=== PATIENT | female | born 1935 | race Caucasian/White ===

== ENCOUNTER → 2016-08-23 | Outpatient (CLI) | payer MEDICARE, OTHER ==
--- NOTE | 2016-08-23 16:02 | RADIOLOGY REPORT (SQ) ---
EXAM DESCRIPTION: CT LUMBAR SPINE WITHOUT COMPLETED DATE/TIME: 08/23/2016 9:44 am REASON FOR STUDY: BACK PAIN M54.5 LOW BACK PAIN COMPARISON: None. TECHNIQUE: Axial images acquired through the lumbar spine without intravenous contrast. Images revi ewed with lung, soft tissue and bone windows. Reconstructed coronal and sagittal MPR images reviewed . All images stored on PACS. All CT scanners at this facility use dose modulation, iterative reconstruction, and/or weight based d osing when appropriate to reduce radiation dose to as low as reasonably achievable (ALARA). [facility]: Dose Right [facility]: CareDose [facility]: Dose Right [facility]: Teradose 4D [facility]: [employer] RADIATION DOSE: Up-to-date CT equipment and radiation dose reduction techniques were employed. CTDIv ol: 4.7 mGy. DLP: 134 mGy-cm. mGy. LIMITATIONS: None. FINDINGS: SEGMENTATION: Normal. No transitional anatomy. ALIGNMENT: Normal. VERTEBRAL BODIES: No fractures. No dislocation. Prominent Schmorl's nodes involving the superior en dplate of the L3 vertebral body. No acute findings. DISCS: Disc space narrowing with osteophytes throughout. Marked disc space narrowing with vacuum rai nge and endplate sclerosis at L4-L5. Diffuse posterior disc bulge and facet arthropathy resulting in spinal stenosis at L2-L3, L3-L4, and L4-L5. PEDICLES, TRANSVERSE PROCESSES: No fractures. No dislocation. No acute findings. FACETS, POSTERIOR ELEMENTS: No fractures. No dislocation. Multilevel facet arthropathy. HARDWARE: None in the spine. VISUALIZED RIBS: No fractures. SOFT TISSUES: No significant or acute finding in adjacent soft tissues. OTHER: No other significant finding. IMPRESSION: MULTILEVEL CHRONIC DEGENERATIVE CHANGES WITH STENOSIS DESCRIBED. DEGENERATIVE DISC D ISEASE MOST PRONOUNCED AT L4-L5. TECHNICAL DOCUMENTATION: JOB ID: [id number] Quality ID # [id number]: Final reports with documentation of one or more dose reduction techniques (e.g., Au tomated exposure control, adjustment of the mA and/or kV according to patient size, use of iterative reconstruction technique) 2010 [employer]- All Rights Reserved
== END ==
LOC: RAD 09:19
PROVIDERS: ATTEND Family Medicine
DX: M54.5 Low back pain (principal)
CPT/HCPCS: 72131

== ENCOUNTER 2017-01-26 09:26 | Inpatient (IN) | payer MEDICARE, OTHER ==
[2017-01-26] MEDS ORDERED: IPRATROPIUM/ALBUTEROL 0.5-2.5 MG/3 ML AMPUL NEB ONE (09:42)
--- NOTE | 2017-01-26 09:44 | ER Document Report ---
ED Medical Screen (RME) - General Chief Complaint: Shortness Of Breath Stated Complaint: BACK PAIN Time Seen by Provider: 01/26/17 09:41 Notes: The patient is a 81-year-old female, past medical history chronic bronchitis, prior pneumonias that required ICU stays, chronic back pain (followed by [facility]), A fib (on Eliquiis), presents with 1 week of increasing shortness of breath and dry cough. PE: Mildly labored breathing. End-expiratory wheezing. Bradycardia. I have greeted and performed a rapid initial assessment of this patient. A comprehensive ED assessment and evaluation of the patient, analysis of test results and completion of the medical decision making process will be conducted by additional ED providers. TRAVEL OUTSIDE OF THE [place] IN LAST 30 DAYS: No - Related Data Allergies/Adverse Reactions: Penicillins Allergy (Severe, Verified 01/26/17 09:31) Respiratory arrest doxycycline [Doxycycline] Allergy (Intermediate, Verified 01/26/17 09:31) Jona-Tristin's Syndrome valsartan [From Diovan] Allergy (Intermediate, Verified 01/26/17 09:31) Rash levofloxacin [From Levaquin] Allergy (Verified 01/26/17 09:31) METAL Allergy (Severe, Uncoded 07/23/15 11:42) RASH Past Medical History - Past Medical History Cardiac Medical History: Reports: Hx Congestive Heart Failure, Hx Hypercholesterolemia, Hx Hypertension Pulmonary Medical History: Reports: Hx Bronchitis, Hx COPD, Hx Pneumonia Endocrine Medical History: Reports: Hx Hypothyroidism GI Medical History: Reports: Hx Gastroesophageal Reflux Disease, Hx Hiatal Hernia. Denies: Hx Hepatitis Musculoskeltal Medical History: Reports Hx Arthritis Infectious Medical History: Denies: Hx Hepatitis Past Surgical History: Reports: Hx Appendectomy, Hx Cholecystectomy, Hx Hysterectomy, Hx Oral Surgery. Denies: Hx Mastectomy, Hx Open Heart Surgery, Hx Pacemaker - Immunizations Hx Diphtheria, Pertussis, Tetanus Vaccination: No Physical Exam - Vital signs Vitals: Temp Pulse Resp BP Pulse Ox 97.5 F 42 L 20 119/48 L 94 01/26/17 09:28 01/26/17 09:28 01/26/17 09:28 01/26/17 09:28 01/26/17 09:28 Course - Vital Signs Vital signs: Temp Pulse Resp BP Pulse Ox 97.5 F 42 L 20 119/48 L 94 01/26/17 09:28 01/26/17 09:28 01/26/17 09:28 01/26/17 09:28 01/26/17 09:28
[2017-01-26] MEDS ORDERED: GLUCAGON,HUMAN RECOMB 1 MG INJ SUBCUT ONE (10:30)
[2017-01-26 10:35] LABS: HEMATOCRIT 46.5 % (36.0-47.0); HGB HCT DIFFERENCE 1.5; MEAN CORPUSCULAR HEMOGLOBIN 34.4 pg (27.0-33.4); MEAN CORPUSCULAR HGB CONC 34.4 g/dL (32.0-36.0); MEAN CORPUSCULAR VOLUME 100 fl (80-97); RED BLOOD COUNT 4.65 10^6/uL (3.72-5.28); RED CELL DISTRIBUTION WIDTH 14.2 % (11.5-14.0); VENOUS BLOOD BASE EXCESS -0.3 mmol/L; VENOUS BLOOD HCO3 24.6 mmol/L (20-32); VENOUS BLOOD PCO2 41.1 mmHg (35-63); VENOUS BLOOD PH 7.4 (7.30-7.42); WHITE BLOOD COUNT 5.5 10^3/uL (4.0-10.5)
[2017-01-26 10:52] LABS: BAND NEUTROPHILS % (MANUAL) 2 % (3-5); BASOPHILS % (MANUAL) 0 % (0-2); EOSINOPHILS % (MANUAL) 1 % (0-6); LYMPHOCYTES % (MANUAL) 28 % (13-45); TOTAL CELLS COUNTED 100
[2017-01-26 10:53] LABS: ANISOCYTOSIS SLIGHT; OVALOCYTES 1+; POIKILOCYTOSIS 1+
[2017-01-26 10:55] LABS: ALANINE AMINOTRANSFERASE 29 U/L (9-52); ALBUMIN 4.3 g/dL (3.5-5.0); ALKALINE PHOSPHATASE 46 U/L (38-126); ANION GAP 13 (5-19); ASPARTATE AMINO TRANSFERASE 27 U/L (14-36); BILIRUBIN,DIRECT 0.3 mg/dL (0.0-0.4); BILIRUBIN,TOTAL 0.6 mg/dL (0.2-1.3); BLOOD UREA NITROGEN 21 mg/dL (7-20); CALCIUM 10.2 mg/dL (8.4-10.2); CARBON DIOXIDE 23 mmol/L (22-30); CHLORIDE 98 mmol/L (98-107); CREATININE RESULT 0.82 mg/dL (0.52-1.25); GLUCOSE 80 mg/dL (75-110); POTASSIUM 4.6 mmol/L (3.6-5.0); SODIUM 134.2 mmol/L (137-145); TOTAL PROTEIN 7.1 g/dL (6.3-8.2)
[2017-01-26 10:58] LABS: CREATINE KINASE < 20 U/L (30-135)
--- NOTE | 2017-01-26 11:06 | RADIOLOGY REPORT (SQ) ---
EXAM DESCRIPTION: CHEST SINGLE VIEW COMPLETED DATE/TIME: 01/26/2017 10:48 am REASON FOR STUDY: SOB COMPARISON: 10/08/2015 EXAM PARAMETERS: NUMBER OF VIEWS: One view. TECHNIQUE: Single frontal radiographic view of the chest acquired. RADIATION DOSE: NA LIMITATIONS: None. FINDINGS: LUNGS AND PLEURA: The lungs are hyperexpanded. There is no infiltrate or effusion. There is no mass. MEDIASTINUM AND HILAR STRUCTURES: No masses. Contour normal. HEART AND VASCULAR STRUCTURES: Heart normal in size. Normal vasculature. BONES: No acute findings. HARDWARE: None in the chest. OTHER: No other significant finding. IMPRESSION: CHRONIC LUNG CHANGES WITH NO ACUTE CARDIOPULMONARY DISEASE. TECHNICAL DOCUMENTATION: JOB ID: [id number] [employer]- All Rights Reserved
[2017-01-26 11:07] LABS: TROPONIN I 0.021 ng/mL
[2017-01-26] MEDS ORDERED: METHYLPREDNISOLONE INJ 125 MG/2 ML SDV IV ONE (12:14)
[2017-01-26 13:14] LABS: APPEARANCE,URINE CLOUDY; BILIRUBIN,URINE NEGATIVE (NEGATIVE); GLUCOSE, URINE NEGATIVE (NEGATIVE); KETONES,URINE NEGATIVE (NEGATIVE); LEUKOCYTE ESTERASE,URINE SMALL (NEGATIVE); NITRITE,URINE POSITIVE (NEGATIVE); PROTEIN,URINE NEGATIVE (NEGATIVE); URINE SPECIFIC GRAVITY 1.008; UROBILINOGEN,URINE NEGATIVE mg/dL (<2.0)
[2017-01-26] MEDS ORDERED: CEFTRIAXONE 1 GM/D5W RTU 1 GM/50 ML RTUPB IV ONE (13:30)
--- NOTE | 2017-01-26 15:26 | ER Document Report ---
ED Respiratory Problem - General Chief Complaint: Shortness Of Breath Stated Complaint: BACK PAIN Time Seen by Provider: 01/26/17 09:41 Mode of Arrival: Wheelchair Information source: Patient, Relative Notes: Patient is a 81-year-old female brought into emergency room by her daughter with complaint of increasing shortness of breath with productive cough for the past week. Patient states that she believes she has pneumonia. 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 She states that her productive cough is mostly clear and thick at this time with occasional yellowish-green. Patient continues to smoke a pack per day of cigarettes states that she is decreased her note from her norm. She has a history of COPD she has a history of chronic back pain she has a history of atrial fibrillation. Patient goes to [facility] where she is receiving epidurals for her back pain she received one approximately last week and had a bad reaction to it were her blood pressure went low and they have trouble controlling it. Patient is currently on Eliquis for her atrial fibrillation patient denies having any fever but the daughter states that patient is not eating real well or she is not drinking fluids real well either. TRAVEL OUTSIDE OF THE [place] IN LAST 30 DAYS: No - HPI Patient complains to provider of: COPD, Cough, Short of breath Onset: Last week Initiating Event: Exertion Quality of pain: Sharp, Throbbing Severity: Moderate Pain Level: 3 Context: Hx CHF, Hx COPD Chest pain/discomfort: Constant Cough: Productive Sputum amount: Moderate Sputum color: Clear, Creamy Sputum consistency: Thick At home treatment: Bronchodilators, Inhaled steroids, Singulair Associated symptoms: None, Congestion, Cough, Extertional dyspnea, PND, Short of breath, Wheezing. denies: Ankle/leg swelling, Allergy/hay fever, Anxiety, Bloody cough, Chest pain/discomfort, Chills, Dental decay, Difficulty breathing , Earache, Facial pain, Fever, Headache, Heart racing, Hoarseness, Hurts to breathe, Hyperventilation, Jaw pain, Leg/calf/joint pain, Muscle spasms, Orthopnea, Runny nose, Sinus pain/pressure, Sore Throat, Sweaty, Tingling face, Tingling hands, Unable to swallow, Toothache, Other Worsened by: Any exertion Similar symptoms previously: Yes Recently seen / treated by doctor: Yes - Related Data Allergies/Adverse Reactions: Penicillins Allergy (Severe, Verified 01/26/17 09:31) Respiratory arrest doxycycline [Doxycycline] Allergy (Intermediate, Verified 01/26/17 09:31) Jona-Tristin's Syndrome valsartan [From Diovan] Allergy (Intermediate, Verified 01/26/17 09:31) Rash levofloxacin [From Levaquin] Allergy (Verified 01/26/17 09:31) METAL Allergy (Severe, Uncoded 07/23/15 11:42) RASH Home Medications: Current Home Medications Apixaban [Eliquis 5 mg Tablet] 1 tab PO DAILY 01/26/17 [History] Cholecalciferol (Vitamin D3) [Vitamin D3 1000 Unit Tablet] 1 tab PO DAILY [History] Diltiazem HCl [Diltiazem ER] 1 cap PO DAILY 01/26/17 [History] Esomeprazole Magnesium [Nexium] 1 cap PO DAILY 01/26/17 [History] Fenofibrate Nanocrystallized [Tricor 145 mg Tablet] 1 tab PO DAILY 01/26/17 [ History] Gabapentin 1 tab PO TID 01/26/17 [History] Hydralazine HCl 1 tab PO TID 01/26/17 [History] Levothyroxine Sodium 1 tab PO DAILY 01/26/17 [History] Metoprolol Tartrate 1 tab PO DAILY 01/26/17 [History] Past Medical History - Social History Smoking Status: Current Every Day Smoker Cigarette use (# per day): Yes - 1 pack per day Chew tobacco use (# tins/day): Yes - 30 Smoking Education Provided: Yes Frequency of alcohol use: None Drug Abuse: None 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 Denies: Hx Hepatitis Musculoskeltal Medical History: Reports Hx Arthritis Infectious Medical History: Denies: Hx Hepatitis Past Surgical History: Reports: Hx Appendectomy, Hx Cholecystectomy, Hx Hysterectomy, Hx Oral Surgery. Denies: Hx Mastectomy, Hx Open Heart Surgery, Hx Pacemaker - Immunizations Hx Diphtheria, Pertussis, Tetanus Vaccination: No Review of Systems - Review of Systems Constitutional: Malaise, Weakness EENT: Nose congestion, Sinus discharge Cardiovascular: No symptoms reported Respiratory: See HPI, Cough, Short of breath, Sputum, Wheezing Gastrointestinal: No symptoms reported Genitourinary: No symptoms reported Female Genitourinary: No symptoms reported Musculoskeletal: Back pain Skin: No symptoms reported Hematologic/Lymphatic: No symptoms reported Neurological/Psychological: No symptoms reported -: Yes All other systems reviewed and negative Physical Exam - Vital signs Vitals: Temp Pulse Resp BP Pulse Ox 97.5 F 42 L 20 119/48 L 94 01/26/17 09:28 01/26/17 09:28 01/26/17 09:28 01/26/17 09:28 01/26/17 09:28 Interpretation: Hypotensive, Bradycardic - Notes Notes: Patient appears short of breath on physical examination. While talking patient looking at the monitor patient's heart rate was down to 35, 34, 35 she was expressing more shortness of breath at this time. She denied any chest pain whatsoever states she has not had any chest pain all week and has an unusual event for her if she does. - General General appearance: Anxious In distress: Moderate - HEENT Head: Normocephalic, Atraumatic Sinus: Frontal, Tenderness Nasal: Clear rhinorrhea Mucous membranes: Dry Pharynx: Post nasal drainage. No: Normal, Blood in hypopharynx, Erythema, Exudate, Peritonsillar abscess, Retropharyngeal abscess, Tonsillar hypertrophy, Uvular edema, Potential airway comprom., Other Neck: Normal - Respiratory Respiratory status: No respiratory distress Chest status: Nontender Breath sounds: Decreased air movement, Productive cough, Rhonchi, Wheezing Chest palpation: Normal - Cardiovascular Rhythm: Bradycardia - Neurological Neuro grossly intact: Yes Cognition: Normal Orientation: AAOx4 [place] Coma Scale Eye Opening: Spontaneous [place] Coma Scale Verbal: Oriented [place] Coma Scale Motor: Obeys Commands [place] Coma Scale Total: 15 Speech: Normal Course - Vital Signs Vital signs: Temp Pulse Resp BP Pulse Ox 98.3 F 38 L 19 147/62 H 94 01/26/17 12:01 01/26/17 10:05 01/26/17 15:01 01/26/17 15:01 01/26/17 15:01 - Laboratory Result Diagrams: 01/26/17 10:10 01/26/17 10:10 Laboratory results interpreted by me: 01/26/17 01/26/17 01/26/17 10:10 10:10 10:10 Hgb 16.0 H MCV 100 H MCH 34.4 H RDW 14.2 H Band Neutrophils % 2 L Sodium 134.2 L BUN 21 H Creatine Kinase < 20 L NT-Pro-B Natriuret Pep 2290 H Urine Nitrite Ur Leukocyte Esterase 01/26/17 12:45 Hgb MCV MCH RDW Band Neutrophils % Sodium BUN Creatine Kinase NT-Pro-B Natriuret Pep Urine Nitrite POSITIVE H Ur Leukocyte Esterase SMALL H - Transfer of Care Notes: 01/26/17 15:33 I discussed case with Dr. Orta and she felt we should give contact to patient 's primary provider Dr. Reyes. This is around [address] Reyes gave him the story with the bradycardia running at 35 gave glucagon up in the mid to high 40s currently running in the low 50s and he had looked at the EKG that we had done earlier and patient he felt was in a heart block. He requested that I repeat the EKG and the troponin and contact the saw filer dimension mill worker which is Dr. Sellers. I did do this and discussed the case with Dr. Sellers he is on his way into the ER we will see her in approximately 15 minutes from the time of contact. Patient has been informed and is aware of what is going on she is resting comfortably. 01/26/17 16:11 Dr. Sellers cardiology came down to emergency room and reviewed patient's 3 EKGs and old 1 1 done on arrival at 35 bpm and one done approximately an hour ago that was up to 57/min and normal sinus rhythm. He feels that this was probably a beta blockade and please patient is safe to stay here in the hospital and he is already talked to Dr. Reyes. He will follow patient on an inpatient basis with Dr. Reyes. I have contacted Dr. Reyes again he has confirmed that we are admitting patient here to the hospital in the ICU he will be placing orders relatively soon. Patient is currently stable she is happy with the outcome of Dr. Sellers being here to make a decision. Discharge - Discharge Clinical Impression: COPD with acute exacerbation, Symptomatic bradycardia, Dehydration, Weakness, Tobacco abuse, Urinary tract infection Condition: Fair Disposition: ADMITTED INPATIENT Admitting Provider: Matt Unit Admitted: IMCU Referrals: JAYNE REYES MD [Primary Care Provider] - Follow up as needed
[2017-01-26] MEDS ORDERED: ACETAMINOPHEN 325 MG TABLET PO PRN (16:03)
[2017-01-26] MEDS ORDERED: ONDANSETRON HCL INJ/PF 4 MG/2 ML SDV IV PRN (16:03)
[2017-01-26 17:17] LABS: CREATINE KINASE MB 0.96 ng/mL (<4.55); TROPONIN I 0.017 ng/mL
[2017-01-26] MEDS ORDERED: HYDRALAZINE HCL 10 MG TABLET PO SCH (18:00)
[2017-01-26] MEDS ORDERED: GABAPENTIN 100 MG CAPSULE PO SCH (18:00)
--- NOTE | 2017-01-26 18:19 | RADIOLOGY REPORT (SQ) ---
EXAM DESCRIPTION: CT CHEST WITHOUT COMPLETED DATE/TIME: 01/26/2017 5:48 pm REASON FOR STUDY: sob COMPARISON: Chest x-ray dated 01/26/2017. Chest CT dated 09/15/2015. TECHNIQUE: CT scan performed of the chest without intravenous contrast. Images reviewed with lung, soft tissue and bone windows. Reconstructed coronal and sagittal MPR images reviewed. All images st ored on PACS. All CT scanners at this facility use dose modulation, iterative reconstruction, and/or weight based d osing when appropriate to reduce radiation dose to as low as reasonably achievable (ALARA). [facility]: Dose Right [facility]: CareDose [facility]: Dose Right [facility]: Teradose 4D [facility]: [employer] RADIATION DOSE: Up-to-date CT equipment and radiation dose reduction techniques were employed. CTDIv ol: 6.8 mGy. DLP: 276 mGy-cm. mGy. LIMITATIONS: No technical limitations. FINDINGS: LUNGS AND PLEURA: Emphysematous changes. Mild interstitial scarring. Indistinct nodule i n the right lower lobe, measuring 1.2 x 1.7 cm, with probable mixed solid and ground-glass components . Series 4, image 35. This has increased in size since the prior CT. Lungs otherwise clear. No pl eural effusion. HILAR AND MEDIASTINAL STRUCTURES: No identified masses or abnormal nodes. No obvious aneurysm. HEART AND VASCULAR STRUCTURES: No aneurysm. No pericardial effusion. UPPER ABDOMEN: Stable fatty lesions in the adrenal glands. No other significant findings. Limited e xam. THYROID AND OTHER SOFT TISSUES: No masses. No adenopathy. BONES: No significant finding. HARDWARE: None in the chest. OTHER: No other significant findings. IMPRESSION: 1. COPD. INDISTINCT NODULE IN THE RIGHT LOWER LOBE DESCRIBED. THIS IS SOMEWHAT CONCERNING FOR MA LIGNANT PROCESS ALTHOUGH INFECTION NOT ENTIRELY EXCLUDED. IF THERE IS SUSPICION OF INFECTION, RECOMM END REPEAT CT SCAN FOLLOWING TREATMENT TO DETERMINE IF THERE IS IMPROVEMENT. OTHERWISE WOULD CONSIDE R PET SCAN. NO OTHER ACUTE FINDINGS. 2. STABLE FATTY LESIONS IN THE ADRENAL GLANDS, WITH LITTLE CHANGE SINCE PRIOR STUDY IN AUGUST 2007. [place] [facility] ADENOMAS. TECHNICAL DOCUMENTATION: JOB ID: [id number] Quality ID # [id number]: Final reports with documentation of one or more dose reduction techniques (e.g., Au tomated exposure control, adjustment of the mA and/or kV according to patient size, use of iterative reconstruction technique) 2010 [employer]- All Rights Reserved
[2017-01-26] MEDS: LANSOPRAZOLE 15 MG TAB.RAP.DR PO SCH (19:03)
[2017-01-26] MEDS: DOCUSATE SODIUM 100 MG CAPSULE PO SCH (19:15)
[2017-01-26] MEDS ORDERED: LORAZEPAM INJ 2 MG/1 ML VIAL IV ONE (19:17)
--- NOTE | 2017-01-26 20:26 | PDOC CONSULTATION ---
Consultation Consult Date: 01/26/17 Attending physician:: JAYNE REYES Consult reason:: Shortness of breath and severe bradycardia History of Present Illness Admission Date/PCP: 01/26/17 16:15 JAYNE REYES MD Patient complains of: Shortness of breath and marked weakness History of Present Illness: FREDI WHALEN is a 81 year old female This is a 81-year-old female with a significant history of the COPD and a history of the congestive heart failure and chronic A. fib and hypertension's and a chronic smokerCame to the emergency department with a complaint of shortness of the breath and increasing more cough and congestion'sSince last several days Patients in the emergency departments with a heart rate was 35 and patient was asymptomatic except the shortness of the breathAnd patient was given 1 g of glucagon and patient's heart rates go up to 55-60And patient seen by the cardiology in the ER and look at the EKG and the patient and suggest to keep the patient here in the hospital and no need for any further pacemaker evaluations Patient's significant positive for UTI and COPD and patient was given IV Rocephin in the ER Patient's denied any chest pain denied any nausea no vomiting Patient's still continues to smoke Patient also see a vascular surgeon in [place] for the abdominal aortic aneurysm Patient also significant peripheral vascular disease Patient at this point also given IV Solu-Medrol in the ER and admitting in the IMCU for further evaluations for the COPD and bradycardia Patient recently have a blood pressure issue and increase the metoprolol and patient also on a Cardizem which may contribute patient's bradycardia currently hold the metoprolol. Patient was seen and examined in the emergency room. When patient was seen in the emergency room, she was sitting with legs dangling from the exam bed. She looked comfortable. Her heart rate was noted to be in the low 50s range. Patient was comfortable without any shortness of breath or dizziness. I did notice briefly patient go into atrial flutter fibrillation with heart rate jumping to in the 90s. But patient was also asymptomatic. I was asked to evaluate patient because of bradycardia on presentation. Patient claims that more recently because of high blood pressure, multiple medications were added including beta-blockers. Patient does have history of severe COPD. Past Medical History Cardiac Medical History: Reports: Atrial Fibrillation, Congestive Heart Failure , Hyperlipidema, Hypertension Pulmonary Medical History: Reports: Bronchitis, Chronic Obstructive Pulmonary Disease (COPD), Pneumonia Endocrine Medical History: Reports: Hypothyroidism GI Medical History: Reports: Gastroesophageal Reflux Disease, Hiatal Hernia Denies: Hepatitis Musculoskeltal Medical History: Reports: Arthritis Hematology: Denies: Anemia, Sickle Cell Disease Past Surgical History Past Surgical History: Reports: Appendectomy, Cholecystectomy, Hysterectomy Denies: Amputation, Mastectomy, Pacemaker Social History Information Source: Patient Lives with: Family Smoking Status: Current Every Day Smoker Frequency of Alcohol Use: Occasional Hx Recreational Drug Use: No Drugs: None Hx Prescription Drug Abuse: No - Advance Directive Resuscitation Status: Full Code Surrogate healthcare decision maker:: Patient's daughter Family History Family History: Arthritis, CAD, CVA, Hypertension, Malignancy Parental Family History Reviewed: Yes Children Family History Reviewed: Yes Sibling(s) Family History Reviewed.: Yes Medication/Allergy Home Medications: Apixaban [Eliquis 5 mg Tablet] 5 mg PO DAILY 01/26/17 Diltiazem HCl [Diltiazem ER] 120 mg PO DAILY 01/26/17 Ergocalciferol (Vitamin D2) [Vitamin D2] 50,000 unit PO MEADOWS@1000 01/26/17 Fenofibrate Nanocrystallized [Tricor 145 mg Tablet] 1 tab PO QHS 01/26/17 Fluticasone/Salmeterol [Advair 250-50 Diskus 14 Dose/Diskus] 1 puff IH Q12 01/26 Gabapentin 100 mg PO Q8 01/26/17 Hydralazine HCl 10 mg PO Q8 01/26/17 Levothyroxine Sodium 88 mcg PO Q6AM 01/26/17 Metoprolol Tartrate 1 tab PO DAILY 01/26/17 Montelukast Sodium [Singulair 10 mg Tablet] 10 mg PO DAILY 01/26/17 Omeprazole 40 mg PO DAILY 01/26/17 Tiotropium [place] [Spiriva Handihaler 5 Cap/Kit (18 Mcg/Cap)] 1 puff IH DAILY 01/26/17 Allergies/Adverse Reactions: Penicillins Allergy (Severe, Verified 01/26/17 09:31) Respiratory arrest doxycycline [Doxycycline] Allergy (Intermediate, Verified 01/26/17 09:31) Jona-Tristin's Syndrome valsartan [From Diovan] Allergy (Intermediate, Verified 01/26/17 09:31) Rash levofloxacin [From Levaquin] Allergy (Verified 01/26/17 09:31) METAL Allergy (Severe, Uncoded 07/23/15 11:42) RASH Review of Systems Review of Systems: Please see history of present illness and past medical history as wall. Constitutional: No fever or chills reported. Patient claims marked generalized weakness this morning. Head : No recent chronic headaches, recent head injury. Eyes: No recent eye pain, diplopia, redness, discharge, acute visual changes. Ears: No recent chronic ear pain, acute hearing loss, ear discharge. Oral cavity: No recent ulcerations, bleeding, oral cavity discomfort. Neck: No recent acute neck pain reported. Hematologic: No recent easy bruising or bleeding or hematologic malignancy reported. Lymphatic: No recent lymphatic malignancy, chronic lymphadenopathy reported yet Cardiovascular system review: See history of present illness. Respiratory system review: Describes cough and congestion but no history of hemoptysis, blood clots in the lungs reported. Mild Shortness of breath on exertion Gastrointestinal system review: Negative for any recent acute or chronic abdominal pain, hematemesis, melena, recent change in bowel habits. Genitourinary system review: No recent acute or chronic hematuria, flank pain, UTI etc. reported. Skin system review: Negative for any recent abnormal bruising, no rash, no pruritus reported. Neurologic: No prior history of strokes, mini strokes, seizure disorder. Psychologic: No history of major psychosis or major depression reported. Musculoskeletal: Minor aches and pains reported. No acute joint swelling reported. Endocrine: No recent polyuria, polydipsia, recent heat or cold intolerance. Physical Exam Vital Signs: Temp Pulse Resp BP Pulse Ox 97.5 F 38 L 16 135/75 H 94 01/26/17 16:01 01/26/17 10:05 01/26/17 19:01 01/26/17 19:01 01/26/17 19:01 Intake & Output 01/25/17 01/26/17 01/27/17 06:59 06:59 06:59 Intake Total 100 Balance 100 Exam: GENERAL: well-nourished and in no acute distress. Alert and oriented x3 HEAD: Atraumatic, normocephalic. EYES: Pupils equal round and reactive to light, extraocular movements intact, sclera anicteric, conjunctiva are normal. ENT: TMs normal, nares patent, oropharynx clear without exudates. Moist mucous membranes. No oral ulcerations or bleeding gums noted NECK: supple without lymphadenopathy. Trachea is central. No cervical or axillary lymphadenopathy noted. Carotids are 2+, JVD WNL LUNGS: Respiration seems nonlabored, no significant accessory muscle action noted. Breath sounds bilateral wheezes rales or rhonchi noted. No significant dullness noted on percussion. CHEST: Palpation of the chest wall shows no significant chest wall tenderness. No other significant abnormalities noted. HEART: [place] [employer], No PSH, 1/6 CRISTO aortic area, 1/6 schaeffer systolic murmur mitral area, no rubs, no gallops. ABDOMEN: Soft, no significant tenderness appreciated, normoactive bowel sounds. No guarding, no rebound. No rigidity noted . No masses appreciated. EXTREMITIES: Pedal pulses are 1-2+, no calf tenderness noted. No clubbing or cyanosis.trace pedal edema noted NEUROLOGICAL: Focused neurological exam showed no significant neurologic deficit. Normal speech, no focal weakness appreciated. PSYCH: Normal mood, normal affect. Judgment and insight within normal limits. SKIN: No significant ecchymosis, rash, ulcerations or signs of pruritus noted. MUSCULOSKELETAL EXAM: No significant joint swelling noted. Results Laboratory Results: 01/26/17 16:34 TSH 1.60 01/26/17 01/26/17 16:34 16:34 Creatine Kinase < 20 L CK-MB (CK-2) 0.96 Troponin I 0.017 NT-Pro-B Natriuret Pep 2090 H EKG Comments: Twelve-lead EKG is reviewed. It showed sinus bradycardia but no acute ST-T wave changes noted. Impressions: Chest CT 01/26/17 00:00 IMPRESSION: 1. COPD. INDISTINCT NODULE IN THE RIGHT LOWER LOBE DESCRIBED. THIS IS SOMEWHAT CONCERNING FOR MALIGNANT PROCESS ALTHOUGH INFECTION NOT ENTIRELY EXCLUDED. IF THERE IS SUSPICION OF INFECTION, RECOMMEND REPEAT CT SCAN FOLLOWING TREATMENT TO DETERMINE IF THERE IS IMPROVEMENT. OTHERWISE WOULD CONSIDER PET SCAN. NO OTHER ACUTE FINDINGS. 2. STABLE FATTY LESIONS IN THE ADRENAL GLANDS, WITH LITTLE CHANGE SINCE PRIOR STUDY IN AUGUST 2007. MOST LIKELY ADENOMAS. Chest X-Ray 01/26/17 09:41 IMPRESSION: CHRONIC LUNG CHANGES WITH NO ACUTE CARDIOPULMONARY DISEASE. Assessment & Plan - Diagnosis (1) COPD with acute exacerbation Is this a current diagnosis for this admission?: Yes (2) Congestive heart failure Qualifiers: Congestive heart failure type: diastolic Is this a current diagnosis for this admission?: Yes (3) Symptomatic bradycardia Is this a current diagnosis for this admission?: Yes (6) Atrial fibrillation Qualifiers: Atrial fibrillation type: paroxysmal Qualified Code(s): I48.0 - Paroxysmal atrial fibrillation Is this a current diagnosis for this admission?: Yes (8) Coronary artery disease Qualifiers: Coronary Disease-Associated Artery/Lesion type: [place] artery Associated angina: angina presence unspecified Is this a current diagnosis for this admission?: Yes (9) Abdominal aortic aneurysm Qualifiers: Presence of rupture: without rupture Qualified Code(s): I71.4 - Abdominal aortic aneurysm, without rupture Is this a current diagnosis for this admission?: Yes (10) PVD (peripheral vascular disease) Is this a current diagnosis for this admission?: Yes - Notes Notes: Severe bradycardia: Most likely due to combination of calcium channel mary and beta-mary use. Patient did response to glucagon confirms excess beta- mary use. At this point will recommend to hold Toprol-XL but beta-mary but reinstitute Cardizem therapy. Will obtain a 2D echo. If LV and RV functions are fine then Rythmol can be used. Severe COPD with exacerbation: CT scan review shows significance emphysematous changes. Patient has been advised to quit smoking. Tobacco abuse: Patient has been stopped advised to quit smoking. Generalized weakness: Most likely related to bradycardia and possible some ongoing infection. History of atrial tachyarrhythmia: Patient has history of atrial fibrillation and also multifocal atrial tachycardia. Multifocal atrial tachycardia will be pretty common in patients with severe COPD. Coronary artery disease: Patient noted to have significant coronary calcification. Cardiac enzymes so far negative. Abdominal aortic aneurysm: Recommend good control of blood pressure. May consider JOHN inhibitor and statin therapy. Peripheral vascular disease: Patient will benefit from stopping smoking. Currently no signs of active tissue ischemia. - Time Time Spent: 30 to 50 Minutes - CODE STATUS was discussed, patient remains full code. Surrogate decision-maker patient's daughter. Multiple medical problems were addressed. More than 50% of the time spent coordinating care, discussing management plans with involved caregivers. Management plans discussed with involved personnels. Medical decision making was of moderate to high complexity , patient's has multiple comorbidities. Medications reviewed and adjusted accordingly: Yes
[2017-01-26] MEDS: IPRATROPIUM/ALBUTEROL 0.5-2.5 MG/3 ML AMPUL NEB SCH (20:40)
[2017-01-26] MEDS: HYDRALAZINE HCL 10 MG TABLET PO SCH (21:54)
[2017-01-26] MEDS: ATORVASTATIN CALCIUM 10 MG TABLET PO SCH (21:54)
[2017-01-26] MEDS: GABAPENTIN 100 MG CAPSULE PO SCH (21:55)
[2017-01-26] MEDS: METHYLPREDNISOLONE INJ 40 MG/1 ML SDV IV SCH (21:55)
[2017-01-26] MEDS: CEFEPIME 1 GM/D5W RTU 1 GM/50 ML RTUPB IV SCH (22:28)
[2017-01-26] MEDS: APIXABAN 5 MG TABLET PO SCH (22:34)
[2017-01-26 23:05] LABS: CREATINE KINASE MB 1.02 ng/mL (<4.55); TROPONIN I 0.016 ng/mL
[2017-01-26] MEDS ORDERED: NICOTINE 14 MG/24 HR PATCH.TD24 TD ONE (23:15)
[2017-01-27 05:15] LABS: ABSOLUTE LYMPHOCYTES (AUTO) 0.7 10^3/uL (0.5-4.7); ABSOLUTE MONOCYTES (AUTO) 0.1 10^3/uL (0.1-1.4); BASOPHILS % (AUTO) 0.3 % (0-2); HEMATOCRIT 44.3 % (36.0-47.0); HEMOGLOBIN 15.3 g/dL (12.0-15.5); HGB HCT DIFFERENCE 1.6; LYMPHOCYTES % (AUTO) 18.9 % (13-45); MEAN CORPUSCULAR HEMOGLOBIN 34.8 pg (27.0-33.4); MEAN CORPUSCULAR HGB CONC 34.6 g/dL (32.0-36.0); MEAN CORPUSCULAR VOLUME 101 fl (80-97); MONOCYTES % (AUTO) 1.3 % (3-13); RED CELL DISTRIBUTION WIDTH 14.2 % (11.5-14.0); SEGMENTED NEUTROPHILS % (AUTO) 79.5 % (42-78); WHITE BLOOD COUNT 3.7 10^3/uL (4.0-10.5)
[2017-01-27] MEDS: GABAPENTIN 100 MG CAPSULE PO SCH ×3 (05:15→21:36)
[2017-01-27] MEDS: LANSOPRAZOLE 15 MG TAB.RAP.DR PO SCH ×2 (05:15→17:53)
[2017-01-27] MEDS: HYDRALAZINE HCL 10 MG TABLET PO SCH ×3 (05:15→21:36)
[2017-01-27] MEDS: METHYLPREDNISOLONE INJ 40 MG/1 ML SDV IV SCH (05:16)
[2017-01-27 05:42] LABS: ANION GAP 11 (5-19); BLOOD UREA NITROGEN 27 mg/dL (7-20); CALCIUM 9.3 mg/dL (8.4-10.2); CARBON DIOXIDE 21 mmol/L (22-30); CHLORIDE 100 mmol/L (98-107); CREATININE RESULT 0.69 mg/dL (0.52-1.25); GLUCOSE 121 mg/dL (75-110); MAGNESIUM 1.9 mg/dL (1.6-2.3); POTASSIUM 4.6 mmol/L (3.6-5.0); SODIUM 131.6 mmol/L (137-145)
[2017-01-27 05:47] LABS: CREATINE KINASE < 20 U/L (30-135); CREATINE KINASE MB 0.78 ng/mL (<4.55); TROPONIN I 0.017 ng/mL
[2017-01-27] MEDS: IPRATROPIUM/ALBUTEROL 0.5-2.5 MG/3 ML AMPUL NEB SCH ×3 (07:55→20:32)
--- NOTE | 2017-01-27 09:24 | EKG REPORT ---
SEVERITY:- ABNORMAL ECG - SINUS RHYTHM NONSPECIFIC T ABNORMALITIES, ANT-LAT LEADS : Confirmed by: Fei Sellers 27-Jan-2017 09:22:51
--- NOTE | 2017-01-27 09:24 | EKG REPORT ---
SEVERITY:- ABNORMAL ECG - SINUS RHYTHM NONSPECIFIC T ABNORMALITIES, ANT-LAT LEADS : Confirmed by: Fei Sellers 27-Jan-2017 09:22:56
--- NOTE | 2017-01-27 09:24 | EKG REPORT ---
SEVERITY:- ABNORMAL ECG - SINUS BRADYCARDIA NONSPECIFIC INTRAVENTRICULAR CONDUCTION DELAY MINIMAL ST DEPRESSION, ANTEROLATERAL LEADS : Confirmed by: Fei Sellers 27-Jan-2017 09:23:35
--- NOTE | 2017-01-27 09:53 | XCELERA REPORT ---
[address] [address] Transthoracic Echocardiogram Report Name: FREDI WHALEN Age: 81 yrs Gender: Female : 1935 Patient Status: Inpatient Patient Location: [address] [place] [address] Study Date: 01/27/2017 08:53 AM Height: 69 in Weight: 110 lb BSA: 1.6 m2 Procedure: A complete two-dimensional transthoracic echocardiogram was performed (2D, M-mode, spectral and color flow Doppler). The study was technically difficult with many images being suboptimal in quality. Reason For Study: CHF, MR Ordering Physician: FEI GALEANA Performed By: Katia Gallardo Interpretation Summary The study was technically difficult with many images being suboptimal in quality. The left ventricular ejection fraction is normal. There is borderline concentric left ventricular hypertrophy. The left ventricle is grossly normal size. Doppler measurements suggest pseudonormalized left ventricular relaxation, which is associated with grade II/IV or mild to moderate diastolic dysfunction Wall motion cannot be accurately commented on, but no definite regional wall motion abnormalities noted. The right ventricle is mildly dilated. The right ventricular systolic function is normal. The right atrium is mildly dilated. The left atrial size is normal. There is a trace to mild amount of mitral regurgitation There is no mitral valve stenosis. There is a trace to mild amount of aortic regurgitation There is no aortic valve stenosis There is a trace to mild amount of tricuspid regurgitation There is mild pulmonary hypertension by echo Right ventricular systolic pressure is estimated to be elevated at 30- 40mmHg. The aortic root is not well visualized. The inferior vena cava appeared normal and decreased > 50% with respiration (RAP 5-10 mmHg) There is no pericardial effusion. MMode/2D Measurements & Calculations RVDd: 2.4 cm LVIDd: 4.5 cm FS: 24.0 % Ao root diam: 3.5 cm IVSd: 1.1 cm LVIDs: 3.4 cm EDV(Teich): 93.9 ml LVPWd: 1.1 cm ESV(Teich): 48.9 ml Ao root area: 9.4 cm2 EF(Teich): 47.9 % LA dimension: 3.0 cm LVOT diam: 2.1 cm LVOT area: 3.4 cm2 Doppler Measurements & Calculations MV E max lidia: MV P1/2t max lidia: Ao V2 max: LV V1 max P.3 cm/sec 92.8 cm/sec 147.4 cm/sec 5.6 mmHg MV A max lidia: MV P1/2t: 56.8 msec Ao max PG: LV V1 max: 91.3 cm/sec MVA(P1/2t): 3.9 cm2 8.7 mmHg 118.5 cm/sec MV E/A: 1.0 MV dec slope: JYOTHI(V,D): 2.7 cm2 478.1 cm/sec2 PA V2 max: TR max lidia: 64.2 cm/sec 272.6 cm/sec PA max PG: TR max P.7 mmHg 1.6 mmHg Left Ventricle The left ventricle is grossly normal size. There is borderline concentric left ventricular hypertrophy. The left ventricular ejection fraction is normal. Doppler measurements suggest pseudonormalized left ventricular relaxation, which is associated with grade II/IV or mild to moderate diastolic dysfunction. Wall motion cannot be accurately commented on, but no definite regional wall motion abnormalities noted. Right Ventricle The right ventricle is mildly dilated. There is normal right ventricular wall thickness. The right ventricular systolic function is normal. Atria The right atrium is mildly dilated. The left atrial size is normal. Interarterial septum not well visualized and not well dopplered. Cannot comment on ASD/PFO presence. Mitral Valve The mitral valve is grossly normal. There is no mitral valve stenosis. There is a trace to mild amount of mitral regurgitation. Aortic Valve The aortic valve is grossly normal. There is no aortic valve stenosis. There is a trace to mild amount of aortic regurgitation. Tricuspid Valve The tricuspid valve is not well visualized secondary to technical limitations. There is no tricuspid stenosis. There is a trace to mild amount of tricuspid regurgitation. There is mild pulmonary hypertension by echo. Right ventricular systolic pressure is estimated to be elevated at 30-40mmHg. Pulmonic Valve The pulmonic valve is not well visualized. Great Vessels The aortic root is not well visualized. The inferior vena cava appeared normal and decreased > 50% with respiration (RAP 5-10 mmHg). Effusions There is no pericardial effusion. : FEI GALEANA > Fei Galeana
--- NOTE | 2017-01-27 09:59 | PDOC PROGRESS REPORT ---
Subjective Progress Note for:: 01/27/17 Subjective:: Patient is currently doing well An echocardiogram was done yesterday with some mild diastolic dysfunctions but otherwise all stable Heart rate is pretty much all currently stable Patient's denied any chest pain denied any shortness of the breath patient's desires to want to go homes CT scan of the chest was done with so some pulmonary nodules Physical Exam Vital Signs: Temp Pulse Resp BP Pulse Ox 98.0 F 59 L 18 160/79 H 96 01/27/17 07:49 01/27/17 07:56 01/27/17 07:56 01/27/17 07:49 01/27/17 07:56 Intake & Output 01/26/17 01/27/17 01/28/17 06:59 06:59 06:59 Intake Total 150 Balance 150 Weight 50.5 kg General appearance: PRESENT: no acute distress, well-developed, well-nourished Head exam: PRESENT: atraumatic, normocephalic Eye exam: PRESENT: conjunctiva pink, EOMI, PERRLA. ABSENT: scleral icterus Ear exam: PRESENT: normal external ear exam Mouth exam: PRESENT: moist, tongue midline Neck exam: PRESENT: full ROM. ABSENT: carotid bruit, JVD, lymphadenopathy, thyromegaly Respiratory exam: PRESENT: clear to auscultation eliel Cardiovascular exam: PRESENT: RRR. ABSENT: diastolic murmur, rubs, systolic murmur Pulses: PRESENT: normal dorsalis pedis pul, +2 pedal pulses bilateral Vascular exam: PRESENT: normal capillary refill GI/Abdominal exam: PRESENT: normal bowel sounds, soft. ABSENT: distended, guarding, mass, organolmegaly, rebound, tenderness Rectal exam: PRESENT: deferred Extremities exam: ABSENT: full ROM, left AKA, right AKA, left BKA, right BKA, calf tenderness, joint swelling, pedal edema, tenderness, other Musculoskeletal exam: PRESENT: ambulatory Neurological exam: PRESENT: alert, awake, oriented to person, oriented to place , oriented to time, oriented to situation, CN II-XII grossly intact. ABSENT: motor sensory deficit Psychiatric exam: PRESENT: appropriate affect, normal mood. ABSENT: homicidal ideation, suicidal ideation Skin exam: PRESENT: dry, intact, warm. ABSENT: cyanosis, rash Results Laboratory Results: 01/27/17 04:12 01/27/17 04:12 01/26/17 01/26/17 01/27/17 16:34 22:15 04:12 WBC RBC Hgb Hct MCV MCH MCHC RDW Plt Count Seg Neutrophils % Lymphocytes % Monocytes % Eosinophils % Basophils % Absolute Neutrophils Absolute Lymphocytes Absolute Monocytes Absolute Eosinophils Absolute Basophils Sodium 131.6 L Potassium 4.6 Chloride 100 Carbon Dioxide 21 L Anion Gap 11 BUN 27 H Creatinine 0.69 Est GFR ( Amer) > 60 Est GFR (Non-Af Amer) > 60 Glucose 121 H Calcium 9.3 Magnesium 1.9 1.9 TSH 1.60 01/27/17 04:12 WBC 3.7 L RBC 4.40 Hgb 15.3 Hct 44.3 MCV 101 H MCH 34.8 H MCHC 34.6 RDW 14.2 H Plt Count 222 Seg Neutrophils % 79.5 H Lymphocytes % 18.9 Monocytes % 1.3 L Eosinophils % 0.0 Basophils % 0.3 Absolute Neutrophils 3.0 Absolute Lymphocytes 0.7 Absolute Monocytes 0.1 Absolute Eosinophils 0.0 Absolute Basophils 0.0 Sodium Potassium Chloride Carbon Dioxide Anion Gap BUN Creatinine Est GFR ( Amer) Est GFR (Non-Af Amer) Glucose Calcium Magnesium TSH 01/26/17 01/26/17 01/26/17 16:34 16:34 22:15 Creatine Kinase < 20 L < 20 L CK-MB (CK-2) 0.96 Troponin I 0.017 NT-Pro-B Natriuret Pep 2090 H 01/26/17 01/27/17 01/27/17 22:15 04:12 04:12 Creatine Kinase < 20 L CK-MB (CK-2) 1.02 0.78 Troponin I 0.016 0.017 NT-Pro-B Natriuret Pep Impressions: Chest CT 01/26/17 00:00 IMPRESSION: 1. COPD. INDISTINCT NODULE IN THE RIGHT LOWER LOBE DESCRIBED. THIS IS SOMEWHAT CONCERNING FOR MALIGNANT PROCESS ALTHOUGH INFECTION NOT ENTIRELY EXCLUDED. IF THERE IS SUSPICION OF INFECTION, RECOMMEND REPEAT CT SCAN FOLLOWING TREATMENT TO DETERMINE IF THERE IS IMPROVEMENT. OTHERWISE WOULD CONSIDER PET SCAN. NO OTHER ACUTE FINDINGS. 2. STABLE FATTY LESIONS IN THE ADRENAL GLANDS, WITH LITTLE CHANGE SINCE PRIOR STUDY IN AUGUST 2007. MOST LIKELY ADENOMAS. Chest X-Ray 01/26/17 09:41 IMPRESSION: CHRONIC LUNG CHANGES WITH NO ACUTE CARDIOPULMONARY DISEASE. Assessment & Plan - Diagnosis (1) COPD with acute exacerbation Is this a current diagnosis for this admission?: Yes Plan: Currently all improving will cut down the IV to the p.o. steroid (2) Symptomatic bradycardia Is this a current diagnosis for this admission?: Yes Plan: Most likely due to the beta-mary currently DC the metoprolol and patients currently all stable (3) Urinary tract infection Qualifiers: Urinary tract infection type: site unspecified Is this a current diagnosis for this admission?: Yes Plan: [place] IV antibiotic and wait for culture and sensitivity (4) Atrial fibrillation Qualifiers: Atrial fibrillation type: paroxysmal Is this a current diagnosis for this admission?: Yes Plan: Is currently on Eliquis and Dr. Sellers will probably start the Cardizem's on dischargeAnd discontinues the metoprolol (5) PVD (peripheral vascular disease) Is this a current diagnosis for this admission?: Yes Plan: Currently all stable patient's follow with the vascular surgeon (6) Congestive heart failure Qualifiers: Congestive heart failure type: diastolic Is this a current diagnosis for this admission?: Yes Plan: Mild diastolic dysfunctions on the echocardiogram currently doing well (7) Abdominal aortic aneurysm Qualifiers: Presence of rupture: without rupture Qualified Code(s): I71.4 - Abdominal aortic aneurysm, without rupture Is this a current diagnosis for this admission?: Yes Plan: Patient usually follows with the vascular surgeon And currently stable (8) Pulmonary nodule Is this a current diagnosis for this admission?: Yes Plan: Follow with Dr. OlguinOutpatient path scans require - Time Time Spent with patient: 15-24 minutes Medications reviewed and adjusted accordingly: Yes Anticipated discharge: Home Within: within 24 hours - Inpatient Certification Medical Necessity: Need Close Monitoring Due to Risk of Patient Decompensation, Need for IV Antibiotics Post Hospital Care: D/C Extension Course Counselor Documentation - Plan Summary Plan Summary: Plan to DC Jeanette when the all the culture and sensitivity back from urinary tract infections and I think patients currently stable will wait for next 24 hours and the heart rate remained stable's and a urine cultures back with sensitivity patients can be discharged with the p.o. antibiotic and DC the beta- mary and a follow Monday with the Dr. Sellers in my office
[2017-01-27] MEDS: LEVOTHYROXINE SODIUM 0.088 MG TABLET PO SCH (10:00)
[2017-01-27] MEDS: DOCUSATE SODIUM 100 MG CAPSULE PO SCH ×2 (10:01→17:54)
[2017-01-27] MEDS: CHOLECALCIFEROL (D3) 1,000 UNIT TABLET PO SCH (10:01)
[2017-01-27] MEDS: CEFEPIME 1 GM/D5W RTU 1 GM/50 ML RTUPB IV SCH ×2 (10:01→21:37)
[2017-01-27] MEDS: APIXABAN 5 MG TABLET PO SCH ×2 (10:02→17:53)
[2017-01-27] MEDS: NICOTINE 14 MG/24 HR PATCH.TD24 TD SCH (11:48)
[2017-01-27] MEDS: DILTIAZEM HCL 120 MG CAP.SR.24H PO SCH (11:49)
--- NOTE | 2017-01-27 12:50 | PDOC H&P ---
History of Present Illness Admission Date/PCP: JAYNE REYES MD Patient complains of: Shortness of the breath History of Present Illness: FREDI WHALEN is a 81 year old female This is a 81-year-old female with a significant history of the COPD and a history of the congestive heart failure and chronic A. fib and hypertension's and a chronic smokerCame to the emergency department with a complaint of shortness of the breath and increasing more cough and congestion'sSince last several days Patients in the emergency departments with a heart rate was 35 and patient was asymptomatic except the shortness of the breathAnd patient was given 1 g of glucagon and patient's heart rates go up to 55-60And patient seen by the cardiology in the ER and look at the EKG and the patient and suggest to keep the patient here in the hospital and no need for any further pacemaker evaluations Patient's significant positive for UTI and COPD and patient was given IV Rocephin in the ER Patient's denied any chest pain denied any nausea no vomiting Patient's still continues to smoke Patient also see a vascular surgeon in [place] for the abdominal aortic aneurysm Patient also significant peripheral vascular disease Patient at this point also given IV Solu-Medrol in the ER and admitting in the IMCU for further evaluations for the COPD and bradycardia Patient recently have a blood pressure issue and increase the metoprolol and patient also on a Cardizem which may contribute patient's bradycardia currently hold the metoprolol Past Medical History Cardiac Medical History: Reports: Atrial Fibrillation, Congestive Heart Failure , Hyperlipidema, Hypertension Pulmonary Medical History: Reports: Bronchitis, Chronic Obstructive Pulmonary Disease (COPD), Pneumonia Endocrine Medical History: Reports: Hypothyroidism GI Medical History: Reports: Gastroesophageal Reflux Disease, Hiatal Hernia Denies: Hepatitis Musculoskeltal Medical History: Reports: Arthritis Hematology: Denies: Anemia, Sickle Cell Disease Past Surgical History Past Surgical History: Reports: Appendectomy, Cholecystectomy, Hysterectomy Denies: Amputation, Mastectomy, Pacemaker Social History Lives with: Family Smoking Status: Current Every Day Smoker Frequency of Alcohol Use: Occasional Hx Recreational Drug Use: No Drugs: None Hx Prescription Drug Abuse: No Family History Family History: Arthritis, CAD, CVA, Hypertension, Malignancy Parental Family History Reviewed: Yes Children Family History Reviewed: Yes Sibling(s) Family History Reviewed.: Yes Medication/Allergy Home Medications: Apixaban [Eliquis 5 mg Tablet] 1 tab PO DAILY 01/26/17 Cholecalciferol (Vitamin D3) [Vitamin D3 1000 Unit Tablet] 1 tab PO DAILY Diltiazem HCl [Diltiazem ER] 1 cap PO DAILY 01/26/17 Esomeprazole Magnesium [Nexium] 1 cap PO DAILY 01/26/17 Fenofibrate Nanocrystallized [Tricor 145 mg Tablet] 1 tab PO DAILY 01/26/17 Gabapentin 1 tab PO TID 01/26/17 Hydralazine HCl 1 tab PO TID 01/26/17 Levothyroxine Sodium 1 tab PO DAILY 01/26/17 Metoprolol Tartrate 1 tab PO DAILY 01/26/17 Allergies/Adverse Reactions: Penicillins Allergy (Severe, Verified 01/26/17 09:31) Respiratory arrest doxycycline [Doxycycline] Allergy (Intermediate, Verified 01/26/17 09:31) Jona-Tristin's Syndrome valsartan [From Diovan] Allergy (Intermediate, Verified 01/26/17 09:31) Rash levofloxacin [From Levaquin] Allergy (Verified 01/26/17 09:31) METAL Allergy (Severe, Uncoded 07/23/15 11:42) RASH Review of Systems Constitutional: PRESENT: fatigue. ABSENT: chills, fever(s), headache(s), weight gain, weight loss Eyes: ABSENT: visual disturbances Ears: ABSENT: hearing changes Cardiovascular: PRESENT: dyspnea on exertion. ABSENT: chest pain, edema, orthropnea, palpitations Respiratory: PRESENT: cough, dyspnea. ABSENT: hemoptysis Gastrointestinal: ABSENT: abdominal pain, constipation, diarrhea, hematemesis, hematochezia, nausea, vomiting Genitourinary: ABSENT: dysuria, hematuria Musculoskeletal: ABSENT: joint swelling Integumentary: ABSENT: rash, wounds Neurological: ABSENT: abnormal gait, abnormal speech, confusion, dizziness, focal weakness, syncope Psychiatric: ABSENT: anxiety, depression, homidical ideation, suicidal ideation Endocrine: ABSENT: cold intolerance, heat intolerance, menstrual abnormalities, polydipsia, polyuria Hematologic/Lymphatic: ABSENT: easy bleeding, easy bruising, lymphadenopathy Physical Exam Vital Signs: Temp Pulse Resp BP Pulse Ox 98.3 F 38 L 19 147/62 H 94 01/26/17 12:01 01/26/17 10:05 01/26/17 15:01 01/26/17 15:01 01/26/17 15:01 Intake & Output 01/25/17 01/26/17 01/27/17 06:59 06:59 06:59 Weight 49.9 kg General appearance: PRESENT: no acute distress, well-developed, well-nourished Head exam: PRESENT: atraumatic, normocephalic Eye exam: PRESENT: conjunctiva pink, EOMI, PERRLA. ABSENT: scleral icterus Ear exam: PRESENT: normal external ear exam Mouth exam: PRESENT: moist, tongue midline Neck exam: PRESENT: full ROM. ABSENT: carotid bruit, JVD, lymphadenopathy, thyromegaly Respiratory exam: PRESENT: decreased breath sounds, wheezes Cardiovascular exam: PRESENT: RRR. ABSENT: diastolic murmur, rubs, systolic murmur Pulses: PRESENT: normal dorsalis pedis pul, +2 pedal pulses bilateral Vascular exam: PRESENT: normal capillary refill GI/Abdominal exam: PRESENT: normal bowel sounds, soft. ABSENT: distended, guarding, mass, organolmegaly, rebound, tenderness Rectal exam: PRESENT: deferred Extremities exam: ABSENT: full ROM, left AKA, right AKA, left BKA, right BKA, calf tenderness, joint swelling, pedal edema, tenderness, other Musculoskeletal exam: PRESENT: ambulatory Neurological exam: PRESENT: alert, awake, oriented to person, oriented to place , oriented to time, oriented to situation, CN II-XII grossly intact. ABSENT: motor sensory deficit Psychiatric exam: PRESENT: appropriate affect, normal mood. ABSENT: homicidal ideation, suicidal ideation Skin exam: PRESENT: dry, intact, warm. ABSENT: cyanosis, rash Results Laboratory Results: 01/26/17 10:10 01/26/17 10:10 01/26/17 01/26/17 01/26/17 10:10 10:10 10:10 WBC 5.5 RBC 4.65 Hgb 16.0 H Hct 46.5 MCV 100 H MCH 34.4 H MCHC 34.4 RDW 14.2 H Plt Count 257 Seg Neutrophils % Not Reportable Lymphocytes % Not Reportable Monocytes % Not Reportable Eosinophils % Not Reportable Basophils % Not Reportable Absolute Neutrophils Not Reportable Absolute Lymphocytes Not Reportable Absolute Monocytes Not Reportable Absolute Eosinophils Not Reportable Absolute Basophils Not Reportable VBG pH 7.40 VBG pCO2 41.1 VBG HCO3 24.6 VBG Base Excess -0.3 Sodium 134.2 L Potassium 4.6 Chloride 98 Carbon Dioxide 23 Anion Gap 13 BUN 21 H Creatinine 0.82 Est GFR ( Amer) > 60 Est GFR (Non-Af Amer) > 60 Glucose 80 Calcium 10.2 Total Bilirubin 0.6 AST 27 ALT 29 Alkaline Phosphatase 46 Total Protein 7.1 Albumin 4.3 Urine Color Urine Appearance Urine pH Ur Specific [place] Urine Protein Urine Glucose (UA) Urine Ketones Urine Blood Urine Nitrite Ur Leukocyte Esterase Urine WBC (Auto) Urine RBC (Auto) 01/26/17 12:45 WBC RBC Hgb Hct MCV MCH MCHC RDW Plt Count Seg Neutrophils % Lymphocytes % Monocytes % Eosinophils % Basophils % Absolute Neutrophils Absolute Lymphocytes Absolute Monocytes Absolute Eosinophils Absolute Basophils VBG pH VBG pCO2 VBG HCO3 VBG Base Excess Sodium Potassium Chloride Carbon Dioxide Anion Gap BUN Creatinine Est GFR ( Amer) Est GFR (Non-Af Amer) Glucose Calcium Total Bilirubin AST ALT Alkaline Phosphatase Total Protein Albumin Urine Color YELLOW Urine Appearance CLOUDY Urine pH 7.0 Ur Specific [place] 1.008 Urine Protein NEGATIVE Urine Glucose (UA) NEGATIVE Urine Ketones NEGATIVE Urine Blood NEGATIVE Urine Nitrite POSITIVE H Ur Leukocyte Esterase SMALL H Urine WBC (Auto) 16 Urine RBC (Auto) 6 01/26/17 01/26/17 01/26/17 10:10 10:10 14:23 Creatine Kinase < 20 L Troponin I 0.021 0.021 NT-Pro-B Natriuret Pep 2290 H Impressions: Chest X-Ray 01/26/17 09:41 IMPRESSION: CHRONIC LUNG CHANGES WITH NO ACUTE CARDIOPULMONARY DISEASE. Assessment & Plan - Diagnosis (1) COPD with acute exacerbation Is this a current diagnosis for this admission?: Yes Plan: Will start the patient on IV Solu-Medrol and nebulizer treatments and IV antibiotics for possible underlying pneumonia and order the CT of the chest (2) Symptomatic bradycardia Is this a current diagnosis for this admission?: Yes Plan: Currently patient heart rate in the running 60 and denied any symptoms most likely a from beta-mary currently hold the beta-mary and hold the Cardizem and discussed with the personnel consultant and follow with him we will check the TSH and free T4 (3) Urinary tract infection Qualifiers: Urinary tract infection type: site unspecified Is this a current diagnosis for this admission?: Yes Plan: Start the patient on IV cefepime and send the urine for the culture (4) Atrial fibrillation Qualifiers: Atrial fibrillation type: paroxysmal Is this a current diagnosis for this admission?: Yes Plan: Currently in a sinus rhythms patient's currently on Eliquis (5) PVD (peripheral vascular disease) Is this a current diagnosis for this admission?: Yes Plan: Currently all stable patient's follow with the vascular surgeon (6) Congestive heart failure Qualifiers: Congestive heart failure type: diastolic Is this a current diagnosis for this admission?: Yes Plan: Currently stable according to the personnel consultant no sign of any acute heart failure scheduled echocardiogram (7) Abdominal aortic aneurysm Qualifiers: Presence of rupture: without rupture Qualified Code(s): I71.4 - Abdominal aortic aneurysm, without rupture Is this a current diagnosis for this admission?: Yes Plan: Patient usually follows with the vascular surgeon And currently stable - Time Time Spent: 30 to 50 Minutes Medications reviewed and adjusted accordingly: Yes Anticipated discharge: Home Within: Other - Inpatient Certification Medical Necessity: Significant Comorbidiites Make Outpatient Treatment Too Risky , Need for IV Antibiotics Post Hospital Care: D/C Coordinator Cardiopulmonary Services Documentation - Plan Summary Plan Summary: Admit the patient in IMCU consulted cardiology and discussed with the patient and the family about the patient's current conditions see other MD orders
--- NOTE | 2017-01-27 12:51 | PDOC PROGRESS REPORT ---
Subjective Progress Note for:: 01/27/17 Subjective:: Patient seems to be doing better with gradual improvement. Pt is denying any chest arm or neck discomfort. Patient denying any PND, orthopnea. Patient denied any sustained palpitations, dizziness, syncope, near syncope. Patient denying any fever chills. Patient denying any other significant discomfort. Patient is maintaining sinus rhythm. Yesterday in the ER, patient had transient atrial fibrillation. Review of systems: Rest review of systems negative. Medications: Medications have been reviewed. Physical Exam Vital Signs: Temp Pulse Resp BP Pulse Ox 98.0 F 59 L 18 160/79 H 96 01/27/17 07:49 01/27/17 07:56 01/27/17 07:56 01/27/17 07:49 01/27/17 07:56 Intake & Output 01/26/17 01/27/17 01/28/17 06:59 06:59 06:59 Intake Total 150 Balance 150 Weight 50.5 kg Exam: GENERAL: well-nourished and in no acute distress. Alert and oriented x3 HEAD: Atraumatic, normocephalic. EYES: Pupils equal round and reactive to light, extraocular movements intact, sclera anicteric, conjunctiva are normal. ENT: TMs normal, nares patent, oropharynx clear without exudates. Moist mucous membranes. No oral ulcerations or bleeding gums noted NECK: supple without lymphadenopathy. Trachea is central. No cervical or axillary lymphadenopathy noted. Carotids are 2+, JVD WNL LUNGS: Respiration seems nonlabored, no significant accessory muscle action noted. Bilateral mild wheezes rales or rhonchi noted. No significant dullness noted on percussion. CHEST: Palpation of the chest wall shows no significant chest wall tenderness. No other significant abnormalities noted. HEART: [place] [employer] LAUNDRY, No PSH, 1/6 CRISTO aortic area, 1/6 schaeffer systolic murmur mitral area, no rubs, no gallops. ABDOMEN: Soft, no significant tenderness appreciated, normoactive bowel sounds. No guarding, no rebound. No rigidity noted . No masses appreciated. EXTREMITIES: Pedal pulses are 1-2+, no calf tenderness noted. No clubbing or cyanosis.trace to 1+ pedal edema noted NEUROLOGICAL: Focused neurological exam showed no significant neurologic deficit. Normal speech, no focal weakness appreciated. PSYCH: Normal mood, normal affect. Judgment and insight within normal limits. SKIN: No significant ecchymosis, rash, ulcerations or signs of pruritus noted. MUSCULOSKELETAL EXAM: No significant joint swelling noted. Results Laboratory Results: 01/27/17 04:12 01/27/17 04:12 01/26/17 01/26/17 01/27/17 16:34 22:15 04:12 WBC RBC Hgb Hct MCV MCH MCHC RDW Plt Count Seg Neutrophils % Lymphocytes % Monocytes % Eosinophils % Basophils % Absolute Neutrophils Absolute Lymphocytes Absolute Monocytes Absolute Eosinophils Absolute Basophils Sodium 131.6 L Potassium 4.6 Chloride 100 Carbon Dioxide 21 L Anion Gap 11 BUN 27 H Creatinine 0.69 Est GFR ( Amer) > 60 Est GFR (Non-Af Amer) > 60 Glucose 121 H Calcium 9.3 Magnesium 1.9 1.9 TSH 1.60 01/27/17 04:12 WBC 3.7 L RBC 4.40 Hgb 15.3 Hct 44.3 MCV 101 H MCH 34.8 H MCHC 34.6 RDW 14.2 H Plt Count 222 Seg Neutrophils % 79.5 H Lymphocytes % 18.9 Monocytes % 1.3 L Eosinophils % 0.0 Basophils % 0.3 Absolute Neutrophils 3.0 Absolute Lymphocytes 0.7 Absolute Monocytes 0.1 Absolute Eosinophils 0.0 Absolute Basophils 0.0 Sodium Potassium Chloride Carbon Dioxide Anion Gap BUN Creatinine Est GFR ( Amer) Est GFR (Non-Af Amer) Glucose Calcium Magnesium TSH 01/26/17 01/26/17 01/26/17 16:34 16:34 22:15 Creatine Kinase < 20 L < 20 L CK-MB (CK-2) 0.96 Troponin I 0.017 NT-Pro-B Natriuret Pep 2090 H 01/26/17 01/27/17 01/27/17 22:15 04:12 04:12 Creatine Kinase < 20 L CK-MB (CK-2) 1.02 0.78 Troponin I 0.016 0.017 NT-Pro-B Natriuret Pep EKG Comments: Telemetry strips reviewed. It showed patient maintaining sinus rhythm. Impressions: Chest CT 01/26/17 00:00 IMPRESSION: 1. COPD. INDISTINCT NODULE IN THE RIGHT LOWER LOBE DESCRIBED. THIS IS SOMEWHAT CONCERNING FOR MALIGNANT PROCESS ALTHOUGH INFECTION NOT ENTIRELY EXCLUDED. IF THERE IS SUSPICION OF INFECTION, RECOMMEND REPEAT CT SCAN FOLLOWING TREATMENT TO DETERMINE IF THERE IS IMPROVEMENT. OTHERWISE WOULD CONSIDER PET SCAN. NO OTHER ACUTE FINDINGS. 2. STABLE FATTY LESIONS IN THE ADRENAL GLANDS, WITH LITTLE CHANGE SINCE PRIOR STUDY IN AUGUST 2007. MOST LIKELY ADENOMAS. Chest X-Ray 01/26/17 09:41 IMPRESSION: CHRONIC LUNG CHANGES WITH NO ACUTE CARDIOPULMONARY DISEASE. Assessment & Plan - Diagnosis (1) COPD with acute exacerbation Is this a current diagnosis for this admission?: Yes (2) Congestive heart failure Qualifiers: Congestive heart failure type: diastolic Is this a current diagnosis for this admission?: Yes (3) Symptomatic bradycardia Is this a current diagnosis for this admission?: Yes (6) Atrial fibrillation Qualifiers: Atrial fibrillation type: paroxysmal Is this a current diagnosis for this admission?: Yes (8) Coronary artery disease Qualifiers: Coronary Disease-Associated Artery/Lesion type: [place] artery Associated angina: angina presence unspecified Is this a current diagnosis for this admission?: Yes (9) Abdominal aortic aneurysm Qualifiers: Presence of rupture: without rupture Qualified Code(s): I71.4 - Abdominal aortic aneurysm, without rupture Is this a current diagnosis for this admission?: Yes (10) PVD (peripheral vascular disease) Is this a current diagnosis for this admission?: Yes - Notes Notes: Patient noted to be significantly improved as regards COPD exacerbation. As regards CHF it seems compensated. As regards bradycardia, this has improved. It was seen due to combination of metoprolol and Cardizem, aggravated by possible hypoxemia. Today I have restarted patient on Cardizem CD at home dose. Patient to be observed overnight for any bradycardia. Patient has been advised to quit smoking. Coronary artery disease: Patient has been started on statin therapy. Patient again has been advised to quit smoking. Patient generally stable and has improved significantly. - Time Time with patient: 15-25 minutes - More than 50% of the time spent coordinating care, discussing management plans with involved caregivers. Management plans discussed with involved personnels. Medical decision making was of moderate to high complexity, patient's has multiple comorbidities. Discussed with Dr. Gutierrez Medications reviewed and adjusted accordingly: Yes
[2017-01-27] MEDS: PREDNISONE 20 MG TABLET PO SCH (17:54)
[2017-01-27] MEDS: ATORVASTATIN CALCIUM 10 MG TABLET PO SCH (21:36)
[2017-01-27] MEDS: ZOLPIDEM TARTRATE 5 MG TABLET PO PRN (22:15)
[2017-01-28] MEDS: HYDRALAZINE HCL 10 MG TABLET PO SCH ×3 (05:06→22:06)
[2017-01-28] MEDS: LANSOPRAZOLE 15 MG TAB.RAP.DR PO SCH ×2 (05:06→17:28)
[2017-01-28] MEDS: GABAPENTIN 100 MG CAPSULE PO SCH ×3 (05:07→22:06)
[2017-01-28 05:18] LABS: ABSOLUTE LYMPHOCYTES (AUTO) 0.8 10^3/uL (0.5-4.7); ABSOLUTE MONOCYTES (AUTO) 0.4 10^3/uL (0.1-1.4); ABSOLUTE NEUT (AUTO) 9.6 10^3/uL (1.7-8.2); BASOPHILS % (AUTO) 0.1 % (0-2); HEMOGLOBIN 14.5 g/dL (12.0-15.5); HGB HCT DIFFERENCE 1.5; LYMPHOCYTES % (AUTO) 7.4 % (13-45); MEAN CORPUSCULAR HEMOGLOBIN 34.7 pg (27.0-33.4); MEAN CORPUSCULAR HGB CONC 34.5 g/dL (32.0-36.0); MEAN CORPUSCULAR VOLUME 101 fl (80-97); MONOCYTES % (AUTO) 3.8 % (3-13); RED BLOOD COUNT 4.18 10^6/uL (3.72-5.28); RED CELL DISTRIBUTION WIDTH 14.2 % (11.5-14.0); SEGMENTED NEUTROPHILS % (AUTO) 88.7 % (42-78)
[2017-01-28 05:20] LABS: WHITE BLOOD COUNT 10.8 10^3/uL (4.0-10.5)
[2017-01-28 05:52] LABS: ANION GAP 9 (5-19); BLOOD UREA NITROGEN 27 mg/dL (7-20); CALCIUM 9.9 mg/dL (8.4-10.2); CARBON DIOXIDE 25 mmol/L (22-30); CHLORIDE 100 mmol/L (98-107); CREATININE RESULT 0.74 mg/dL (0.52-1.25); GLUCOSE 123 mg/dL (75-110); POTASSIUM 4.5 mmol/L (3.6-5.0); SODIUM 133.5 mmol/L (137-145)
[2017-01-28] MEDS: IPRATROPIUM/ALBUTEROL 0.5-2.5 MG/3 ML AMPUL NEB SCH ×3 (08:27→19:54)
[2017-01-28] MEDS: APIXABAN 5 MG TABLET PO SCH ×2 (09:27→17:29)
[2017-01-28] MEDS: DOCUSATE SODIUM 100 MG CAPSULE PO SCH ×2 (09:28→17:28)
[2017-01-28] MEDS: PREDNISONE 20 MG TABLET PO SCH ×2 (09:28→17:28)
[2017-01-28] MEDS: DILTIAZEM HCL 120 MG CAP.SR.24H PO SCH (09:28)
[2017-01-28] MEDS: CHOLECALCIFEROL (D3) 1,000 UNIT TABLET PO SCH (09:29)
[2017-01-28] MEDS: LEVOTHYROXINE SODIUM 0.088 MG TABLET PO SCH (09:29)
[2017-01-28] MEDS: CEFEPIME 1 GM/D5W RTU 1 GM/50 ML RTUPB IV SCH ×2 (09:29→22:06)
[2017-01-28] MEDS: NICOTINE 14 MG/24 HR PATCH.TD24 TD SCH (10:25)
[2017-01-28] MEDS ORDERED: DILTIAZEM HCL INJ 25 MG/5 ML VIAL ONE (15:05)
[2017-01-28] MEDS ORDERED: DILTIAZEM HCL/D5W 125 MG/125 ML RTUINJ IV ONE (15:11)
[2017-01-28] MEDS ORDERED: DILTIAZEM HCL INJ 25 MG/5 ML VIAL IV ONE ×2 (15:31→15:32)
--- NOTE | 2017-01-28 15:31 | PDOC PROGRESS REPORT ---
Subjective Progress Note for:: 01/28/17 Subjective:: Patient was interested in discharge home today but went into sustained SVT with heart above 180 and occasionally 200/min. She had a dose of her Cardizem 120 mg po this morning. She denied any chest pain. Remain on supplemental oxygen via nasal cannula. No fever. No nausea, vomiting or abdominal pain. Physical Exam Vital Signs: Temp Pulse Resp BP Pulse Ox 97.8 F 97 20 149/66 H 99 01/28/17 11:40 01/28/17 11:40 01/28/17 11:40 01/28/17 11:40 01/28/17 11:40 Intake & Output 01/27/17 01/28/17 01/29/17 06:59 06:59 06:59 Intake Total 150 1080 474 Balance 150 1080 474 Weight 50.5 kg 49.6 kg General appearance: PRESENT: no acute distress, cooperative Head exam: PRESENT: atraumatic, normocephalic Eye exam: PRESENT: conjunctiva pink, EOMI, PERRLA. ABSENT: scleral icterus Mouth exam: PRESENT: moist Respiratory exam: PRESENT: clear to auscultation eliel, decreased breath sounds Cardiovascular exam: PRESENT: irregular rhythm. ABSENT: diastolic murmur, rubs , systolic murmur Vascular exam: PRESENT: normal capillary refill. ABSENT: pallor GI/Abdominal exam: PRESENT: normal bowel sounds, soft. ABSENT: distended, guarding, mass, organolmegaly, rebound, tenderness Extremities exam: PRESENT: pedal edema Musculoskeletal exam: PRESENT: normal inspection Neurological exam: PRESENT: alert, awake Psychiatric exam: PRESENT: appropriate affect, normal mood. ABSENT: homicidal ideation, suicidal ideation Skin exam: PRESENT: dry, intact, warm. ABSENT: cyanosis, rash Results Laboratory Results: 01/28/17 04:10 01/28/17 04:10 01/28/17 01/28/17 04:10 04:10 WBC 10.8 H D RBC 4.18 Hgb 14.5 Hct 42.0 MCV 101 H MCH 34.7 H MCHC 34.5 RDW 14.2 H Plt Count 222 Seg Neutrophils % 88.7 H Lymphocytes % 7.4 L Monocytes % 3.8 Eosinophils % 0.0 Basophils % 0.1 Absolute Neutrophils 9.6 H Absolute Lymphocytes 0.8 Absolute Monocytes 0.4 Absolute Eosinophils 0.0 Absolute Basophils 0.0 Sodium 133.5 L Potassium 4.5 Chloride 100 Carbon Dioxide 25 Anion Gap 9 BUN 27 H Creatinine 0.74 Est GFR ( Amer) > 60 Est GFR (Non-Af Amer) > 60 Glucose 123 H Calcium 9.9 Magnesium 2.0 01/26/17 01/26/17 01/26/17 16:34 16:34 22:15 Creatine Kinase < 20 L < 20 L CK-MB (CK-2) 0.96 Troponin I 0.017 NT-Pro-B Natriuret Pep 2090 H 01/26/17 01/27/17 01/27/17 22:15 04:12 04:12 Creatine Kinase < 20 L CK-MB (CK-2) 1.02 0.78 Troponin I 0.016 0.017 NT-Pro-B Natriuret Pep Impressions: Chest CT 01/26/17 00:00 IMPRESSION: 1. COPD. INDISTINCT NODULE IN THE RIGHT LOWER LOBE DESCRIBED. THIS IS SOMEWHAT CONCERNING FOR MALIGNANT PROCESS ALTHOUGH INFECTION NOT ENTIRELY EXCLUDED. IF THERE IS SUSPICION OF INFECTION, RECOMMEND REPEAT CT SCAN FOLLOWING TREATMENT TO DETERMINE IF THERE IS IMPROVEMENT. OTHERWISE WOULD CONSIDER PET SCAN. NO OTHER ACUTE FINDINGS. 2. STABLE FATTY LESIONS IN THE ADRENAL GLANDS, WITH LITTLE CHANGE SINCE PRIOR STUDY IN AUGUST 2007. MOST LIKELY ADENOMAS. Chest X-Ray 01/26/17 09:41 IMPRESSION: CHRONIC LUNG CHANGES WITH NO ACUTE CARDIOPULMONARY DISEASE. Assessment & Plan - Diagnosis (1) Paroxysmal atrial fibrillation with RVR Is this a current diagnosis for this admission?: Yes Plan: Patient had runs of atrial flutter and Atrial fibrillation with sustained rate > 150/minute for several minutes today. She is currently on IV Cardizem drip with preceding bolus total dose of 20 mg. She will remain on IV Cardizem drip therapy. Start on anticoagulation therapy. Obtain 12 leads EKg and cardiac enzymes. Consult with Dr. Sellers, freelance interpreter/translator on the case. (2) COPD (chronic obstructive pulmonary disease) Qualifiers: COPD type: unspecified COPD Qualified Code(s): J44.9 - Chronic obstructive pulmonary disease, unspecified Is this a current diagnosis for this admission?: Yes Plan: See covering attending physician orders. (3) E. coli UTI (urinary tract infection) Is this a current diagnosis for this admission?: Yes Plan: See covering attending physician orders. Continue IV Cefepime coverage. - Time Time Spent with patient: 35 or more minutes Medications reviewed and adjusted accordingly: Yes Within: Other - Inpatient Certification Based on my medical assessment, after consideration of the patient's comorbidities, presenting symptoms, or acuity I expect that the services needed warrant INPATIENT care.: Yes I certify that my determination is in accordance with my understanding of Medicare's requirements for reasonable and necessary INPATIENT services [42 CFR 412.3e].: Yes Medical Necessity: Need Close Monitoring Due to Risk of Patient Decompensation, Need For IV Fluids, Need For Continuous Telemetry Monitoring, Risk of Complication if Not Cared For in Hospital Post Hospital Care: D/C Radiologic Technologist Chief Documentation - Plan Summary Plan Summary: See covering attending physician orders.
--- NOTE | 2017-01-28 15:43 | EKG REPORT ---
SEVERITY:- ABNORMAL ECG - SINUS RHYTHM ABNORMAL T, CONSIDER ISCHEMIA, LATERAL LEADS : Confirmed by: Fei Sellers 28-Jan-2017 15:42:38
--- NOTE | 2017-01-28 15:43 | EKG REPORT ---
SEVERITY:- ABNORMAL ECG - SINUS RHYTHM NONSPECIFIC T ABNORMALITIES, LATERAL LEADS : Confirmed by: Fei Sellers 28-Jan-2017 15:42:52
--- NOTE | 2017-01-28 15:43 | EKG REPORT ---
SEVERITY:- ABNORMAL ECG - ATRIAL FIBRILLATION WITH RAPID V-RATE REPOLARIZATION ABNORMALITY, PROB RATE RELATED : Confirmed by: Fei Sellesr 28-Jan-2017 15:42:30
[2017-01-28] MEDS ORDERED: METOPROLOL TARTRATE PF/INJ 5 MG/5 ML SDV IV PRN (17:04)
[2017-01-28] MEDS ORDERED: DRONEDARONE HYDROCHLORIDE 400 MG TABLET PO ONE (17:15)
[2017-01-28] MEDS: ALPRAZOLAM 0.25 MG TABLET PO PRN (17:29)
--- NOTE | 2017-01-28 19:26 | PDOC PROGRESS REPORT ---
Subjective Progress Note for:: 01/28/17 Subjective:: Patient noted to be in A. fib with RVR.. Pt is denying any chest arm or neck discomfort. Patient denying any PND, orthopnea. Patient denied any sustained palpitations, dizziness, syncope, near syncope. Patient denying any fever chills. Patient denying any other significant discomfort. Patient has been in sinus rhythm earlier. However patient noted to be in atrial fibrillation with rapid ventricular response intermittently. The heart rate response goes very high especially with mild exertion. Patient however claims that she is asymptomatic during these spells. Review of systems: Rest review of systems negative. Medications: Medications have been reviewed. Physical Exam Vital Signs: Temp Pulse Resp BP Pulse Ox 97.4 F 110 H 22 H 145/79 H 97 01/28/17 16:27 01/28/17 18:45 01/28/17 16:27 01/28/17 18:45 01/28/17 16:27 Intake & Output 01/27/17 01/28/17 01/29/17 06:59 06:59 06:59 Intake Total 150 1080 1231 Balance 150 1080 1231 Weight 50.5 kg 49.6 kg Exam: GENERAL: well-nourished and in no acute distress. Alert and oriented x3 HEAD: Atraumatic, normocephalic. EYES: Pupils equal round and reactive to light, extraocular movements intact, sclera anicteric, conjunctiva are normal. ENT: TMs normal, nares patent, oropharynx clear without exudates. Moist mucous membranes. No oral ulcerations or bleeding gums noted NECK: supple without lymphadenopathy. Trachea is central. No cervical or axillary lymphadenopathy noted. Carotids are 2+, JVD WNL LUNGS: Respiration seems nonlabored, no significant accessory muscle action noted. Breath bilateral mild wheezes rales or rhonchi noted. No significant dullness noted on percussion. CHEST: Palpation of the chest wall shows no significant chest wall tenderness. No other significant abnormalities noted. 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 ABDOMEN: Soft, no significant tenderness appreciated, normoactive bowel sounds. No guarding, no rebound. No rigidity noted . No masses appreciated. EXTREMITIES: Pedal pulses are 1-2+, no calf tenderness noted. No clubbing or cyanosis.trace pedal edema noted NEUROLOGICAL: Focused neurological exam showed no significant neurologic deficit. Normal speech, no focal weakness appreciated. PSYCH: Normal mood, normal affect. Judgment and insight within normal limits. SKIN: No rash, ulcerations or signs of pruritus noted. Ecchymosis noted MUSCULOSKELETAL EXAM: No significant joint swelling noted. Results Laboratory Results: 01/28/17 04:10 01/28/17 04:10 01/28/17 01/28/17 04:10 04:10 WBC 10.8 H D RBC 4.18 Hgb 14.5 Hct 42.0 MCV 101 H MCH 34.7 H MCHC 34.5 RDW 14.2 H Plt Count 222 Seg Neutrophils % 88.7 H Lymphocytes % 7.4 L Monocytes % 3.8 Eosinophils % 0.0 Basophils % 0.1 Absolute Neutrophils 9.6 H Absolute Lymphocytes 0.8 Absolute Monocytes 0.4 Absolute Eosinophils 0.0 Absolute Basophils 0.0 Sodium 133.5 L Potassium 4.5 Chloride 100 Carbon Dioxide 25 Anion Gap 9 BUN 27 H Creatinine 0.74 Est GFR ( Amer) > 60 Est GFR (Non-Af Amer) > 60 Glucose 123 H Calcium 9.9 Magnesium 2.0 01/26/17 01/26/17 01/26/17 16:34 16:34 22:15 Creatine Kinase < 20 L < 20 L CK-MB (CK-2) 0.96 Troponin I 0.017 NT-Pro-B Natriuret Pep 2090 H 01/26/17 01/27/17 01/27/17 22:15 04:12 04:12 Creatine Kinase < 20 L CK-MB (CK-2) 1.02 0.78 Troponin I 0.016 0.017 NT-Pro-B Natriuret Pep Impressions: Chest CT 01/26/17 00:00 IMPRESSION: 1. COPD. INDISTINCT NODULE IN THE RIGHT LOWER LOBE DESCRIBED. THIS IS SOMEWHAT CONCERNING FOR MALIGNANT PROCESS ALTHOUGH INFECTION NOT ENTIRELY EXCLUDED. IF THERE IS SUSPICION OF INFECTION, RECOMMEND REPEAT CT SCAN FOLLOWING TREATMENT TO DETERMINE IF THERE IS IMPROVEMENT. OTHERWISE WOULD CONSIDER PET SCAN. NO OTHER ACUTE FINDINGS. 2. STABLE FATTY LESIONS IN THE ADRENAL GLANDS, WITH LITTLE CHANGE SINCE PRIOR STUDY IN AUGUST 2007. MOST LIKELY ADENOMAS. Chest X-Ray 01/26/17 09:41 IMPRESSION: CHRONIC LUNG CHANGES WITH NO ACUTE CARDIOPULMONARY DISEASE. Assessment & Plan - Diagnosis (1) COPD with acute exacerbation Is this a current diagnosis for this admission?: Yes (2) Congestive heart failure Qualifiers: Congestive heart failure type: diastolic Is this a current diagnosis for this admission?: Yes (3) Symptomatic bradycardia Is this a current diagnosis for this admission?: Yes (6) Atrial fibrillation Qualifiers: Atrial fibrillation type: paroxysmal Qualified Code(s): I48.0 - Paroxysmal atrial fibrillation Is this a current diagnosis for this admission?: Yes (8) Coronary artery disease Qualifiers: Coronary Disease-Associated Artery/Lesion type: [place] artery Associated angina: angina presence unspecified Is this a current diagnosis for this admission?: Yes (9) Abdominal aortic aneurysm Qualifiers: Presence of rupture: without rupture Qualified Code(s): I71.4 - Abdominal aortic aneurysm, without rupture Is this a current diagnosis for this admission?: Yes (10) PVD (peripheral vascular disease) Is this a current diagnosis for this admission?: Yes - Notes Notes: Patient noted to have intermittent paroxysmal atrial fibrillation. Heart rate becomes very high. Have placed patient on IV metoprolol 2.5 mg every hour as needed, start patient on Multaq 400 mg p.o. twice daily, also start metoprolol succinate 12.5 mg p.o. daily from tomorrow morning. Repeat EKG in the morning. Patient to report any dizziness, syncope, near syncope. Discussed with nurses taking care of the patient. Patient has multiple other ongoing diagnosis but seems reasonably stable from that standpoint. - Time Time with patient: Greater than 35 minutes - Multiple medication changes performed. Patient was seen twice today. Discussed with patient's daughter. CODE STATUS was discussed, patient remains full code. Surrogate decision-maker patient's daughter. Multiple medical problems were addressed. More than 50% of the time spent coordinating care, discussing management plans with involved caregivers. Management plans discussed with involved personnels. Medical decision making was of moderate to high complexity, patient's has multiple comorbidities. Medications reviewed and adjusted accordingly: Yes
[2017-01-28] MEDS: ATORVASTATIN CALCIUM 10 MG TABLET PO SCH (22:06)
[2017-01-28] MEDS: TRAZODONE HCL 50 MG TABLET PO SCH (22:06)
[2017-01-28] MEDS: DILTIAZEM HCL/D5W 125 MG/125 ML RTUINJ IV PRN (22:13)
[2017-01-29] MEDS: ZOLPIDEM TARTRATE 5 MG TABLET PO PRN ×2 (00:09→21:30)
[2017-01-29 05:04] LABS: HEMATOCRIT 46.3 % (36.0-47.0); HEMOGLOBIN 15.8 g/dL (12.0-15.5); HGB HCT DIFFERENCE 1.1; MEAN CORPUSCULAR HEMOGLOBIN 34.2 pg (27.0-33.4); MEAN CORPUSCULAR HGB CONC 34.1 g/dL (32.0-36.0); MEAN CORPUSCULAR VOLUME 100 fl (80-97); RED BLOOD COUNT 4.62 10^6/uL (3.72-5.28); RED CELL DISTRIBUTION WIDTH 14.3 % (11.5-14.0)
[2017-01-29 05:21] LABS: BASOPHILS % (MANUAL) 0 % (0-2); EOSINOPHILS % (MANUAL) 0 % (0-6); LYMPHOCYTES % (MANUAL) 9 % (13-45); TOTAL CELLS COUNTED 100
[2017-01-29 05:22] LABS: ANISOCYTOSIS SLIGHT; SCHISTOCYTES SLIGHT; TOXIC GRANULATION SLIGHT
[2017-01-29 05:23] LABS: ANION GAP 11 (5-19); BLOOD UREA NITROGEN 37 mg/dL (7-20); CALCIUM 10.9 mg/dL (8.4-10.2); CARBON DIOXIDE 24 mmol/L (22-30); CHLORIDE 98 mmol/L (98-107); CREATININE RESULT 0.73 mg/dL (0.52-1.25); GLUCOSE 122 mg/dL (75-110); MAGNESIUM 2.1 mg/dL (1.6-2.3); POTASSIUM 5.4 mmol/L (3.6-5.0); SODIUM 133.4 mmol/L (137-145)
[2017-01-29] MEDS: LANSOPRAZOLE 15 MG TAB.RAP.DR PO SCH ×2 (05:29→17:42)
[2017-01-29] MEDS: HYDRALAZINE HCL 10 MG TABLET PO SCH ×3 (05:29→21:30)
[2017-01-29] MEDS: GABAPENTIN 100 MG CAPSULE PO SCH ×3 (05:29→21:30)
[2017-01-29] MEDS: IPRATROPIUM/ALBUTEROL 0.5-2.5 MG/3 ML AMPUL NEB SCH ×3 (08:32→20:03)
--- NOTE | 2017-01-29 09:14 | EKG REPORT ---
SEVERITY:- ABNORMAL ECG - ATRIAL FIBRILLATION : Confirmed by: Fei Sellers 29-Jan-2017 09:13:08
[2017-01-29] MEDS ORDERED: METOPROLOL SUCCINATE 25 MG TAB.SR.24H PO SCH (10:00)
[2017-01-29] MEDS: APIXABAN 5 MG TABLET PO SCH ×2 (10:47→17:42)
[2017-01-29] MEDS: CEFEPIME 1 GM/D5W RTU 1 GM/50 ML RTUPB IV SCH ×2 (10:48→21:30)
[2017-01-29] MEDS: DILTIAZEM HCL 120 MG CAP.SR.24H PO SCH (10:49)
[2017-01-29] MEDS: CHOLECALCIFEROL (D3) 1,000 UNIT TABLET PO SCH (10:49)
[2017-01-29] MEDS: DOCUSATE SODIUM 100 MG CAPSULE PO SCH ×2 (10:50→17:43)
[2017-01-29] MEDS: LEVOTHYROXINE SODIUM 0.088 MG TABLET PO SCH (10:50)
[2017-01-29] MEDS: PREDNISONE 20 MG TABLET PO SCH ×2 (10:50→17:42)
[2017-01-29] MEDS: DRONEDARONE HYDROCHLORIDE 400 MG TABLET PO SCH ×2 (10:54→21:30)
[2017-01-29] MEDS: NICOTINE 14 MG/24 HR PATCH.TD24 TD SCH (10:59)
--- NOTE | 2017-01-29 12:57 | PDOC PROGRESS REPORT ---
Subjective Progress Note for:: 01/29/17 Subjective:: Patient denied any chest pain. Breathing remain stable. Remain on supplemental oxygen via nasal cannula. No fever. No nausea, vomiting or abdominal pain. Patient remain on IV Cardizem infusion along with Multaq and Lopressor orally for paroxysmal A.Fib with RVR management. Physical Exam Vital Signs: Temp Pulse Resp BP Pulse Ox 97.5 F 95 18 134/58 H 98 01/29/17 08:07 01/29/17 11:00 01/29/17 08:32 01/29/17 11:00 01/29/17 11:00 Intake & Output 01/28/17 01/29/17 01/30/17 06:59 06:59 06:59 Intake Total 1080 2096 Balance 1080 2096 Weight 49.6 kg 49.5 kg Physical Exam: General appearance: PRESENT: no acute distress, cooperative Head exam: PRESENT: atraumatic, normocephalic Eye exam: PRESENT: conjunctiva pink, EOMI, PERRLA. ABSENT: scleral icterus Mouth exam: PRESENT: moist Respiratory exam: PRESENT: clear to auscultation eliel, decreased breath sounds Cardiovascular exam: PRESENT: irregular rhythm. ABSENT: diastolic murmur, rubs , systolic murmur Vascular exam: PRESENT: normal capillary refill. ABSENT: pallor GI/Abdominal exam: PRESENT: normal bowel sounds, soft. ABSENT: distended, guarding, mass, organomegaly, rebound, tenderness Extremities exam: PRESENT: pedal edema Musculoskeletal exam: PRESENT: normal inspection Neurological exam: PRESENT: alert, awake Psychiatric exam: PRESENT: appropriate affect, normal mood. ABSENT: homicidal ideation, suicidal ideation Skin exam: PRESENT: dry, intact, warm. ABSENT: cyanosis, rash Results Laboratory Results: 01/29/17 04:18 01/29/17 04:18 01/29/17 01/29/17 04:18 04:18 WBC 11.0 H RBC 4.62 Hgb 15.8 H Hct 46.3 MCV 100 H MCH 34.2 H MCHC 34.1 RDW 14.3 H Plt Count 231 Seg Neutrophils % Not Reportable Lymphocytes % Not Reportable Monocytes % Not Reportable Eosinophils % Not Reportable Basophils % Not Reportable Absolute Neutrophils Not Reportable Absolute Lymphocytes Not Reportable Absolute Monocytes Not Reportable Absolute Eosinophils Not Reportable Absolute Basophils Not Reportable Sodium 133.4 L Potassium 5.4 H Chloride 98 Carbon Dioxide 24 Anion Gap 11 BUN 37 H Creatinine 0.73 Est GFR ( Amer) > 60 Est GFR (Non-Af Amer) > 60 Glucose 122 H Calcium 10.9 H Magnesium 2.1 01/26/17 01/26/17 01/26/17 16:34 16:34 22:15 Creatine Kinase < 20 L < 20 L CK-MB (CK-2) 0.96 Troponin I 0.017 NT-Pro-B Natriuret Pep 2090 H 01/26/17 01/27/17 01/27/17 22:15 04:12 04:12 Creatine Kinase < 20 L CK-MB (CK-2) 1.02 0.78 Troponin I 0.016 0.017 NT-Pro-B Natriuret Pep Impressions: Chest CT 01/26/17 00:00 IMPRESSION: 1. COPD. INDISTINCT NODULE IN THE RIGHT LOWER LOBE DESCRIBED. THIS IS SOMEWHAT CONCERNING FOR MALIGNANT PROCESS ALTHOUGH INFECTION NOT ENTIRELY EXCLUDED. IF THERE IS SUSPICION OF INFECTION, RECOMMEND REPEAT CT SCAN FOLLOWING TREATMENT TO DETERMINE IF THERE IS IMPROVEMENT. OTHERWISE WOULD CONSIDER PET SCAN. NO OTHER ACUTE FINDINGS. 2. STABLE FATTY LESIONS IN THE ADRENAL GLANDS, WITH LITTLE CHANGE SINCE PRIOR STUDY IN AUGUST 2007. MOST LIKELY ADENOMAS. Chest X-Ray 01/26/17 09:41 IMPRESSION: CHRONIC LUNG CHANGES WITH NO ACUTE CARDIOPULMONARY DISEASE. Assessment & Plan - Diagnosis (1) Paroxysmal atrial fibrillation with RVR Is this a current diagnosis for this admission?: Yes Plan: Gradually improving on current medication management. Patient remain asymptomatic despite episodes of exertional tachycardia. (2) COPD (chronic obstructive pulmonary disease) Qualifiers: COPD type: unspecified COPD Qualified Code(s): J44.9 - Chronic obstructive pulmonary disease, unspecified Is this a current diagnosis for this admission?: Yes (3) E. coli UTI (urinary tract infection) Is this a current diagnosis for this admission?: Yes - Time Time Spent with patient: 25-34 minutes Medications reviewed and adjusted accordingly: Yes Anticipated discharge: Home with Homehealth Within: Other - Inpatient Certification Based on my medical assessment, after consideration of the patient's comorbidities, presenting symptoms, or acuity I expect that the services needed warrant INPATIENT care.: Yes I certify that my determination is in accordance with my understanding of Medicare's requirements for reasonable and necessary INPATIENT services [42 CFR 412.3e].: Yes Medical Necessity: Need Close Monitoring Due to Risk of Patient Decompensation, Need For IV Fluids, Need For Continuous Telemetry Monitoring, Risk of Complication if Not Cared For in Hospital 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 Current Cardizem rate at 5mg / hour.
--- NOTE | 2017-01-29 15:40 | PDOC PROGRESS REPORT ---
Subjective Progress Note for:: 01/29/17 Subjective:: Patient remains in atrial fibrillation with intermittent rapid ventricular response. Pt is denying any chest arm or neck discomfort. Patient denying any PND, orthopnea. Patient denied any sustained palpitations, dizziness, syncope, near syncope. Patient denying any fever chills. Patient denying any other significant discomfort. Patient however claims that she is asymptomatic during these spells of atrial fibrillation. Review of systems: Rest review of systems negative. Medications: Medications have been reviewed. Physical Exam Vital Signs: Temp Pulse Resp BP Pulse Ox 97.2 F 98 22 H 123/72 96 01/29/17 13:12 01/29/17 14:00 01/29/17 13:12 01/29/17 14:00 01/29/17 14:00 Intake & Output 01/28/17 01/29/17 01/30/17 06:59 06:59 06:59 Intake Total 1080 2096 473 Balance 1080 2096 473 Weight 49.6 kg 49.5 kg Exam: GENERAL: well-nourished and in no acute distress. Alert and oriented x3 HEAD: Atraumatic, normocephalic. EYES: Pupils equal round and reactive to light, extraocular movements intact, sclera anicteric, conjunctiva are normal. ENT: TMs normal, nares patent, oropharynx clear without exudates. Moist mucous membranes. No oral ulcerations or bleeding gums noted NECK: supple without lymphadenopathy. Trachea is central. No cervical or axillary lymphadenopathy noted. Carotids are 2+, JVD WNL LUNGS: Respiration seems nonlabored, no significant accessory muscle action noted. Mild bilateral wheezes rales or rhonchi noted. No significant dullness noted on percussion. CHEST: Palpation of the chest wall shows no significant chest wall tenderness. No other significant abnormalities noted. 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 ABDOMEN: Soft, no significant tenderness appreciated, normoactive bowel sounds. No guarding, no rebound. No rigidity noted . No masses appreciated. EXTREMITIES: Pedal pulses are 1-2+, no calf tenderness noted. No clubbing or cyanosis.trace pedal edema noted NEUROLOGICAL: Focused neurological exam showed no significant neurologic deficit. Normal speech, no focal weakness appreciated. PSYCH: Normal mood, normal affect. Judgment and insight within normal limits. SKIN: No significant ecchymosis, rash, ulcerations or signs of pruritus noted. MUSCULOSKELETAL EXAM: No significant joint swelling noted. Results Laboratory Results: 01/29/17 04:18 01/29/17 01/29/17 04:18 04:18 WBC 11.0 H RBC 4.62 Hgb 15.8 H Hct 46.3 MCV 100 H MCH 34.2 H MCHC 34.1 RDW 14.3 H Plt Count 231 Seg Neutrophils % Not Reportable Lymphocytes % Not Reportable Monocytes % Not Reportable Eosinophils % Not Reportable Basophils % Not Reportable Absolute Neutrophils Not Reportable Absolute Lymphocytes Not Reportable Absolute Monocytes Not Reportable Absolute Eosinophils Not Reportable Absolute Basophils Not Reportable Sodium 133.4 L Potassium 5.4 H Chloride 98 Carbon Dioxide 24 Anion Gap 11 BUN 37 H Creatinine 0.73 Est GFR ( Amer) > 60 Est GFR (Non-Af Amer) > 60 Glucose 122 H Calcium 10.9 H Magnesium 2.1 01/26/17 01/26/17 01/26/17 16:34 16:34 22:15 Creatine Kinase < 20 L < 20 L CK-MB (CK-2) 0.96 Troponin I 0.017 NT-Pro-B Natriuret Pep 2090 H 01/26/17 01/27/17 01/27/17 22:15 04:12 04:12 Creatine Kinase < 20 L CK-MB (CK-2) 1.02 0.78 Troponin I 0.016 0.017 NT-Pro-B Natriuret Pep EKG Comments: Telemetry strips shows atrial fibrillation with predominantly controlled ventricular response. Impressions: Chest CT 01/26/17 00:00 IMPRESSION: 1. COPD. INDISTINCT NODULE IN THE RIGHT LOWER LOBE DESCRIBED. THIS IS SOMEWHAT CONCERNING FOR MALIGNANT PROCESS ALTHOUGH INFECTION NOT ENTIRELY EXCLUDED. IF THERE IS SUSPICION OF INFECTION, RECOMMEND REPEAT CT SCAN FOLLOWING TREATMENT TO DETERMINE IF THERE IS IMPROVEMENT. OTHERWISE WOULD CONSIDER PET SCAN. NO OTHER ACUTE FINDINGS. 2. STABLE FATTY LESIONS IN THE ADRENAL GLANDS, WITH LITTLE CHANGE SINCE PRIOR STUDY IN AUGUST 2007. MOST LIKELY ADENOMAS. Chest X-Ray 01/26/17 09:41 IMPRESSION: CHRONIC LUNG CHANGES WITH NO ACUTE CARDIOPULMONARY DISEASE. Assessment & Plan - Diagnosis (1) COPD with acute exacerbation Is this a current diagnosis for this admission?: Yes (2) Congestive heart failure Qualifiers: Congestive heart failure type: diastolic Is this a current diagnosis for this admission?: Yes (3) Symptomatic bradycardia Is this a current diagnosis for this admission?: Yes (6) Atrial fibrillation Qualifiers: Atrial fibrillation type: paroxysmal Qualified Code(s): I48.0 - Paroxysmal atrial fibrillation Is this a current diagnosis for this admission?: Yes (8) Coronary artery disease Qualifiers: Coronary Disease-Associated Artery/Lesion type: [place] artery Associated angina: angina presence unspecified Is this a current diagnosis for this admission?: Yes (9) Abdominal aortic aneurysm Qualifiers: Presence of rupture: without rupture Qualified Code(s): I71.4 - Abdominal aortic aneurysm, without rupture Is this a current diagnosis for this admission?: Yes (10) PVD (peripheral vascular disease) Is this a current diagnosis for this admission?: Yes - Notes Notes: Severe bradycardia: This has resolved. However patient currently in atrial fibrillation with rapid ventricular response. Medications are being adjusted. Have we have started patient on metoprolol succinate as it seems to work better. Have placed patient on metoprolol succinate 12.5 mg p.o. twice daily. Patient also on Multaq therapy to see if patient will convert to sinus rhythm but may need to be discontinued on discharge. Severe COPD with exacerbation: CT scan review shows significance emphysematous changes. Patient has been advised to quit smoking. Patient may need to be evaluated for oxygen supplementation. Tobacco abuse: Patient has been stopped advised to quit smoking. Generalized weakness: This has improved per patient. Atrial fibrillation with RVR: Heart rate today reasonably well controlled. Medication changes performed. Coronary artery disease: Patient noted to have significant coronary calcification. Cardiac enzymes so far negative. Abdominal aortic aneurysm: Recommend good control of blood pressure. May consider JOHN inhibitor and statin therapy. Peripheral vascular disease: Patient will benefit from stopping smoking. Currently no signs of active tissue ischemia. - Time Time with patient: Greater than 35 minutes - CODE STATUS was discussed, patient remains full code. Surrogate decision-maker patient's daughter. Multiple medical problems were addressed. More than 50% of the time spent coordinating care, discussing management plans with involved caregivers. Management plans discussed with involved personnels. Medical decision making was of moderate to high complexity, patient's has multiple comorbidities. Medications reviewed and adjusted accordingly: Yes
[2017-01-29] MEDS: DILTIAZEM HCL/D5W 125 MG/125 ML RTUINJ IV PRN (15:56)
[2017-01-29 16:05] LABS: ANION GAP 10 (5-19); BLOOD UREA NITROGEN 41 mg/dL (7-20); CALCIUM 11.3 mg/dL (8.4-10.2); CARBON DIOXIDE 27 mmol/L (22-30); CHLORIDE 95 mmol/L (98-107); GLUCOSE 93 mg/dL (75-110); MAGNESIUM 2.1 mg/dL (1.6-2.3); POTASSIUM 5.6 mmol/L (3.6-5.0); SODIUM 131.5 mmol/L (137-145)
[2017-01-29] MEDS: METOPROLOL SUCCINATE 25 MG TAB.SR.24H PO SCH (21:30)
[2017-01-29] MEDS: TRAZODONE HCL 50 MG TABLET PO SCH (21:30)
[2017-01-29] MEDS: ATORVASTATIN CALCIUM 10 MG TABLET PO SCH (21:30)
[2017-01-30] MEDS: GABAPENTIN 100 MG CAPSULE PO SCH ×3 (05:17→21:29)
[2017-01-30] MEDS: LANSOPRAZOLE 15 MG TAB.RAP.DR PO SCH ×2 (05:17→16:16)
[2017-01-30] MEDS: HYDRALAZINE HCL 10 MG TABLET PO SCH ×3 (05:17→21:30)
[2017-01-30 05:50] LABS: ABSOLUTE LYMPHOCYTES (AUTO) 0.8 10^3/uL (0.5-4.7); ABSOLUTE MONOCYTES (AUTO) 0.4 10^3/uL (0.1-1.4); ABSOLUTE NEUT (AUTO) 6.7 10^3/uL (1.7-8.2); BASOPHILS % (AUTO) 0.3 % (0-2); HEMATOCRIT 42.1 % (36.0-47.0); HEMOGLOBIN 14.4 g/dL (12.0-15.5); HGB HCT DIFFERENCE 1.1; LYMPHOCYTES % (AUTO) 10.5 % (13-45); MEAN CORPUSCULAR HEMOGLOBIN 34.6 pg (27.0-33.4); MEAN CORPUSCULAR HGB CONC 34.4 g/dL (32.0-36.0); MEAN CORPUSCULAR VOLUME 101 fl (80-97); MONOCYTES % (AUTO) 4.7 % (3-13); RED BLOOD COUNT 4.17 10^6/uL (3.72-5.28); SEGMENTED NEUTROPHILS % (AUTO) 84.5 % (42-78); WHITE BLOOD COUNT 7.9 10^3/uL (4.0-10.5)
[2017-01-30 05:51] LABS: ANION GAP 8 (5-19); BLOOD UREA NITROGEN 48 mg/dL (7-20); CALCIUM 11.2 mg/dL (8.4-10.2); CARBON DIOXIDE 29 mmol/L (22-30); CHLORIDE 94 mmol/L (98-107); GLUCOSE 129 mg/dL (75-110); POTASSIUM 5.1 mmol/L (3.6-5.0); SODIUM 130.5 mmol/L (137-145)
[2017-01-30] MEDS: IPRATROPIUM/ALBUTEROL 0.5-2.5 MG/3 ML AMPUL NEB SCH (08:16)
[2017-01-30] MEDS ORDERED: LEVALBUTEROL HCL NEB 0.63 MG/3 ML AMPUL NEB PRN (08:22)
--- NOTE | 2017-01-30 08:47 | PDOC PROGRESS REPORT ---
Subjective Progress Note for:: 01/30/17 Subjective:: Patient is currently doing fair Patient underwent for the atrial fibrillations with rapid ventricular response Patient's medications were adjusted in the weekends currently back to the normal rate Patient's potassium was 5.6 yesterday today is 5.1 Patient have a some mild renal insufficiency Patient's denied any chest pain denied any shortness of the breath Physical Exam Vital Signs: Temp Pulse Resp BP Pulse Ox 97.8 F 83 22 H 119/68 97 01/30/17 07:20 01/30/17 07:41 01/30/17 07:20 01/30/17 07:40 01/30/17 07:20 Intake & Output 01/29/17 01/30/17 01/31/17 06:59 06:59 06:59 Intake Total 2095 1709 Balance 2095 1709 Weight 49.5 kg 49.3 kg General appearance: PRESENT: no acute distress, well-developed, well-nourished Head exam: PRESENT: atraumatic, normocephalic Eye exam: PRESENT: conjunctiva pink, EOMI, PERRLA. ABSENT: scleral icterus Ear exam: PRESENT: normal external ear exam Mouth exam: PRESENT: moist, tongue midline Neck exam: PRESENT: full ROM. ABSENT: carotid bruit, JVD, lymphadenopathy, thyromegaly Respiratory exam: PRESENT: clear to auscultation eliel Cardiovascular exam: PRESENT: RRR. ABSENT: diastolic murmur, rubs, systolic murmur Pulses: PRESENT: normal [place] pedis pul, +2 pedal pulses bilateral Vascular exam: PRESENT: normal capillary refill GI/Abdominal exam: PRESENT: normal bowel sounds, soft. ABSENT: distended, guarding, mass, organolmegaly, rebound, tenderness Rectal exam: PRESENT: deferred Extremities exam: ABSENT: pedal edema Musculoskeletal exam: PRESENT: ambulatory Neurological exam: PRESENT: alert, awake, oriented to person, oriented to place , oriented to time, oriented to situation, CN II-XII grossly intact. ABSENT: motor sensory deficit Psychiatric exam: PRESENT: appropriate affect, normal mood. ABSENT: homicidal ideation, suicidal ideation Skin exam: PRESENT: dry, intact, warm. ABSENT: cyanosis, rash Results Laboratory Results: 01/30/17 05:18 01/30/17 05:18 01/29/17 01/30/17 01/30/17 15:26 05:18 05:18 WBC 7.9 RBC 4.17 Hgb 14.4 Hct 42.1 MCV 101 H MCH 34.6 H MCHC 34.4 RDW 14.0 Plt Count 203 Seg Neutrophils % 84.5 H Lymphocytes % 10.5 L Monocytes % 4.7 Eosinophils % 0.0 Basophils % 0.3 Absolute Neutrophils 6.7 Absolute Lymphocytes 0.8 Absolute Monocytes 0.4 Absolute Eosinophils 0.0 Absolute Basophils 0.0 Sodium 131.5 L 130.5 L Potassium 5.6 H 5.1 H Chloride 95 L 94 L Carbon Dioxide 27 29 Anion Gap 10 8 BUN 41 H 48 H Creatinine 0.90 0.80 Est GFR ( Amer) > 60 > 60 Est GFR (Non-Af Amer) > 60 > 60 Glucose 93 129 H Calcium 11.3 H 11.2 H Magnesium 2.1 01/26/17 01/26/17 01/26/17 16:34 16:34 22:15 Creatine Kinase < 20 L < 20 L CK-MB (CK-2) 0.96 Troponin I 0.017 NT-Pro-B Natriuret Pep 2090 H 01/26/17 01/27/17 01/27/17 22:15 04:12 04:12 Creatine Kinase < 20 L CK-MB (CK-2) 1.02 0.78 Troponin I 0.016 0.017 NT-Pro-B Natriuret Pep Impressions: Chest CT 01/26/17 00:00 IMPRESSION: 1. COPD. INDISTINCT NODULE IN THE RIGHT LOWER LOBE DESCRIBED. THIS IS SOMEWHAT CONCERNING FOR MALIGNANT PROCESS ALTHOUGH INFECTION NOT ENTIRELY EXCLUDED. IF THERE IS SUSPICION OF INFECTION, RECOMMEND REPEAT CT SCAN FOLLOWING TREATMENT TO DETERMINE IF THERE IS IMPROVEMENT. OTHERWISE WOULD CONSIDER PET SCAN. NO OTHER ACUTE FINDINGS. 2. STABLE FATTY LESIONS IN THE ADRENAL GLANDS, WITH LITTLE CHANGE SINCE PRIOR STUDY IN AUGUST 2007. MOST LIKELY ADENOMAS. Chest X-Ray 01/26/17 09:41 IMPRESSION: CHRONIC LUNG CHANGES WITH NO ACUTE CARDIOPULMONARY DISEASE. Assessment & Plan - Diagnosis (1) COPD with acute exacerbation Is this a current diagnosis for this admission?: Yes Plan: We will change the DuoNeb to Xopenex nebulizerStart the patient on the Flovent and the Spiriva (2) Symptomatic bradycardia Is this a current diagnosis for this admission?: Yes Plan: Currently all resolved most likely beta-mary side effect (3) Urinary tract infection Qualifiers: Urinary tract infection type: site unspecified Is this a current diagnosis for this admission?: Yes Plan: DC the IV antibiotic and start the patient on the Ceftin (4) Atrial fibrillation Qualifiers: Atrial fibrillation type: paroxysmal Qualified Code(s): I48.0 - Paroxysmal atrial fibrillation Is this a current diagnosis for this admission?: Yes Plan: Continues to p.o. Cardizem and a mitral propranolol (5) PVD (peripheral vascular disease) Is this a current diagnosis for this admission?: Yes Plan: Currently all stable patient's follow with the vascular surgeon (6) Congestive heart failure Qualifiers: Congestive heart failure type: diastolic Is this a current diagnosis for this admission?: Yes Plan: Currently all stable (7) Abdominal aortic aneurysm Qualifiers: Presence of rupture: without rupture Qualified Code(s): I71.4 - Abdominal aortic aneurysm, without rupture Is this a current diagnosis for this admission?: Yes Plan: Patient usually follows with the vascular surgeon And currently stable (8) Dehydration Is this a current diagnosis for this admission?: Yes Plan: Encourage the more p.o. 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
[2017-01-30] MEDS: PREDNISONE 20 MG TABLET PO SCH (09:40)
[2017-01-30] MEDS: APIXABAN 5 MG TABLET PO SCH ×2 (09:40→17:14)
[2017-01-30] MEDS: METOPROLOL SUCCINATE 25 MG TAB.SR.24H PO SCH (09:40)
[2017-01-30] MEDS: LEVOTHYROXINE SODIUM 0.088 MG TABLET PO SCH (09:42)
[2017-01-30] MEDS: CHOLECALCIFEROL (D3) 1,000 UNIT TABLET PO SCH (09:42)
[2017-01-30] MEDS: CEFUROXIME 500 MG TABLET PO SCH ×2 (09:42→21:30)
[2017-01-30] MEDS: DILTIAZEM HCL 120 MG CAP.SR.24H PO SCH (09:42)
[2017-01-30] MEDS: DOCUSATE SODIUM 100 MG CAPSULE PO SCH ×2 (09:43→17:14)
[2017-01-30] MEDS: DRONEDARONE HYDROCHLORIDE 400 MG TABLET PO SCH ×2 (09:44→21:31)
[2017-01-30] MEDS: FLUTICASONE PROPIONATE HFA 110 MCG/PUFF 12 GM MDI IH SCH ×2 (09:45→21:33)
[2017-01-30] MEDS: TIOTROPIUM BROMIDE DPI 5 CAP/KIT (18 MCG/CAP) IH SCH (09:45)
[2017-01-30] MEDS: NICOTINE 14 MG/24 HR PATCH.TD24 TD SCH (09:50)
[2017-01-30] MEDS ORDERED: NORMAL SALINE 1000 ML 1,000 ML IV PRN (10:27)
--- NOTE | 2017-01-30 11:55 | RADIOLOGY REPORT (SQ) ---
EXAM DESCRIPTION: CHEST SINGLE VIEW COMPLETED DATE/TIME: 01/30/2017 11:45 am REASON FOR STUDY: shortness of breath COMPARISON: CT chest 09/15/2015, 01/26/2017 Chest films 09/21/2015, 10/08/2015, 01/25/2017 EXAM PARAMETERS: NUMBER OF VIEWS: One view. TECHNIQUE: Single frontal radiographic view of the chest acquired. RADIATION DOSE: NA LIMITATIONS: None. FINDINGS: LUNGS AND PLEURA: Faintly radiopaque nodule over the right minor fissure region, similar c ompared to CT exam 01/26/2017. Lungs are otherwise hyperinflated and hyperlucent from obstructive disease. Bandlike right upper lob e scarring. No acute infiltrates. No pleural effusion. No pneumothorax. MEDIASTINUM AND HILAR STRUCTURES: No masses. Contour normal. HEART AND VASCULAR STRUCTURES: Heart normal in size. Normal vasculature. BONES: Osteoporotic. No acute changes HARDWARE: None in the chest. OTHER: No other significant finding. IMPRESSION: Persistent faintly radiopaque nodule over the right minor fissure region/right lower lob e similar compared to CT exam 01/26/2017. Obstructive lung disease. No acute infiltrates or pleural effusion TECHNICAL DOCUMENTATION: JOB ID: [id number] [employer]- All Rights Reserved
[2017-01-30] MEDS: ATORVASTATIN CALCIUM 10 MG TABLET PO SCH (21:29)
[2017-01-30] MEDS: ZOLPIDEM TARTRATE 5 MG TABLET PO PRN (21:30)
[2017-01-30] MEDS: TRAZODONE HCL 50 MG TABLET PO SCH (21:30)
--- NOTE | 2017-01-31 00:38 | PROGRESS NOTE E ---
Progress Note NAME: FREDI WHALEN : 1935 AGE: 81Y DATE: 01/30/2017 ROOM: 307 SUBJECTIVE: The patient continues to be in atrial fibrillation but with a much controlled response. She has some mild shortness of breath but denies any PND, orthopnea, or wheezing. There is no leg edema. The patient has extensive bruising of the skin in both upper extremities and lower extremities. There is no TIA, CVA symptoms. There is no major bleeding on Eliquis. OBJECTIVE: VITAL SIGNS: The patient is afebrile with a temperature of 97.6, pulse rate of 81 beats per minute, blood pressure 131/69, respirations are 22 per minute, O2 saturations are 100% on nasal cannula 2 L. GENERAL: The patient appears to be frail and older than her stated age. HEAD: Atraumatic, normocephalic. EYES: Pupils are equal, round, regular, and reactive to light and accommodation. Extraocular movements are normal. There is no conjunctival pallor. There is no scleral icterus. EARS: Tympanic membrane are intact. There are no lesions on the pinnae. NOSE: There is no deviation of the nasal septum. There is no inflammation of the mucous membranes. MOUTH: Mucous membranes of the mouth are moist. Tongue is moist. There is no ulcer. There is no bleeding from the gums. THROAT: There is no redness of the oropharynx. There is no exudate. SKIN: As mentioned earlier, there is extensive bruising of the skin in both her upper extremities and lower extremities but no major bleeding. NECK: Supple. There is no JVD. Carotids are equal. There is no bruit. Trachea central. There is no goiter. LUNGS: Show diminished air entry and prolonged expiration on auscultation and with hyperresonance on percussion. There are no rhonchi, rales, or wheezing. HEART: S1 and S2 are heard. S1 has a variable intensity. There is no S3 gallop. There is no S4 gallop. There is a systolic murmur in the left sternal border at the apex. There is no rub. ABDOMEN: Soft, nontender. There is no hepatosplenomegaly. Bowel sounds are well heard. EXTREMITIES: Peripheral pulses are diminished. There is no femoral bruit. Leg pulses are diminished. There is clubbing. There is no cyanosis. There is no calf tenderness. CENTRAL NERVOUS SYSTEM: The patient is conscious, awake, alert, oriented x3 with no focal deficit. PSYCHIATRIC: The patient's judgment and insight are intact. Her affect is normal. DIAGNOSTIC STUDIES: Chest x-ray shows persistent *------* radio-opaque nodule over the right minor fissure region/right lower lobe similar to comparative CT of 01/26/2017. There is COPD. No acute infiltrate or pleural effusion. There is no heart failure. LABORATORY DATA: The patient's sodium is 130.5, potassium if 5.1, chloride is 94, CO2 is 29. The patient's BUN is 48, creatinine 0.80. In spite of the BUN being high, the GFR is greater than 60. The patient's glucose is 129. Her calcium is 11.2. The patient's white count is 7900; hemoglobin is 14.4; hematocrit is 42.1; and the platelet count is 203,000. IMPRESSION: 1. Acute exacerbation of COPD, getting better. Continue antibiotics. Continue anti-COPD treatment. The COPD is improving. 2. Atrial fibrillation with controlled ventricular response. Continue Eliquis. Continue the Cardizem CD 120 mg per day and stop the patient's Cardizem drip. As per the daughter, she states that when her Toprol was increased, her heart rate went down to 36 and it was stopped. 3. Congestive heart failure, most likely diastolic heart failure. At present, stable. 4. Symptomatic bradycardia secondary to medication. Medications have been adjusted. 5. Coronary artery disease. Patient without any anginal symptoms and no evidence of non-ST elevation [place] in the patient. 6. Abdominal aortic aneurysm without rupture. The patient is asymptomatic. 7. Peripheral vascular disease. We recommend watching the patient carefully on Eliquis. 8. Hypothyroidism. Continue thyroid replacement. RECOMMENDATION: If the patient's heart rate should go up then we will increase the patient's Cardizem to 120 mg p.o. b.i.d. Note that the patient's potassium is slightly elevated. Although her BUN was 48, her GFR was greater than 60. Discussed this with the patient's daughter. Patient's previous reports and records reviewed. TIME SPENT: Thirty minutes spent on this patient with more than 50% of the time spent on direct patient care. Medications have been reviewed and adjusted. Note, medical decision making was of high complexity in view of the multiple risk factors. DICTATING PHYSICIAN: CHUY MADERA M.D. [id number] PHY#: [id number] ID: [id number] JOB#: [id number] ACCT: [id number] cc: >
[2017-01-31 05:59] LABS: ANION GAP 6 (5-19); BLOOD UREA NITROGEN 51 mg/dL (7-20); CALCIUM 10.9 mg/dL (8.4-10.2); CARBON DIOXIDE 29 mmol/L (22-30); CHLORIDE 97 mmol/L (98-107); CREATININE RESULT 0.77 mg/dL (0.52-1.25); GLUCOSE 95 mg/dL (75-110); POTASSIUM 4.7 mmol/L (3.6-5.0); SODIUM 132.3 mmol/L (137-145)
[2017-01-31] MEDS: LANSOPRAZOLE 15 MG TAB.RAP.DR PO SCH ×2 (06:00→16:04)
[2017-01-31] MEDS: HYDRALAZINE HCL 10 MG TABLET PO SCH (06:00)
[2017-01-31] MEDS: GABAPENTIN 100 MG CAPSULE PO SCH ×2 (06:00→14:15)
[2017-01-31] MEDS ORDERED: LEVOTHYROXINE SODIUM 0.088 MG TABLET PO SCH (06:00)
[2017-01-31] MEDS: DILTIAZEM HCL 120 MG CAP.SR.24H PO SCH (08:15)
--- NOTE | 2017-01-31 08:57 | PDOC PROGRESS REPORT ---
Subjective Progress Note for:: 01/31/17 Subjective:: Patient is currently doing fairPatient's potassium is back to normal and kidney function is also improving Patient's seen by Dr. Devlin yesterday and some discussed with the patient' s and some other family friends and Dr. Devlin stop the beta-mary Patient's heart rate is still running high 140 range Patient's denied any chest pain denied any shortness of the breath Physical Exam Vital Signs: Temp Pulse Resp BP Pulse Ox 97.9 F 69 16 113/69 92 01/31/17 04:20 01/31/17 04:20 01/31/17 04:20 01/31/17 04:20 01/31/17 04:20 Intake & Output 01/30/17 01/31/17 02/01/17 06:59 06:59 06:59 Intake Total 1710 911 Balance 1710 911 Weight 49.3 kg 49.3 kg General appearance: PRESENT: no acute distress, well-developed, well-nourished Head exam: PRESENT: atraumatic, normocephalic Eye exam: PRESENT: conjunctiva pink, EOMI, PERRLA. ABSENT: scleral icterus Ear exam: PRESENT: normal external ear exam Mouth exam: PRESENT: moist, tongue midline Neck exam: PRESENT: full ROM. ABSENT: carotid bruit, JVD, lymphadenopathy, thyromegaly Respiratory exam: PRESENT: clear to auscultation eliel Cardiovascular exam: PRESENT: RRR. ABSENT: diastolic murmur, rubs, systolic murmur Pulses: PRESENT: normal dorsalis pedis pul, +2 pedal pulses bilateral Vascular exam: PRESENT: normal capillary refill GI/Abdominal exam: PRESENT: normal bowel sounds, soft. ABSENT: distended, guarding, mass, organolmegaly, rebound, tenderness Rectal exam: PRESENT: deferred Extremities exam: ABSENT: pedal edema Musculoskeletal exam: PRESENT: ambulatory Neurological exam: PRESENT: alert, awake, oriented to person, oriented to place , oriented to time, oriented to situation, CN II-XII grossly intact. ABSENT: motor sensory deficit Psychiatric exam: PRESENT: appropriate affect, normal mood. ABSENT: homicidal ideation, suicidal ideation Skin exam: PRESENT: dry, intact, warm. ABSENT: cyanosis, rash Results Laboratory Results: 01/30/17 05:18 01/31/17 04:47 01/31/17 04:47 Sodium 132.3 L Potassium 4.7 Chloride 97 L Carbon Dioxide 29 Anion Gap 6 BUN 51 H Creatinine 0.77 Est GFR ( Amer) > 60 Est GFR (Non-Af Amer) > 60 Glucose 95 Calcium 10.9 H 01/26/17 01/26/17 01/26/17 16:34 16:34 22:15 Creatine Kinase < 20 L < 20 L CK-MB (CK-2) 0.96 Troponin I 0.017 NT-Pro-B Natriuret Pep 2090 H 01/26/17 01/27/17 01/27/17 22:15 04:12 04:12 Creatine Kinase < 20 L CK-MB (CK-2) 1.02 0.78 Troponin I 0.016 0.017 NT-Pro-B Natriuret Pep Impressions: Chest CT 01/26/17 00:00 IMPRESSION: 1. COPD. INDISTINCT NODULE IN THE RIGHT LOWER LOBE DESCRIBED. THIS IS SOMEWHAT CONCERNING FOR MALIGNANT PROCESS ALTHOUGH INFECTION NOT ENTIRELY EXCLUDED. IF THERE IS SUSPICION OF INFECTION, RECOMMEND REPEAT CT SCAN FOLLOWING TREATMENT TO DETERMINE IF THERE IS IMPROVEMENT. OTHERWISE WOULD CONSIDER PET SCAN. NO OTHER ACUTE FINDINGS. 2. STABLE FATTY LESIONS IN THE ADRENAL GLANDS, WITH LITTLE CHANGE SINCE PRIOR STUDY IN AUGUST 2007. MOST LIKELY ADENOMAS. Chest X-Ray 01/30/17 00:00 IMPRESSION: Persistent faintly radiopaque nodule over the right minor fissure region/right lower lobe similar compared to CT exam 01/26/2017. Obstructive lung disease. No acute infiltrates or pleural effusion Assessment & Plan - Diagnosis (1) COPD with acute exacerbation Is this a current diagnosis for this admission?: Yes Plan: We will change the DuoNeb to Xopenex nebulizerStart the patient on the Flovent and the Spiriva (2) Symptomatic bradycardia Is this a current diagnosis for this admission?: Yes Plan: Currently all resolved most likely beta-mary side effect (3) Urinary tract infection Qualifiers: Urinary tract infection type: site unspecified Is this a current diagnosis for this admission?: Yes Plan: DC the IV antibiotic and start the patient on the Ceftin (4) Atrial fibrillation Qualifiers: Atrial fibrillation type: paroxysmal Qualified Code(s): I48.0 - Paroxysmal atrial fibrillation Is this a current diagnosis for this admission?: Yes Plan: As per discussed with the cardiology Dr. Sellers will increase the Cardizem 120 twice a dayPatient seems to be response to the metoprolol with some lesion patients and family friend do not want to take it (5) PVD (peripheral vascular disease) Is this a current diagnosis for this admission?: Yes Plan: Currently all stable patient's follow with the vascular surgeon (6) Congestive heart failure Qualifiers: Congestive heart failure type: diastolic Is this a current diagnosis for this admission?: Yes Plan: Currently all stable (7) Abdominal aortic aneurysm Qualifiers: Presence of rupture: without rupture Qualified Code(s): I71.4 - Abdominal aortic aneurysm, without rupture Is this a current diagnosis for this admission?: Yes Plan: Patient usually follows with the vascular surgeon And currently stable (8) Dehydration Is this a current diagnosis for this admission?: Yes Plan: Currently all resolved (9) Hyperkalemia Is this a current diagnosis for this admission?: Yes - Time Time Spent with patient: 15-24 minutes Medications reviewed and adjusted accordingly: Yes Anticipated discharge: Other Within: Other - Inpatient Certification Medical Necessity: Need Close Monitoring Due to Risk of Patient Decompensation Post Hospital Care: D/C [employer] Documentation - Plan Summary Plan Summary: Will increase the Cardizem 120 twice a day continues on the current medications follow with cardiology
[2017-01-31] MEDS ORDERED: GUAIFENESIN SYRP 200 MG/10 ML UDC PO PRN (10:10)
[2017-01-31] MEDS: CEFUROXIME 500 MG TABLET PO SCH (10:38)
[2017-01-31] MEDS: PREDNISONE 20 MG TABLET PO SCH (10:38)
[2017-01-31] MEDS: DRONEDARONE HYDROCHLORIDE 400 MG TABLET PO SCH (10:39)
[2017-01-31] MEDS: DOCUSATE SODIUM 100 MG CAPSULE PO SCH ×2 (10:39→17:14)
[2017-01-31] MEDS: CHOLECALCIFEROL (D3) 1,000 UNIT TABLET PO SCH (10:39)
[2017-01-31] MEDS: APIXABAN 5 MG TABLET PO SCH ×2 (10:40→17:13)
[2017-01-31] MEDS: TIOTROPIUM BROMIDE DPI 5 CAP/KIT (18 MCG/CAP) IH SCH (10:41)
[2017-01-31] MEDS: FLUTICASONE PROPIONATE HFA 110 MCG/PUFF 12 GM MDI IH SCH (10:42)
[2017-01-31] MEDS: NICOTINE 14 MG/24 HR PATCH.TD24 TD SCH (10:44)
[2017-01-31] MEDS ORDERED: ATENOLOL 50 MG TABLET PO ONE (11:00)
[2017-01-31] MEDS ORDERED: ONDANSETRON HCL INJ/PF 4 MG/2 ML SDV IV PRN (13:00)
--- NOTE | 2017-01-31 13:15 | PDOC TRANSFER SUMMARY ---
General Admission Date/PCP: 01/26/17 16:15 JAYNE REYES MD Transfer Date: 01/31/17 Accepting Facility: [facility] Resuscitation Status: Full Code - Transfer Diagnosis (1) COPD with acute exacerbation Is this a current diagnosis for this admission?: Yes Diagnosis Summary: Continues to Xopenex (2) Symptomatic bradycardia Is this a current diagnosis for this admission?: Yes Diagnosis Summary: Currently all resolved most likely due to the beta-mary possible underlying bradycardia trachycardia syndromes (3) Urinary tract infection Is this a current diagnosis for this admission?: Yes Diagnosis Summary: Continue Ceftin (4) Atrial fibrillation Is this a current diagnosis for this admission?: Yes Diagnosis Summary: Is currently on a Cardizem CD 120 twice daily and just recently started the atenolol by Dr. Sellers but patient still have on and off symptoms needs to further evaluate the test recent test for any pacemaker (5) PVD (peripheral vascular disease) Is this a current diagnosis for this admission?: Yes Diagnosis Summary: Currently all stable (6) Congestive heart failure Is this a current diagnosis for this admission?: Yes Diagnosis Summary: Currently all stable (7) Abdominal aortic aneurysm Is this a current diagnosis for this admission?: Yes Diagnosis Summary: Is currently follow with the [place] vascular surgeon (8) Dehydration Is this a current diagnosis for this admission?: Yes Diagnosis Summary: resolved (9) Hyperkalemia Is this a current diagnosis for this admission?: Yes Diagnosis Summary: resolved - Transfer Medications Home Medications: Apixaban [Eliquis 5 mg Tablet] 5 mg PO DAILY 01/26/17 Diltiazem HCl [Diltiazem ER] 120 mg PO DAILY 01/26/17 Ergocalciferol (Vitamin D2) [Vitamin D2] 50,000 unit PO MEADOWS@1000 01/26/17 Fenofibrate Nanocrystallized [Tricor 145 mg Tablet] 1 tab PO QHS 01/26/17 Fluticasone/Salmeterol [Advair 250-50 Diskus 14 Dose/Diskus] 1 puff IH Q12 01/26 Gabapentin 100 mg PO Q8 01/26/17 Hydralazine HCl 10 mg PO Q8 01/26/17 Levothyroxine Sodium 88 mcg PO Q6AM 01/26/17 Metoprolol Tartrate 1 tab PO DAILY 01/26/17 Montelukast Sodium [Singulair 10 mg Tablet] 10 mg PO DAILY 01/26/17 Omeprazole 40 mg PO DAILY 01/26/17 Tiotropium [place] [Spiriva Handihaler 5 Cap/Kit (18 Mcg/Cap)] 1 puff IH DAILY 01/26/17 Transfer Medications: Current Medications Acetaminophen (Tylenol 325 Mg Tablet) 650 mg PO Q4HP PRN PRN Reason: FOR PAIN OR TEMP Stop: 02/25/17 16:02 Alprazolam (Xanax 0.25 Mg Tablet) 0.25 mg PO BIDP PRN PRN Reason: ANXIETY Stop: 02/04/17 15:44 Last Admin: 01/28/17 17:29 Dose: 0.25 mg Apixaban (Eliquis 5 Mg Tablet) 5 mg PO BID MYRANDA Stop: 02/25/17 17:59 Last Admin: 01/31/17 10:40 Dose: 5 mg Atenolol (Tenormin 50 Mg Tablet) 25 mg PO DAILY MYRANDA Stop: 03/03/17 09:59 Last Admin: 01/31/17 11:06 Dose: 25 mg Atorvastatin Calcium (Lipitor 10 Mg Tablet) 10 mg PO QHS MYRANDA Stop: 02/25/17 21:59 Last Admin: 01/30/17 21:29 Dose: 10 mg Buspirone HCl (Buspar 10 Mg Tablet) 10 mg PO Q12 MYRANDA Stop: 03/02/17 21:59 Cefuroxime Axetil (Ceftin 500 Mg Tablet) 500 mg PO Q12 MYRANDA Stop: 02/06/17 09:59 Last Admin: 01/31/17 10:38 Dose: 500 mg Cholecalciferol (Vitamin D3 1000 Unit Tablet) 1,000 unit PO DAILY MYRANDA Stop: 02/26/17 09:59 Last Admin: 01/31/17 10:39 Dose: 1,000 unit Diltiazem HCl (Cardizem Cd 120 Mg Capsule) 120 mg PO Q12 MYRANDA Stop: 02/26/17 09:59 Docusate Sodium (Colace 100 Mg Capsule) 100 mg PO BID MYRANDA Stop: 02/25/17 17:59 Last Admin: 01/31/17 10:39 Dose: 100 mg Dronedarone (Multaq 400 Mg Tablet) 400 mg PO Q12 MYRANDA Stop: 02/28/17 09:59 Last Admin: 01/31/17 10:39 Dose: 400 mg Fluticasone Propionate (Flovent Hfa 110 Mcg Inhalation Aerosol 12 Gm) 1 puff IH Q12 MYRANDA Stop: 03/01/17 09:59 Last Admin: 01/31/17 10:42 Dose: 1 puff Gabapentin (Neurontin 100 Mg Capsule) 100 mg PO Q8 MYRANDA Stop: 02/25/17 21:59 Last Admin: 01/31/17 06:00 Dose: 100 mg Guaifenesin (Robitussin Syrup 200 Mg/10 Ml Ud Cup) 200 mg PO Q6HP PRN PRN Reason: COUGH Stop: 03/02/17 10:09 Last Admin: 01/31/17 10:38 Dose: 200 mg Lansoprazole (Prevacid 15 Mg Odt Tablet) 15 mg PO BID@0600,1700 [facility] Stop: 02/25/17 16:59 Last Admin: 01/31/17 06:00 Dose: 15 mg Levalbuterol HCl (Xopenex Neb 0.63 Mg/3 Ml Ampul) 0.63 mg NEB RTQ6HP PRN PRN Reason: WHEEZING/DYSPNEA Stop: 03/01/17 08:21 Last Admin: 01/30/17 16:29 Dose: 0.63 mg Levothyroxine Sodium (Synthroid 0.088 Mg Tablet) 0.088 mg PO Q6AM MYRANDA Stop: 03/02/17 05:59 Last Admin: 01/31/17 06:00 Dose: 0.088 mg Metoprolol Tartrate (Lopressor Inj/Pf 5 Mg/5 Ml Sdv) 2.5 mg IV Q1HP PRN PRN Reason: HR ABOVE 125 AND NO WHEEZING Stop: 02/27/17 17:03 Last Admin: 01/28/17 17:27 Dose: 2.5 mg Nicotine (Nicoderm 14 Mg/24 Hr Transdermal Patch) 1 each TD DAILY MYRANDA Stop: 02/26/17 09:59 Last Admin: 01/31/17 10:44 Dose: 1 each Ondansetron HCl (Zofran Inj/Pf 4 Mg/2 Ml Sdv) 4 mg IV Q4HP PRN PRN Reason: FOR NAUSEA/VOMITING Stop: 02/25/17 16:02 Prednisone (Deltasone 20 Mg Tablet) 20 mg PO DAILY [facility] Stop: 03/01/17 09:59 Last Admin: 01/31/17 10:38 Dose: 20 mg Tiotropium [place] (Spiriva Handihaler 5 Cap/Kit (18 Mcg/Cap)) 1 cap IH DAILY MYRANDA Stop: 03/01/17 09:59 Last Admin: 01/31/17 10:41 Dose: 1 cap Trazodone HCl (Desyrel 50 Mg Tablet) 25 mg PO QHS MYRANDA Stop: 02/27/17 21:59 Last Admin: 01/30/17 21:30 Dose: 25 mg Zolpidem Tartrate (Ambien 5 Mg Tablet) 5 mg PO HSP PRN PRN Reason: SLEEP OR INSOMNIA Stop: 02/26/17 21:45 Last Admin: 01/30/17 21:30 Dose: 5 mg - Allergies Allergies/Adverse Reactions: Penicillins Allergy (Severe, Verified 01/26/17 09:31) Respiratory arrest doxycycline [Doxycycline] Allergy (Intermediate, Verified 01/26/17 09:31) Jona-Tristin's Syndrome valsartan [From Diovan] Allergy (Intermediate, Verified 01/26/17 09:31) Rash levofloxacin [From Levaquin] Allergy (Verified 01/26/17 09:31) METAL Allergy (Severe, Uncoded 07/23/15 11:42) RASH - Diet/Activity Discharge Diet: Cardiac Hospital Course Hospital Course: This is a 81-year-old female came to the emergency department with complaints of shortness of the breath with diagnosed with a COPD acute exacerbations with the very bradycardic with a heart rate was 36 And was admitting in the hospitals and stop the beta-mary and patient was given the respiratory treatments and IV antibiotic also found a urinary tract infections Patient's also seen by the cardiology Dr. Sellers and Dr. Devlin and patients underwent for the A. fib with rapid ventricular response and patient restart the Cardizem CD 120 and patients also started on atenolol 25 mg p.o. daily Patients still have a CT of the chest was done with the persistence nodules in the lungs and patient see outpatients pulmonary for that Patients is still have up-and-down the heart rate rhythms and at this point so family not happy and at this point patient still not getting improvement discussed with the tertiary centers for the delivery professional for further evaluations and further opinion Discussed with the patient's and the family and agree to transport to the [facility] for further evaluations for this cardiac arrhythmia Patient still have a multiple medical comorbidity with extensive discussed with the patient and the daughter understand very well that patients have a continues to smoke and continues to all the other conditions which are related to the end-stage COPD and chronic smoking and pulmonary nodules and also aneurysms Physical Exam Vital Signs: Temp Pulse Resp BP Pulse Ox 98.1 F 136 H 22 H 141/77 H 96 01/31/17 08:11 01/31/17 08:11 01/31/17 08:11 01/31/17 08:11 01/31/17 08:11 Intake & Output 01/30/17 01/31/17 02/01/17 06:59 06:59 06:59 Intake Total 1710 911 Balance 1710 911 Weight 49.3 kg 49.3 kg General appearance: PRESENT: no acute distress, well-developed, well-nourished Head exam: PRESENT: atraumatic, normocephalic Eye exam: PRESENT: conjunctiva pink, EOMI, PERRLA. ABSENT: scleral icterus Ear exam: PRESENT: normal external ear exam Mouth exam: PRESENT: moist, tongue midline Neck exam: ABSENT: carotid bruit, JVD, lymphadenopathy, thyromegaly Respiratory exam: PRESENT: clear to auscultation eliel. ABSENT: rales, rhonchi, wheezes Cardiovascular exam: PRESENT: RRR. ABSENT: diastolic murmur, rubs, systolic murmur Pulses: PRESENT: normal dorsalis pedis pul Vascular exam: PRESENT: normal capillary refill GI/Abdominal exam: PRESENT: normal bowel sounds, soft. ABSENT: distended, guarding, mass, organolmegaly, rebound, tenderness Rectal exam: PRESENT: deferred Extremities exam: PRESENT: full ROM. ABSENT: calf tenderness, clubbing, pedal edema Neurological exam: PRESENT: alert, awake, oriented to person, oriented to place , oriented to time, oriented to situation, CN II-XII grossly intact. ABSENT: motor sensory deficit Psychiatric exam: PRESENT: appropriate affect, normal mood. ABSENT: homicidal ideation, suicidal ideation Skin exam: PRESENT: dry, intact, warm. ABSENT: cyanosis, rash Results Laboratory Results: 01/30/17 05:18 01/31/17 04:47 01/31/17 04:47 Sodium 132.3 L Potassium 4.7 Chloride 97 L Carbon Dioxide 29 Anion Gap 6 BUN 51 H Creatinine 0.77 Est GFR ( Amer) > 60 Est GFR (Non-Af Amer) > 60 Glucose 95 Calcium 10.9 H 01/26/17 01/26/17 01/26/17 16:34 16:34 22:15 Creatine Kinase < 20 L < 20 L CK-MB (CK-2) 0.96 Troponin I 0.017 NT-Pro-B Natriuret Pep 2090 H 01/26/17 01/27/17 01/27/17 22:15 04:12 04:12 Creatine Kinase < 20 L CK-MB (CK-2) 1.02 0.78 Troponin I 0.016 0.017 NT-Pro-B Natriuret Pep Impressions: Chest CT 01/26/17 00:00 IMPRESSION: 1. COPD. INDISTINCT NODULE IN THE RIGHT LOWER LOBE DESCRIBED. THIS IS SOMEWHAT CONCERNING FOR MALIGNANT PROCESS ALTHOUGH INFECTION NOT ENTIRELY EXCLUDED. IF THERE IS SUSPICION OF INFECTION, RECOMMEND REPEAT CT SCAN FOLLOWING TREATMENT TO DETERMINE IF THERE IS IMPROVEMENT. OTHERWISE WOULD CONSIDER PET SCAN. NO OTHER ACUTE FINDINGS. 2. STABLE FATTY LESIONS IN THE ADRENAL GLANDS, WITH LITTLE CHANGE SINCE PRIOR STUDY IN AUGUST 2007. MOST LIKELY ADENOMAS. Chest X-Ray 01/30/17 00:00 IMPRESSION: Persistent faintly radiopaque nodule over the right minor fissure region/right lower lobe similar compared to CT exam 01/26/2017. Obstructive lung disease. No acute infiltrates or pleural effusion Plan Time Spent: Greater than 30 Minutes - Patient at this point transfer to tertiary centers when the bed is available
--- NOTE | 2017-01-31 13:23 | PDOC PROGRESS REPORT ---
Subjective Progress Note for:: 01/31/17 Subjective:: Patient remains in atrial fibrillation with intermittent rapid ventricular response. Pt is denying any chest arm or neck discomfort. Patient denying any PND, orthopnea. Patient denied any sustained palpitations, dizziness, syncope, near syncope. Patient denying any fever chills. Patient denying any other significant discomfort. Yesterday, patient's metoprolol succinate got stopped. Patient continues to have cough with some sputum production. She is continuing to have some wheezing. Cardizem CD dose was increased to 120 p[address] twice daily by Dr. Devlin and metoprolol succinate got stopped. Patient's daughter currently quite unhappy because she was told in the ER that patient should never be on metoprolol, however she was getting metoprolol tartrate at 50 mg p.o. daily and we had started patient on metoprolol succinate at a much lower dose of 12.5 mg p.o. daily. Patient however claims that she is asymptomatic during these spells of atrial fibrillation. Review of systems: Rest review of systems negative. Medications: Medications have been reviewed. Physical Exam Vital Signs: Temp Pulse Resp BP Pulse Ox 98.1 F 136 H 22 H 141/77 H 96 01/31/17 08:11 01/31/17 08:11 01/31/17 08:11 01/31/17 08:11 01/31/17 08:11 Intake & Output 01/30/17 01/31/17 02/01/17 06:59 06:59 06:59 Intake Total 1710 911 Balance 1710 911 Weight 49.3 kg 49.3 kg Exam: GENERAL: well-nourished and in no acute distress. Alert and oriented x3 HEAD: Atraumatic, normocephalic. EYES: Pupils equal round and reactive to light, extraocular movements intact, sclera anicteric, conjunctiva are normal. ENT: TMs normal, nares patent, oropharynx clear without exudates. Moist mucous membranes. No oral ulcerations or bleeding gums noted NECK: supple without lymphadenopathy. Trachea is central. No cervical or axillary lymphadenopathy noted. Carotids are 2+, JVD WNL LUNGS: Respiration seems nonlabored, no significant accessory muscle action noted. Bilateral wheezing noted. CHEST: Palpation of the chest wall shows no significant chest wall tenderness. No other significant abnormalities noted. HEART: [place], No PSH, 1/6 CRISTO aortic area, 1/6 schaeffer systolic murmur mitral area, no rubs, no gallops. ABDOMEN: Soft, no significant tenderness appreciated, normoactive bowel sounds. No guarding, no rebound. No rigidity noted . No masses appreciated. EXTREMITIES: Pedal pulses are 1-2+, no calf tenderness noted. No clubbing or cyanosis.trace to 1+ pedal edema noted NEUROLOGICAL: Focused neurological exam showed no significant neurologic deficit. Normal speech, no focal weakness appreciated. PSYCH: Normal mood, normal affect. Judgment and insight within normal limits. SKIN: No significant ecchymosis, rash, ulcerations or signs of pruritus noted. MUSCULOSKELETAL EXAM: No significant joint swelling noted. Results Laboratory Results: 01/30/17 05:18 01/31/17 04:47 01/31/17 04:47 Sodium 132.3 L Potassium 4.7 Chloride 97 L Carbon Dioxide 29 Anion Gap 6 BUN 51 H Creatinine 0.77 Est GFR ( Amer) > 60 Est GFR (Non-Af Amer) > 60 Glucose 95 Calcium 10.9 H 01/26/17 01/26/17 01/26/17 16:34 16:34 22:15 Creatine Kinase < 20 L < 20 L CK-MB (CK-2) 0.96 Troponin I 0.017 NT-Pro-B Natriuret Pep 2090 H 01/26/17 01/27/17 01/27/17 22:15 04:12 04:12 Creatine Kinase < 20 L CK-MB (CK-2) 1.02 0.78 Troponin I 0.016 0.017 NT-Pro-B Natriuret Pep EKG Comments: Telemetry strips shows atrial fibrillation with rapid ventricular response Impressions: Chest CT 01/26/17 00:00 IMPRESSION: 1. COPD. INDISTINCT NODULE IN THE RIGHT LOWER LOBE DESCRIBED. THIS IS SOMEWHAT CONCERNING FOR MALIGNANT PROCESS ALTHOUGH INFECTION NOT ENTIRELY EXCLUDED. IF THERE IS SUSPICION OF INFECTION, RECOMMEND REPEAT CT SCAN FOLLOWING TREATMENT TO DETERMINE IF THERE IS IMPROVEMENT. OTHERWISE WOULD CONSIDER PET SCAN. NO OTHER ACUTE FINDINGS. 2. STABLE FATTY LESIONS IN THE ADRENAL GLANDS, WITH LITTLE CHANGE SINCE PRIOR STUDY IN AUGUST 2007. MOST LIKELY ADENOMAS. Chest X-Ray 01/30/17 00:00 IMPRESSION: Persistent faintly radiopaque nodule over the right minor fissure region/right lower lobe similar compared to CT exam 01/26/2017. Obstructive lung disease. No acute infiltrates or pleural effusion Assessment & Plan - Diagnosis (1) COPD with acute exacerbation Is this a current diagnosis for this admission?: Yes (2) Congestive heart failure Qualifiers: Congestive heart failure type: diastolic Is this a current diagnosis for this admission?: Yes (3) Symptomatic bradycardia Is this a current diagnosis for this admission?: Yes (6) Atrial fibrillation Qualifiers: Atrial fibrillation type: paroxysmal Qualified Code(s): I48.0 - Paroxysmal atrial fibrillation Is this a current diagnosis for this admission?: Yes (8) Coronary artery disease Qualifiers: Coronary Disease-Associated Artery/Lesion type: [place] artery Associated angina: angina presence unspecified Is this a current diagnosis for this admission?: Yes (9) Abdominal aortic aneurysm Qualifiers: Presence of rupture: without rupture Qualified Code(s): I71.4 - Abdominal aortic aneurysm, without rupture Is this a current diagnosis for this admission?: Yes (10) PVD (peripheral vascular disease) Is this a current diagnosis for this admission?: Yes - Notes Notes: The main problem right now is atrial fibrillation with rapid ventricular response. Patient did respond very nicely to metoprolol succinate but patient now declining to take it. Feel that patient may do better with a slightly more beta 1 selective beta-mary such as bisoprolol. Would start patient on low dose. If we just cannot control her atrial fibrillation, then patient may benefit from ablation of her AV node and placement of the pacemaker. Patient in the ER was noted to have sinus bradycardia therefore would benefit from evaluation for permanent pacemaker. This was discussed in the very beginning of her admission with the patient. COPD with exacerbation: This is still a significant problems Congestive heart failure secondary to diastolic dysfunction and right heart failure: Currently seems compensated. Discussed with Dr. Gutierrez. He will be talking to the family members. - Time Time with patient: Greater than 35 minutes - More than 50% of the time spent coordinating care, discussing management plans with involved caregivers. Management plans discussed with involved personnels. Medical decision making was of moderate to high complexity, patient's has multiple comorbidities. Multiple medication changes were performed. Medications reviewed. Discussed with nurses. Discussed with hospitalist. Patient's daughter once patient's transfer to tertiary care. Agree that it is worthwhile to have another opinion. Especially as patient may end up needing intervention such as ablation with pacemaker placement especially if he cannot control her heart rate. Of note, patient heart rate was reasonably controlled on metoprolol XL but patient's family did not want patient to get this medication. Medications reviewed and adjusted accordingly: Yes
[2017-01-31] MEDS: ALPRAZOLAM 0.25 MG TABLET PO PRN (14:15)
[2017-01-31 15:47] VITALS: BP 113/76
[2017-01-31] MEDS ORDERED: DILTIAZEM HCL 120 MG CAP.SR.24H PO SCH (22:00)
[2017-01-31] MEDS ORDERED: BUSPIRONE HCL 10 MG TABLET PO SCH ×2 (22:00)
[2017-02-01] MEDS ORDERED: ATENOLOL 50 MG TABLET PO SCH (10:00)
--- NOTE | 2017-02-03 13:24 | PDOC CONSULTATION ---
Consultation Consult Date: 01/27/17 Attending physician:: JAYNE REYES Consult reason:: Acute on chronic respiratory failure History of Present Illness Admission Date/PCP: 01/26/17 16:15 JAYNE REYES MD History of Present Illness: FREDI WHALEN is a 81 year old female This is a 81-year-old female with a significant history of the COPD and a history of the congestive heart failure, A. fib chronic smoker came to the emergency department with a complaint of shortness of the breath and increasing more cough and congestion'sSince last several days.Patient's denied any chest pain denied any nausea no vomiting.Patient's still continues to smoke.Patient at this point also given IV Solu-Medrol in the ER Patient recently have a blood pressure issue and increase the metoprolol and patient also on a Cardizem which may contribute patient's bradycardia currently hold the metoprolol. Her heart rate was noted to be in the low 50s range. Patient was comfortable without any shortness of breath or dizziness. briefly patient go into atrial flutter fibrillation with heart rate jumping to in the 90s.I was asked to evaluate patient because of wheezing and dyspnea. Patient claims that more recently because of high blood pressure, multiple medications were added including beta-blockers. Patient does have history of severe COPD.She has greater than [id number] history continues to smoke at this time up until the time of admission he denies hemoptysis her PPD status is unknown she denies history of chronic lung disease as a child or adolescent she admits to exposure to large amounts of passive smoke as a child as well as an adult. She has no pets denies any recent travel she denies angina-like chest pain sleeps on 2 pillows occasional PND occasional nocturnal cough and some edema. She admits to snoring and restless sleep nocturia 3 unrestful sleep and excessive daytime somnolence. Past Medical History Cardiac Medical History: Reports: Atrial Fibrillation, Congestive Heart Failure , Hyperlipidema, Hypertension Pulmonary Medical History: Reports: Bronchitis, Chronic Obstructive Pulmonary Disease (COPD), Pneumonia Endocrine Medical History: Reports: Hypothyroidism Denies: Obesity Renal/ Medical History: Denies: Nephrolithiasis Malignancy Medical History: Reports: None GI Medical History: Reports: Gastroesophageal Reflux Disease, Hiatal Hernia Denies: Hepatitis Musculoskeltal Medical History: Reports: Arthritis Skin Medical History: Denies: Eczema, Psoriasis Psychiatric Medical History: Denies: Tobacco Dependency Traumatic Medical History: Denies: Gunshot Wound, Pneumothorax, Traumatic Brain Injury Hematology: Denies: Anemia, Sickle Cell Disease Infectious Medical History: Denies: Hepatitis B, HIV Past Surgical History Past Surgical History: Reports: Appendectomy, Cholecystectomy, Hysterectomy Denies: Amputation, Mastectomy, Pacemaker Social History Information Source: Patient, [facility] Records Lives with: Family Smoking Status: Current Every Day Smoker Cigarettes Packs Per Day: 0.5 Number of Years Smokin Last Time Smoked: This morning Passive smoke exposure as: Both Frequency of Alcohol Use: Occasional Hx Recreational Drug Use: No Drugs: None Hx Prescription Drug Abuse: No Do you have pets?: No Have you had any respiratory illnesses as a child?: No Have you been exposed to any sick contacts recently?: No Have you had any recent respiratory illnesses?: No Have you travelled outside of [place] in the past 12 months?: No - Advance Directive Resuscitation Status: Full Code Family History Family History: Arthritis, CAD, CVA, Hypertension, Malignancy Parental Family History Reviewed: Yes Children Family History Reviewed: Yes Sibling(s) Family History Reviewed.: Yes Medication/Allergy Home Medications: Apixaban [Eliquis 5 mg Tablet] 5 mg PO DAILY 01/26/17 Diltiazem HCl [Diltiazem ER] 120 mg PO DAILY 01/26/17 Ergocalciferol (Vitamin D2) [Vitamin D2] 50,000 unit PO MEADOWS@1000 01/26/17 Fenofibrate Nanocrystallized [Tricor 145 mg Tablet] 1 tab PO QHS 01/26/17 Fluticasone/Salmeterol [Advair 250-50 Diskus 14 Dose/Diskus] 1 puff IH Q12 01/26 Gabapentin 100 mg PO Q8 01/26/17 Hydralazine HCl 10 mg PO Q8 01/26/17 Levothyroxine Sodium 88 mcg PO Q6AM 01/26/17 Metoprolol Tartrate 1 tab PO DAILY 01/26/17 Montelukast Sodium [Singulair 10 mg Tablet] 10 mg PO DAILY 01/26/17 Omeprazole 40 mg PO DAILY 01/26/17 Tiotropium [place] [Spiriva Handihaler 5 Cap/Kit (18 Mcg/Cap)] 1 puff IH DAILY 01/26/17 Allergies/Adverse Reactions: Penicillins Allergy (Severe, Verified 01/26/17 09:31) Respiratory arrest doxycycline [Doxycycline] Allergy (Intermediate, Verified 01/26/17 09:31) Jona-Tristin's Syndrome valsartan [From Diovan] Allergy (Intermediate, Verified 01/26/17 09:31) Rash levofloxacin [From Levaquin] Allergy (Verified 01/26/17 09:31) METAL Allergy (Severe, Uncoded 07/23/15 11:42) RASH Review of Systems Constitutional: ABSENT: chills, fever(s) Eyes: ABSENT: visual disturbances Ears: ABSENT: hearing changes Nose, Mouth, and Throat: ABSENT: mouth pain Cardiovascular: PRESENT: dyspnea on exertion, edema, orthropnea. ABSENT: palpitations Respiratory: PRESENT: cough, dyspnea. ABSENT: hemoptysis Gastrointestinal: ABSENT: abdominal pain, bloating, coffee ground emesis, hematemesis, hematochezia, melena, vomiting Genitourinary: ABSENT: difficulty urinating, dysuria, hematuria Musculoskeletal: ABSENT: joint swelling Integumentary: ABSENT: pruritus, rash Neurological: ABSENT: abnormal gait, abnormal movements, abnormal speech, convulsions, focal weakness, frequent falls, lack of coordination, memory loss Psychiatric: PRESENT: anxiety, depression. ABSENT: hallucinations, homidical ideation, suicidal ideation Endocrine: ABSENT: cold intolerance, heat intolerance, polydipsia, polyuria Hematologic/Lymphatic: ABSENT: easy bruising Physical Exam Vital Signs: Temp Pulse Resp BP Pulse Ox 98.0 F 59 L 18 160/79 H 96 01/27/17 07:49 01/27/17 07:56 01/27/17 07:56 01/27/17 07:49 01/27/17 07:56 Intake & Output 01/26/17 01/27/17 01/28/17 06:59 06:59 06:59 Intake Total 150 Balance 150 Weight 50.5 kg General appearance: PRESENT: no acute distress, cooperative, disheveled, hard of hearing, thin, well-developed Head exam: PRESENT: atraumatic, normocephalic Eye exam: PRESENT: conjunctiva pale, EOMI Mouth exam: PRESENT: dry mucosa, neck supple, tongue midline Neck exam: ABSENT: carotid bruit, JVD, lymphadenopathy, thyromegaly Respiratory exam: PRESENT: decreased breath sounds, prolonged expiratory phas, rhonchi, symmetrical, unlabored, wheezes. ABSENT: accessory muscle use, chest wall tenderness, clear to auscultation eliel, crackles, rales, retraction, stridor , tachypnea Cardiovascular exam: PRESENT: RRR, +S1, +S2. ABSENT: clicks, gallop, irregular rhythm, rubs Pulses: PRESENT: normal radial pulses GI/Abdominal exam: PRESENT: normal bowel sounds, soft. ABSENT: distended, guarding, mass, organolmegaly, rebound, tenderness Extremities exam: ABSENT: calf tenderness, clubbing, joint swelling Musculoskeletal exam: ABSENT: deformity, dislocation, tenderness Neurological exam: PRESENT: alert, awake Psychiatric exam: PRESENT: anxious Skin exam: PRESENT: dry, pallor, warm Results Laboratory Results: 01/27/17 04:12 01/27/17 04:12 01/26/17 01/26/17 01/27/17 16:34 22:15 04:12 WBC RBC Hgb Hct MCV MCH MCHC RDW Plt Count Seg Neutrophils % Lymphocytes % Monocytes % Eosinophils % Basophils % Absolute Neutrophils Absolute Lymphocytes Absolute Monocytes Absolute Eosinophils Absolute Basophils Sodium 131.6 L Potassium 4.6 Chloride 100 Carbon Dioxide 21 L Anion Gap 11 BUN 27 H Creatinine 0.69 Est GFR ( Amer) > 60 Est GFR (Non-Af Amer) > 60 Glucose 121 H Calcium 9.3 Magnesium 1.9 1.9 TSH 1.60 01/27/17 04:12 WBC 3.7 L RBC 4.40 Hgb 15.3 Hct 44.3 MCV 101 H MCH 34.8 H MCHC 34.6 RDW 14.2 H Plt Count 222 Seg Neutrophils % 79.5 H Lymphocytes % 18.9 Monocytes % 1.3 L Eosinophils % 0.0 Basophils % 0.3 Absolute Neutrophils 3.0 Absolute Lymphocytes 0.7 Absolute Monocytes 0.1 Absolute Eosinophils 0.0 Absolute Basophils 0.0 Sodium Potassium Chloride Carbon Dioxide Anion Gap BUN Creatinine Est GFR ( Amer) Est GFR (Non-Af Amer) Glucose Calcium Magnesium TSH 01/26/17 01/26/17 01/26/17 16:34 16:34 22:15 Creatine Kinase < 20 L < 20 L CK-MB (CK-2) 0.96 Troponin I 0.017 NT-Pro-B Natriuret Pep 2090 H 01/26/17 01/27/17 01/27/17 22:15 04:12 04:12 Creatine Kinase < 20 L CK-MB (CK-2) 1.02 0.78 Troponin I 0.016 0.017 NT-Pro-B Natriuret Pep Impressions: Chest CT 01/26/17 00:00 IMPRESSION: 1. COPD. INDISTINCT NODULE IN THE RIGHT LOWER LOBE DESCRIBED. THIS IS SOMEWHAT CONCERNING FOR MALIGNANT PROCESS ALTHOUGH INFECTION NOT ENTIRELY EXCLUDED. IF THERE IS SUSPICION OF INFECTION, RECOMMEND REPEAT CT SCAN FOLLOWING TREATMENT TO DETERMINE IF THERE IS IMPROVEMENT. OTHERWISE WOULD CONSIDER PET SCAN. NO OTHER ACUTE FINDINGS. 2. STABLE FATTY LESIONS IN THE ADRENAL GLANDS, WITH LITTLE CHANGE SINCE PRIOR STUDY IN AUGUST 2007. MOST LIKELY ADENOMAS. Chest X-Ray 01/26/17 09:41 IMPRESSION: CHRONIC LUNG CHANGES WITH NO ACUTE CARDIOPULMONARY DISEASE. Assessment & Plan - Diagnosis (1) Atrial fibrillation Qualifiers: Atrial fibrillation type: paroxysmal Qualified Code(s): I48.0 - Paroxysmal atrial fibrillation Is this a current diagnosis for this admission?: Yes Plan: Stable at this time (2) COPD with acute exacerbation Is this a current diagnosis for this admission?: Yes Plan: Continue current bronchodilator therapy (3) Congestive heart failure Qualifiers: Congestive heart failure type: diastolic Is this a current diagnosis for this admission?: Yes (4) Dehydration Is this a current diagnosis for this admission?: Yes Plan: Judicious fluid replacement (5) Pulmonary nodule Is this a current diagnosis for this admission?: Yes Plan: Follow per Fleischner criteria (6) Tobacco abuse Is this a current diagnosis for this admission?: Yes Plan: Stop smoking consider transdermal nicotine
--- NOTE | 2017-02-03 13:28 | PDOC PROGRESS REPORT ---
Subjective Progress Note for:: 01/28/17 - Acute on chronic respiratory failure Subjective:: I want to go home Physical Exam Vital Signs: Temp Pulse Resp BP Pulse Ox 97.4 F 93 22 H 109/60 97 01/28/17 16:27 01/28/17 20:00 01/28/17 16:27 01/28/17 20:00 01/28/17 16:27 Intake & Output 01/27/17 01/28/17 01/29/17 06:59 06:59 06:59 Intake Total 150 1080 1231 Balance 150 1080 1231 Weight 50.5 kg 49.6 kg General appearance: PRESENT: no acute distress, cooperative, disheveled, thin, well-developed Head exam: PRESENT: atraumatic, normocephalic Eye exam: PRESENT: conjunctiva pale Mouth exam: PRESENT: dry mucosa, neck supple, tongue midline Neck exam: ABSENT: carotid bruit, JVD, lymphadenopathy, thyromegaly Respiratory exam: PRESENT: decreased breath sounds, prolonged expiratory phas, rhonchi, symmetrical, unlabored, wheezes. ABSENT: accessory muscle use, chest wall tenderness, clear to auscultation eliel, crackles, rales, retraction, stridor , tachypnea Cardiovascular exam: PRESENT: +S1, +S2. ABSENT: clicks, gallop, irregular rhythm, rubs Pulses: PRESENT: normal radial pulses GI/Abdominal exam: PRESENT: ascites Extremities exam: ABSENT: calf tenderness, clubbing, joint swelling, pedal edema Musculoskeletal exam: PRESENT: ambulatory. ABSENT: deformity, dislocation, tenderness Neurological exam: PRESENT: alert, awake Psychiatric exam: PRESENT: anxious Skin exam: PRESENT: dry, pallor, warm Results Laboratory Results: 01/28/17 04:10 01/28/17 04:10 01/28/17 01/28/17 04:10 04:10 WBC 10.8 H D RBC 4.18 Hgb 14.5 Hct 42.0 MCV 101 H MCH 34.7 H MCHC 34.5 RDW 14.2 H Plt Count 222 Seg Neutrophils % 88.7 H Lymphocytes % 7.4 L Monocytes % 3.8 Eosinophils % 0.0 Basophils % 0.1 Absolute Neutrophils 9.6 H Absolute Lymphocytes 0.8 Absolute Monocytes 0.4 Absolute Eosinophils 0.0 Absolute Basophils 0.0 Sodium 133.5 L Potassium 4.5 Chloride 100 Carbon Dioxide 25 Anion Gap 9 BUN 27 H Creatinine 0.74 Est GFR ( Amer) > 60 Est GFR (Non-Af Amer) > 60 Glucose 123 H Calcium 9.9 Magnesium 2.0 01/26/17 01/26/17 01/26/17 16:34 16:34 22:15 Creatine Kinase < 20 L < 20 L CK-MB (CK-2) 0.96 Troponin I 0.017 NT-Pro-B Natriuret Pep 2090 H 01/26/17 01/27/17 01/27/17 22:15 04:12 04:12 Creatine Kinase < 20 L CK-MB (CK-2) 1.02 0.78 Troponin I 0.016 0.017 NT-Pro-B Natriuret Pep Impressions: Chest CT 01/26/17 00:00 IMPRESSION: 1. COPD. INDISTINCT NODULE IN THE RIGHT LOWER LOBE DESCRIBED. THIS IS SOMEWHAT CONCERNING FOR MALIGNANT PROCESS ALTHOUGH INFECTION NOT ENTIRELY EXCLUDED. IF THERE IS SUSPICION OF INFECTION, RECOMMEND REPEAT CT SCAN FOLLOWING TREATMENT TO DETERMINE IF THERE IS IMPROVEMENT. OTHERWISE WOULD CONSIDER PET SCAN. NO OTHER ACUTE FINDINGS. 2. STABLE FATTY LESIONS IN THE ADRENAL GLANDS, WITH LITTLE CHANGE SINCE PRIOR STUDY IN AUGUST 2007. MOST LIKELY ADENOMAS. Chest X-Ray 01/26/17 09:41 IMPRESSION: CHRONIC LUNG CHANGES WITH NO ACUTE CARDIOPULMONARY DISEASE. Assessment & Plan - Diagnosis (1) COPD with acute exacerbation Is this a current diagnosis for this admission?: Yes Plan: Stable slowly improving (2) Dehydration Is this a current diagnosis for this admission?: Yes Plan: Judicious fluid replacement
--- NOTE | 2017-02-03 13:31 | PDOC PROGRESS REPORT ---
Subjective Progress Note for:: 01/30/17 - Acute/chronic respiratory failure Subjective:: I want to go home Physical Exam Vital Signs: Temp Pulse Resp BP Pulse Ox 97.9 F 69 16 113/69 92 01/31/17 04:20 01/31/17 04:20 01/31/17 04:20 01/31/17 04:20 01/31/17 04:20 Intake & Output 01/30/17 01/31/17 02/01/17 06:59 06:59 06:59 Intake Total 1710 911 Balance 1710 911 Weight 49.3 kg 49.3 kg General appearance: PRESENT: no acute distress, cooperative, disheveled, hard of hearing, thin, well-developed Head exam: PRESENT: atraumatic, normocephalic Eye exam: PRESENT: conjunctiva pale, EOMI Mouth exam: PRESENT: dry mucosa, neck supple, tongue midline Neck exam: ABSENT: carotid bruit, JVD, lymphadenopathy, thyromegaly Respiratory exam: PRESENT: decreased breath sounds, prolonged expiratory phas, rhonchi, symmetrical, unlabored, wheezes. ABSENT: accessory muscle use, chest wall tenderness, clear to auscultation eliel, crackles, rales, retraction, stridor , tachypnea Cardiovascular exam: PRESENT: RRR, +S1, +S2. ABSENT: clicks, gallop, rubs Pulses: PRESENT: normal radial pulses GI/Abdominal exam: PRESENT: normal bowel sounds, soft. ABSENT: distended, guarding, mass, organolmegaly, rebound, tenderness Extremities exam: ABSENT: calf tenderness, clubbing, joint swelling, pedal edema Musculoskeletal exam: PRESENT: ambulatory. ABSENT: deformity, dislocation, tenderness Neurological exam: PRESENT: alert, awake Psychiatric exam: PRESENT: anxious Skin exam: PRESENT: dry, pallor, warm Results Laboratory Results: 01/30/17 05:18 01/31/17 04:47 01/31/17 04:47 Sodium 132.3 L Potassium 4.7 Chloride 97 L Carbon Dioxide 29 Anion Gap 6 BUN 51 H Creatinine 0.77 Est GFR ( Amer) > 60 Est GFR (Non-Af Amer) > 60 Glucose 95 Calcium 10.9 H 01/26/17 01/26/17 01/26/17 16:34 16:34 22:15 Creatine Kinase < 20 L < 20 L CK-MB (CK-2) 0.96 Troponin I 0.017 NT-Pro-B Natriuret Pep 2090 H 01/26/17 01/27/17 01/27/17 22:15 04:12 04:12 Creatine Kinase < 20 L CK-MB (CK-2) 1.02 0.78 Troponin I 0.016 0.017 NT-Pro-B Natriuret Pep Impressions: Chest CT 01/26/17 00:00 IMPRESSION: 1. COPD. INDISTINCT NODULE IN THE RIGHT LOWER LOBE DESCRIBED. THIS IS SOMEWHAT CONCERNING FOR MALIGNANT PROCESS ALTHOUGH INFECTION NOT ENTIRELY EXCLUDED. IF THERE IS SUSPICION OF INFECTION, RECOMMEND REPEAT CT SCAN FOLLOWING TREATMENT TO DETERMINE IF THERE IS IMPROVEMENT. OTHERWISE WOULD CONSIDER PET SCAN. NO OTHER ACUTE FINDINGS. 2. STABLE FATTY LESIONS IN THE ADRENAL GLANDS, WITH LITTLE CHANGE SINCE PRIOR STUDY IN AUGUST 2007. MOST LIKELY ADENOMAS. Chest X-Ray 01/30/17 00:00 IMPRESSION: Persistent faintly radiopaque nodule over the right minor fissure region/right lower lobe similar compared to CT exam 01/26/2017. Obstructive lung disease. No acute infiltrates or pleural effusion Assessment & Plan - Diagnosis (1) COPD (chronic obstructive pulmonary disease) Qualifiers: COPD type: unspecified COPD Qualified Code(s): J44.9 - Chronic obstructive pulmonary disease, unspecified Is this a current diagnosis for this admission?: Yes Plan: Continue current bronchodilator therapy (2) Congestive heart failure Qualifiers: Congestive heart failure type: diastolic Is this a current diagnosis for this admission?: Yes Plan: Stable at this time (3) Dehydration Is this a current diagnosis for this admission?: Yes Plan: Gentle rehydration
--- NOTE | 2017-02-03 13:34 | PDOC PROGRESS REPORT ---
Subjective Progress Note for:: 01/31/17 - Acute on chronic respiratory failure Subjective:: going home one way or the other Physical Exam Vital Signs: Temp Pulse Resp BP Pulse Ox 97.9 F 69 16 113/69 92 01/31/17 04:20 01/31/17 04:20 01/31/17 04:20 01/31/17 04:20 01/31/17 04:20 Intake & Output 01/30/17 01/31/17 02/01/17 06:59 06:59 06:59 Intake Total 1710 911 Balance 1710 911 Weight 49.3 kg 49.3 kg General appearance: PRESENT: no acute distress, cooperative, disheveled, hard of hearing, thin, well-developed Head exam: PRESENT: atraumatic, normocephalic Eye exam: PRESENT: conjunctiva pale, EOMI Mouth exam: PRESENT: dry mucosa, neck supple, tongue midline Neck exam: ABSENT: carotid bruit, JVD, lymphadenopathy, thyromegaly Respiratory exam: PRESENT: decreased breath sounds, prolonged expiratory phas, rhonchi, symmetrical, unlabored, wheezes. ABSENT: accessory muscle use, chest wall tenderness, clear to auscultation eliel, crackles, rales, retraction, stridor , tachypnea Cardiovascular exam: PRESENT: RRR, +S1, +S2. ABSENT: clicks, gallop, rubs Pulses: PRESENT: normal radial pulses GI/Abdominal exam: PRESENT: normal bowel sounds, soft. ABSENT: distended, guarding, mass, organolmegaly, rebound, tenderness Extremities exam: ABSENT: clubbing, joint swelling, pedal edema Musculoskeletal exam: PRESENT: ambulatory. ABSENT: deformity, dislocation, tenderness Neurological exam: PRESENT: alert, awake Psychiatric exam: PRESENT: anxious Skin exam: PRESENT: dry, pallor, warm Results Laboratory Results: 01/30/17 05:18 01/31/17 04:47 01/31/17 04:47 Sodium 132.3 L Potassium 4.7 Chloride 97 L Carbon Dioxide 29 Anion Gap 6 BUN 51 H Creatinine 0.77 Est GFR ( Amer) > 60 Est GFR (Non-Af Amer) > 60 Glucose 95 Calcium 10.9 H 01/26/17 01/26/17 01/26/17 16:34 16:34 22:15 Creatine Kinase < 20 L < 20 L CK-MB (CK-2) 0.96 Troponin I 0.017 NT-Pro-B Natriuret Pep 2090 H 01/26/17 01/27/17 01/27/17 22:15 04:12 04:12 Creatine Kinase < 20 L CK-MB (CK-2) 1.02 0.78 Troponin I 0.016 0.017 NT-Pro-B Natriuret Pep Impressions: Chest CT 01/26/17 00:00 IMPRESSION: 1. COPD. INDISTINCT NODULE IN THE RIGHT LOWER LOBE DESCRIBED. THIS IS SOMEWHAT CONCERNING FOR MALIGNANT PROCESS ALTHOUGH INFECTION NOT ENTIRELY EXCLUDED. IF THERE IS SUSPICION OF INFECTION, RECOMMEND REPEAT CT SCAN FOLLOWING TREATMENT TO DETERMINE IF THERE IS IMPROVEMENT. OTHERWISE WOULD CONSIDER PET SCAN. NO OTHER ACUTE FINDINGS. 2. STABLE FATTY LESIONS IN THE ADRENAL GLANDS, WITH LITTLE CHANGE SINCE PRIOR STUDY IN AUGUST 2007. MOST LIKELY ADENOMAS. Chest X-Ray 01/30/17 00:00 IMPRESSION: Persistent faintly radiopaque nodule over the right minor fissure region/right lower lobe similar compared to CT exam 01/26/2017. Obstructive lung disease. No acute infiltrates or pleural effusion Assessment & Plan - Diagnosis (1) Atrial fibrillation Qualifiers: Atrial fibrillation type: paroxysmal Qualified Code(s): I48.0 - Paroxysmal atrial fibrillation Is this a current diagnosis for this admission?: Yes Plan: Regular rhythm at this time (2) COPD (chronic obstructive pulmonary disease) Qualifiers: COPD type: unspecified COPD Qualified Code(s): J44.9 - Chronic obstructive pulmonary disease, unspecified Is this a current diagnosis for this admission?: Yes Plan: Continue current bronchodilator therapy;Some concern exists regarding the use of cardiac medicines versus their effect on respiratory situation (3) Congestive heart failure Qualifiers: Congestive heart failure type: diastolic Is this a current diagnosis for this admission?: Yes Plan: Stable at this time (4) Dehydration Is this a current diagnosis for this admission?: Yes Plan: Gentle rehydration
== END 2017-01-31 18:10 | disposition short-term general hospital (02) | DRG 191 ==
LOC: ER 09:26 → EH 16:15 → 3N 20:08
PROVIDERS: ADMIT Family Medicine; ATTEND Family Medicine
PROC: 3E0F73Z Introduction of Anti-inflammatory into Respiratory Tract, Via Natural or Artificial Opening (ICD-10-PCS; principal; 2017-01-26)
DX: J44.1 Chronic obstructive pulmonary disease with (acute) exacerbation (principal); N39.0 Urinary tract infection, site not specified; I50.32 Chronic diastolic (congestive) heart failure; E78.5 Hyperlipidemia, unspecified; E03.9 Hypothyroidism, unspecified; I11.0 Hypertensive heart disease with heart failure; I48.0 Paroxysmal atrial fibrillation; K21.9 Gastro-esophageal reflux disease without esophagitis; M19.90 Unspecified osteoarthritis, unspecified site; R91.1 Solitary pulmonary nodule; I71.4 Abdominal aortic aneurysm, without rupture; I25.10 Atherosclerotic heart disease of native coronary artery without angina pectoris; T46.1X5A Adverse effect of calcium-channel blockers, initial encounter; B96.20 Unspecified Escherichia coli [E. coli] as the cause of diseases classified elsewhere; E86.0 Dehydration; E87.5 Hyperkalemia; E83.52 Hypercalcemia; R00.1 Bradycardia, unspecified; F17.210 Nicotine dependence, cigarettes, uncomplicated; I73.9 Peripheral vascular disease, unspecified; Z90.49 Acquired absence of other specified parts of digestive tract; Z90.710 Acquired absence of both cervix and uterus; Z82.49 Family history of ischemic heart disease and other diseases of the circulatory system; Z82.61 Family history of arthritis; Z88.0 Allergy status to penicillin; Z88.3 Allergy status to other anti-infective agents; Z88.8 Allergy status to other drugs, medicaments and biological substances; Z82.3 Family history of stroke; Z79.899 Other long term (current) drug therapy; Z79.02 Long term (current) use of antithrombotics/antiplatelets
CPT/HCPCS: 36415; 71010; 71250; 80048; 80053; 81001; 82550; 82553; 82803; 83735; 83880; 84443; 84484; 85025; 87040; 87086; 87088; 87186; 93005; 93010; 93306; 94640; 96365; 96375; 99285; J0692; J0696; J1610; J2060; J2920; J2930; J3490; J7512; J7614; J7620

== ENCOUNTER 2017-02-10 09:59 | Emergency (ER) | payer MEDICARE, OTHER ==
--- NOTE | 2017-02-10 10:45 | ER Document Report ---
ED Medical Screen (RME) - General Mode of Arrival: Wheelchair Information source: Patient TRAVEL OUTSIDE OF THE [place] IN LAST 30 DAYS: No - HPI Patient complains to provider of: Productive cough Onset: Other - 4 days ago Associated Symptoms: Other - see notes above - Related Data Smoking: Less than 1 pack/day <DELGADO REYES - Last Filed: 02/10/17 11:16> <JERMAINEGEORGIA - Last Filed: 02/10/17 21:04> - General Chief Complaint: Shortness Of Breath Stated Complaint: SHORTNESS OF BREATH Time Seen by Provider: 02/10/17 10:28 Notes: 81 year old female with history of atrial fibrillation treated with Eliquis presents to the ED complaining of sinus drainage and a productive cough with clear sputum for the past 4 days. Patient explains that her chest feels tight when she coughs and that her cough is non-productive now. Patient was recently hospitalized for 1 week approximately 2 weeks ago. Patient was transferred and had a pacemaker implanted 9 days ago. Patient denies vomiting, fever, or chest discomfort. PCP: Dr. Reyes (DELGADO REYES) - Related Data Allergies/Adverse Reactions: Penicillins Allergy (Severe, Verified 02/10/17 10:01) Respiratory arrest doxycycline [Doxycycline] Allergy (Intermediate, Verified 02/10/17 10:01) Jona-Tristin's Syndrome valsartan [From Diovan] Allergy (Intermediate, Verified 02/10/17 10:01) Rash levofloxacin [From Levaquin] Allergy (Verified 02/10/17 10:01) METAL Allergy (Severe, Uncoded 02/10/17 10:01) RASH Home Medications: Current Home Medications Atorvastatin Calcium [Lipitor 10 mg Tablet] 1 tab PO DAILY 02/10/17 [History] Cefuroxime Axetil [Ceftin 250 mg Tablet] 2 tab PO Q12 02/10/17 [History] Ergocalciferol (Vitamin D2) [Vitamin D2] 1 tab PO ASDIR PRN 02/10/17 [History] Prednisone 20 mg PO DAILY 02/10/17 [History] Sotalol HCl [Sotalol] 0.5 tab PO Q12 02/10/17 [History] Past Medical History - General Information source: Patient - Social History Frequency of alcohol use: Social Drug Abuse: None - Past Medical History Cardiac Medical History: Reports: Hx Atrial Fibrillation, Hx Congestive Heart Failure, Hx Hypercholesterolemia, Hx Hypertension Pulmonary Medical History: Reports: Hx Bronchitis, Hx COPD, Hx Pneumonia Endocrine Medical History: Reports: Hx Hypothyroidism Renal/ Medical History: Denies: Hx Peritoneal Dialysis GI Medical History: Reports: Hx Gastroesophageal Reflux Disease, Hx Hiatal Hernia. Denies: Hx Hepatitis Musculoskeltal Medical History: Reports Hx Arthritis Skin Medical History: Denies Hx Eczema, Denies Hx Psoriasis Traumatic Medical History: Denies: Hx Gunshot Wound, Hx Pneumothorax, Hx Traumatic Brain Injury Infectious Medical History: Denies: Hx Hepatitis, Hx HIV Past Surgical History: Reports: Hx Appendectomy, Hx Cholecystectomy, Hx Hysterectomy, Hx Oral Surgery. Denies: Hx Mastectomy, Hx Open Heart Surgery, Hx Pacemaker - Immunizations Hx Diphtheria, Pertussis, Tetanus Vaccination: No History of Influenza Vaccine for 12/2016 - 05/2017 Season: No <DELGADO REYES - Last Filed: 02/10/17 11:16> Review of Systems - Review of Systems Constitutional: No symptoms reported. denies: Fever EENT: See HPI, Nose discharge Cardiovascular: No symptoms reported Respiratory: See HPI, Cough, Sputum - white Gastrointestinal: No symptoms reported. denies: Vomiting Genitourinary: No symptoms reported Female Genitourinary: No symptoms reported Musculoskeletal: No symptoms reported Skin: No symptoms reported Hematologic/Lymphatic: No symptoms reported Neurological/Psychological: No symptoms reported <DELGADO REYES - Last Filed: 02/10/17 11:16> Physical Exam - General General appearance: Alert In distress: None - Respiratory Respiratory status: No respiratory distress Breath sounds: Wheezing - diffuse mild wheezing bilaterally - Cardiovascular Rhythm: Regular Heart sounds: Normal auscultation Pulses: Normal: Radial - Psychological Associated symptoms: Normal affect, Normal mood <DELGADO REYES - Last Filed: 02/10/17 11:16> - Vital signs Vitals: Temp Pulse Resp BP Pulse Ox 98.2 F 66 20 146/90 H 94 02/10/17 10:05 02/10/17 10:05 02/10/17 10:05 02/10/17 10:05 02/10/17 10:05 Course <DELGADO REYES - Last Filed: 02/10/17 11:16> - Laboratory Result Diagrams: 02/10/17 11:15 02/10/17 12:10 <GEORGIA DEAN - Last Filed: 02/10/17 21:04> - Re-evaluation Re-evalutation: 02/10/17 21:03 I personally performed the services described in the documentation, reviewed and edited the documentation which was dictated to the scribe in my presence, and it accurately records my words and actions. (GEORGIA DEAN) - Vital Signs Vital signs: Temp Pulse Resp BP Pulse Ox 97.8 F 65 18 160/74 H 96 02/10/17 14:15 02/10/17 14:15 02/10/17 14:15 02/10/17 14:15 02/10/17 14:15 - Laboratory Laboratory results interpreted by me: 02/10/17 02/10/17 11:15 12:10 WBC 11.2 H Hgb 15.6 H MCV 99 H MCH 34.5 H RDW 14.2 H Seg Neuts % (Manual) 84 H Band Neutrophils % 2 L Lymphocytes % (Manual) 9 L Abs Neuts (Manual) 9.6 H Sodium 135.5 L Potassium 5.3 H BUN 26 H Doctor's Discharge <DELGADO REYES - Last Filed: 02/10/17 11:16> <GEORGIA DEAN - Last Filed: 02/10/17 21:04> - Discharge Clinical Impression: Sinusitis Qualifiers: Sinusitis location: unspecified location Chronicity: acute Recurrence: non- recurrent Qualified Code(s): J01.90 - Acute sinusitis, unspecified COPD (chronic obstructive pulmonary disease) Qualifiers: COPD type: unspecified COPD Qualified Code(s): J44.9 - Chronic obstructive pulmonary disease, unspecified Condition: Stable Disposition: HOME, SELF-CARE Additional Instructions: Sinusitis: You have sinusitis, an infection of the sinus cavities of the face. The sinuses are air-filled chambers which open into the inside of the nose. Bacteria and pus fill a sinus, causing pain, drainage, and fever. Sinusitis is treated with antibiotics. Often, expectorants (to thin the sinus mucous) or decongestants (to reduce swelling) are prescribed as well. Healing requires seven to 10 days. Avoid chemical fumes, pollens, dusts, and smoke (especially cigarette smoke ). Keep the air humidified in your bedroom and work area and take plenty of liquids by mouth. This condition can be serious if the infection spreads. If your symptoms worsen, or if you develop severe headache, high fever, stiff neck, or a rash, you must call the doctor or return for re-evaluation. //////////////////////////////////////////////////////////////////////////////// //////////////////////////////////////////////////////////////////////////////// ///////////////// Add the Zithromax as prescribed. Continue taking the prednisone 20 mg daily. Use your nebulizer machine for wheezing and shortness of breath as needed. Follow-up with a local primary care provider if not improving. RETURN TO THE EMERGENCY ROOM IF ANY NEW OR WORSENING SYMPTOMS. Prescriptions: Azithromycin [Zithromax 250 mg Tablet] 250 mg PO DAILY #4 tablet Scribe Documentation - Scribe Written by Laxmi:: Laxmi Molina, 02/10/2017 1124 acting as scribe for :: Long <DELGADO REYES - Last Filed: 02/10/17 11:16>
[2017-02-10 11:30] LABS: HEMATOCRIT 44.8 % (36.0-47.0); HEMOGLOBIN 15.6 g/dL (12.0-15.5); MEAN CORPUSCULAR HEMOGLOBIN 34.5 pg (27.0-33.4); MEAN CORPUSCULAR HGB CONC 34.8 g/dL (32.0-36.0); MEAN CORPUSCULAR VOLUME 99 fl (80-97); RED BLOOD COUNT 4.51 10^6/uL (3.72-5.28); RED CELL DISTRIBUTION WIDTH 14.2 % (11.5-14.0); WHITE BLOOD COUNT 11.2 10^3/uL (4.0-10.5)
--- NOTE | 2017-02-10 11:35 | RADIOLOGY REPORT (SQ) ---
EXAM DESCRIPTION: CHEST PA/LAT COMPLETED DATE/TIME: 02/10/2017 11:22 am REASON FOR STUDY: cough, congestion, sob COMPARISON: 10/08/2015. NUMBER OF VIEWS: Two view. TECHNIQUE: Frontal and lateral radiographic views of the chest acquired. LIMITATIONS: None. FINDINGS: LUNGS AND PLEURA: Linear scarring in the right lung. No focal infiltrates, masses or pneu mothorax. No pleural effusion. Attenuated blood vessels and flattened sheila-diaphragms. MEDIASTINUM AND HILAR STRUCTURES: No masses. No contour abnormalities. HEART AND VASCULAR STRUCTURES: Heart normal in size and contour. No evidence for failure. BONES: No acute findings. HARDWARE: Pacemaker. OTHER: No other significant finding. IMPRESSION: COPD. SCARRING, PARTICULARLY IN THE RIGHT LUNG. NO ACUTE RADIOGRAPHIC FINDING IN THE C HEST. TECHNICAL DOCUMENTATION: JOB ID: [id number] [employer]- All Rights Reserved
[2017-02-10 11:55] LABS: BAND NEUTROPHILS % (MANUAL) 2 % (3-5); BASOPHILS % (MANUAL) 0 % (0-2); EOSINOPHILS % (MANUAL) 0 % (0-6); LYMPHOCYTES % (MANUAL) 9 % (13-45); PROTHROMBIN TIME 14.4 SEC (11.4-15.4); TOTAL CELLS COUNTED 100
[2017-02-10 11:56] LABS: ANISOCYTOSIS SLIGHT; OVALOCYTES SLIGHT; POIKILOCYTOSIS SLIGHT
[2017-02-10 12:43] LABS: ALANINE AMINOTRANSFERASE 42 U/L (9-52); ALKALINE PHOSPHATASE 39 U/L (38-126); ANION GAP 11 (5-19); ASPARTATE AMINO TRANSFERASE 35 U/L (14-36); BILIRUBIN,DIRECT 0.4 mg/dL (0.0-0.4); BILIRUBIN,TOTAL 0.7 mg/dL (0.2-1.3); BLOOD UREA NITROGEN 26 mg/dL (7-20); CARBON DIOXIDE 24 mmol/L (22-30); CHLORIDE 101 mmol/L (98-107); CREATININE RESULT 0.53 mg/dL (0.52-1.25); GLUCOSE 100 mg/dL (75-110); MAGNESIUM 1.9 mg/dL (1.6-2.3); POTASSIUM 5.3 mmol/L (3.6-5.0); SODIUM 135.5 mmol/L (137-145); TOTAL PROTEIN 6.6 g/dL (6.3-8.2)
--- NOTE | 2017-02-10 12:57 | EKG REPORT ---
SEVERITY:- ABNORMAL ECG - ATRIAL-PACED RHYTHM NONSPECIFIC ST-T CHANGES- INFERIOR LEADS : Confirmed by: Saul Reeder MD 10-Feb-2017 12:56:36
--- NOTE | 2017-02-10 13:45 | ER Document Report ---
ED Respiratory Problem <KENNAGRANT LealCHEIKH - Last Filed: 02/10/17 13:45> - General Mode of Arrival: Wheelchair Information source: Patient TRAVEL OUTSIDE OF THE [place] IN LAST 30 DAYS: No <JAMIA SEVILLA - Last Filed: 02/10/17 14:17> - General Chief Complaint: Shortness Of Breath Stated Complaint: SHORTNESS OF BREATH Time Seen by Provider: 02/10/17 10:28 Notes: Patient is a 81-year-old female who presents to the emergency department today with complaints of sinus congestion with a cough. Patient states that she has been coughing up a clear sputum but getting a greenish colored mucus out of her nose. Patient complains of sinus pressure. Patient states early in the morning she is very short of breath and she has been unable to sleep at night secondary to the shortness of breath. (JAMIA SEVILLA) - Related Data Allergies/Adverse Reactions: Penicillins Allergy (Severe, Verified 02/10/17 10:01) Respiratory arrest doxycycline [Doxycycline] Allergy (Intermediate, Verified 02/10/17 10:01) Jona-Tristin's Syndrome valsartan [From Diovan] Allergy (Intermediate, Verified 02/10/17 10:01) Rash levofloxacin [From Levaquin] Allergy (Verified 02/10/17 10:01) METAL Allergy (Severe, Uncoded 02/10/17 10:01) RASH Home Medications: Current Home Medications Atorvastatin Calcium [Lipitor 10 mg Tablet] 1 tab PO DAILY 02/10/17 [History] Cefuroxime Axetil [Ceftin 250 mg Tablet] 2 tab PO Q12 02/10/17 [History] Ergocalciferol (Vitamin D2) [Vitamin D2] 1 tab PO ASDIR PRN 02/10/17 [History] Prednisone 20 mg PO DAILY 02/10/17 [History] Sotalol HCl [Sotalol] 0.5 tab PO Q12 02/10/17 [History] Past Medical History - General Information source: Patient - Social History Smoking Status: Current Every Day Smoker Cigarette use (# per day): Yes Frequency of alcohol use: Social Drug Abuse: None Lives with: Family Family History: Arthritis, CAD, CVA, Hypertension, Malignancy Patient has suicidal ideation: No Patient has homicidal ideation: No - Past Medical History Cardiac Medical History: Reports: Hx Atrial Fibrillation, Hx Congestive Heart Failure, Hx Hypercholesterolemia, Hx Hypertension Pulmonary Medical History: Reports: Hx Bronchitis, Hx COPD, Hx Pneumonia Endocrine Medical History: Reports: Hx Hypothyroidism GI Medical History: Reports: Hx Gastroesophageal Reflux Disease, Hx Hiatal Hernia Musculoskeltal Medical History: Reports Hx Arthritis Past Surgical History: Reports: Hx Appendectomy, Hx Cholecystectomy, Hx Hysterectomy, Hx Oral Surgery - Immunizations Hx Diphtheria, Pertussis, Tetanus Vaccination: No Hx Pneumococcal Vaccination: 12/31/16 <JAMIA SEVILLA - Last Filed: 02/10/17 14:17> Review of Systems - Review of Systems Constitutional: No symptoms reported EENT: See HPI, Nose congestion, Sinus pressure Cardiovascular: No symptoms reported Respiratory: See HPI, Cough, Short of breath Gastrointestinal: No symptoms reported Genitourinary: No symptoms reported Female Genitourinary: No symptoms reported Musculoskeletal: No symptoms reported Skin: No symptoms reported Hematologic/Lymphatic: No symptoms reported Neurological/Psychological: No symptoms reported -: Yes All other systems reviewed and negative <JAMIA SEVILLA - Last Filed: 02/10/17 14:17> Physical Exam <CHEIKH PIERSON - Last Filed: 02/10/17 13:45> <JAMIA SEVILLA - Last Filed: 02/10/17 14:17> - Vital signs Vitals: Temp Pulse Resp BP Pulse Ox 98.2 F 66 20 146/90 H 94 02/10/17 10:05 02/10/17 10:05 02/10/17 10:05 02/10/17 10:05 02/10/17 10:05 - Notes Notes: Physical Exam: General: Alert, appears at baseline.. HEENT: Normocephalic. Atraumatic. PERRL. Extraocular movements intact. Oropharynx clear. Copious amounts of wax in external canals bilaterally. Nasal congestion. Neck: Supple. Non-tender. Respiratory: Dyspneic. Retracting. Wheezing and rhonchi throughout. Cardiovascular: Regular rate and rhythm. Abdominal: Cachectic. No distension. Normal Bowel Sounds. Back: Non-tender. Kyphosis. No deformity or step off. Extremities: Moves all four extremities. Upper extremities: Normal inspection. Normal ROM. Lower extremities: Normal inspection. No edema. Normal ROM. Neurological: Normal cognition. AAOx4. Normal speech. Psychological: Normal affect. Normal Mood. Skin: Warm. Dry. Normal color. (JAMIA SEVILLA) Course - Laboratory Result Diagrams: 02/10/17 11:15 02/10/17 12:10 - Diagnostic Test Radiology reviewed: Image reviewed, Reports reviewed - COPD, scarring, this is acute. There is interval placement of a pacemaker. <CHEIKH PIERSON - Last Filed: 02/10/17 13:45> - Laboratory Result Diagrams: 02/10/17 11:15 02/10/17 12:10 <JAMIA SEVILLA - Last Filed: 02/10/17 14:17> - Re-evaluation Re-evalutation: 02/10/17 13:48 The patient was recently discharged from [facility] where she had a pacemaker put in. On a follow-up visit last week she was prescribed prednisone 20mg daily for 10 days, and Ceftin for 4 days. She started these medications on 02/06/2017. She does complain of about a 4 day history of thick green drainage from her nose , some sinus pressure and discomfort, and mostly clear productive cough when something will come up. She reports she was told to stop using her nebulizer but is unclear why. She did use her nebulizer once or twice in the last day. I have advised her it would be prudent to use the albuterol and Atrovent treatments for shortness of breath when needed. (CHEIKH PIERSON) - Vital Signs Vital signs: Temp Pulse Resp BP Pulse Ox 98.2 F 66 20 146/90 H 94 02/10/17 10:05 02/10/17 10:05 02/10/17 10:05 02/10/17 10:05 02/10/17 10:05 - Laboratory Laboratory results interpreted by me: 02/10/17 02/10/17 11:15 12:10 WBC 11.2 H Hgb 15.6 H MCV 99 H MCH 34.5 H RDW 14.2 H Seg Neuts % (Manual) 84 H Band Neutrophils % 2 L Lymphocytes % (Manual) 9 L Abs Neuts (Manual) 9.6 H Sodium 135.5 L Potassium 5.3 H BUN 26 H Discharge <CHEIKH PIERSON - Last Filed: 02/10/17 13:45> <JAMIA SEVILLA - Last Filed: 12/01/17 14:17> - Discharge Clinical Impression: Sinusitis Qualifiers: Sinusitis location: unspecified location Chronicity: acute Recurrence: non- recurrent Qualified Code(s): J01.90 - Acute sinusitis, unspecified COPD (chronic obstructive pulmonary disease) Qualifiers: COPD type: unspecified COPD Qualified Code(s): J44.9 - Chronic obstructive pulmonary disease, unspecified Condition: Stable Disposition: HOME, SELF-CARE Additional Instructions: Sinusitis: You have sinusitis, an infection of the sinus cavities of the face. The sinuses are air-filled chambers which open into the inside of the nose. Bacteria and pus fill a sinus, causing pain, drainage, and fever. Sinusitis is treated with antibiotics. Often, expectorants (to thin the sinus mucous) or decongestants (to reduce swelling) are prescribed as well. Healing requires seven to 10 days. Avoid chemical fumes, pollens, dusts, and smoke (especially cigarette smoke ). Keep the air humidified in your bedroom and work area and take plenty of liquids by mouth. This condition can be serious if the infection spreads. If your symptoms worsen, or if you develop severe headache, high fever, stiff neck, or a rash, you must call the doctor or return for re-evaluation. //////////////////////////////////////////////////////////////////////////////// //////////////////////////////////////////////////////////////////////////////// ///////////////// Add the Zithromax as prescribed. Continue taking the prednisone 20 mg daily. Use your nebulizer machine for wheezing and shortness of breath as needed. Follow-up with a local primary care provider if not improving. RETURN TO THE EMERGENCY ROOM IF ANY NEW OR WORSENING SYMPTOMS. Prescriptions: Azithromycin [Zithromax 250 mg Tablet] 250 mg PO DAILY #4 tablet Scribe Attestation: 02/10/17 13:48 I personally performed the services described in the documentation, reviewed and edited the documentation which was dictated to the scribe in my presence, and it accurately records my words and actions. (CHEIKH PIERSON) Scribe Documentation - Scribe Written by Laxmi:: Laxmi Ward, 02/10/2017 1417 acting as scribe for :: Kenna <JAMIA SEVILLA - Last Filed: 02/10/17 14:17>
[2017-02-10] MEDS ORDERED: AZITHROMYCIN 250 MG TABLET PO ONE (13:54)
[2017-02-10 14:29] VITALS: BP 160/74
== END 2017-02-10 14:29 | disposition home or self-care (01) ==
LOC: ER 09:59
DX: J44.9 Chronic obstructive pulmonary disease, unspecified (principal); J01.90 Acute sinusitis, unspecified; R05 Cough; H61.23 Impacted cerumen, bilateral; I48.91 Unspecified atrial fibrillation; I10 Essential (primary) hypertension; F17.210 Nicotine dependence, cigarettes, uncomplicated; Z95.0 Presence of cardiac pacemaker; Z88.0 Allergy status to penicillin; Z88.1 Allergy status to other antibiotic agents; Z88.8 Allergy status to other drugs, medicaments and biological substances; Z91.048 Other nonmedicinal substance allergy status; Z87.01 Personal history of pneumonia (recurrent)
CPT/HCPCS: 93005; 99285; 36415; 83735; 85025; 85610; 80053; 84484; 71020; 93010; A9270

== ENCOUNTER 2017-02-12 06:04 | Inpatient (IN) | payer MEDICARE, OTHER ==
[2017-02-12] MEDS ORDERED: IPRATROPIUM/ALBUTEROL 0.5-2.5 MG/3 ML AMPUL NEB ONE ×2 (06:06→06:13)
[2017-02-12] MEDS ORDERED: METHYLPREDNISOLONE INJ 125 MG/2 ML SDV IV ONE (06:06)
[2017-02-12] MEDS: MAGNESIUM SULFATE/D5W 1 GM/100 ML RTUPB IV SCH ×2 (06:18→06:21)
--- NOTE | 2017-02-12 06:20 | ER Document Report ---
ED General - General Stated Complaint: DIFFICULTY BREATHING Time Seen by Provider: 02/12/17 06:11 Mode of Arrival: Medic Information source: Patient Cannot obtain history due to: Unstable vital signs Notes: 81-year-old female presents with complaints of shortness of breath by EMS, family notes patient has a history of COPD extensive history of smoking and was smoking this morning. Patient had recently been admitted at [facility] and was also seen in the emergency department recently, the patient continues to smoke and exacerbate her COPD. Patient found in significant respiratory distress by EMS TRAVEL OUTSIDE OF THE [place] IN LAST 30 DAYS: No - HPI Onset: Just prior to arrival Onset/Duration: Sudden Quality of pain: No pain Severity: Moderate Pain Level: Denies Associated symptoms: Nonproductive cough, Shortness of breath Exacerbated by: Denies Relieved by: Denies Similar symptoms previously: Yes Recently seen / treated by doctor: Yes - Related Data Allergies/Adverse Reactions: Penicillins Allergy (Severe, Verified 02/12/17 06:33) Respiratory arrest doxycycline [Doxycycline] Allergy (Intermediate, Verified 02/12/17 06:33) Jona-Tristin's Syndrome valsartan [From Diovan] Allergy (Intermediate, Verified 02/12/17 06:33) Rash levofloxacin [From Levaquin] Allergy (Verified 02/12/17 06:33) METAL Allergy (Severe, Uncoded 02/12/17 06:33) RASH Past Medical History - Social History Smoking Status: Current Every Day Smoker Cigarette use (# per day): Yes Chew tobacco use (# tins/day): No Smoking Education Provided: Yes - Patient counselled regarding cessation for 4 minutes Family History: Arthritis, CAD, CVA, Hypertension, Malignancy - Past Medical History Cardiac Medical History: Reports: Hx Atrial Fibrillation, Hx Congestive Heart Failure, Hx Hypercholesterolemia, Hx Hypertension Pulmonary Medical History: Reports: Hx Bronchitis, Hx COPD, Hx Pneumonia Endocrine Medical History: Reports: Hx Hypothyroidism Renal/ Medical History: Denies: Hx Peritoneal Dialysis GI Medical History: Reports: Hx Gastroesophageal Reflux Disease, Hx Hiatal Hernia. Denies: Hx Hepatitis Musculoskeltal Medical History: Reports Hx Arthritis Skin Medical History: Denies Hx Eczema, Denies Hx Psoriasis Traumatic Medical History: Denies: Hx Gunshot Wound, Hx Pneumothorax, Hx Traumatic Brain Injury Infectious Medical History: Denies: Hx Hepatitis, Hx HIV Past Surgical History: Reports: Hx Appendectomy, Hx Cholecystectomy, Hx Hysterectomy, Hx Oral Surgery. Denies: Hx Mastectomy, Hx Open Heart Surgery, Hx Pacemaker - Immunizations Hx Diphtheria, Pertussis, Tetanus Vaccination: No Hx Pneumococcal Vaccination: 12/31/16 Review of Systems - Review of Systems Notes: REVIEW OF SYSTEMS: CONSTITUTIONAL : Denies fever, chills, or sweats. Denies recent illness. EENT: Denies eye, ear, throat, or mouth pain or symptoms. Denies nasal or sinus congestion or discharge. Denies throat, tongue, or mouth swelling or difficulty swallowing. CARDIOVASCULAR: Denies chest pain. Denies palpitations or racing or irregular heart beat. Denies ankle edema. RESPIRATORY: admits ot difficulty breathing . GASTROINTESTINAL: Denies abdominal pain or distention. Denies nausea, vomiting , or diarrhea. Denies blood in vomitus, stools, or per rectum. Denies black, tarry stools. Denies constipation. GENITOURINARY: Denies difficulty urinating, painful urination, burning, frequency, blood in urine, or discharge. FEMALE GENITOURINARY: Denies vaginal bleeding, heavy or abnormal periods, irregular periods. Denies vaginal discharge or odor. MUSCULOSKELETAL: Denies back or neck pain or stiffness. Denies joint pain or swelling. SKIN: Denies rash, lesions or sores. HEMATOLOGIC : Denies easy bruising or bleeding. LYMPHATIC: Denies swollen, enlarged glands. NEUROLOGICAL: Denies confusion or altered mental status. Denies passing out or loss of consciousness. Denies dizziness or lightheadedness. Denies headache. Denies weakness or paralysis or loss of use of either side. Denies problems with gait or speech. Denies sensory loss, numbness, or tingling. Denies seizures. PSYCHIATRIC: Denies anxiety or stress. Denies depression, suicidal ideation, or homicidal ideation. ALL OTHER SYSTEMS REVIEWED AND NEGATIVE. PHYSICAL EXAMINATION: GENERAL: elderly, in significant resp distress HEAD: Atraumatic, normocephalic. EYES: Pupils equal round and reactive to light, extraocular movements intact, conjunctiva are normal. ENT: Nares patent, oropharynx clear without exudates. Moist mucous membranes. NECK: Normal range of motion, supple without lymphadenopathy LUNGS: coarse wheezing , tripoding HEART: Regular rate and rhythm without murmurs ABDOMEN: Soft, nontender, nondistended abdomen. No guarding, no rebound. No masses appreciated. Female : deferred Musculoskeletal: Normal range of motion, no pitting or edema. No cyanosis. NEUROLOGICAL: Cranial nerves grossly intact. Normal speech, normal gait. Normal sensory, motor exams PSYCH: Normal mood, normal affect. SKIN: Warm, Dry, normal turgor, no rashes or lesions noted. Dictation was performed using [email or web address] voice recognition software Physical Exam - Vital signs Vitals: Resp BP Pulse Ox 17 202/101 H 100 02/12/17 06:07 02/12/17 06:07 02/12/17 06:07 Course - Re-evaluation Re-evalutation: 02/12/17 06:19 Patient is found to be in significant respiratory distress, she was recently discharged from the hospital in the emergency department over the past few days , patient was immediately placed on BiPAP magnesium has been given, 3 DuoNeb's have also been given. Patient continues to smoke as noted per family as recently as today 02/12/17 08:24 Patient will be admitted to Dr delgado continues to be on BiPAP 02/12/17 08:45 - Vital Signs Vital signs: Temp Pulse Resp BP Pulse Ox 98.0 F 22 H 159/132 H 98 02/12/17 07:06 02/12/17 08:01 02/12/17 08:01 02/12/17 08:01 - Laboratory Result Diagrams: 02/12/17 06:12 02/12/17 07:08 Laboratory results interpreted by me: 02/12/17 02/12/17 02/12/17 06:12 06:12 07:08 Hgb 16.3 H MCV 99 H MCH 34.7 H RDW 14.1 H Band Neutrophils % 1 L Sodium 128.6 L Chloride 92 L Glucose 119 H AST 39 H ALT 55 H NT-Pro-B Natriuret Pep 2800 H - Diagnostic Test Radiology reviewed: Image reviewed, Reports reviewed Critical Care Note - Critical Care Note Total time excluding time spent on procedures (mins): 35 Comments: 35 minutes of critical care time spent in direct contact evaluating and reevaluating the patient, treating symptoms, reviewing labs and studies and speaking with family and consultants excluding any procedures Discharge - Discharge Clinical Impression: COPD with acute exacerbation Condition: Fair Disposition: ADMITTED INPATIENT Admitting Provider: Matt Unit Admitted: IMCU Referrals: ELMIRA REYES MD [Primary Care Provider] - Follow up as needed
[2017-02-12 06:37] LABS: VENOUS BLOOD BASE EXCESS 1.2 mmol/L; VENOUS BLOOD HCO3 27.9 mmol/L (20-32); VENOUS BLOOD PCO2 51.9 mmHg (35-63); VENOUS BLOOD PH 7.35 (7.30-7.42)
[2017-02-12 06:38] LABS: HEMATOCRIT 46.7 % (36.0-47.0); HEMOGLOBIN 16.3 g/dL (12.0-15.5); HGB HCT DIFFERENCE 2.2; MEAN CORPUSCULAR HEMOGLOBIN 34.7 pg (27.0-33.4); MEAN CORPUSCULAR HGB CONC 34.9 g/dL (32.0-36.0); MEAN CORPUSCULAR VOLUME 99 fl (80-97); RED CELL DISTRIBUTION WIDTH 14.1 % (11.5-14.0); WHITE BLOOD COUNT 8.9 10^3/uL (4.0-10.5)
[2017-02-12 07:00] LABS: BAND NEUTROPHILS % (MANUAL) 1 % (3-5); BASOPHILS % (MANUAL) 0 % (0-2); EOSINOPHILS % (MANUAL) 0 % (0-6); LYMPHOCYTES % (MANUAL) 21 % (13-45); TOTAL CELLS COUNTED 100
[2017-02-12 07:01] LABS: RBC MORPHOLOGY COMMENT NORMO-CYTIC/CHROMIC
[2017-02-12 07:04] LABS: TROPONIN I 0.024 ng/mL
--- NOTE | 2017-02-12 07:07 | RADIOLOGY REPORT (SQ) ---
EXAM DESCRIPTION: CHEST SINGLE VIEW COMPLETED DATE/TIME: 02/12/2017 6:50 am REASON FOR STUDY: SOB COMPARISON: 02/10/2017. CT and CR, 09/15/2015. EXAM PARAMETERS: NUMBER OF VIEWS: One view. TECHNIQUE: Single frontal radiographic view of the chest acquired. RADIATION DOSE: NA LIMITATIONS: None. FINDINGS: LUNGS AND PLEURA: No opacities, masses or pneumothorax. No pleural effusion. Moderate emp hysematous hyperinflation. Small atelectasis or scar of the right upper hemithorax. Stable. MEDIASTINUM AND HILAR STRUCTURES: No masses. Contour normal. HEART AND VASCULAR STRUCTURES: Heart normal in size. Atherosclerosis. BONES: No acute findings. HARDWARE: Left cardiac stimulation device and leads. OTHER: No other significant finding. IMPRESSION: No acute cardiopulmonary findings. TECHNICAL DOCUMENTATION: JOB ID: [id number] [employer]- All Rights Reserved
[2017-02-12 07:54] LABS: ALANINE AMINOTRANSFERASE 55 U/L (9-52); ALBUMIN 4.1 g/dL (3.5-5.0); ALKALINE PHOSPHATASE 45 U/L (38-126); ANION GAP 13 (5-19); ASPARTATE AMINO TRANSFERASE 39 U/L (14-36); BILIRUBIN,DIRECT 0.4 mg/dL (0.0-0.4); BILIRUBIN,TOTAL 0.5 mg/dL (0.2-1.3); BLOOD UREA NITROGEN 15 mg/dL (7-20); CALCIUM 9.4 mg/dL (8.4-10.2); CARBON DIOXIDE 24 mmol/L (22-30); CHLORIDE 92 mmol/L (98-107); CREATININE RESULT 0.52 mg/dL (0.52-1.25); GLUCOSE 119 mg/dL (75-110); POTASSIUM 4.3 mmol/L (3.6-5.0); SODIUM 128.6 mmol/L (137-145); TOTAL PROTEIN 6.9 g/dL (6.3-8.2)
--- NOTE | 2017-02-12 09:05 | EKG REPORT ---
SEVERITY:- ABNORMAL ECG - NSR WITH PACS. NONSPECIFIC ST-T CHANGES LATERAL LEADS. : Confirmed by: Saul Reeder MD 12-Feb-2017 09:04:45
[2017-02-12] MEDS ORDERED: OXYCODONE-ACETAMINOPHEN 5-325 MG TABLET PO PRN (09:36)
[2017-02-12] MEDS ORDERED: ALBUTEROL SULFATE 0.083% NEB 2.5 MG/3 ML AMPUL NEB PRN (09:36)
[2017-02-12] MEDS ORDERED: ONDANSETRON HCL INJ/PF 4 MG/2 ML SDV IV PRN (09:36)
[2017-02-12] MEDS ORDERED: ACETAMINOPHEN 325 MG TABLET PO PRN (09:36)
[2017-02-12] MEDS ORDERED: AMLODIPINE BESYLATE 5 MG TABLET PO SCH (10:00)
[2017-02-12] MEDS ORDERED: LORAZEPAM INJ 2 MG/1 ML VIAL IV ONE (10:03)
[2017-02-12] MEDS: FUROSEMIDE INJ/PF 20 MG/2 ML SDV IV SCH ×2 (10:21→21:28)
[2017-02-12] MEDS: DOCUSATE SODIUM 100 MG CAPSULE PO SCH (10:24)
[2017-02-12] MEDS ORDERED: FONDAPARINUX SODIUM INJ 2.5 MG/0.5 ML DISP.SYRIN SUBCUT ONE (11:00)
[2017-02-12] MEDS ORDERED: ALPRAZOLAM 0.25 MG TABLET PO ONE (12:49)
[2017-02-12] MEDS: IPRATROPIUM/ALBUTEROL 0.5-2.5 MG/3 ML AMPUL NEB SCH ×2 (14:16→20:16)
--- NOTE | 2017-02-12 19:00 | PDOC H&P ---
History of Present Illness Admission Date/PCP: 02/12/17 09:13 JAYNE REYES MD Patient complains of: Shortness of breath since 1:00 AM History of Present Illness: FREDI WHALEN is a 81 year old female who presented to emergency room via ambulance complaining of acute onset of shortness of breath since 1 AM. Patient states that her problem has been getting progressively worse over the course of 1 week. Patient admits as to continue smoking despite being advised to quit. She denies any fever or chills. Patient also denies chest pain. Since in marked respiratory distress upon arrival to emergency room she required to be placed on BiPAP. Our service was contacted to further manage patient. Information gathering was limited due to dyspnea. Past Medical History Cardiac Medical History: Reports: Atrial Fibrillation, Congestive Heart Failure , Hyperlipidema, Hypertension Pulmonary Medical History: Reports: Bronchitis, Chronic Obstructive Pulmonary Disease (COPD), Pneumonia Endocrine Medical History: Reports: Hypothyroidism GI Medical History: Reports: Gastroesophageal Reflux Disease, Hiatal Hernia Denies: Hepatitis Musculoskeltal Medical History: Reports: Arthritis Skin Medical History: Denies: Eczema, Psoriasis Psychiatric Medical History: Reports: Tobacco Dependency Traumatic Medical History: Denies: Gunshot Wound, Pneumothorax, Traumatic Brain Injury Hematology: Denies: Anemia, Sickle Cell Disease Infectious Medical History: Denies: HIV Past Surgical History Past Surgical History: Reports: Appendectomy, Cholecystectomy, Hysterectomy Denies: Amputation, Mastectomy, Pacemaker Social History Smoking Status: Current Every Day Smoker Frequency of Alcohol Use: Occasional Hx Recreational Drug Use: No Drugs: None Hx Prescription Drug Abuse: No - Advance Directive Resuscitation Status: Full Code Family History Family History: Arthritis, CAD, CVA, Hypertension, Malignancy Parental Family History Reviewed: Yes Children Family History Reviewed: Yes Sibling(s) Family History Reviewed.: Yes Medication/Allergy Home Medications: Apixaban [Eliquis 5 mg Tablet] 5 mg PO DAILY 02/12/17 Atorvastatin Calcium [Lipitor 10 mg Tablet] 10 mg PO QPM 02/12/17 Diltiazem HCl [Cardizem Cd 120 mg Capsule] 120 mg PO DAILY 02/12/17 Ergocalciferol (Vitamin D2) [Drisdol 50,000 unit (1.25MG) Capsule] 50,000 unit PO MEADOWS@1000 02/12/17 Fenofibrate Nanocrystallized [Tricor 145 mg Tablet] 145 mg PO QHS 02/12/17 Fluticasone/Salmeterol [Advair 250-50 Diskus 14 Dose/Diskus] 1 puff IH Q12 02/12 Levothyroxine Sodium [Synthroid] 88 mcg PO Q6AM 02/12/17 Montelukast Sodium [Singulair 10 mg Tablet] 10 mg PO DAILY 02/12/17 Omeprazole 40 mg PO PRN PRN 02/12/17 Sotalol HCl [Sotalol] 80 mg PO DAILY 02/12/17 Tiotropium [place] [Spiriva Handihaler 5 Cap/Kit (18 Mcg/Cap)] 1 puff IH DAILY 02/12/17 Allergies/Adverse Reactions: Penicillins Allergy (Severe, Verified 02/12/17 06:33) Respiratory arrest doxycycline [Doxycycline] Allergy (Intermediate, Verified 02/12/17 06:33) Jona-Tristin's Syndrome valsartan [From Diovan] Allergy (Intermediate, Verified 02/12/17 06:33) Rash levofloxacin [From Levaquin] Allergy (Verified 02/12/17 06:33) METAL Allergy (Severe, Uncoded 02/12/17 06:33) RASH Review of Systems Constitutional: ABSENT: chills, fever(s) Eyes: ABSENT: visual disturbances Ears: ABSENT: hearing changes Cardiovascular: ABSENT: edema Respiratory: PRESENT: cough, dyspnea Gastrointestinal: ABSENT: abdominal pain, heartburn Musculoskeletal: ABSENT: joint swelling Integumentary: PRESENT: other - bruising Neurological: ABSENT: focal weakness Psychiatric: PRESENT: anxiety Physical Exam Vital Signs: Temp Pulse Resp BP Pulse Ox 98.0 F 23 H 163/98 H 100 02/12/17 07:06 02/12/17 09:00 02/12/17 08:31 02/12/17 09:00 General appearance: PRESENT: cooperative, thin Head exam: PRESENT: atraumatic, normocephalic Eye exam: PRESENT: conjunctiva pink, EOMI, PERRLA Ear exam: PRESENT: normal external ear exam Mouth exam: PRESENT: moist, neck supple Neck exam: PRESENT: full ROM. ABSENT: JVD, meningismus, tenderness Cardiovascular exam: PRESENT: diastolic murmur, irregular rhythm, systolic murmur Vascular exam: PRESENT: normal capillary refill GI/Abdominal exam: PRESENT: normal bowel sounds, soft. ABSENT: guarding, tenderness Extremities exam: ABSENT: joint swelling, pedal edema, tenderness Musculoskeletal exam: PRESENT: full ROM Neurological exam: PRESENT: alert, oriented to person, oriented to place, oriented to time Psychiatric exam: PRESENT: anxious Skin exam: PRESENT: petechiae Results Impressions: Chest X-Ray 02/12/17 06:05 IMPRESSION: No acute cardiopulmonary findings. Assessment & Plan - Diagnosis (1) Hypertensive urgency Plan: On admission since medications were not available requested [facility]. Kenna poor obtaining outpatient regimen opted then to increase diltiazem extended release to 240 mg daily since she also has chronic persistent atrial fibrillation. (2) COPD with acute exacerbation Is this a current diagnosis for this admission?: Yes Plan: To place patient on nebulizer treatments, Mucinex, continue Advair as outpatient and IV Solu-Medrol. In AM will have to talk about multiple antibiotic her allergies (3) Atrial fibrillation Qualifiers: Atrial fibrillation type: permanent Qualified Code(s): I48.2 - Chronic atrial fibrillation Is this a current diagnosis for this admission?: Yes Plan: Continue sotalol, apixaban and will increase diltiazem extended release (4) Congestive heart failure Qualifiers: Congestive heart failure type: diastolic Congestive heart failure chronicity: acute Qualified Code(s): I50.31 - Acute diastolic (congestive) heart failure Is this a current diagnosis for this admission?: Yes Plan: To place patient on Lasix IV and will request an echocardiogram in a.m. (5) Coronary artery disease Qualifiers: Coronary Disease-Associated Artery/Lesion type: [place] artery Associated angina: angina presence unspecified Is this a current diagnosis for this admission?: Yes Plan: Order troponin in a.m. however may be elevated due to hypertensive urgency. Echocardiogram will help to elucidate (6) Transaminitis Is this a current diagnosis for this admission?: Yes Plan: Suspect hepatic congestion (7) Hyponatremia Is this a current diagnosis for this admission?: Yes Plan: Likely due to fluid overload and to trend (8) Tobacco abuse Is this a current diagnosis for this admission?: Yes Plan: We will keep reinforcing quitting (9) Respiratory failure Qualifiers: Chronicity: acute Is this a current diagnosis for this admission?: Yes Plan: Will continue with BiPAP and hopefully will be able to wean off to bedtime - Time Time Spent: 50 to 70 Minutes Smoking Cessation Education: 3 to 10 minutes Medications reviewed and adjusted accordingly: Yes Anticipated discharge: Home Within: within 36 hours - Inpatient Certification Based on my medical assessment, after consideration of the patient's comorbidities, presenting symptoms, or acuity I expect that the services needed warrant INPATIENT care.: Yes I certify that my determination is in accordance with my understanding of Medicare's requirements for reasonable and necessary INPATIENT services [42 CFR 412.3e].: Yes Medical Necessity: Need for Nebulizer Therapy and Monitoring of Response, Other - Her blood pressure management and diuresis
[2017-02-12] MEDS: FENOFIBRATE NANOCRYSTALLIZED 145 MG TABLET PO SCH (21:28)
[2017-02-12] MEDS: GUAIFENESIN 600 MG TABLET.SA PO SCH (21:29)
[2017-02-12] MEDS: ALPRAZOLAM 0.25 MG TABLET PO PRN (21:29)
[2017-02-12] MEDS: METHYLPREDNISOLONE INJ 40 MG/1 ML SDV IV SCH (21:29)
[2017-02-12] MEDS ORDERED: ZOLPIDEM TARTRATE 5 MG TABLET PO PRN (22:00)
[2017-02-12] MEDS: FLUTICASONE/SALMETEROL DISKUS 500-50 MCG/DOSE IH SCH (22:48)
[2017-02-13] MEDS: IPRATROPIUM/ALBUTEROL 0.5-2.5 MG/3 ML AMPUL NEB SCH ×4 (02:00→20:54)
[2017-02-13] MEDS: ALPRAZOLAM 0.25 MG TABLET PO PRN ×2 (05:13→21:53)
[2017-02-13] MEDS: LEVOTHYROXINE SODIUM 0.088 MG TABLET PO SCH (05:13)
[2017-02-13] MEDS: METHYLPREDNISOLONE INJ 40 MG/1 ML SDV IV SCH ×3 (05:14→21:54)
[2017-02-13 06:42] LABS: ABSOLUTE LYMPHOCYTES (AUTO) 0.8 10^3/uL (0.5-4.7); ABSOLUTE MONOCYTES (AUTO) 0.3 10^3/uL (0.1-1.4); ABSOLUTE NEUT (AUTO) 5.8 10^3/uL (1.7-8.2); BASOPHILS % (AUTO) 0.2 % (0-2); HEMOGLOBIN 15.4 g/dL (12.0-15.5); HGB HCT DIFFERENCE 1.2; MEAN CORPUSCULAR HEMOGLOBIN 34.3 pg (27.0-33.4); MEAN CORPUSCULAR HGB CONC 34.3 g/dL (32.0-36.0); MEAN CORPUSCULAR VOLUME 100 fl (80-97); MONOCYTES % (AUTO) 3.8 % (3-13); RED BLOOD COUNT 4.49 10^6/uL (3.72-5.28); WHITE BLOOD COUNT 6.9 10^3/uL (4.0-10.5)
[2017-02-13 06:56] LABS: ANION GAP 12 (5-19); BLOOD UREA NITROGEN 29 mg/dL (7-20); CALCIUM 9.5 mg/dL (8.4-10.2); CARBON DIOXIDE 28 mmol/L (22-30); CHLORIDE 92 mmol/L (98-107); CREATININE RESULT 0.73 mg/dL (0.52-1.25); GLUCOSE 127 mg/dL (75-110); POTASSIUM 4.5 mmol/L (3.6-5.0)
[2017-02-13] MEDS ORDERED: FONDAPARINUX SODIUM INJ 2.5 MG/0.5 ML DISP.SYRIN SUBCUT SCH (08:00)
[2017-02-13] MEDS: DILTIAZEM HCL 240 MG CAPSULE.CR PO SCH (09:00)
[2017-02-13] MEDS: FUROSEMIDE INJ/PF 20 MG/2 ML SDV IV SCH (09:05)
[2017-02-13] MEDS: APIXABAN 5 MG TABLET PO SCH ×2 (09:12→19:19)
[2017-02-13] MEDS: FLUTICASONE/SALMETEROL DISKUS 500-50 MCG/DOSE IH SCH ×2 (09:13→21:54)
[2017-02-13] MEDS: MONTELUKAST SODIUM 10 MG TABLET PO SCH (09:13)
[2017-02-13] MEDS: GUAIFENESIN 600 MG TABLET.SA PO SCH ×2 (09:13→21:53)
[2017-02-13] MEDS ORDERED: DILTIAZEM HCL INJ 25 MG/5 ML VIAL IV ONE (09:15)
[2017-02-13] MEDS ORDERED: DILTIAZEM HCL 120 MG CAP.SR.24H PO SCH (10:00)
[2017-02-13] MEDS ORDERED: SOTALOL HCL 80 MG TABLET PO SCH ×2 (10:00)
[2017-02-13] MEDS ORDERED: LANSOPRAZOLE 30 MG TAB.RAP.DR PO PRN (10:05)
[2017-02-13] MEDS ORDERED: SOTALOL HCL 80 MG TABLET PO ONE (10:45)
[2017-02-13] MEDS: DOCUSATE SODIUM 100 MG CAPSULE PO SCH (15:27)
[2017-02-13] MEDS ORDERED: NICOTINE 14 MG/24 HR PATCH.TD24 TD ONE (15:45)
--- NOTE | 2017-02-13 18:57 | PDOC PROGRESS REPORT ---
Subjective Progress Note for:: 02/13/17 Subjective:: Patient reports that her breathing is better. Nurse had expressed her concern on multiple occasions that patient's heart rate would go up and down. ROS: all organ systems evaluated and negative except as in subjective All significant diagnostics and laboratories have been reviewed Reason For Visit: ACUTE CHF,ACUTE EXACERBATION OF COPD,HYPONATREMIA Physical Exam Vital Signs: Temp Pulse Resp BP Pulse Ox 97.6 F 79 26 H 121/68 97 02/12/17 23:50 02/13/17 02:00 02/13/17 04:58 02/12/17 23:50 02/12/17 23:50 Intake & Output 02/11/17 02/12/17 02/13/17 06:59 06:59 06:59 Weight 53.2 kg General appearance: PRESENT: no acute distress, cooperative, thin Head exam: PRESENT: atraumatic, normocephalic Eye exam: PRESENT: EOMI, PERRLA Ear exam: PRESENT: normal external ear exam Mouth exam: PRESENT: moist, neck supple Neck exam: PRESENT: full ROM. ABSENT: JVD, tenderness Respiratory exam: PRESENT: clear to auscultation eliel. ABSENT: crackles, rhonchi Cardiovascular exam: PRESENT: irregular rhythm. ABSENT: diastolic murmur, systolic murmur Vascular exam: PRESENT: normal capillary refill GI/Abdominal exam: PRESENT: normal bowel sounds, soft. ABSENT: guarding, tenderness Neurological exam: PRESENT: alert, oriented to person, oriented to place, oriented to time Psychiatric exam: PRESENT: appropriate affect, normal mood Results Laboratory Results: 02/12/17 02/12/17 02/12/17 11:04 16:45 22:35 Troponin I 0.021 0.022 0.021 Impressions: Chest X-Ray 02/12/17 06:05 IMPRESSION: No acute cardiopulmonary findings. Assessment & Plan - Diagnosis (1) Hypertensive urgency Is this a current diagnosis for this admission?: Yes Plan: Improved with intervention on admission now major issue is her heart rate noted that patient did not get the regular dose of sotalol. Will hold off adjusted dose of diltiazem extended release and will monitor response (2) COPD with acute exacerbation Is this a current diagnosis for this admission?: Yes Plan: Continue present management and change BiPAP to bedtime (3) Atrial fibrillation Qualifiers: Atrial fibrillation type: permanent Qualified Code(s): I48.2 - Chronic atrial fibrillation Is this a current diagnosis for this admission?: Yes Plan: Restart sotalol as outpatient. Will hold off adjusted dose of diltiazem (4) Congestive heart failure Qualifiers: Congestive heart failure type: systolic Congestive heart failure chronicity : acute Qualified Code(s): I50.21 - Acute systolic (congestive) heart failure Is this a current diagnosis for this admission?: Yes Plan: Discontinue Lasix IV and transitioned to oral (5) Coronary artery disease Qualifiers: Coronary Disease-Associated Artery/Lesion type: [place] artery Associated angina: angina presence unspecified Is this a current diagnosis for this admission?: Yes Plan: Stable (6) Transaminitis Is this a current diagnosis for this admission?: Yes Plan: Suspect hepatic congestion (7) Hyponatremia Is this a current diagnosis for this admission?: Yes Plan: Improving after diuresis (8) Tobacco abuse Is this a current diagnosis for this admission?: Yes Plan: Is trying to quit. Order nicotine patch (9) Respiratory failure Qualifiers: Chronicity: acute Is this a current diagnosis for this admission?: Yes Plan: Will continue with BiPAP but at bedtime - Time Time Spent with patient: 15-24 minutes Medications reviewed and adjusted accordingly: Yes Anticipated discharge: Home Within: within 48 hours - Inpatient Certification Based on my medical assessment, after consideration of the patient's comorbidities, presenting symptoms, or acuity I expect that the services needed warrant INPATIENT care.: Yes I certify that my determination is in accordance with my understanding of Medicare's requirements for reasonable and necessary INPATIENT services [42 CFR 412.3e].: Yes Medical Necessity: Need Close Monitoring Due to Risk of Patient Decompensation
[2017-02-13] MEDS: FENOFIBRATE NANOCRYSTALLIZED 145 MG TABLET PO SCH (21:53)
[2017-02-13] MEDS: ATORVASTATIN CALCIUM 10 MG TABLET PO SCH (21:53)
[2017-02-13] MEDS ORDERED: FUROSEMIDE INJ/PF 20 MG/2 ML SDV IV SCH (22:00)
[2017-02-14] MEDS: IPRATROPIUM/ALBUTEROL 0.5-2.5 MG/3 ML AMPUL NEB SCH ×4 (02:58→20:16)
[2017-02-14] MEDS: METHYLPREDNISOLONE INJ 40 MG/1 ML SDV IV SCH ×2 (05:12→22:13)
[2017-02-14] MEDS: LEVOTHYROXINE SODIUM 0.088 MG TABLET PO SCH (05:12)
[2017-02-14] MEDS: ALPRAZOLAM 0.25 MG TABLET PO PRN (05:12)
[2017-02-14 05:56] LABS: ANION GAP 11 (5-19); BLOOD UREA NITROGEN 37 mg/dL (7-20); CALCIUM 9.5 mg/dL (8.4-10.2); CARBON DIOXIDE 30 mmol/L (22-30); CHLORIDE 92 mmol/L (98-107); CREATININE RESULT 0.67 mg/dL (0.52-1.25); GLUCOSE 123 mg/dL (75-110); POTASSIUM 4.1 mmol/L (3.6-5.0); SODIUM 133.3 mmol/L (137-145)
[2017-02-14] MEDS: FUROSEMIDE 20 MG TABLET PO SCH (10:30)
[2017-02-14] MEDS: NICOTINE 14 MG/24 HR PATCH.TD24 TD SCH (10:30)
[2017-02-14] MEDS: GUAIFENESIN 600 MG TABLET.SA PO SCH ×2 (10:30→22:16)
[2017-02-14] MEDS: SOTALOL HCL 80 MG TABLET PO SCH ×2 (10:30→22:14)
[2017-02-14] MEDS: DILTIAZEM HCL 240 MG CAPSULE.CR PO SCH (10:30)
[2017-02-14] MEDS: APIXABAN 5 MG TABLET PO SCH ×2 (10:30→19:05)
[2017-02-14] MEDS: DOCUSATE SODIUM 100 MG CAPSULE PO SCH (10:30)
[2017-02-14] MEDS: MONTELUKAST SODIUM 10 MG TABLET PO SCH (10:30)
[2017-02-14] MEDS: FLUTICASONE/SALMETEROL DISKUS 500-50 MCG/DOSE IH SCH ×2 (10:31→22:13)
--- NOTE | 2017-02-14 10:42 | PDOC PROGRESS REPORT ---
Subjective Progress Note for:: 02/14/17 Subjective:: Patient complains of having yellow and thick phlegm. She also complains of not been able to sleep last night. Patient's daughter was to bedside and after stepping out related the patient does have a problem with alcohol however she does not admit to it. She is concerned that the problem sleeping may relate to that issue. When revisiting allergies to medications accordingly patient had taking Ceftin without no problem as well as Levaquin ROS: all organ systems evaluated and negative except as in subjective All significant diagnostics and laboratories have been reviewed Reason For Visit: ACUTE CHF,ACUTE EXACERBATION OF COPD,HYPONATREMIA Physical Exam Vital Signs: Temp Pulse Resp BP Pulse Ox 97.7 F 96 20 120/59 L 95 02/14/17 01:07 02/14/17 02:55 02/14/17 02:55 02/14/17 01:07 02/14/17 01:07 Intake & Output 02/12/17 02/13/17 02/14/17 06:59 06:59 06:59 Intake Total 350 709 Output Total 855 Balance -505 709 Weight 53.5 kg General appearance: PRESENT: no acute distress, cooperative, thin Head exam: PRESENT: atraumatic, normocephalic Eye exam: PRESENT: EOMI, PERRLA Ear exam: PRESENT: normal external ear exam Mouth exam: PRESENT: moist, neck supple Neck exam: PRESENT: full ROM. ABSENT: JVD, tenderness Respiratory exam: PRESENT: crackles, decreased breath sounds Cardiovascular exam: PRESENT: irregular rhythm. ABSENT: diastolic murmur, systolic murmur Vascular exam: PRESENT: normal capillary refill GI/Abdominal exam: PRESENT: normal bowel sounds, soft. ABSENT: distended, tenderness Extremities exam: ABSENT: joint swelling, pedal edema Neurological exam: PRESENT: alert, oriented to person, oriented to place, oriented to time Psychiatric exam: PRESENT: appropriate affect, normal mood Results Laboratory Results: 02/13/17 05:23 02/13/17 05:23 02/13/17 02/13/17 05:23 05:23 WBC 6.9 RBC 4.49 Hgb 15.4 Hct 45.0 MCV 100 H MCH 34.3 H MCHC 34.3 RDW 14.0 Plt Count 224 Seg Neutrophils % 85.0 H Lymphocytes % 11.0 L Monocytes % 3.8 Eosinophils % 0.0 Basophils % 0.2 Absolute Neutrophils 5.8 Absolute Lymphocytes 0.8 Absolute Monocytes 0.3 Absolute Eosinophils 0.0 Absolute Basophils 0.0 Sodium 132.0 L Potassium 4.5 Chloride 92 L Carbon Dioxide 28 Anion Gap 12 BUN 29 H Creatinine 0.73 Est GFR ( Amer) > 60 Est GFR (Non-Af Amer) > 60 Glucose 127 H Calcium 9.5 Magnesium 2.0 02/12/17 02/12/17 02/12/17 11:04 16:45 22:35 Troponin I 0.021 0.022 0.021 Impressions: Chest X-Ray 02/12/17 06:05 IMPRESSION: No acute cardiopulmonary findings. Assessment & Plan - Diagnosis (1) Hypertensive urgency Is this a current diagnosis for this admission?: Yes Plan: Resolved. Will continue sotalol and adjusted dose of Cardizem (2) COPD with acute exacerbation Is this a current diagnosis for this admission?: Yes Plan: Decrease IV steroid. At [facility] and will watch closely (3) Atrial fibrillation Qualifiers: Atrial fibrillation type: permanent Qualified Code(s): I48.2 - Chronic atrial fibrillation Is this a current diagnosis for this admission?: Yes Plan: Continue sotalol same dose as outpatient (4) Congestive heart failure Qualifiers: Congestive heart failure type: systolic Congestive heart failure chronicity : acute Qualified Code(s): I50.21 - Acute systolic (congestive) heart failure Is this a current diagnosis for this admission?: Yes Plan: Continue current management and watch BMP closely (5) Coronary artery disease Qualifiers: Coronary Disease-Associated Artery/Lesion type: [place] artery Associated angina: angina presence unspecified Is this a current diagnosis for this admission?: Yes Plan: Stable (6) Transaminitis Is this a current diagnosis for this admission?: Yes Plan: Suspect hepatic congestion (7) Hyponatremia Is this a current diagnosis for this admission?: Yes Plan: Improving after diuresis (8) Tobacco abuse Is this a current diagnosis for this admission?: Yes Plan: Is trying to quit. Continue nicotine patch (9) Respiratory failure Qualifiers: Chronicity: acute Is this a current diagnosis for this admission?: Yes Plan: Will continue with BiPAP but at bedtime (10) Alcohol abuse Is this a current diagnosis for this admission?: Yes Plan: Continue Xanax as needed. Will add thiamine and multivitamins - Time Time Spent with patient: 15-24 minutes Medications reviewed and adjusted accordingly: Yes Anticipated discharge: Home - Inpatient Certification Based on my medical assessment, after consideration of the patient's comorbidities, presenting symptoms, or acuity I expect that the services needed warrant INPATIENT care.: Yes I certify that my determination is in accordance with my understanding of Medicare's requirements for reasonable and necessary INPATIENT services [42 CFR 412.3e].: Yes Medical Necessity: Need Close Monitoring Due to Risk of Patient Decompensation, Need for IV Antibiotics
[2017-02-14] MEDS ORDERED: THIAMINE HCL 100 MG TABLET PO ONE (11:00)
[2017-02-14] MEDS: MULTIVITAMIN TABLET PO SCH (12:56)
[2017-02-14] MEDS ORDERED: LEVOFLOXACIN 500 MG/D5W RTU 500 MG/100 ML RTUPB IV ONE (14:30)
[2017-02-14 14:32] LABS: ARTERIAL BLOOD BASE EXCESS 6.4 mmol/L
[2017-02-14] MEDS ORDERED: SULFAMETHOXAZOLE/TRIMETHOPRIM 800-160 MG TABLET PO ONE (16:00)
[2017-02-14] MEDS: FENOFIBRATE NANOCRYSTALLIZED 145 MG TABLET PO SCH (22:13)
[2017-02-14] MEDS: SULFAMETHOXAZOLE/TRIMETHOPRIM 800-160 MG TABLET PO SCH (22:14)
[2017-02-14] MEDS: OLANZAPINE 5 MG TABLET PO SCH (22:16)
[2017-02-14] MEDS: ATORVASTATIN CALCIUM 10 MG TABLET PO SCH (22:16)
[2017-02-15] MEDS: IPRATROPIUM/ALBUTEROL 0.5-2.5 MG/3 ML AMPUL NEB SCH ×4 (02:16→20:16)
[2017-02-15] MEDS: LEVOTHYROXINE SODIUM 0.088 MG TABLET PO SCH (05:10)
[2017-02-15] MEDS: THIAMINE HCL 100 MG TABLET PO SCH (09:32)
[2017-02-15] MEDS: MONTELUKAST SODIUM 10 MG TABLET PO SCH (09:32)
[2017-02-15] MEDS: SULFAMETHOXAZOLE/TRIMETHOPRIM 800-160 MG TABLET PO SCH ×2 (09:32→22:07)
[2017-02-15] MEDS: GUAIFENESIN 600 MG TABLET.SA PO SCH ×2 (09:32→22:07)
[2017-02-15] MEDS: SOTALOL HCL 80 MG TABLET PO SCH ×2 (09:32→22:14)
[2017-02-15] MEDS: DOCUSATE SODIUM 100 MG CAPSULE PO SCH (09:32)
[2017-02-15] MEDS: FUROSEMIDE 20 MG TABLET PO SCH (09:32)
[2017-02-15] MEDS: DILTIAZEM HCL 240 MG CAPSULE.CR PO SCH (09:32)
[2017-02-15] MEDS: APIXABAN 5 MG TABLET PO SCH ×2 (09:32→17:22)
[2017-02-15] MEDS: FLUTICASONE/SALMETEROL DISKUS 500-50 MCG/DOSE IH SCH ×2 (09:33→22:08)
[2017-02-15] MEDS: METHYLPREDNISOLONE INJ 40 MG/1 ML SDV IV SCH (09:33)
[2017-02-15] MEDS: NICOTINE 14 MG/24 HR PATCH.TD24 TD SCH (09:33)
[2017-02-15] MEDS: ALPRAZOLAM 0.25 MG TABLET PO PRN ×2 (09:44→17:22)
[2017-02-15] MEDS ORDERED: LEVOFLOXACIN 500 MG/D5W RTU 500 MG/100 ML RTUPB IV SCH (10:00)
[2017-02-15 10:14] LABS: ANION GAP 9 (5-19); BLOOD UREA NITROGEN 41 mg/dL (7-20); CARBON DIOXIDE 31 mmol/L (22-30); CHLORIDE 95 mmol/L (98-107); CREATININE RESULT 0.54 mg/dL (0.52-1.25); GLUCOSE 129 mg/dL (75-110); MAGNESIUM 2.2 mg/dL (1.6-2.3); POTASSIUM 4.2 mmol/L (3.6-5.0); SODIUM 135.3 mmol/L (137-145)
[2017-02-15] MEDS ORDERED: ACETAMINOPHEN 325 MG TABLET PO PRN (11:30)
[2017-02-15] MEDS: MULTIVITAMIN TABLET PO SCH (12:34)
[2017-02-15] MEDS: ACETYLCYSTEINE 20% SOLN 800 MG/4 ML VIAL.NEB NEB SCH (20:16)
[2017-02-15] MEDS ORDERED: METHYLPREDNISOLONE INJ 40 MG/1 ML SDV IV SCH (22:00)
[2017-02-15] MEDS: ATORVASTATIN CALCIUM 10 MG TABLET PO SCH (22:07)
[2017-02-15] MEDS: OLANZAPINE 5 MG TABLET PO SCH (22:07)
[2017-02-15] MEDS: FENOFIBRATE NANOCRYSTALLIZED 145 MG TABLET PO SCH (22:07)
[2017-02-16] MEDS ORDERED: HYDRALAZINE HCL 25 MG TABLET PO PRN (00:06)
--- NOTE | 2017-02-16 00:23 | PDOC PROGRESS REPORT ---
Subjective Progress Note for:: 02/16/17 Subjective:: Patient relates that shortness of breath is better but that now would like to cough up the phlegm that in the portion of her lungs. ROS: all organ systems evaluated and negative except as in subjective All significant diagnostics and laboratories have been reviewed Reason For Visit: ACUTE CHF,ACUTE EXACERBATION OF COPD,HYPONATREMIA Physical Exam Vital Signs: Temp Pulse Resp BP Pulse Ox 97.2 F 59 L 22 H 133/70 H 98 02/15/17 04:08 02/15/17 04:08 02/15/17 04:08 02/15/17 04:08 02/15/17 04:08 Intake & Output 02/13/17 02/14/17 02/15/17 06:59 06:59 06:59 Intake Total 350 1449 1068 Output Total 855 1300 Balance -874 820 4674 Weight 53.5 kg 54 kg General appearance: PRESENT: cooperative, thin Head exam: PRESENT: atraumatic, normocephalic Eye exam: PRESENT: EOMI, PERRLA Mouth exam: PRESENT: moist, neck supple Neck exam: PRESENT: JVD Respiratory exam: PRESENT: crackles, wheezes Cardiovascular exam: PRESENT: irregular rhythm. ABSENT: diastolic murmur, systolic murmur Vascular exam: PRESENT: normal capillary refill GI/Abdominal exam: PRESENT: normal bowel sounds, soft. ABSENT: tenderness Neurological exam: PRESENT: alert, oriented to person, oriented to place, oriented to time Psychiatric exam: PRESENT: anxious Skin exam: PRESENT: petechiae Results Laboratory Results: 02/13/17 05:23 02/14/17 05:04 02/14/17 02/14/17 05:04 14:15 Carbonic Acid 1.36 H HCO3/H2CO3 Ratio 23:1 ABG pH 7.46 H ABG pCO2 45.1 H ABG pO2 77.7 L ABG HCO3 31.3 H ABG O2 Saturation 96.0 ABG Base Excess 6.4 FiO2 1.5L Sodium 133.3 L Potassium 4.1 Chloride 92 L Carbon Dioxide 30 Anion Gap 11 BUN 37 H Creatinine 0.67 Est GFR ( Amer) > 60 Est GFR (Non-Af Amer) > 60 Glucose 123 H Calcium 9.5 Magnesium 2.0 02/12/17 02/12/17 02/12/17 11:04 16:45 22:35 Troponin I 0.021 0.022 0.021 Impressions: Chest X-Ray 02/12/17 06:05 IMPRESSION: No acute cardiopulmonary findings. Assessment & Plan - Diagnosis (1) Hypertensive urgency Is this a current diagnosis for this admission?: Yes Plan: Resolved. BP labile. Will continue sotalol, adjusted dose of Cardizem and add hydralazine (2) COPD with acute exacerbation Is this a current diagnosis for this admission?: Yes Plan: Decrease IV steroid. Increase mucinex, add mucomust and continue nebs, advair and singulair. (3) Atrial fibrillation Qualifiers: Atrial fibrillation type: permanent Qualified Code(s): I48.2 - Chronic atrial fibrillation Is this a current diagnosis for this admission?: Yes Plan: Continue sotalol same dose as outpatient (4) Congestive heart failure Qualifiers: Congestive heart failure type: systolic Congestive heart failure chronicity : acute Qualified Code(s): I50.21 - Acute systolic (congestive) heart failure Is this a current diagnosis for this admission?: Yes Plan: Continue current management and watch BMP closely. Patient may be cardiorenal (5) Coronary artery disease Qualifiers: Coronary Disease-Associated Artery/Lesion type: [place] artery Associated angina: angina presence unspecified Is this a current diagnosis for this admission?: Yes Plan: Stable. Chest likely related to CHF and COPD exacerbation (6) Transaminitis Is this a current diagnosis for this admission?: Yes Plan: Suspect hepatic congestion (7) Hyponatremia Is this a current diagnosis for this admission?: Yes Plan: Improved after diuresis. Trend (8) Tobacco abuse Is this a current diagnosis for this admission?: Yes Plan: Is trying to quit. Continue nicotine patch (9) Respiratory failure Qualifiers: Chronicity: acute Is this a current diagnosis for this admission?: Yes Plan: Will continue with BiPAP but at bedtime. May not need oxygen on discharge (10) Alcohol abuse Is this a current diagnosis for this admission?: Yes Plan: Continue Xanax as needed, thiamine and multivitamins - Time Time Spent with patient: 15-24 minutes Medications reviewed and adjusted accordingly: Yes Anticipated discharge: Home Within: within 72 hours - Inpatient Certification Based on my medical assessment, after consideration of the patient's comorbidities, presenting symptoms, or acuity I expect that the services needed warrant INPATIENT care.: Yes I certify that my determination is in accordance with my understanding of Medicare's requirements for reasonable and necessary INPATIENT services [42 CFR 412.3e].: Yes Medical Necessity: Need For Continuous Telemetry Monitoring
[2017-02-16] MEDS: ALPRAZOLAM 0.25 MG TABLET PO PRN ×2 (00:27→09:47)
[2017-02-16] MEDS: IPRATROPIUM/ALBUTEROL 0.5-2.5 MG/3 ML AMPUL NEB SCH ×4 (01:48→20:24)
[2017-02-16 05:39] LABS: ABSOLUTE LYMPHOCYTES (AUTO) 0.6 10^3/uL (0.5-4.7); ABSOLUTE MONOCYTES (AUTO) 0.4 10^3/uL (0.1-1.4); ABSOLUTE NEUT (AUTO) 8.5 10^3/uL (1.7-8.2); BASOPHILS % (AUTO) 0.2 % (0-2); HEMATOCRIT 41.8 % (36.0-47.0); HEMOGLOBIN 14.3 g/dL (12.0-15.5); HGB HCT DIFFERENCE 1.1; LYMPHOCYTES % (AUTO) 6.8 % (13-45); MEAN CORPUSCULAR HEMOGLOBIN 34.4 pg (27.0-33.4); MEAN CORPUSCULAR HGB CONC 34.2 g/dL (32.0-36.0); MEAN CORPUSCULAR VOLUME 101 fl (80-97); MONOCYTES % (AUTO) 3.8 % (3-13); RED BLOOD COUNT 4.16 10^6/uL (3.72-5.28); RED CELL DISTRIBUTION WIDTH 13.8 % (11.5-14.0); SEGMENTED NEUTROPHILS % (AUTO) 89.2 % (42-78); WHITE BLOOD COUNT 9.5 10^3/uL (4.0-10.5)
[2017-02-16 05:50] LABS: ANION GAP 7 (5-19); BLOOD UREA NITROGEN 54 mg/dL (7-20); CARBON DIOXIDE 34 mmol/L (22-30); CHLORIDE 94 mmol/L (98-107); GLUCOSE 199 mg/dL (75-110); POTASSIUM 3.6 mmol/L (3.6-5.0); SODIUM 135.1 mmol/L (137-145)
[2017-02-16] MEDS ORDERED: FUROSEMIDE 20 MG TABLET PO SCH (06:00)
[2017-02-16] MEDS: HYDRALAZINE HCL 25 MG TABLET PO SCH ×3 (06:25→21:20)
[2017-02-16] MEDS: LEVOTHYROXINE SODIUM 0.088 MG TABLET PO SCH (06:25)
[2017-02-16] MEDS: ACETYLCYSTEINE 20% SOLN 800 MG/4 ML VIAL.NEB NEB SCH ×2 (08:35→20:24)
[2017-02-16] MEDS: SULFAMETHOXAZOLE/TRIMETHOPRIM 800-160 MG TABLET PO SCH (09:44)
[2017-02-16] MEDS: MONTELUKAST SODIUM 10 MG TABLET PO SCH (09:44)
[2017-02-16] MEDS: THIAMINE HCL 100 MG TABLET PO SCH (09:45)
[2017-02-16] MEDS: DOCUSATE SODIUM 100 MG CAPSULE PO SCH (09:45)
[2017-02-16] MEDS: DILTIAZEM HCL 240 MG CAPSULE.CR PO SCH (09:45)
[2017-02-16] MEDS: GUAIFENESIN 600 MG TABLET.SA PO SCH ×2 (09:46→21:18)
[2017-02-16] MEDS: PREDNISONE 20 MG TABLET PO SCH (09:46)
[2017-02-16] MEDS: NICOTINE 14 MG/24 HR PATCH.TD24 TD SCH (09:48)
[2017-02-16] MEDS: APIXABAN 5 MG TABLET PO SCH ×2 (10:05→17:02)
[2017-02-16] MEDS: FLUTICASONE/SALMETEROL DISKUS 500-50 MCG/DOSE IH SCH ×2 (10:05→21:21)
[2017-02-16] MEDS: SOTALOL HCL 80 MG TABLET PO SCH ×2 (10:06→21:20)
[2017-02-16] MEDS ORDERED: LORAZEPAM INJ 2 MG/1 ML VIAL ONE (10:51)
[2017-02-16] MEDS ORDERED: NORMAL SALINE 250 ML IV ONE (11:15)
[2017-02-16] MEDS: MEROPENEM 500 MG in NORMAL SALINE 50 ML IV SCH ×2 (11:44→21:21)
[2017-02-16] MEDS ORDERED: LORAZEPAM 1 MG TABLET PO ONE (12:00)
--- NOTE | 2017-02-16 12:30 | EKG REPORT ---
SEVERITY:- ABNORMAL ECG - ATRIAL FIBRILLATION WITH RAPID V-RATE REPOLARIZATION ABNORMALITY, PROB RATE RELATED : Confirmed by: Fei Sellers 16-Feb-2017 12:29:43
[2017-02-16] MEDS: MULTIVITAMIN TABLET PO SCH (14:36)
[2017-02-16] MEDS: ATORVASTATIN CALCIUM 10 MG TABLET PO SCH (21:17)
[2017-02-16] MEDS: FENOFIBRATE NANOCRYSTALLIZED 145 MG TABLET PO SCH (21:17)
[2017-02-16] MEDS: OLANZAPINE 5 MG TABLET PO SCH (21:17)
[2017-02-16] MEDS: LORAZEPAM 0.5 MG TABLET PO PRN (22:32)
[2017-02-17] MEDS: IPRATROPIUM/ALBUTEROL 0.5-2.5 MG/3 ML AMPUL NEB SCH ×4 (02:18→20:27)
--- NOTE | 2017-02-17 03:31 | PDOC PROGRESS REPORT ---
Subjective Progress Note for:: 02/16/17 Subjective:: Patient admits was not able to sleep last night. Had been expectorating but not enough according to her. Nurse reported that hear rate was elevated. ROS: all organ systems evaluated and negative except as in subjective All significant diagnostics and laboratories have been reviewed Reason For Visit: ACUTE CHF,ACUTE EXACERBATION OF COPD,HYPONATREMIA Physical Exam Vital Signs: Temp Pulse Resp BP Pulse Ox 97.6 F 61 18 160/73 H 99 02/15/17 15:29 02/16/17 02:00 02/16/17 01:45 02/15/17 15:29 02/15/17 15:29 Intake & Output 02/14/17 02/15/17 02/16/17 06:59 06:59 06:59 Intake Total 1449 1168 800 Output Total 1300 450 Balance 149 1168 350 Weight 54 kg 49.7 kg General appearance: PRESENT: cooperative, thin, other - restless Eye exam: PRESENT: conjunctiva pink, EOMI, PERRLA Ear exam: PRESENT: TM's normal bilaterally Mouth exam: PRESENT: moist Neck exam: PRESENT: full ROM. ABSENT: JVD, tenderness Respiratory exam: PRESENT: crackles - better movement of air and chest congestion Cardiovascular exam: PRESENT: irregular rhythm. ABSENT: diastolic murmur, systolic murmur Vascular exam: PRESENT: normal capillary refill GI/Abdominal exam: PRESENT: normal bowel sounds, soft. ABSENT: ascites, tenderness Extremities exam: PRESENT: full ROM Neurological exam: PRESENT: alert, awake, oriented to person, oriented to place Psychiatric exam: PRESENT: anxious Skin exam: PRESENT: dry, petechiae Results Laboratory Results: 02/13/17 05:23 02/15/17 09:21 02/15/17 02/15/17 07:26 09:21 Sodium Cancelled 135.3 L Potassium Cancelled 4.2 Chloride Cancelled 95 L Carbon Dioxide Cancelled 31 H Anion Gap Cancelled 9 BUN Cancelled 41 H Creatinine Cancelled 0.54 Est GFR ( Amer) Cancelled > 60 Est GFR (Non-Af Amer) Cancelled > 60 Glucose Cancelled 129 H Calcium Cancelled 10.0 Magnesium Cancelled 2.2 02/12/17 02/12/17 02/12/17 11:04 16:45 22:35 Troponin I 0.021 0.022 0.021 Impressions: Chest X-Ray 02/12/17 06:05 IMPRESSION: No acute cardiopulmonary findings. Assessment & Plan - Diagnosis (1) Hypertensive urgency Is this a current diagnosis for this admission?: Yes Plan: Resolved. BP labile. Continue current regimen (2) COPD with acute exacerbation Is this a current diagnosis for this admission?: Yes Plan: Transition to oral steroids. To place on meropenem since sputum growing Pseudomonas. Otherwise continue present treatment (3) Atrial fibrillation Qualifiers: Atrial fibrillation type: permanent Qualified Code(s): I48.2 - Chronic atrial fibrillation Is this a current diagnosis for this admission?: Yes Plan: Continue sotalol same dose as outpatient. Ordered one time saline bolus since very fluid sensitive. Nurse advised to contact pacemaker company since may need to be checked. (4) Congestive heart failure Qualifiers: Congestive heart failure type: systolic Congestive heart failure chronicity : acute Qualified Code(s): I50.21 - Acute systolic (congestive) heart failure Is this a current diagnosis for this admission?: Yes Plan: Discontinue lasix due to abnormal renal and continue watching BMP closely. Patient may be cardiorenal (5) Coronary artery disease Qualifiers: Coronary Disease-Associated Artery/Lesion type: [place] artery Associated angina: angina presence unspecified Is this a current diagnosis for this admission?: Yes Plan: Stable. Chest likely related to CHF and COPD exacerbation (6) Transaminitis Is this a current diagnosis for this admission?: Yes Plan: Suspect hepatic congestion (7) Hyponatremia Is this a current diagnosis for this admission?: Yes Plan: Improved after diuresis. Trend (8) Tobacco abuse Is this a current diagnosis for this admission?: Yes Plan: Is trying to quit. Continue nicotine patch (9) Respiratory failure Qualifiers: Chronicity: acute Is this a current diagnosis for this admission?: Yes Plan: Continue BiPAP but at bedtime. May not need oxygen on discharge (10) Alcohol abuse Is this a current diagnosis for this admission?: Yes Plan: Discontinue and place on ativan scheduled. Continue thiamine and multivitamins (11) THERESA (acute kidney injury) Is this a current diagnosis for this admission?: Yes Plan: Discontinue lasix and trend. - Time Time Spent with patient: 15-24 minutes Medications reviewed and adjusted accordingly: Yes Anticipated discharge: Home with Homehealth Within: within 72 hours - Inpatient Certification Based on my medical assessment, after consideration of the patient's comorbidities, presenting symptoms, or acuity I expect that the services needed warrant INPATIENT care.: Yes I certify that my determination is in accordance with my understanding of Medicare's requirements for reasonable and necessary INPATIENT services [42 CFR 412.3e].: Yes Medical Necessity: Need for Nebulizer Therapy and Monitoring of Response, Need for IV Antibiotics
[2017-02-17] MEDS: HYDRALAZINE HCL 25 MG TABLET PO SCH ×3 (06:34→21:18)
[2017-02-17] MEDS: LEVOTHYROXINE SODIUM 0.088 MG TABLET PO SCH (06:34)
[2017-02-17] MEDS: MEROPENEM 500 MG in NORMAL SALINE 50 ML IV SCH ×3 (06:34→21:18)
[2017-02-17] MEDS: ACETYLCYSTEINE 20% SOLN 800 MG/4 ML VIAL.NEB NEB SCH ×2 (08:32→20:27)
[2017-02-17] MEDS: PREDNISONE 20 MG TABLET PO SCH (10:10)
[2017-02-17] MEDS: SOTALOL HCL 80 MG TABLET PO SCH ×2 (10:10→21:18)
[2017-02-17] MEDS: MONTELUKAST SODIUM 10 MG TABLET PO SCH (10:11)
[2017-02-17] MEDS: DOCUSATE SODIUM 100 MG CAPSULE PO SCH (10:11)
[2017-02-17] MEDS: FLUTICASONE/SALMETEROL DISKUS 500-50 MCG/DOSE IH SCH ×2 (10:11→21:18)
[2017-02-17] MEDS: THIAMINE HCL 100 MG TABLET PO SCH (10:11)
[2017-02-17] MEDS: DILTIAZEM HCL 240 MG CAPSULE.CR PO SCH (10:11)
[2017-02-17] MEDS: NICOTINE 14 MG/24 HR PATCH.TD24 TD SCH (10:12)
[2017-02-17] MEDS: APIXABAN 5 MG TABLET PO SCH ×2 (10:12→17:29)
[2017-02-17] MEDS: GUAIFENESIN 600 MG TABLET.SA PO SCH ×2 (10:14→21:18)
[2017-02-17] MEDS: MULTIVITAMIN TABLET PO SCH (11:26)
--- NOTE | 2017-02-17 14:08 | PDOC PROGRESS REPORT ---
Subjective Progress Note for:: 02/17/17 Subjective:: Patient relates that finally was able to sleep last night and that cough and expectoration is better ROS: all organ systems evaluated and negative except as in subjective All significant diagnostics and laboratories have been reviewed Reason For Visit: ACUTE CHF,ACUTE EXACERBATION OF COPD,HYPONATREMIA Physical Exam Vital Signs: Temp Pulse Resp BP Pulse Ox 97.9 F 60 18 148/87 H 93 02/17/17 04:00 02/17/17 04:00 02/17/17 04:00 02/17/17 04:00 02/17/17 04:00 Intake & Output 02/15/17 02/16/17 02/17/17 06:59 06:59 06:59 Intake Total 1168 1752 1150 Output Total 1500 500 Balance 1168 252 650 Weight 49.7 kg 47.2 kg 47 kg General appearance: PRESENT: no acute distress, cooperative, thin Head exam: PRESENT: atraumatic, normocephalic Eye exam: PRESENT: EOMI, PERRLA Ear exam: PRESENT: normal external ear exam Mouth exam: PRESENT: moist, neck supple Neck exam: PRESENT: full ROM. ABSENT: JVD, tenderness Respiratory exam: PRESENT: other - Essentially clear to auscultation with soft basilar crackles. Movement of air improved when compared to previous assessment Cardiovascular exam: PRESENT: irregular rhythm. ABSENT: diastolic murmur, systolic murmur Vascular exam: PRESENT: normal capillary refill GI/Abdominal exam: PRESENT: normal bowel sounds, soft. ABSENT: ascites, guarding, tenderness Extremities exam: ABSENT: joint swelling, pedal edema Musculoskeletal exam: PRESENT: full ROM Neurological exam: PRESENT: alert, awake, oriented to person, oriented to place , oriented to time Psychiatric exam: PRESENT: appropriate affect, normal mood Skin exam: PRESENT: normal color Results Laboratory Results: 02/16/17 05:09 02/16/17 05:09 02/14/17 02:15 Sputum Gram Stain - Final 02/14/17 02:15 Sputum Sputum Culture - Final Pseudomonas Aeruginosa Normal Devi 02/12/17 02/12/17 02/12/17 11:04 16:45 22:35 Troponin I 0.021 0.022 0.021 Impressions: Chest X-Ray 02/12/17 06:05 IMPRESSION: No acute cardiopulmonary findings. Assessment & Plan - Diagnosis (1) Hypertensive urgency Is this a current diagnosis for this admission?: Yes Plan: Resolved. BP labile. Continue current regimen (2) COPD with acute exacerbation Is this a current diagnosis for this admission?: Yes Plan: Patient presenting with an acute exacerbation with bronchitis. Continue meropenem since sputum growing Pseudomonas and patient alleges that she is allergic to Levaquin. Otherwise continue present treatment (3) Atrial fibrillation Qualifiers: Atrial fibrillation type: permanent Qualified Code(s): I48.2 - Chronic atrial fibrillation Is this a current diagnosis for this admission?: Yes Plan: Continue sotalol same dose as outpatient. (4) Congestive heart failure Qualifiers: Congestive heart failure type: systolic Congestive heart failure chronicity : acute Qualified Code(s): I50.21 - Acute systolic (congestive) heart failure Is this a current diagnosis for this admission?: Yes Plan: Discontinue lasix due to abnormal renal and continue watching BMP closely. Patient may be cardiorenal (5) Coronary artery disease Qualifiers: Coronary Disease-Associated Artery/Lesion type: [place] artery Associated angina: angina presence unspecified Is this a current diagnosis for this admission?: Yes Plan: Stable. Chest likely related to CHF and COPD exacerbation (6) Transaminitis Is this a current diagnosis for this admission?: Yes Plan: Suspect hepatic congestion (7) Hyponatremia Is this a current diagnosis for this admission?: Yes Plan: Improved after diuresis. Trend (8) Tobacco abuse Is this a current diagnosis for this admission?: Yes Plan: Is trying to quit. Continue nicotine patch (9) Respiratory failure Qualifiers: Chronicity: acute Is this a current diagnosis for this admission?: Yes Plan: Continue BiPAP but at bedtime. May not need oxygen on discharge (10) Alcohol abuse Is this a current diagnosis for this admission?: Yes Plan: Continue with scheduled Ativan and Zyprexa at bedtime. Continue thiamine and multivitamins (11) THERESA (acute kidney injury) Is this a current diagnosis for this admission?: Yes Plan: Off lasix and trend. - Time Time Spent with patient: 15-24 minutes Medications reviewed and adjusted accordingly: Yes Anticipated discharge: Home Within: within 72 hours - Inpatient Certification Based on my medical assessment, after consideration of the patient's comorbidities, presenting symptoms, or acuity I expect that the services needed warrant INPATIENT care.: Yes I certify that my determination is in accordance with my understanding of Medicare's requirements for reasonable and necessary INPATIENT services [42 CFR 412.3e].: Yes Medical Necessity: Need for Nebulizer Therapy and Monitoring of Response, Need for IV Antibiotics
[2017-02-17] MEDS: FENOFIBRATE NANOCRYSTALLIZED 145 MG TABLET PO SCH (21:17)
[2017-02-17] MEDS: ATORVASTATIN CALCIUM 10 MG TABLET PO SCH (21:17)
[2017-02-17] MEDS: OLANZAPINE 5 MG TABLET PO SCH (21:17)
[2017-02-17] MEDS: LORAZEPAM 0.5 MG TABLET PO PRN (21:18)
[2017-02-18] MEDS: IPRATROPIUM/ALBUTEROL 0.5-2.5 MG/3 ML AMPUL NEB SCH ×4 (01:41→20:47)
[2017-02-18] MEDS: MEROPENEM 500 MG in NORMAL SALINE 50 ML IV SCH ×3 (05:04→21:43)
[2017-02-18] MEDS: HYDRALAZINE HCL 25 MG TABLET PO SCH ×3 (05:04→21:43)
[2017-02-18] MEDS: LEVOTHYROXINE SODIUM 0.088 MG TABLET PO SCH (05:04)
[2017-02-18 07:56] LABS: HEMATOCRIT 41.1 % (36.0-47.0); HEMOGLOBIN 14.1 g/dL (12.0-15.5); HGB HCT DIFFERENCE 1.2; MEAN CORPUSCULAR HEMOGLOBIN 34.4 pg (27.0-33.4); MEAN CORPUSCULAR HGB CONC 34.4 g/dL (32.0-36.0); MEAN CORPUSCULAR VOLUME 100 fl (80-97); RED BLOOD COUNT 4.11 10^6/uL (3.72-5.28); RED CELL DISTRIBUTION WIDTH 13.6 % (11.5-14.0); WHITE BLOOD COUNT 7.2 10^3/uL (4.0-10.5)
[2017-02-18 08:07] LABS: ALANINE AMINOTRANSFERASE 40 U/L (9-52); ALBUMIN 2.9 g/dL (3.5-5.0); ALKALINE PHOSPHATASE 38 U/L (38-126); ASPARTATE AMINO TRANSFERASE 21 U/L (14-36); BILIRUBIN,DIRECT 0.4 mg/dL (0.0-0.4); BILIRUBIN,TOTAL 0.6 mg/dL (0.2-1.3); BLOOD UREA NITROGEN 27 mg/dL (7-20); CALCIUM 9.7 mg/dL (8.4-10.2); CARBON DIOXIDE 37 mmol/L (22-30); CHLORIDE 96 mmol/L (98-107); CREATININE RESULT 0.58 mg/dL (0.52-1.25); GLUCOSE 85 mg/dL (75-110); POTASSIUM 3.7 mmol/L (3.6-5.0); TOTAL PROTEIN 5.5 g/dL (6.3-8.2)
[2017-02-18 08:16] LABS: SODIUM 136.7 mmol/L (137-145)
[2017-02-18 08:23] LABS: ANION GAP 4 (5-19)
[2017-02-18 08:38] LABS: BASOPHILS % (MANUAL) 0 % (0-2); EOSINOPHILS % (MANUAL) 0 % (0-6); LYMPHOCYTES % (MANUAL) 15 % (13-45); TOTAL CELLS COUNTED 100
[2017-02-18 08:39] LABS: RBC MORPHOLOGY COMMENT NORMO-CYTIC/CHROMIC; TOXIC GRANULATION SLIGHT
[2017-02-18] MEDS: ACETYLCYSTEINE 20% SOLN 800 MG/4 ML VIAL.NEB NEB SCH ×2 (08:56→20:47)
[2017-02-18] MEDS: APIXABAN 5 MG TABLET PO SCH ×2 (09:26→17:18)
[2017-02-18] MEDS: SOTALOL HCL 80 MG TABLET PO SCH ×2 (09:26→21:43)
[2017-02-18] MEDS: DOCUSATE SODIUM 100 MG CAPSULE PO SCH (09:28)
[2017-02-18] MEDS: THIAMINE HCL 100 MG TABLET PO SCH (09:28)
[2017-02-18] MEDS: DILTIAZEM HCL 240 MG CAPSULE.CR PO SCH (09:28)
[2017-02-18] MEDS: FLUTICASONE/SALMETEROL DISKUS 500-50 MCG/DOSE IH SCH ×2 (09:29→21:43)
[2017-02-18] MEDS: MONTELUKAST SODIUM 10 MG TABLET PO SCH (09:29)
[2017-02-18] MEDS: GUAIFENESIN 600 MG TABLET.SA PO SCH ×2 (09:29→21:43)
[2017-02-18] MEDS: PREDNISONE 20 MG TABLET PO SCH (09:29)
[2017-02-18] MEDS: NICOTINE 14 MG/24 HR PATCH.TD24 TD SCH (09:30)
[2017-02-18] MEDS: MULTIVITAMIN TABLET PO SCH (12:49)
--- NOTE | 2017-02-18 12:51 | PDOC PROGRESS REPORT ---
Subjective Progress Note for:: 02/18/17 Subjective:: Continues feeling better and was able to sleep last night too ROS: all organ systems evaluated and negative except as in subjective All significant diagnostics and laboratories have been reviewed Reason For Visit: ACUTE CHF,ACUTE EXACERBATION OF COPD,HYPONATREMIA Physical Exam Vital Signs: Temp Pulse Resp BP Pulse Ox 97.6 F 64 20 125/71 97 02/17/17 23:43 02/18/17 02:00 02/18/17 01:42 02/17/17 23:43 02/18/17 01:42 Intake & Output 02/16/17 02/17/17 02/18/17 06:59 06:59 06:59 Intake Total 1752 1270 936 Output Total 9157 290 6545 Balance 252 770 -264 Weight 47.2 kg 47 kg General appearance: PRESENT: no acute distress, cooperative, thin Head exam: PRESENT: atraumatic, normocephalic Eye exam: PRESENT: EOMI, PERRLA Ear exam: PRESENT: normal external ear exam, TM's normal bilaterally Mouth exam: PRESENT: moist Neck exam: PRESENT: full ROM. ABSENT: JVD, tenderness Respiratory exam: PRESENT: unlabored, other - Adequate movement of air with soft basilar crackles Cardiovascular exam: PRESENT: irregular rhythm. ABSENT: diastolic murmur, systolic murmur Vascular exam: PRESENT: normal capillary refill GI/Abdominal exam: PRESENT: normal bowel sounds, soft. ABSENT: ascites, tenderness Extremities exam: PRESENT: full ROM. ABSENT: joint swelling, pedal edema, tenderness Neurological exam: PRESENT: alert, awake, oriented to person, oriented to place , oriented to time Skin exam: PRESENT: normal color Results Laboratory Results: 02/16/17 05:09 02/16/17 05:09 02/12/17 02/12/17 02/12/17 11:04 16:45 22:35 Troponin I 0.021 0.022 0.021 Impressions: Chest X-Ray 02/12/17 06:05 IMPRESSION: No acute cardiopulmonary findings. Assessment & Plan - Diagnosis (1) Hypertensive urgency Is this a current diagnosis for this admission?: Yes Plan: Resolved. BP stable over the past 48 hours. Continue current regimen (2) COPD with acute exacerbation Is this a current diagnosis for this admission?: Yes Plan: Patient presenting with an acute exacerbation with bronchitis. Continue meropenem since sputum grew Pseudomonas and patient alleges that she is allergic to Levaquin. Otherwise continue present treatment (3) Atrial fibrillation Qualifiers: Atrial fibrillation type: permanent Qualified Code(s): I48.2 - Chronic atrial fibrillation Is this a current diagnosis for this admission?: Yes Plan: Continue sotalol same dose as outpatient. (4) Congestive heart failure Qualifiers: Congestive heart failure type: systolic Congestive heart failure chronicity : acute Qualified Code(s): I50.21 - Acute systolic (congestive) heart failure Is this a current diagnosis for this admission?: Yes Plan: Resolved. To add Lasix p.o. since renal functions normalized. Patient may be cardiorenal (5) Coronary artery disease Qualifiers: Coronary Disease-Associated Artery/Lesion type: [place] artery Associated angina: angina presence unspecified Is this a current diagnosis for this admission?: Yes Plan: Stable. Chest likely related to CHF and COPD exacerbation (6) Transaminitis Is this a current diagnosis for this admission?: Yes Plan: Suspect hepatic congestion. Normalized (7) Hyponatremia Is this a current diagnosis for this admission?: Yes Plan: Resolved. (8) Tobacco abuse Is this a current diagnosis for this admission?: Yes Plan: Is trying to quit. Continue nicotine patch (9) Respiratory failure Qualifiers: Chronicity: acute Is this a current diagnosis for this admission?: Yes Plan: Continue BiPAP but at bedtime. May not need oxygen on discharge (10) Alcohol abuse Is this a current diagnosis for this admission?: Yes Plan: Continue with scheduled Ativan and Zyprexa at bedtime. Continue thiamine and multivitamins (11) THERESA (acute kidney injury) Is this a current diagnosis for this admission?: Yes Plan: Resolved. To restart Lasix p.o. - Time Time Spent with patient: 15-24 minutes Medications reviewed and adjusted accordingly: Yes Anticipated discharge: Home Within: within 72 hours - Inpatient Certification Based on my medical assessment, after consideration of the patient's comorbidities, presenting symptoms, or acuity I expect that the services needed warrant INPATIENT care.: Yes I certify that my determination is in accordance with my understanding of Medicare's requirements for reasonable and necessary INPATIENT services [42 CFR 412.3e].: Yes Medical Necessity: Need for Nebulizer Therapy and Monitoring of Response, Need for IV Antibiotics
[2017-02-18] MEDS ORDERED: FUROSEMIDE 20 MG TABLET PO ONE (14:00)
[2017-02-18] MEDS: ATORVASTATIN CALCIUM 10 MG TABLET PO SCH (21:40)
[2017-02-18] MEDS: LORAZEPAM 0.5 MG TABLET PO PRN (21:43)
[2017-02-18] MEDS: FENOFIBRATE NANOCRYSTALLIZED 145 MG TABLET PO SCH (21:43)
[2017-02-18] MEDS: OLANZAPINE 5 MG TABLET PO SCH (21:44)
[2017-02-19] MEDS: IPRATROPIUM/ALBUTEROL 0.5-2.5 MG/3 ML AMPUL NEB SCH ×4 (02:29→19:52)
[2017-02-19] MEDS: LORAZEPAM 0.5 MG TABLET PO PRN (05:19)
[2017-02-19] MEDS: HYDRALAZINE HCL 25 MG TABLET PO SCH ×3 (05:19→21:28)
[2017-02-19] MEDS: LEVOTHYROXINE SODIUM 0.088 MG TABLET PO SCH (05:19)
[2017-02-19] MEDS: MEROPENEM 500 MG in NORMAL SALINE 50 ML IV SCH ×3 (05:19→21:28)
[2017-02-19] MEDS: OXYCODONE-ACETAMINOPHEN 5-325 MG TABLET PO PRN ×2 (05:19→21:28)
[2017-02-19] MEDS ORDERED: DILTIAZEM HCL 60 MG TABLET PO ONE (07:00)
[2017-02-19] MEDS: ACETYLCYSTEINE 20% SOLN 800 MG/4 ML VIAL.NEB NEB SCH ×2 (08:33→19:52)
[2017-02-19] MEDS: NICOTINE 14 MG/24 HR PATCH.TD24 TD SCH (09:45)
[2017-02-19] MEDS: FLUTICASONE/SALMETEROL DISKUS 500-50 MCG/DOSE IH SCH ×2 (09:45→21:28)
[2017-02-19] MEDS: THIAMINE HCL 100 MG TABLET PO SCH (09:45)
[2017-02-19] MEDS: PREDNISONE 20 MG TABLET PO SCH (09:45)
[2017-02-19] MEDS: MONTELUKAST SODIUM 10 MG TABLET PO SCH (09:45)
[2017-02-19] MEDS: DILTIAZEM HCL 240 MG CAPSULE.CR PO SCH (09:45)
[2017-02-19] MEDS: DOCUSATE SODIUM 100 MG CAPSULE PO SCH (09:45)
[2017-02-19] MEDS: SOTALOL HCL 80 MG TABLET PO SCH ×2 (09:46→21:28)
[2017-02-19] MEDS: FUROSEMIDE 20 MG TABLET PO SCH (09:46)
[2017-02-19] MEDS: APIXABAN 5 MG TABLET PO SCH ×2 (09:46→17:16)
[2017-02-19] MEDS: GUAIFENESIN 600 MG TABLET.SA PO SCH ×2 (09:46→21:28)
[2017-02-19] MEDS ORDERED: LORAZEPAM 0.5 MG TABLET PO PRN (09:53)
[2017-02-19] MEDS ORDERED: ERGOCALCIFEROL (VITAMIN D2) 50000 UNIT (1.25 MG) CAPSULE PO SCH (10:00)
[2017-02-19] MEDS: MULTIVITAMIN TABLET PO SCH (11:47)
--- NOTE | 2017-02-19 17:40 | PDOC PROGRESS REPORT ---
Subjective Progress Note for:: 02/19/17 Subjective:: Breathing is better but was not able to sleep last night. Denied hospitalist reported that patient heart rate was elevated and was medicated with Cardizem. ROS: All organ systems evaluated and negative except as in subjective All significant diagnostics and laboratories have been reviewed Reason For Visit: ACUTE CHF,ACUTE EXACERBATION OF COPD,HYPONATREMIA Physical Exam Vital Signs: Temp Pulse Resp BP Pulse Ox 97.6 F 69 22 H 130/59 H 90 L 02/19/17 03:48 02/19/17 03:48 02/19/17 03:48 02/19/17 03:48 02/19/17 03:48 Intake & Output 02/18/17 02/19/17 02/20/17 06:59 06:59 06:59 Intake Total 1296 710 Output Total 1900 300 Balance -604 410 Weight 46.5 kg 50 kg Results Laboratory Results: 02/18/17 06:55 02/18/17 06:55 02/18/17 02/18/17 06:55 06:55 WBC 7.2 RBC 4.11 Hgb 14.1 Hct 41.1 MCV 100 H MCH 34.4 H MCHC 34.4 RDW 13.6 Plt Count 239 Seg Neutrophils % Not Reportable Lymphocytes % Not Reportable Monocytes % Not Reportable Eosinophils % Not Reportable Basophils % Not Reportable Absolute Neutrophils Not Reportable Absolute Lymphocytes Not Reportable Absolute Monocytes Not Reportable Absolute Eosinophils Not Reportable Absolute Basophils Not Reportable Sodium 136.7 L Potassium 3.7 Chloride 96 L Carbon Dioxide 37 H Anion Gap 4 L BUN 27 H Creatinine 0.58 Est GFR ( Amer) > 60 Est GFR (Non-Af Amer) > 60 Glucose 85 Calcium 9.7 Magnesium 2.0 Total Bilirubin 0.6 AST 21 ALT 40 Alkaline Phosphatase 38 Total Protein 5.5 L Albumin 2.9 L 02/12/17 02/12/17 02/12/17 11:04 16:45 22:35 Troponin I 0.021 0.022 0.021 Impressions: Chest X-Ray 02/12/17 06:05 IMPRESSION: No acute cardiopulmonary findings. Assessment & Plan - Diagnosis (1) Hypertensive urgency Is this a current diagnosis for this admission?: Yes Plan: Resolved. BP stable over the past 48 hours. Continue current regimen (2) COPD with acute exacerbation Is this a current diagnosis for this admission?: Yes Plan: Patient presenting with an acute exacerbation with bronchitis. Continue meropenem since sputum grew Pseudomonas and patient alleges that she is allergic to Levaquin. Otherwise continue present treatment. Repeat sputum culture. (3) Atrial fibrillation Qualifiers: Atrial fibrillation type: permanent Qualified Code(s): I48.2 - Chronic atrial fibrillation Is this a current diagnosis for this admission?: Yes Plan: Continue sotalol same dose as outpatient. Patient heart rate increases in the morning hour when she does not sleep well at night. She has been doing well but suspect that lack of sleep relates to alcohol withdrawal. Will continue with present management (4) Congestive heart failure Qualifiers: Congestive heart failure type: systolic Congestive heart failure chronicity : acute Qualified Code(s): I50.21 - Acute systolic (congestive) heart failure Is this a current diagnosis for this admission?: Yes Plan: Resolved. Continue present management (5) Coronary artery disease Qualifiers: Coronary Disease-Associated Artery/Lesion type: [place] artery Associated angina: angina presence unspecified Is this a current diagnosis for this admission?: Yes Plan: Stable. (6) Transaminitis Is this a current diagnosis for this admission?: Yes Plan: Suspect hepatic congestion. Normalized (7) Hyponatremia Is this a current diagnosis for this admission?: Yes Plan: Resolved. (8) Tobacco abuse Is this a current diagnosis for this admission?: Yes Plan: Is trying to quit. Continue nicotine patch (9) Respiratory failure Qualifiers: Chronicity: acute Is this a current diagnosis for this admission?: Yes Plan: Continue BiPAP but at bedtime. RT reports pulse ox of 92% on room air (10) Alcohol abuse Is this a current diagnosis for this admission?: Yes Plan: Increase scheduled Ativan. Continue Zyprexa at bedtime and add second dose in AM. Continue thiamine and multivitamins (11) THERESA (acute kidney injury) Is this a current diagnosis for this admission?: Yes Plan: Resolved. - Time Time Spent with patient: 15-24 minutes Medications reviewed and adjusted accordingly: Yes Anticipated discharge: Home - Inpatient Certification Based on my medical assessment, after consideration of the patient's comorbidities, presenting symptoms, or acuity I expect that the services needed warrant INPATIENT care.: Yes I certify that my determination is in accordance with my understanding of Medicare's requirements for reasonable and necessary INPATIENT services [42 CFR 412.3e].: Yes Medical Necessity: Need for Nebulizer Therapy and Monitoring of Response, Need for IV Antibiotics
[2017-02-19] MEDS: ATORVASTATIN CALCIUM 10 MG TABLET PO SCH (21:28)
[2017-02-19] MEDS: OLANZAPINE 5 MG TABLET PO SCH (21:28)
[2017-02-19] MEDS: FENOFIBRATE NANOCRYSTALLIZED 145 MG TABLET PO SCH (21:29)
[2017-02-20] MEDS: IPRATROPIUM/ALBUTEROL 0.5-2.5 MG/3 ML AMPUL NEB SCH ×3 (01:39→13:56)
[2017-02-20] MEDS: MEROPENEM 500 MG in NORMAL SALINE 50 ML IV SCH ×3 (05:28→21:28)
[2017-02-20] MEDS: LEVOTHYROXINE SODIUM 0.088 MG TABLET PO SCH (05:28)
[2017-02-20] MEDS: HYDRALAZINE HCL 25 MG TABLET PO SCH ×3 (05:28→21:27)
[2017-02-20 06:13] LABS: HEMATOCRIT 43.2 % (36.0-47.0); HEMOGLOBIN 14.7 g/dL (12.0-15.5); HGB HCT DIFFERENCE 0.9; MEAN CORPUSCULAR HEMOGLOBIN 33.7 pg (27.0-33.4); MEAN CORPUSCULAR HGB CONC 34.1 g/dL (32.0-36.0); MEAN CORPUSCULAR VOLUME 99 fl (80-97); RED BLOOD COUNT 4.36 10^6/uL (3.72-5.28); RED CELL DISTRIBUTION WIDTH 13.6 % (11.5-14.0)
[2017-02-20 06:23] LABS: ALANINE AMINOTRANSFERASE 36 U/L (9-52); ALKALINE PHOSPHATASE 40 U/L (38-126); ASPARTATE AMINO TRANSFERASE 21 U/L (14-36); BILIRUBIN,DIRECT 0.4 mg/dL (0.0-0.4); BILIRUBIN,TOTAL 0.8 mg/dL (0.2-1.3); BLOOD UREA NITROGEN 33 mg/dL (7-20); CALCIUM 9.9 mg/dL (8.4-10.2); CHLORIDE 95 mmol/L (98-107); CREATININE RESULT 0.59 mg/dL (0.52-1.25); GLUCOSE 99 mg/dL (75-110); TOTAL PROTEIN 5.7 g/dL (6.3-8.2)
[2017-02-20 06:42] LABS: ANION GAP 6 (5-19); CARBON DIOXIDE 36 mmol/L (22-30); SODIUM 136.8 mmol/L (137-145)
[2017-02-20 06:55] LABS: BASOPHILS % (MANUAL) 0 % (0-2); EOSINOPHILS % (MANUAL) 0 % (0-6); LYMPHOCYTES % (MANUAL) 18 % (13-45); TOTAL CELLS COUNTED 100
[2017-02-20 06:57] LABS: RBC MORPHOLOGY COMMENT NORMO-CYTIC/CHROMIC; TOXIC GRANULATION 1+
[2017-02-20] MEDS: ACETYLCYSTEINE 20% SOLN 800 MG/4 ML VIAL.NEB NEB SCH (09:26)
[2017-02-20] MEDS: DILTIAZEM HCL 240 MG CAPSULE.CR PO SCH (10:50)
[2017-02-20] MEDS: DOCUSATE SODIUM 100 MG CAPSULE PO SCH (10:51)
[2017-02-20] MEDS: FUROSEMIDE 20 MG TABLET PO SCH (10:51)
[2017-02-20] MEDS: SOTALOL HCL 80 MG TABLET PO SCH ×2 (10:51→21:27)
[2017-02-20] MEDS: THIAMINE HCL 100 MG TABLET PO SCH (10:51)
[2017-02-20] MEDS: GUAIFENESIN 600 MG TABLET.SA PO SCH ×2 (10:51→21:27)
[2017-02-20] MEDS: PREDNISONE 20 MG TABLET PO SCH (10:52)
[2017-02-20] MEDS: MONTELUKAST SODIUM 10 MG TABLET PO SCH (10:52)
[2017-02-20] MEDS: NICOTINE 14 MG/24 HR PATCH.TD24 TD SCH (10:52)
[2017-02-20] MEDS: FLUTICASONE/SALMETEROL DISKUS 500-50 MCG/DOSE IH SCH ×2 (10:52→21:27)
[2017-02-20] MEDS: APIXABAN 5 MG TABLET PO SCH ×2 (10:52→17:01)
[2017-02-20] MEDS: MULTIVITAMIN TABLET PO SCH (14:01)
[2017-02-20] MEDS ORDERED: IPRATROPIUM/ALBUTEROL 0.5-2.5 MG/3 ML AMPUL NEB PRN (14:08)
--- NOTE | 2017-02-20 14:17 | PDOC PROGRESS REPORT ---
Subjective Progress Note for:: 02/20/17 Subjective:: Patient relates that she was able to rest well yesterday including last night. States that her breathing is better. She has not been having a lot of expectoration ROS: All organ systems evaluated and negative except as in subjective All significant diagnostics and laboratories have been reviewed Reason For Visit: ACUTE CHF,ACUTE EXACERBATION OF COPD,HYPONATREMIA Physical Exam Vital Signs: Temp Pulse Resp BP Pulse Ox 97.8 F 66 22 H 160/65 H 95 02/20/17 04:12 02/20/17 04:12 02/20/17 04:12 02/20/17 04:12 02/20/17 04:12 Intake & Output 02/19/17 02/20/17 02/21/17 06:59 06:59 06:59 Intake Total 710 1020 Output Total 300 550 Balance 410 470 Weight 50 kg 50.2 kg General appearance: PRESENT: no acute distress, cooperative, thin Head exam: PRESENT: atraumatic, normocephalic Eye exam: PRESENT: EOMI, PERRLA Ear exam: PRESENT: normal external ear exam, TM's normal bilaterally Mouth exam: PRESENT: moist, neck supple Neck exam: PRESENT: full ROM. ABSENT: JVD, tenderness Respiratory exam: PRESENT: clear to auscultation eliel Cardiovascular exam: PRESENT: irregular rhythm. ABSENT: diastolic murmur, systolic murmur Vascular exam: PRESENT: normal capillary refill GI/Abdominal exam: PRESENT: normal bowel sounds, soft. ABSENT: tenderness Extremities exam: ABSENT: joint swelling, pedal edema Musculoskeletal exam: PRESENT: full ROM Neurological exam: PRESENT: alert, oriented to person, oriented to place, oriented to time Psychiatric exam: PRESENT: appropriate affect, normal mood Skin exam: PRESENT: petechiae Results Laboratory Results: 02/20/17 05:21 02/20/17 05:21 02/20/17 02/20/17 05:21 05:21 WBC 7.0 RBC 4.36 Hgb 14.7 Hct 43.2 MCV 99 H MCH 33.7 H MCHC 34.1 RDW 13.6 Plt Count 294 Seg Neutrophils % Not Reportable Lymphocytes % Not Reportable Monocytes % Not Reportable Eosinophils % Not Reportable Basophils % Not Reportable Absolute Neutrophils Not Reportable Absolute Lymphocytes Not Reportable Absolute Monocytes Not Reportable Absolute Eosinophils Not Reportable Absolute Basophils Not Reportable Sodium 136.8 L Potassium 4.0 Chloride 95 L Carbon Dioxide 36 H Anion Gap 6 BUN 33 H Creatinine 0.59 Est GFR ( Amer) > 60 Est GFR (Non-Af Amer) > 60 Glucose 99 Calcium 9.9 Magnesium 2.0 Total Bilirubin 0.8 AST 21 ALT 36 Alkaline Phosphatase 40 Total Protein 5.7 L Albumin 3.0 L 02/12/17 02/12/17 02/12/17 11:04 16:45 22:35 Troponin I 0.021 0.022 0.021 Impressions: Chest X-Ray 02/12/17 06:05 IMPRESSION: No acute cardiopulmonary findings. Assessment & Plan - Diagnosis (1) Hypertensive urgency Is this a current diagnosis for this admission?: Yes Plan: Resolved. Blood pressure continues stable. May get elevated off and on when she is upset when had not been able to sleep (2) COPD with acute exacerbation Is this a current diagnosis for this admission?: Yes Plan: Patient presenting with an acute exacerbation with bronchitis. Continue meropenem until 02/23 since sputum grew Pseudomonas and patient alleges that she is allergic to Levaquin.. Sputum culture still not collected. Will change duo nebs to as needed and will add Spiriva (3) Atrial fibrillation Qualifiers: Atrial fibrillation type: permanent Qualified Code(s): I48.2 - Chronic atrial fibrillation Is this a current diagnosis for this admission?: Yes Plan: Continue sotalol same dose as outpatient. Patient heart rate increases in the morning hour when she does not sleep well at night. She has been doing well but suspect that lack of sleep relates to alcohol withdrawal. Will continue with present management (4) Congestive heart failure Qualifiers: Congestive heart failure type: systolic Congestive heart failure chronicity : acute Qualified Code(s): I50.21 - Acute systolic (congestive) heart failure Is this a current diagnosis for this admission?: Yes Plan: Resolved. Continue present management (5) Coronary artery disease Qualifiers: Coronary Disease-Associated Artery/Lesion type: [place] artery Associated angina: angina presence unspecified Is this a current diagnosis for this admission?: Yes Plan: Stable. (6) Transaminitis Is this a current diagnosis for this admission?: Yes Plan: Suspect hepatic congestion. Normalized (7) Hyponatremia Is this a current diagnosis for this admission?: Yes Plan: Resolved. Due to overload (8) Tobacco abuse Is this a current diagnosis for this admission?: Yes Plan: Is trying to quit. Continue nicotine patch (9) Respiratory failure Qualifiers: Chronicity: acute Is this a current diagnosis for this admission?: Yes Plan: Continue BiPAP but at bedtime. RT reported pulse ox of 92% on room air (10) Alcohol abuse Is this a current diagnosis for this admission?: Yes Plan: Increase scheduled Ativan. Continue Zyprexa. Continue thiamine and multivitamins (11) THERESA (acute kidney injury) Is this a current diagnosis for this admission?: Yes Plan: Resolved. - Time Within: within 72 hours - Inpatient Certification Based on my medical assessment, after consideration of the patient's comorbidities, presenting symptoms, or acuity I expect that the services needed warrant INPATIENT care.: Yes I certify that my determination is in accordance with my understanding of Medicare's requirements for reasonable and necessary INPATIENT services [42 CFR 412.3e].: Yes Medical Necessity: Need for Nebulizer Therapy and Monitoring of Response, Need for IV Antibiotics
[2017-02-20] MEDS ORDERED: TIOTROPIUM BROMIDE DPI 5 CAP/KIT (18 MCG/CAP) IH ONE (15:00)
[2017-02-20] MEDS: OLANZAPINE 5 MG TABLET PO SCH (21:27)
[2017-02-20] MEDS: LORAZEPAM 1 MG TABLET PO PRN (21:27)
[2017-02-20] MEDS: ATORVASTATIN CALCIUM 10 MG TABLET PO SCH (21:27)
[2017-02-20] MEDS: FENOFIBRATE NANOCRYSTALLIZED 145 MG TABLET PO SCH (21:27)
[2017-02-21] MEDS: LEVOTHYROXINE SODIUM 0.088 MG TABLET PO SCH (05:24)
[2017-02-21] MEDS: HYDRALAZINE HCL 25 MG TABLET PO SCH ×3 (05:24→21:10)
[2017-02-21] MEDS: MEROPENEM 500 MG in NORMAL SALINE 50 ML IV SCH ×3 (05:25→21:10)
[2017-02-21] MEDS: PREDNISONE 20 MG TABLET PO SCH (10:48)
[2017-02-21] MEDS: GUAIFENESIN 600 MG TABLET.SA PO SCH ×2 (10:48→21:11)
[2017-02-21] MEDS: FUROSEMIDE 20 MG TABLET PO SCH (10:49)
[2017-02-21] MEDS: MONTELUKAST SODIUM 10 MG TABLET PO SCH (10:49)
[2017-02-21] MEDS: DOCUSATE SODIUM 100 MG CAPSULE PO SCH (10:49)
[2017-02-21] MEDS: DILTIAZEM HCL 240 MG CAPSULE.CR PO SCH (10:50)
[2017-02-21] MEDS: THIAMINE HCL 100 MG TABLET PO SCH (10:50)
[2017-02-21] MEDS: FLUTICASONE/SALMETEROL DISKUS 500-50 MCG/DOSE IH SCH ×2 (10:51→21:11)
[2017-02-21] MEDS: NICOTINE 14 MG/24 HR PATCH.TD24 TD SCH (10:51)
[2017-02-21] MEDS: APIXABAN 5 MG TABLET PO SCH ×2 (10:52→18:30)
[2017-02-21] MEDS: TIOTROPIUM BROMIDE DPI 5 CAP/KIT (18 MCG/CAP) IH SCH (10:52)
[2017-02-21] MEDS: SOTALOL HCL 80 MG TABLET PO SCH ×2 (10:52→21:10)
[2017-02-21] MEDS: MULTIVITAMIN TABLET PO SCH (12:59)
--- NOTE | 2017-02-21 19:38 | RADIOLOGY REPORT (SQ) ---
EXAM DESCRIPTION: FOOT LEFT COMPLETE COMPLETED DATE/TIME: 02/21/2017 6:49 pm REASON FOR STUDY: foot injury COMPARISON: None. NUMBER OF VIEWS: Three views. TECHNIQUE: AP, lateral and oblique radiographic images acquired of the left foot. LIMITATIONS: None. FINDINGS: MINERALIZATION: Normal. BONES: No acute fracture or dislocation. No worrisome bone lesions. JOINTS: No effusions. SOFT TISSUES: No soft tissue swelling. No foreign body. OTHER: No other significant finding. IMPRESSION: NEGATIVE STUDY OF THE LEFT FOOT. NO RADIOGRAPHIC EVIDENCE OF ACUTE INJURY. TECHNICAL DOCUMENTATION: JOB ID: [id number] [employer]- All Rights Reserved
[2017-02-21] MEDS: OXYCODONE-ACETAMINOPHEN 5-325 MG TABLET PO PRN (21:04)
[2017-02-21] MEDS: FENOFIBRATE NANOCRYSTALLIZED 145 MG TABLET PO SCH (21:10)
[2017-02-21] MEDS: OLANZAPINE 5 MG TABLET PO SCH (21:10)
[2017-02-21] MEDS: ATORVASTATIN CALCIUM 10 MG TABLET PO SCH (21:10)
[2017-02-21] MEDS: LORAZEPAM 1 MG TABLET PO PRN (21:10)
[2017-02-22] MEDS: LEVOTHYROXINE SODIUM 0.088 MG TABLET PO SCH (05:31)
[2017-02-22] MEDS: HYDRALAZINE HCL 25 MG TABLET PO SCH (05:32)
[2017-02-22] MEDS: MEROPENEM 500 MG in NORMAL SALINE 50 ML IV SCH (05:32)
[2017-02-22] MEDS: DILTIAZEM HCL 240 MG CAPSULE.CR PO SCH (09:26)
[2017-02-22] MEDS: GUAIFENESIN 600 MG TABLET.SA PO SCH (09:26)
[2017-02-22] MEDS: PREDNISONE 20 MG TABLET PO SCH (09:26)
[2017-02-22] MEDS: THIAMINE HCL 100 MG TABLET PO SCH (09:26)
[2017-02-22] MEDS: MONTELUKAST SODIUM 10 MG TABLET PO SCH (09:26)
[2017-02-22] MEDS: DOCUSATE SODIUM 100 MG CAPSULE PO SCH (09:26)
[2017-02-22] MEDS: APIXABAN 5 MG TABLET PO SCH (09:27)
[2017-02-22] MEDS: FLUTICASONE/SALMETEROL DISKUS 500-50 MCG/DOSE IH SCH (09:27)
[2017-02-22] MEDS: FUROSEMIDE 20 MG TABLET PO SCH (09:27)
[2017-02-22] MEDS: SOTALOL HCL 80 MG TABLET PO SCH (09:27)
[2017-02-22] MEDS: NICOTINE 14 MG/24 HR PATCH.TD24 TD SCH (09:28)
[2017-02-22] MEDS: TIOTROPIUM BROMIDE DPI 5 CAP/KIT (18 MCG/CAP) IH SCH (09:37)
[2017-02-22 12:00] VITALS: BP 136/76
--- NOTE | 2017-02-23 10:23 | PDOC PROGRESS REPORT ---
Subjective Progress Note for:: 02/21/17 Subjective:: Patient is sitting up in her chair knitting. Patient states that her breathing feels well however her left foot is hurting her. Patient states that she accidentally dropped the telemetry box on her left foot and now it is bruised and hurting. Reason For Visit: ACUTE CHF,ACUTE EXACERBATION OF COPD,HYPONATREMIA Physical Exam Vital Signs: Temp Pulse Resp BP Pulse Ox 97.3 F 67 18 130/74 H 96 02/21/17 12:00 02/21/17 16:10 02/21/17 16:10 02/21/17 07:11 02/21/17 16:10 Intake & Output 02/20/17 02/21/17 02/22/17 06:59 06:59 06:59 Intake Total 1020 2116 918 Output Total 550 1201 600 Balance 470 915 318 Weight 50.2 kg 47.3 kg General appearance: PRESENT: no acute distress, thin Head exam: PRESENT: normocephalic Eye exam: PRESENT: EOMI. ABSENT: scleral icterus Ear exam: PRESENT: normal external ear exam Mouth exam: PRESENT: moist Neck exam: ABSENT: carotid bruit, JVD, lymphadenopathy, thyromegaly Respiratory exam: PRESENT: unlabored, other - Coarse breath sounds bilaterally otherwise clear to auscultation.. ABSENT: rales, rhonchi, wheezes Cardiovascular exam: PRESENT: RRR. ABSENT: diastolic murmur, rubs, systolic murmur GI/Abdominal exam: PRESENT: normal bowel sounds, soft. ABSENT: distended, guarding, mass, organolmegaly, rebound, tenderness Rectal exam: PRESENT: deferred Extremities exam: PRESENT: full ROM, other - Left foot bruising with a hematoma on the dorsum of the left foot. She is able to wiggle all her toes and plantar flex and dorsiflex. Along with inversion and eversion of the ankle.. ABSENT: calf tenderness, clubbing, pedal edema Neurological exam: PRESENT: alert, awake, oriented to person, oriented to place , oriented to time, oriented to situation, CN II-XII grossly intact. ABSENT: motor sensory deficit Psychiatric exam: PRESENT: appropriate affect, normal mood. ABSENT: homicidal ideation, suicidal ideation Skin exam: PRESENT: dry, intact, warm, other - Patient skin is pain with ecchymosis. ABSENT: cyanosis, rash Results Laboratory Results: 02/20/17 05:21 02/20/17 05:21 02/12/17 02/12/17 02/12/17 11:04 16:45 22:35 Troponin I 0.021 0.022 0.021 Impressions: Chest X-Ray 02/12/17 06:05 IMPRESSION: No acute cardiopulmonary findings. Foot X-Ray 02/21/17 00:00 IMPRESSION: NEGATIVE STUDY OF THE LEFT FOOT. NO RADIOGRAPHIC EVIDENCE OF ACUTE INJURY. Assessment & Plan - Diagnosis (1) Injury of left foot Is this a current diagnosis for this admission?: Yes Plan: Patient dropped telemetry box on her left foot. Patient has full range of motion however we will do an x-ray to rule out any fractures. Will order a hard shoe for patient to wear until this improves as the foot is sore. Patient has significant bruising partly because she is on Eliquis for atrial fibrillation. Advised patient that she does not need any antibiotic for the foot as she is currently on antibiotic for her acute bronchitis furthermore the skin is intact. (2) Atrial fibrillation Qualifiers: Atrial fibrillation type: permanent Qualified Code(s): I48.2 - Chronic atrial fibrillation Is this a current diagnosis for this admission?: Yes Plan: She continued on her sotalol and Eliquis. (3) COPD with acute exacerbation Is this a current diagnosis for this admission?: Yes Plan: Patient sputum did grow Pseudomonas which is resistant to Levaquin. Patient has received several days of meropenem. We will continue meropenem. (4) Congestive heart failure Qualifiers: Congestive heart failure type: systolic Congestive heart failure chronicity : acute Qualified Code(s): I50.21 - Acute systolic (congestive) heart failure Is this a current diagnosis for this admission?: Yes Plan: Patient has grade 2 diastolic dysfunction which is most likely chronic in nature. Patient is currently euvolemic. (5) Coronary artery disease Qualifiers: Coronary Disease-Associated Artery/Lesion type: [place] artery Associated angina: angina presence unspecified Is this a current diagnosis for this admission?: Yes Plan: Stable continue supportive care. (6) Hypertensive urgency Is this a current diagnosis for this admission?: Yes Plan: Resolved. Continue to monitor. (7) Hyponatremia Is this a current diagnosis for this admission?: Yes Plan: Possibly secondary to acute illness versus alcohol abuse. Patient hyponatremia has improved since admission her most recent sodium is 136.8. (8) Respiratory failure Qualifiers: Chronicity: acute Is this a current diagnosis for this admission?: Yes Plan: Patient was using BiPAP at bedtime. Patient has been able to maintain maintaining her sats on room air. Respiratory failure is most likely secondary to her COPD exacerbation. (9) Tobacco abuse Plan: She counseled on smoking cessation. Patient is trying to quit. Patient currently with nicotine patch. (10) Transaminitis Is this a current diagnosis for this admission?: Yes Plan: Most likely due to hepatic congestion. This is now resolved. (11) Alcohol abuse Is this a current diagnosis for this admission?: Yes Plan: Patient treated supportively with Ativan, Zyprexa, thiamine and multivitamins. - Time Time Spent with patient: 15-24 minutes Anticipated discharge: Home Within: within 24 hours - Inpatient Certification Medical Necessity: Need for IV Antibiotics
--- NOTE | 2017-02-23 10:51 | PDOC DISCHARGE SUMMARY ---
General - Admit/Disc Date/PCP Admission Date/Primary Care Provider: 02/12/17 09:13 JAYNE REYES MD Discharge Date: 02/22/17 - Discharge Diagnosis (1) Injury of left foot Is this a current diagnosis for this admission?: Yes (2) Atrial fibrillation Is this a current diagnosis for this admission?: Yes (3) COPD with acute exacerbation Is this a current diagnosis for this admission?: Yes (4) Congestive heart failure Is this a current diagnosis for this admission?: Yes (5) Coronary artery disease Is this a current diagnosis for this admission?: Yes (6) Hypertensive urgency Is this a current diagnosis for this admission?: Yes (7) Hyponatremia Is this a current diagnosis for this admission?: Yes (8) Respiratory failure Is this a current diagnosis for this admission?: Yes (10) Transaminitis Is this a current diagnosis for this admission?: Yes (11) Alcohol abuse Is this a current diagnosis for this admission?: Yes - Additional Information Resuscitation Status: Full Code Discharge Diet: Cardiac Discharge Activity: Activity As Tolerated, Balance Activity w/Rest, Weigh Daily Home Medications: Apixaban [Eliquis 5 mg Tablet] 5 mg PO DAILY 02/12/17 Atorvastatin Calcium [Lipitor 10 mg Tablet] 10 mg PO QPM 02/12/17 Diltiazem HCl [Cardizem Cd 120 mg Capsule] 120 mg PO DAILY 02/12/17 Ergocalciferol (Vitamin D2) [Drisdol 50,000 unit (1.25MG) Capsule] 50,000 unit PO MEADOWS@1000 02/12/17 Fenofibrate Nanocrystallized [Tricor 145 mg Tablet] 145 mg PO QHS 02/12/17 Fluticasone/Salmeterol [Advair 250-50 Diskus 14 Dose/Diskus] 1 puff IH Q12 02/12 Levothyroxine Sodium [Synthroid] 88 mcg PO Q6AM 02/12/17 Montelukast Sodium [Singulair 10 mg Tablet] 10 mg PO DAILY 02/12/17 Omeprazole 40 mg PO DAILYP PRN 02/12/17 Sotalol HCl [Sotalol] 80 mg PO DAILY 02/12/17 Tiotropium Vass [Spiriva Handihaler 5 Cap/Kit (18 Mcg/Cap)] 1 puff IH DAILY 02/12/17 Guaifenesin [Mucinex Sr 600 mg Tablet.sa] 600 mg PO Q12 tablet.sa 02/22/17 Methylprednisolone [Medrol Dosepack (4 mg/Tab) 21 Tab/Dosepak] 4 mg PO ASDIR PRN #21 tab.ds.pk 02/22/17 History of Present Illness History of Present Illness: FREDI WHALEN is a 81 year old female presented to the emergency room via ambulance complaining of acute shortness of breath since 1 in the morning on the day of admission. Patient states she has been getting progressively short short of breath for 1 week. Please refer to H&P dictated by Dr. Sherman for complete details. Hospital Course Hospital Course: Patient presented with COPD exacerbation, respiratory distress most likely due to acute bronchitis. Patient sputum later on grew Pseudomonas for which patient was treated with meropenem. Patient unfortunately continues to smoke despite her condition. She was counseled on quitting and was offered a nicotine patch during her hospitalization. Patient is attempting to quit. Patient did require supplemental oxygen during hospitalization and as needed BiPAP. Patient was weaned to room air and was able to maintain her sats. Did have some hypertensive urgency on presentation and was treated with diltiazem and her sotalol. Patient urgency did resolve. She also has atrial fibrillation for which she was continued on sotalol Eliquis and diltiazem. Patient heart rate was fairly well controlled. Patient does have diastolic heart failure and is most likely acute on chronic. Patient was given IV Lasix and repeat cardiac echo was completed which showed grade 2 diastolic dysfunction. Patient is currently euvolemic on discharge. She does have a history of coronary artery disease therefore ACS was ruled out with serial troponins which were negative. Did have some mild hyponatremia which was thought to do be due to volume overload however this could also be secondary to alcohol abuse or her Acute illness. Patient sodium did improve on this admission. Patient did have some transaminitis most likely due to hepatic congestion which did resolve prior to discharge. Recently during her hospitalization patient did drop the telemetry box on her left foot which resulted in severe bruising and hematoma there. X-ray was completed which was negative for any acute fracture patient was given a hard surgical shoe to wear. It was advised both patient and her daughter that no antibiotic is needed for this time as this is not cellulitis this is most likely hematoma as a result of patient being on Eliquis and having injured her foot. Did advised them if the bleb on the top of her foot did open that she may require a short course of antibiotics. Physical Exam Vital Signs: Temp Pulse Resp BP Pulse Ox 97.3 F 63 20 136/76 H 94 02/22/17 11:59 02/22/17 11:59 02/22/17 11:59 02/22/17 11:59 02/22/17 11:59 Intake & Output 02/22/17 02/23/17 02/24/17 06:59 06:59 06:59 Intake Total 1278 480 Output Total 1100 Balance 178 480 Weight 46.7 kg General appearance: PRESENT: no acute distress, thin Head exam: PRESENT: normocephalic Eye exam: PRESENT: EOMI. ABSENT: scleral icterus Mouth exam: PRESENT: moist Neck exam: ABSENT: carotid bruit, JVD, lymphadenopathy, thyromegaly Respiratory exam: PRESENT: clear to auscultation eliel. ABSENT: rales, rhonchi, wheezes Cardiovascular exam: PRESENT: RRR. ABSENT: diastolic murmur, rubs, systolic murmur Pulses: PRESENT: normal [place]alis pedis pul Vascular exam: PRESENT: normal capillary refill GI/Abdominal exam: PRESENT: normal bowel sounds, soft. ABSENT: distended, guarding, mass, organolmegaly, rebound, tenderness Rectal exam: PRESENT: deferred Extremities exam: PRESENT: full ROM, other - bruising of the left foot. Patient does have a dressing covering the bleb on the dorsum of her left foot. Patient still has good range of motion.. ABSENT: calf tenderness, clubbing, pedal edema Neurological exam: PRESENT: alert, awake, oriented to person, oriented to place , oriented to time, oriented to situation, other - Patient severely hard of hearing.. ABSENT: motor sensory deficit Psychiatric exam: PRESENT: appropriate affect, normal mood. ABSENT: homicidal ideation, suicidal ideation Skin exam: PRESENT: dry, intact, warm, other - Diffuse ecchymosis. ABSENT: cyanosis, rash Results Laboratory Results: 02/20/17 05:21 02/20/17 05:21 02/12/17 02/12/17 02/12/17 11:04 16:45 22:35 Troponin I 0.021 0.022 0.021 Impressions: Chest X-Ray 02/12/17 06:05 IMPRESSION: No acute cardiopulmonary findings. Foot X-Ray 02/21/17 00:00 IMPRESSION: NEGATIVE STUDY OF THE LEFT FOOT. NO RADIOGRAPHIC EVIDENCE OF ACUTE INJURY. Qualifiers PATEINT BEING DISCHARGED WITH ANY OF THE FOLLOWING DIAGNOSIS?: No Plan Time Spent: Greater than 30 Minutes
== END 2017-02-22 12:16 | disposition home or self-care (01) | DRG 190 ==
LOC: ER 06:04 → EH 09:13 → 4S 14:50
PROVIDERS: ADMIT Pediatrics; ATTEND Family Medicine
PROC: 5A09457 Assistance with Respiratory Ventilation, 24-96 Consecutive Hours, Continuous Positive Airway Pressure (ICD-10-PCS; principal; 2017-02-12)
PROC: 3E0F73Z Introduction of Anti-inflammatory into Respiratory Tract, Via Natural or Artificial Opening (ICD-10-PCS; 2017-02-12)
DX: J44.1 Chronic obstructive pulmonary disease with (acute) exacerbation (principal); J96.00 Acute respiratory failure, unspecified whether with hypoxia or hypercapnia; I50.33 Acute on chronic diastolic (congestive) heart failure; E87.1 Hypo-osmolality and hyponatremia; N17.9 Acute kidney failure, unspecified; S99.922A Unspecified injury of left foot, initial encounter; I25.10 Atherosclerotic heart disease of native coronary artery without angina pectoris; I16.0 Hypertensive urgency; I11.0 Hypertensive heart disease with heart failure; R74.0 Nonspecific elevation of levels of transaminase and lactic acid dehydrogenase [LDH]; F10.10 Alcohol abuse, uncomplicated; E78.00 Pure hypercholesterolemia, unspecified; J44.0 Chronic obstructive pulmonary disease with (acute) lower respiratory infection; J20.9 Acute bronchitis, unspecified; B96.5 Pseudomonas (aeruginosa) (mallei) (pseudomallei) as the cause of diseases classified elsewhere; E03.9 Hypothyroidism, unspecified; K21.9 Gastro-esophageal reflux disease without esophagitis; K44.9 Diaphragmatic hernia without obstruction or gangrene; M19.90 Unspecified osteoarthritis, unspecified site; F17.210 Nicotine dependence, cigarettes, uncomplicated; R23.3 Spontaneous ecchymoses; I48.2 Chronic atrial fibrillation; W20.8XXA Other cause of strike by thrown, projected or falling object, initial encounter; Y92.230 Patient room in hospital as the place of occurrence of the external cause; Z88.0 Allergy status to penicillin; Z88.8 Allergy status to other drugs, medicaments and biological substances; Z88.3 Allergy status to other anti-infective agents; Z79.899 Other long term (current) drug therapy; Z90.49 Acquired absence of other specified parts of digestive tract; Z90.710 Acquired absence of both cervix and uterus; Z82.61 Family history of arthritis; Z82.3 Family history of stroke; Z80.9 Family history of malignant neoplasm, unspecified; Z82.49 Family history of ischemic heart disease and other diseases of the circulatory system
CPT/HCPCS: 36415; 36600; 71010; 71020; 80048; 80053; 82803; 83605; 83735; 83880; 84484; 85025; 85610; 87040; 87070; 87186; 87205; 93005; 93010; 94640; 94660; 99291; J1652; J1940; J2060; J2185; J2920; J2930; J3475; J3490; J7050; J7512; J7620

== ENCOUNTER 2017-04-01 08:09 | Inpatient (IN) | payer MEDICARE, OTHER ==
[2017-04-01] MEDS ORDERED: LIDOCAINE 2% VISCOUS SOLN 20 ML UDCUP PO ONE (09:02)
[2017-04-01] MEDS ORDERED: NORMAL SALINE 500 ML IV ONE (09:03)
--- NOTE | 2017-04-01 09:08 | ER Document Report ---
ED General - General Chief Complaint: Sore Throat Stated Complaint: SORE THROAT Time Seen by Provider: 04/01/17 08:41 TRAVEL OUTSIDE OF THE [place] IN LAST 30 DAYS: No - HPI Patient complains to provider of: thrush/sore throat Onset: Other - few days ago-seen at urgent care and placed on nystatin Quality of pain: Other - throat Severity: Moderate Associated symptoms: Other - decreased po intake - Related Data Allergies/Adverse Reactions: Penicillins Allergy (Severe, Verified 02/12/17 06:33) Respiratory arrest doxycycline [Doxycycline] Allergy (Intermediate, Verified 02/12/17 06:33) Jona-Tristin's Syndrome valsartan [From Diovan] Allergy (Intermediate, Verified 02/12/17 06:33) Rash levofloxacin [From Levaquin] Allergy (Verified 02/12/17 06:33) METAL Allergy (Severe, Uncoded 02/12/17 06:33) RASH Past Medical History - General Information source: Patient, Relative - daughter - Social History Smoking Status: Former Smoker Chew tobacco use (# tins/day): No Frequency of alcohol use: 2 drinks a night Drug Abuse: None Lives with: Family Family History: Arthritis, CAD, CVA, Hypertension, Malignancy Patient has suicidal ideation: No Patient has homicidal ideation: No - Past Medical History Cardiac Medical History: Reports: Hx Atrial Fibrillation, Hx Congestive Heart Failure, Hx Hypercholesterolemia, Hx Hypertension Pulmonary Medical History: Reports: Hx Bronchitis, Hx COPD - on continuous home oxygen/inhalers, Hx Pneumonia - Pseudomonas Neurological Medical History: Reports: None Endocrine Medical History: Reports: Hx Hypothyroidism Renal/ Medical History: Denies: Hx Peritoneal Dialysis Malignancy Medical History: Reports: None GI Medical History: Reports: Hx Gastroesophageal Reflux Disease, Hx Hiatal Hernia. Denies: Hx Hepatitis Musculoskeltal Medical History: Reports Hx Arthritis Skin Medical History: Denies Hx Eczema, Denies Hx Psoriasis Psychiatric Medical History: Reports: None Traumatic Medical History: Denies: Hx Gunshot Wound, Hx Pneumothorax, Hx Traumatic Brain Injury Infectious Medical History: Denies: Hx Hepatitis, Hx HIV Past Surgical History: Reports: Hx Appendectomy, Hx Cholecystectomy, Hx Hysterectomy, Hx Oral Surgery. Denies: Hx Mastectomy, Hx Open Heart Surgery, Hx Pacemaker - Immunizations Hx Diphtheria, Pertussis, Tetanus Vaccination: No History of Influenza Vaccine for 12/2016 - 05/2017 Season: No Hx Pneumococcal Vaccination: 12/31/16 Review of Systems - Review of Systems Constitutional: No symptoms reported EENT: No symptoms reported Cardiovascular: No symptoms reported Respiratory: No symptoms reported Gastrointestinal: Poor appetite, Poor fluid intake Genitourinary: No symptoms reported Musculoskeletal: No symptoms reported Hematologic/Lymphatic: No symptoms reported Neurological/Psychological: No symptoms reported Physical Exam - Vital signs Vitals: Temp Pulse Resp BP Pulse Ox 99 F 76 16 146/81 H 92 04/01/17 08:16 04/01/17 08:16 04/01/17 08:16 04/01/17 08:16 04/01/17 08:16 - Notes Notes: PHYSICAL EXAMINATION: GENERAL: Cachectic elderly female appears chronically ill. Exam room smells like tobacco HEAD: Atraumatic, normocephalic. EYES: Pupils equal round and reactive to light, extraocular movements intact, conjunctiva are normal. ENT: Nares patent, oropharynx mildly erythematous without exudates with patchy white area posterior tongue and pharynx. Dry mucous membranes. NECK: Normal range of motion, supple without lymphadenopathy LUNGS: Breath sounds clear to auscultation bilaterally and equal. Scant expiratory wheezes. HEART: Regular rate and rhythm without murmurs ABDOMEN: Soft, nontender, nondistended abdomen. No guarding, no rebound. No masses appreciated. Female : deferred Musculoskeletal: Normal range of motion, no pitting or edema. No cyanosis. NEUROLOGICAL: Cranial nerves grossly intact. Normal speech. Normal sensory, motor exams PSYCH: Normal mood, normal affect. SKIN: Warm, Dry, normal turgor, no rashes. Course - Re-evaluation Re-evalutation: 04/01/17 11:45 I did call the lab and spoke with Mary. Chemistries are running for the second time as the first set was hemolyzed. 04/01/17 13:10 Patient is spitting her saliva into a bag. She does not have a muffled voice. She has no anterior cervical adenopathy. Her pharynx is within normal limits and uvula is midline. She does have a white count count left shift however. Chest x-ray ordered as well as soft tissues of the neck. I will order morphine for comfort as well as Rocephin. 04/01/17 16:06 I did discuss with the hospitalist antibiotics. It seems that the patient is allergic to penicillins doxycycline and levofloxacin. Moaning in the past. Dr. Kim states she will decide what antibiotic to put patient on. - Vital Signs Vital signs: Temp Pulse Resp BP Pulse Ox 100.3 F 78 18 144/71 H 94 04/01/17 14:00 04/01/17 11:37 04/01/17 11:37 04/01/17 11:37 04/01/17 11:37 - Laboratory Result Diagrams: 04/01/17 09:35 04/01/17 11:30 Laboratory results interpreted by me: 04/01/17 04/01/17 09:35 11:30 WBC 16.6 H MCV 99 H MCH 34.3 H RDW 14.4 H Seg Neuts % (Manual) 79 H Lymphocytes % (Manual) 10 L Abs Neuts (Manual) 13.6 H Sodium 130.3 L Carbon Dioxide 19 L Creatinine 0.49 L Glucose 64 L AST 38 H Total Protein 6.0 L Albumin 3.1 L - EKG Interpretation by Nc EKG shows normal: Sinus rhythm - 71 Rate: Normal When compared to previous EKG there are: Changes noted - twi ant/lateral Discharge - Discharge Clinical Impression: Pneumonia, Hyponatremia, Oral thrush Referrals: MARCIAL BARCLAY MD [Primary Care Provider] - Follow up as needed
[2017-04-01 10:01] LABS: HEMATOCRIT 39.4 % (36.0-47.0); HEMOGLOBIN 13.6 g/dL (12.0-15.5); MEAN CORPUSCULAR HEMOGLOBIN 34.3 pg (27.0-33.4); MEAN CORPUSCULAR HGB CONC 34.5 g/dL (32.0-36.0); MEAN CORPUSCULAR VOLUME 99 fl (80-97); PLATELET COUNT 311 10^3/uL (150-450); RED BLOOD COUNT 3.97 10^6/uL (3.72-5.28); RED CELL DISTRIBUTION WIDTH 14.4 % (11.5-14.0); WHITE BLOOD COUNT 16.6 10^3/uL (4.0-10.5)
[2017-04-01 10:16] LABS: ABSOLUTE LYMPHOCYTES# (MANUAL) 1.8 10^3/uL (0.5-4.7); ABSOLUTE NEUTROPHILS# (MANUAL) 13.6 10^3/uL (1.7-8.2); BAND NEUTROPHILS % (MANUAL) 3 % (3-5); BASOPHILS % (MANUAL) 1 % (0-2); EOSINOPHILS % (MANUAL) 0 % (0-6); LYMPHOCYTES % (MANUAL) 10 % (13-45); MONOCYTES % (MANUAL) 6 % (3-13); SEGMENTED NEUTROPHILS % (MAN) 79 % (42-78); TOTAL CELLS COUNTED 100
[2017-04-01 10:17] LABS: PLATELET COMMENT ADEQUATE
--- NOTE | 2017-04-01 10:17 | EKG REPORT ---
SEVERITY:- ABNORMAL ECG - SINUS RHYTHM ABNORMAL T, CONSIDER ISCHEMIA, ANT-LAT LEADS : Confirmed by: Fei Sellers 01-Apr-2017 10:17:02
[2017-04-01 12:04] LABS: ALANINE AMINOTRANSFERASE 37 U/L (9-52); ALBUMIN 3.1 g/dL (3.5-5.0); ALKALINE PHOSPHATASE 73 U/L (38-126); ANION GAP 10 (5-19); ASPARTATE AMINO TRANSFERASE 38 U/L (14-36); BILIRUBIN,DIRECT 0.4 mg/dL (0.0-0.4); BILIRUBIN,TOTAL 0.8 mg/dL (0.2-1.3); BLOOD UREA NITROGEN 14 mg/dL (7-20); CALCIUM 9.1 mg/dL (8.4-10.2); CARBON DIOXIDE 19 mmol/L (22-30); CHLORIDE 101 mmol/L (98-107); GLUCOSE 64 mg/dL (75-110); POTASSIUM 4.5 mmol/L (3.6-5.0); SODIUM 130.3 mmol/L (137-145)
[2017-04-01] MEDS ORDERED: MORPHINE SULFATE 10 MG/ML INJ IV ONE (13:10)
--- NOTE | 2017-04-01 14:01 | RADIOLOGY REPORT (SQ) ---
EXAM DESCRIPTION: SOFT TISSUE NECK COMPLETED DATE/TIME: 04/01/2017 1:43 pm REASON FOR STUDY: difficulty swllowing COMPARISON: None. NUMBER OF VIEWS: Two views. TECHNIQUE: AP and lateral radiographic image of the soft tissues of the neck. LIMITATIONS: Patient positioning. FINDINGS: EPIGLOTTIS: Normal. Contour normal. Aryepiglottic folds normal. PREVERTEBRAL SOFT TISSUES: Normal. No soft tissue swelling. SUBGLOTTIC AREA: Normal. No narrowing. RETROPHARYNGEAL SPACE: Normal. No soft tissue masses. BONES: Advanced degenerative change without fracture. LUNG APICES: Normal. OTHER: No radiopaque foreign body. No other significant finding. IMPRESSION: NEGATIVE STUDY OF THE SOFT TISSUES OF THE NECK. TECHNICAL DOCUMENTATION: JOB ID: [id number] [employer]- All Rights Reserved
--- NOTE | 2017-04-01 14:02 | RADIOLOGY REPORT (SQ) ---
EXAM DESCRIPTION: CHEST PA/LAT COMPLETED DATE/TIME: 04/01/2017 1:43 pm REASON FOR STUDY: cough COMPARISON: 02/10/2017 EXAM PARAMETERS: NUMBER OF VIEWS: two views TECHNIQUE: Digital Frontal and Lateral radiographic views of the chest acquired. RADIATION DOSE: NA LIMITATIONS: none FINDINGS: LUNGS AND PLEURA: Underlying emphysema. New patchy bibasilar airspace opacities, right gr eater than left. No pleural effusion pneumothorax. MEDIASTINUM AND HILAR STRUCTURES: No masses or contour abnormalities. HEART AND VASCULAR STRUCTURES: Heart normal size. No evidence for failure. BONES: No acute findings. HARDWARE: Stable. OTHER: No other significant finding. IMPRESSION: New patchy bibasilar airspace disease suspicious for developing pneumonia. TECHNICAL DOCUMENTATION: JOB ID: [id number] [employer]- All Rights Reserved
[2017-04-01] MEDS ORDERED: DIPHENHYDRAMINE HCL 50 MG/ML VIAL IV ONE (14:57)
[2017-04-01] MEDS ORDERED: IPRATROPIUM/ALBUTEROL 0.5-2.5 MG/3 ML AMPUL NEB PRN ×2 (19:44→19:55)
[2017-04-01] MEDS ORDERED: ONDANSETRON HCL INJ/PF 4 MG/2 ML SDV IV PRN (19:44)
--- NOTE | 2017-04-01 20:05 | PDOC H&P ---
History of Present Illness Admission Date/PCP: 04/01/17 17:14 MARCIAL BARCLAY MD Patient complains of: Severe sore throat and shortness of breath History of Present Illness: FREDI WHALEN is a 81 year old female With a past history of atrial fibrillation, chronic diastolic CHF, chronic COPD , still a smoker Was brought to the ED with a chief complaint of shortness of breath and inability to swallow Patient states that for the past 2 days the throat is so sore that she cannot drink She also has had a cough and some shortness of breath Upon evaluation in the ED she was diagnosed of oral thrush and pneumonia and She was subsequently admitted under the hospitalist service to telemetry unit Past Medical History Cardiac Medical History: Reports: Atrial Fibrillation, Congestive Heart Failure , Hyperlipidema, Hypertension Pulmonary Medical History: Reports: Bronchitis, Chronic Obstructive Pulmonary Disease (COPD) - on continuous home oxygen/inhalers, Pneumonia - Pseudomonas Neurological Medical History: Reports: None Endocrine Medical History: Reports: Hypothyroidism Malignancy Medical History: Reports: None GI Medical History: Reports: Gastroesophageal Reflux Disease, Hiatal Hernia Denies: Hepatitis Musculoskeltal Medical History: Reports: Arthritis Skin Medical History: Denies: Eczema, Psoriasis Psychiatric Medical History: Reports: None Traumatic Medical History: Denies: Gunshot Wound, Pneumothorax, Traumatic Brain Injury Hematology: Denies: Anemia, Sickle Cell Disease Infectious Medical History: Denies: HIV Past Surgical History Past Surgical History: Reports: Appendectomy, Cholecystectomy, Hysterectomy Denies: Amputation, Mastectomy, Pacemaker Social History Information Source: Relative - Lives with: Family - Daughter Smoking Status: Former Smoker Frequency of Alcohol Use: Occasional Hx Recreational Drug Use: No Drugs: None Hx Prescription Drug Abuse: No - Advance Directive Resuscitation Status: Full Code Surrogate healthcare decision maker:: Daughter Family History Family History: Arthritis, CAD, CVA, Hypertension, Malignancy Parental Family History Reviewed: Yes Children Family History Reviewed: Yes Sibling(s) Family History Reviewed.: Yes Medication/Allergy Home Medications: Albuterol Sulfate [Proair HFA] 1 puff IH Q4HP PRN 04/01/17 Apixaban [Eliquis 5 mg Tablet] 5 mg PO Q12 04/01/17 Atorvastatin Calcium [Lipitor 10 mg Tablet] 10 mg PO QPM 04/01/17 Diltiazem HCl [Diltiazem 24Hr Cd] 120 mg PO DAILY 04/01/17 Ergocalciferol (Vitamin D2) [Vitamin D2] 50,000 unit PO MEADOWS@1000 04/01/17 Fluticasone/Vilanterol [Breo Ellipta 100-25 Mcg INH] 1 puff IH DAILY 04/01/17 Levothyroxine Sodium [Synthroid] 88 mcg PO DAILY 04/01/17 Montelukast Sodium [Singulair 10 mg Tablet] 10 mg PO DAILY 04/01/17 Multivitamin [Multivitamins] 1 each PO DAILY 04/01/17 Nicotine [Nicoderm 21 mg/24 Hr Transderm Patch] 1 patch TD DAILY 04/01/17 Sertraline HCl [Zoloft 50 mg Tablet] 25 mg PO DAILY 04/01/17 Sotalol HCl [Sotalol] 40 mg PO Q12 04/01/17 Tiotropium [place] [Spiriva Respimat] 2 puff IH QAM 04/01/17 Allergies/Adverse Reactions: Penicillins Allergy (Severe, Verified 02/12/17 06:33) Respiratory arrest doxycycline [Doxycycline] Allergy (Intermediate, Verified 02/12/17 06:33) Jona-Tristin's Syndrome valsartan [From Diovan] Allergy (Intermediate, Verified 02/12/17 06:33) Rash levofloxacin [From Levaquin] Allergy (Verified 02/12/17 06:33) METAL Allergy (Severe, Uncoded 02/12/17 06:33) RASH Review of Systems Constitutional: ABSENT: chills, fever(s), headache(s), weight gain, weight loss Ears: ABSENT: hearing changes Nose, Mouth, and Throat: PRESENT: sore throat Cardiovascular: PRESENT: dyspnea on exertion Respiratory: PRESENT: cough, dyspnea, sputum Gastrointestinal: ABSENT: abdominal pain, constipation, diarrhea, hematemesis, hematochezia, nausea, vomiting Musculoskeletal: ABSENT: joint swelling Integumentary: ABSENT: rash, wounds Neurological: ABSENT: abnormal gait, abnormal speech, confusion, dizziness, focal weakness, syncope Endocrine: ABSENT: cold intolerance, heat intolerance, polydipsia, polyuria Hematologic/Lymphatic: ABSENT: easy bleeding, easy bruising Physical Exam Vital Signs: Temp Pulse Resp BP Pulse Ox 98.8 F 72 16 141/76 H 95 04/01/17 17:25 04/01/17 17:25 04/01/17 17:25 04/01/17 17:25 04/01/17 19:08 General appearance: PRESENT: mild distress, other Head exam: PRESENT: atraumatic, normocephalic Eye exam: PRESENT: conjunctiva pink, EOMI, PERRLA. ABSENT: scleral icterus Mouth exam: PRESENT: moist, other - Heavy white coating on the tongue Neck exam: ABSENT: carotid bruit, JVD, lymphadenopathy, thyromegaly Respiratory exam: PRESENT: clear to auscultation eliel. ABSENT: rales, rhonchi, wheezes Cardiovascular exam: PRESENT: RRR. ABSENT: diastolic murmur, rubs, systolic murmur Vascular exam: PRESENT: normal capillary refill GI/Abdominal exam: PRESENT: normal bowel sounds, soft. ABSENT: distended, guarding, mass, organolmegaly, rebound, tenderness Rectal exam: PRESENT: deferred Extremities exam: PRESENT: full ROM. ABSENT: calf tenderness, clubbing, pedal edema Neurological exam: PRESENT: awake, CN II-XII grossly intact Psychiatric exam: PRESENT: normal mood Skin exam: PRESENT: dry, intact, warm. ABSENT: cyanosis, rash Results Impressions: Soft Tissue Neck X-Ray 04/01/17 13:08 IMPRESSION: NEGATIVE STUDY OF THE SOFT TISSUES OF THE NECK. Chest X-Ray 04/01/17 13:09 IMPRESSION: New patchy bibasilar airspace disease suspicious for developing pneumonia. Assessment & Plan - Diagnosis (1) Chronic diastolic CHF (congestive heart failure) Is this a current diagnosis for this admission?: Yes Plan: Last echocardiogram showed normal left ventricular function and diastolic dysfunction (2) History of atrial fibrillation Is this a current diagnosis for this admission?: Yes (3) History of alcohol abuse Is this a current diagnosis for this admission?: Yes Plan: Daughter says that she drinks 8 ounces of liquor at night ; she may need some sedation Before going to sleep as she may be a little anxious (4) Oral thrush Is this a current diagnosis for this admission?: Yes Plan: We will treat with fluconazole and nystatin (5) Pneumonia Qualifiers: Aspiration pneumonia type: unspecified Lung location: unspecified part of lung Is this a current diagnosis for this admission?: Yes Plan: Patient did have a sputum culture positive for Pseudomonas in February She has multiple allergies we will treat her with Azactam (6) Dehydration Is this a current diagnosis for this admission?: Yes Plan: Careful IV fluids (7) Tobacco abuse Is this a current diagnosis for this admission?: Yes - Time Time Spent: 50 to 70 Minutes - Patient would be admitted to a telemetry unit as an inpatient
[2017-04-01] MEDS ORDERED: FLUCONAZOLE 200 MG/NS RTU 100 ML IV ONE (20:15)
[2017-04-01] MEDS ORDERED: AZTREONAM INJ 1 GM VIAL IV PRN (20:15)
[2017-04-01] MEDS ORDERED: AZTREONAM 1 GM in DEXTROSE 5%-WATER 50 ML IV ONE (20:15)
[2017-04-01] MEDS ORDERED: NYSTATIN 500000 UNIT/5 ML UDCUP PO ONE (20:30)
[2017-04-01] MEDS: NORMAL SALINE 1000 ML 1,000 ML IV PRN (21:21)
[2017-04-01] MEDS ORDERED: AZTREONAM INJ 1 GM VIAL ONE (21:24)
[2017-04-01] MEDS ORDERED: FAMOTIDINE INJ/PF 20 MG/2 ML SDV IV SCH (22:00)
[2017-04-02 03:30] LABS: HEMATOCRIT 34.5 % (36.0-47.0); HEMOGLOBIN 11.7 g/dL (12.0-15.5); MEAN CORPUSCULAR HEMOGLOBIN 33.3 pg (27.0-33.4); MEAN CORPUSCULAR HGB CONC 33.8 g/dL (32.0-36.0); MEAN CORPUSCULAR VOLUME 99 fl (80-97); PLATELET COUNT 259 10^3/uL (150-450); RED BLOOD COUNT 3.51 10^6/uL (3.72-5.28); RED CELL DISTRIBUTION WIDTH 14.4 % (11.5-14.0); WHITE BLOOD COUNT 14.3 10^3/uL (4.0-10.5)
[2017-04-02 03:40] LABS: ALANINE AMINOTRANSFERASE 35 U/L (9-52); ALBUMIN 2.7 g/dL (3.5-5.0); ALKALINE PHOSPHATASE 68 U/L (38-126); ANION GAP 7 (5-19); ASPARTATE AMINO TRANSFERASE 36 U/L (14-36); BILIRUBIN,DIRECT 0.3 mg/dL (0.0-0.4); BILIRUBIN,TOTAL 0.7 mg/dL (0.2-1.3); BLOOD UREA NITROGEN 15 mg/dL (7-20); CALCIUM 8.8 mg/dL (8.4-10.2); CARBON DIOXIDE 22 mmol/L (22-30); CHLORIDE 101 mmol/L (98-107); GLUCOSE 81 mg/dL (75-110); POTASSIUM 4.2 mmol/L (3.6-5.0); SODIUM 130.3 mmol/L (137-145); TOTAL PROTEIN 5.3 g/dL (6.3-8.2)
[2017-04-02 03:46] LABS: APPEARANCE,URINE SLIGHTLY-CLOUDY; BILIRUBIN,URINE NEGATIVE (NEGATIVE); COLOR,URINE YELLOW; GLUCOSE, URINE NEGATIVE (NEGATIVE); KETONES,URINE TRACE mg/dL (NEGATIVE); LEUKOCYTE ESTERASE,URINE TRACE (NEGATIVE); NITRITE,URINE NEGATIVE (NEGATIVE); PROTEIN,URINE NEGATIVE (NEGATIVE); URINE SPECIFIC GRAVITY 1.018
[2017-04-02 03:59] LABS: FREE T4 (FREE THYROXINE) 1.53 ng/dL (0.78-2.19)
[2017-04-02 04:13] LABS: THYROID STIMULATING HORMONE 2.03 uIU/mL (0.47-4.68)
[2017-04-02] MEDS ORDERED: LORAZEPAM 1 MG TABLET PO PRN (05:46)
[2017-04-02] MEDS ORDERED: ALBUTEROL SULFATE HFA (90 MCG/PUFF) 8 GM MDI (1 MDI/ER DISP) IH PRN (05:47)
[2017-04-02] MEDS: AZTREONAM 1 GM in DEXTROSE 5%-WATER 50 ML IV SCH ×2 (06:45→14:23)
[2017-04-02] MEDS ORDERED: NICOTINE 7 MG/24 HR PATCH.TD24 TD PRN (07:45)
[2017-04-02] MEDS ORDERED: ALBUTEROL SULFATE HFA (90 MCG/PUFF) 200 PUFF/8.5 GM MDI IH PRN (08:34)
[2017-04-02] MEDS: NICOTINE 21 MG/24 HR PATCH.TD24 TD SCH (09:18)
[2017-04-02] MEDS: TIOTROPIUM BROMIDE DPI 5 CAP/KIT (18 MCG/CAP) IH SCH (09:18)
[2017-04-02] MEDS: MONTELUKAST SODIUM 10 MG TABLET PO SCH (09:20)
[2017-04-02] MEDS: DILTIAZEM HCL 120 MG CAP.SR.24H PO SCH (09:20)
[2017-04-02] MEDS: LORAZEPAM 0.5 MG TABLET PO SCH ×2 (09:21→18:14)
[2017-04-02] MEDS: LACTOBACILLUS ACIDOPHILUS 250 MG TAB PO SCH ×2 (09:21→18:15)
[2017-04-02] MEDS: SERTRALINE HCL 50 MG TABLET PO SCH (09:22)
[2017-04-02] MEDS: PANTOPRAZOLE SODIUM 40 MG VIAL IV SCH (09:22)
[2017-04-02] MEDS: MULTIVITAMIN TABLET PO SCH (09:23)
[2017-04-02] MEDS: LEVOTHYROXINE SODIUM 0.088 MG TABLET PO SCH (09:23)
[2017-04-02] MEDS: SOTALOL HCL 80 MG TABLET PO SCH (09:24)
[2017-04-02] MEDS: APIXABAN 5 MG TABLET PO SCH (09:24)
[2017-04-02] MEDS: NYSTATIN 500000 UNIT/5 ML UDCUP PO SCH ×3 (09:25→18:15)
[2017-04-02] MEDS ORDERED: ERGOCALCIFEROL (VITAMIN D2) 50000 UNIT (1.25 MG) CAPSULE PO SCH (10:00)
[2017-04-02] MEDS ORDERED: ENOXAPARIN SODIUM INJ 40 MG/0.4 ML DISP.SYRIN SUBCUT SCH (10:00)
[2017-04-02] MEDS ORDERED: (PENDING PHARMACY ID) (Fluticasone/Vilanterol [Breo Ellipta 100-25 Mcg Inh] 1 PUFF) IH SCH (10:00)
--- NOTE | 2017-04-02 11:47 | PDOC PROGRESS REPORT ---
Subjective Progress Note for:: 04/02/17 Subjective:: 81-year-old female with past medical history of Atrial fibrillation on sotalol and Eliquis Chronic diastolic CHF COPD, oxygen dependent One pack per day smoker Homonymous pneumonia last month Hypertension Call dependence She developed a sore throat on Monday as well as cough with congestion. She uses 2 L of oxygen by nasal cannula at baseline. She went to urgent care and was found to have oral thrush and was given a prescription for nystatin however there was no improvement in her sore throat therefore she was brought into the hospital today. Her daughter tells me that she drinks multiple alcoholic cocktails every day. The patient is requesting something to help her sleep better as well as a nicotine patch. She feels somewhat better today. Reason For Visit: PNEUMONIA, ORAL THRUSH Physical Exam Vital Signs: Temp Pulse Resp BP Pulse Ox 100.0 F 77 17 141/75 H 98 04/01/17 20:08 04/01/17 20:08 04/01/17 20:08 04/01/17 20:08 04/01/17 20:08 Intake & Output 03/31/17 04/01/17 04/02/17 06:59 06:59 06:59 Weight 50.9 kg Additional comments: Frail elderly female lying in bed not in acute distress HEENT: Pupils equal reactive light moist pink oropharyngeal mucosa she has significant erythema of the posterior pharyngeal wall with some oral thrush, no icterus no conjunctival discharge Neck: Supple trachea is midline Lungs: Coarse breath sounds bilaterally normal respiratory effort Cardiac: S1-S2 regular no murmurs heard no peripheral edema no cyanosis Abdomen: Soft, no focal tenderness normal bowel sounds Skin: Warm and dry Results Laboratory Results: 04/02/17 03:05 04/02/17 03:05 04/02/17 04/02/17 04/02/17 03:05 03:05 03:05 WBC 14.3 H RBC 3.51 L Hgb 11.7 L Hct 34.5 L MCV 99 H MCH 33.3 MCHC 33.8 RDW 14.4 H Plt Count 259 Sodium 130.3 L Potassium 4.2 Chloride 101 Carbon Dioxide 22 Anion Gap 7 BUN 15 Creatinine 0.42 L Est GFR ( Amer) > 60 Est GFR (Non-Af Amer) > 60 Glucose 81 Calcium 8.8 Total Bilirubin 0.7 AST 36 ALT 35 Alkaline Phosphatase 68 Total Protein 5.3 L Albumin 2.7 L TSH 2.03 Free T4 1.53 Urine Color Urine Appearance Urine pH Ur Specific [place] Urine Protein Urine Glucose (UA) Urine Ketones Urine Blood Urine Nitrite Ur Leukocyte Esterase Urine WBC (Auto) Urine RBC (Auto) 04/02/17 03:22 WBC RBC Hgb Hct MCV MCH MCHC RDW Plt Count Sodium Potassium Chloride Carbon Dioxide Anion Gap BUN Creatinine Est GFR ( Amer) Est GFR (Non-Af Amer) Glucose Calcium Total Bilirubin AST ALT Alkaline Phosphatase Total Protein Albumin TSH Free T4 Urine Color YELLOW Urine Appearance SLIGHTLY-CLOUDY Urine pH 6.0 Ur Specific [place] 1.018 Urine Protein NEGATIVE Urine Glucose (UA) NEGATIVE Urine Ketones TRACE H Urine Blood LARGE H Urine Nitrite NEGATIVE Ur Leukocyte Esterase TRACE H Urine WBC (Auto) 15 Urine RBC (Auto) >182 04/01/17 04/02/17 20:30 03:05 Troponin I 0.026 0.027 Impressions: Soft Tissue Neck X-Ray 04/01/17 13:08 IMPRESSION: NEGATIVE STUDY OF THE SOFT TISSUES OF THE NECK. Chest X-Ray 04/01/17 13:09 IMPRESSION: New patchy bibasilar airspace disease suspicious for developing pneumonia. Assessment & Plan - Diagnosis (1) Bilateral pneumonia Is this a current diagnosis for this admission?: Yes Plan: Sent for Pseudomonas. Follow-up on sputum cultures. Day 2 of aztreonam. (2) Chronic diastolic CHF (congestive heart failure) Is this a current diagnosis for this admission?: Yes Plan: She is currently dehydrated. Watch fluid status closely. (3) History of alcohol abuse Is this a current diagnosis for this admission?: Yes Plan: Ativan twice a day and as needed. Watch for symptoms of withdrawal. (4) History of atrial fibrillation Is this a current diagnosis for this admission?: Yes Plan: On Cardizem, sotalol and Eliquis (5) Oral thrush Is this a current diagnosis for this admission?: Yes Plan: Continue nystatin and fluconazole. (6) Dehydration Is this a current diagnosis for this admission?: Yes Plan: Gentle IV normal saline at 75 cc/h (7) Tobacco abuse Is this a current diagnosis for this admission?: Yes Plan: Nicotine patch - Time Time Spent with patient: 25-34 minutes
[2017-04-02] MEDS: ATORVASTATIN CALCIUM 10 MG TABLET PO SCH (18:14)
--- NOTE | 2017-04-02 19:43 | EKG REPORT ---
SEVERITY:- ABNORMAL ECG - SINUS RHYTHM NONSPECIFIC T ABNORMALITIES, ANT-LAT LEADS : Confirmed by: Fei Sellers 02-Apr-2017 19:42:32
[2017-04-02] MEDS ORDERED: FLUCONAZOLE 200 MG/NS RTU 100 ML IV SCH (22:00)
[2017-04-03] MEDS: TEMAZEPAM 15 MG CAPSULE PO SCH ×2 (00:38→21:20)
[2017-04-03] MEDS: PANTOPRAZOLE SODIUM 40 MG VIAL IV SCH ×3 (00:38→21:20)
[2017-04-03] MEDS: NYSTATIN 500000 UNIT/5 ML UDCUP PO SCH ×5 (00:38→21:20)
[2017-04-03] MEDS: SOTALOL HCL 80 MG TABLET PO SCH ×3 (00:39→21:20)
[2017-04-03] MEDS: APIXABAN 5 MG TABLET PO SCH ×3 (00:39→21:24)
[2017-04-03] MEDS: AZTREONAM 1 GM in DEXTROSE 5%-WATER 50 ML IV SCH ×4 (00:39→21:26)
[2017-04-03] MEDS: NORMAL SALINE 1000 ML 1,000 ML IV PRN ×2 (05:40→23:46)
[2017-04-03] MEDS: TIOTROPIUM BROMIDE DPI 5 CAP/KIT (18 MCG/CAP) IH SCH (08:18)
[2017-04-03] MEDS: LACTOBACILLUS ACIDOPHILUS 250 MG TAB PO SCH ×2 (09:46→17:13)
[2017-04-03] MEDS: LORAZEPAM 0.5 MG TABLET PO SCH ×2 (09:46→17:13)
[2017-04-03] MEDS: LEVOTHYROXINE SODIUM 0.088 MG TABLET PO SCH (09:46)
[2017-04-03] MEDS: MONTELUKAST SODIUM 10 MG TABLET PO SCH (09:47)
[2017-04-03] MEDS: SERTRALINE HCL 50 MG TABLET PO SCH (09:47)
[2017-04-03] MEDS: NICOTINE 21 MG/24 HR PATCH.TD24 TD SCH (09:47)
[2017-04-03] MEDS: DILTIAZEM HCL 120 MG CAP.SR.24H PO SCH (09:48)
[2017-04-03] MEDS: MULTIVITAMIN TABLET PO SCH (09:48)
[2017-04-03] MEDS ORDERED: VANCOMYCIN HCL 0 MG in DEXTROSE 5%-WATER 250 ML IV NR (11:15)
[2017-04-03] MEDS: VANCOMYCIN HCL 1,000 MG in DEXTROSE 5%-WATER 250 ML IV SCH (13:39)
--- NOTE | 2017-04-03 16:22 | PDOC PROGRESS REPORT ---
Subjective Progress Note for:: 04/03/17 Subjective:: 81-year-old female with past medical history of Atrial fibrillation on sotalol and Eliquis Chronic diastolic CHF COPD, oxygen dependent One pack per day smoker Pseudomonas pneumonia last month Hypertension Call dependence She developed a sore throat on Monday as well as cough with congestion. She uses 2 L of oxygen by nasal cannula at baseline. She went to urgent care and was found to have oral thrush and was given a prescription for nystatin however there was no improvement in her sore throat therefore she was brought into the hospital today. Her daughter tells me that she drinks multiple alcoholic cocktails every day. Her sore throat has improved. She is asking for an upgrade of her diet. Reason For Visit: PNEUMONIA, ORAL THRUSH Physical Exam Vital Signs: Temp Pulse Resp BP Pulse Ox 97.7 F 61 17 140/64 H 100 04/03/17 11:33 04/03/17 11:33 04/03/17 11:33 04/03/17 11:33 04/03/17 11:33 Intake & Output 04/02/17 04/03/17 04/04/17 06:59 06:59 06:59 Intake Total 810 2180 Output Total 200 Balance 610 2180 Weight 50.9 kg 50.9 kg Additional comments: Frail elderly female lying in bed not in acute distress Neck: Supple trachea is midline Lungs: Coarse breath sounds bilaterally normal respiratory effort Cardiac: S1-S2 regular no murmurs heard no peripheral edema no cyanosis Abdomen: Soft, no focal tenderness normal bowel sounds Skin: Warm and dry Results Laboratory Results: 04/02/17 03:05 04/02/17 03:05 04/01/17 04/02/17 04/02/17 20:30 03:05 09:38 Troponin I 0.026 0.027 0.024 Impressions: Soft Tissue Neck X-Ray 04/01/17 13:08 IMPRESSION: NEGATIVE STUDY OF THE SOFT TISSUES OF THE NECK. Chest X-Ray 04/01/17 13:09 IMPRESSION: New patchy bibasilar airspace disease suspicious for developing pneumonia. Assessment & Plan - Diagnosis (1) Bilateral pneumonia Is this a current diagnosis for this admission?: Yes Plan: Day 2 of aztreonam. Vancomycin has been added given a sputum culture results. (2) Chronic diastolic CHF (congestive heart failure) Is this a current diagnosis for this admission?: Yes Plan: She is currently dehydrated. Watch fluid status closely. (3) History of alcohol abuse Is this a current diagnosis for this admission?: Yes Plan: Ativan twice a day and as needed. Watch for symptoms of withdrawal. (4) History of atrial fibrillation Is this a current diagnosis for this admission?: Yes Plan: On Cardizem, sotalol and Eliquis (5) Oral thrush Is this a current diagnosis for this admission?: Yes (6) Dehydration Is this a current diagnosis for this admission?: Yes Plan: Gentle IV normal saline at 75 cc/h (7) Tobacco abuse Is this a current diagnosis for this admission?: Yes Plan: Nicotine patch - Time Time Spent with patient: 25-34 minutes
[2017-04-03] MEDS ORDERED: BACITRACIN ZINC OINTMENT 15 GM TP ONE (17:00)
[2017-04-03] MEDS: ATORVASTATIN CALCIUM 10 MG TABLET PO SCH (17:13)
[2017-04-03] MEDS: FLUCONAZOLE 100 MG TABLET PO SCH (21:20)
[2017-04-04 05:15] LABS: ALANINE AMINOTRANSFERASE 29 U/L (9-52); ALBUMIN 2.3 g/dL (3.5-5.0); ALKALINE PHOSPHATASE 67 U/L (38-126); ANION GAP 6 (5-19); ASPARTATE AMINO TRANSFERASE 22 U/L (14-36); BILIRUBIN,DIRECT 0.2 mg/dL (0.0-0.4); BILIRUBIN,TOTAL 0.3 mg/dL (0.2-1.3); BLOOD UREA NITROGEN 7 mg/dL (7-20); CARBON DIOXIDE 20 mmol/L (22-30); CHLORIDE 105 mmol/L (98-107); GLUCOSE 77 mg/dL (75-110); MAGNESIUM 1.4 mg/dL (1.6-2.3); POTASSIUM 3.3 mmol/L (3.6-5.0); SODIUM 130.9 mmol/L (137-145); TOTAL PROTEIN 5.4 g/dL (6.3-8.2)
[2017-04-04] MEDS: AZTREONAM 1 GM in DEXTROSE 5%-WATER 50 ML IV SCH ×3 (05:25→21:28)
[2017-04-04 05:27] LABS: HEMATOCRIT 33.7 % (36.0-47.0); HEMOGLOBIN 11.4 g/dL (12.0-15.5); MEAN CORPUSCULAR HEMOGLOBIN 33.6 pg (27.0-33.4); MEAN CORPUSCULAR HGB CONC 33.9 g/dL (32.0-36.0); MEAN CORPUSCULAR VOLUME 99 fl (80-97); PLATELET COUNT 303 10^3/uL (150-450); RED BLOOD COUNT 3.41 10^6/uL (3.72-5.28); RED CELL DISTRIBUTION WIDTH 14.4 % (11.5-14.0); WHITE BLOOD COUNT 9.8 10^3/uL (4.0-10.5)
[2017-04-04 06:14] LABS: ABSOLUTE LYMPHOCYTES# (MANUAL) 1.8 10^3/uL (0.5-4.7); ABSOLUTE MONOCYTES # (MANUAL) 0.7 10^3/uL (0.1-1.4); ABSOLUTE NEUTROPHILS# (MANUAL) 7.1 10^3/uL (1.7-8.2); BAND NEUTROPHILS % (MANUAL) 3 % (3-5); BASOPHILS % (MANUAL) 2 % (0-2); EOSINOPHILS % (MANUAL) 1 % (0-6); LYMPHOCYTES % (MANUAL) 17 % (13-45); METAMYELOCYTES % (MANUAL) 2 % (0); MONOCYTES % (MANUAL) 7 % (3-13); SEGMENTED NEUTROPHILS % (MAN) 67 % (42-78); TOTAL CELLS COUNTED 100
[2017-04-04 06:15] LABS: ANISOCYTOSIS SLIGHT
[2017-04-04 06:16] LABS: BURR CELLS SLIGHT; PLATELET COMMENT ADEQUATE; POIKILOCYTOSIS SLIGHT; POLYCHROMASIA SLIGHT
[2017-04-04] MEDS ORDERED: [UNRECOGNIZED DRUG - OTHER] TP SCH (10:00)
[2017-04-04] MEDS ORDERED: BACITRACIN TP SCH (10:00)
[2017-04-04] MEDS: TIOTROPIUM BROMIDE DPI 5 CAP/KIT (18 MCG/CAP) IH SCH (10:44)
[2017-04-04] MEDS: NYSTATIN 500000 UNIT/5 ML UDCUP PO SCH ×4 (10:45→21:29)
[2017-04-04] MEDS: PANTOPRAZOLE SODIUM 40 MG VIAL IV SCH ×2 (10:45→21:28)
[2017-04-04] MEDS: NICOTINE 21 MG/24 HR PATCH.TD24 TD SCH (10:45)
[2017-04-04] MEDS: LACTOBACILLUS ACIDOPHILUS 250 MG TAB PO SCH ×2 (10:47→17:25)
[2017-04-04] MEDS: DILTIAZEM HCL 120 MG CAP.SR.24H PO SCH (10:47)
[2017-04-04] MEDS: LEVOTHYROXINE SODIUM 0.088 MG TABLET PO SCH (10:47)
[2017-04-04] MEDS: MONTELUKAST SODIUM 10 MG TABLET PO SCH (10:47)
[2017-04-04] MEDS: MULTIVITAMIN TABLET PO SCH (10:49)
[2017-04-04] MEDS: APIXABAN 5 MG TABLET PO SCH ×2 (10:49→21:29)
[2017-04-04] MEDS: SERTRALINE HCL 50 MG TABLET PO SCH (10:49)
[2017-04-04] MEDS: LORAZEPAM 0.5 MG TABLET PO SCH ×2 (10:49→17:25)
[2017-04-04] MEDS: SOTALOL HCL 80 MG TABLET PO SCH ×2 (10:50→21:28)
[2017-04-04] MEDS: BACITRACIN ZINC OINTMENT 15 GM TP SCH (10:50)
[2017-04-04] MEDS: VANCOMYCIN HCL 1,000 MG in DEXTROSE 5%-WATER 250 ML IV SCH (12:48)
[2017-04-04] MEDS: ATORVASTATIN CALCIUM 10 MG TABLET PO SCH (17:24)
--- NOTE | 2017-04-04 19:43 | PDOC PROGRESS REPORT ---
Subjective Progress Note for:: 04/04/17 Subjective:: Pt states that she is feeling better. Pt denies chest pain, shortness of breath , or nausea/vomiting. Reason For Visit: PNEUMONIA, ORAL THRUSH Physical Exam Vital Signs: Temp Pulse Resp BP Pulse Ox 98.6 F 70 16 145/77 H 95 04/04/17 16:06 04/04/17 16:06 04/04/17 16:06 04/04/17 16:06 04/04/17 16:06 Intake & Output 04/03/17 04/04/17 04/05/17 06:59 06:59 06:59 Intake Total 2180 2457 1338 Output Total 300 300 Balance 2180 2157 1038 Weight 50.9 kg 58.4 kg General appearance: PRESENT: no acute distress, thin Head exam: PRESENT: atraumatic, normocephalic Eye exam: PRESENT: conjunctiva pink, EOMI. ABSENT: scleral icterus Ear exam: PRESENT: normal external ear exam Mouth exam: PRESENT: moist, tongue midline Neck exam: ABSENT: carotid bruit, JVD, lymphadenopathy, thyromegaly Respiratory exam: PRESENT: clear to auscultation eliel. ABSENT: rales, rhonchi, wheezes Cardiovascular exam: PRESENT: RRR. ABSENT: diastolic murmur, rubs, systolic murmur Pulses: PRESENT: normal dorsalis pedis pul Vascular exam: PRESENT: normal capillary refill GI/Abdominal exam: PRESENT: normal bowel sounds, soft. ABSENT: distended, guarding, mass, organolmegaly, rebound, tenderness Rectal exam: PRESENT: deferred Extremities exam: PRESENT: full ROM. ABSENT: calf tenderness, clubbing, pedal edema Neurological exam: PRESENT: alert, altered, oriented to person, oriented to time Psychiatric exam: PRESENT: appropriate affect, normal mood. ABSENT: homicidal ideation, suicidal ideation Skin exam: PRESENT: dry, intact, warm. ABSENT: cyanosis, rash Results Laboratory Results: 04/04/17 03:48 04/04/17 03:48 04/04/17 04/04/17 03:48 03:48 WBC 9.8 RBC 3.41 L Hgb 11.4 L Hct 33.7 L MCV 99 H MCH 33.6 H MCHC 33.9 RDW 14.4 H Plt Count 303 Seg Neutrophils % Not Reportable Lymphocytes % Not Reportable Monocytes % Not Reportable Eosinophils % Not Reportable Basophils % Not Reportable Absolute Neutrophils Not Reportable Absolute Lymphocytes Not Reportable Absolute Monocytes Not Reportable Absolute Eosinophils Not Reportable Absolute Basophils Not Reportable Sodium 130.9 L Potassium 3.3 L Chloride 105 Carbon Dioxide 20 L Anion Gap 6 BUN 7 Creatinine 0.38 L Est GFR ( Amer) > 60 Est GFR (Non-Af Amer) > 60 Glucose 77 Calcium 8.0 L Phosphorus 3.0 Magnesium 1.4 L Total Bilirubin 0.3 AST 22 ALT 29 Alkaline Phosphatase 67 Total Protein 5.4 L Albumin 2.3 L 04/02/17 01:03 Sputum Gram Stain - Final 04/02/17 03:22 Clean Catch Midstream Urine Culture - Final Enterococcus Faecalis(Group D) Pseudomonas Aeruginosa 04/01/17 04/02/17 04/02/17 20:30 03:05 09:38 Troponin I 0.026 0.027 0.024 Impressions: Soft Tissue Neck X-Ray 04/01/17 13:08 IMPRESSION: NEGATIVE STUDY OF THE SOFT TISSUES OF THE NECK. Chest X-Ray 04/01/17 13:09 IMPRESSION: New patchy bibasilar airspace disease suspicious for developing pneumonia. Assessment & Plan - Diagnosis (1) Bilateral pneumonia Is this a current diagnosis for this admission?: Yes Plan: Will continue current Antibiotics. Will check CXR. (2) Chronic diastolic CHF (congestive heart failure) Is this a current diagnosis for this admission?: Yes Plan: Euvolemic. (3) History of alcohol abuse Is this a current diagnosis for this admission?: Yes Plan: We will continue to monitor for alcohol withdrawal (4) History of atrial fibrillation Is this a current diagnosis for this admission?: Yes Plan: We will continue Cardizem sotalol and Eliquis (5) Oral thrush Is this a current diagnosis for this admission?: Yes Plan: Diflucan (6) Dehydration Is this a current diagnosis for this admission?: Yes Plan: Resolved. (7) Tobacco abuse Is this a current diagnosis for this admission?: Yes Plan: Will continue Nicotine patch - Time Time Spent with patient: 15-24 minutes
--- NOTE | 2017-04-04 20:27 | RADIOLOGY REPORT (SQ) ---
EXAM DESCRIPTION: CHEST SINGLE VIEW COMPLETED DATE/TIME: 04/04/2017 8:17 pm REASON FOR STUDY: pneumonia COMPARISON: 04/01/2017. EXAM PARAMETERS: NUMBER OF VIEWS: One view. TECHNIQUE: Single frontal radiographic view of the chest acquired. RADIATION DOSE: NA LIMITATIONS: None. FINDINGS: LUNGS AND PLEURA: Hyperinflation. Faint basilar densities slightly worse. Probable small pleural effusions. MEDIASTINUM AND HILAR STRUCTURES: No masses. Contour normal. HEART AND VASCULAR STRUCTURES: Heart normal in size. Normal vasculature. BONES: No acute findings. HARDWARE: Pacemaker. OTHER: No other significant finding. IMPRESSION: COPD. SLIGHT WORSENING IN THE BASILAR DENSITIES AND DEVELOPMENT OF SMALL PLEURAL EFFUSI ONS. TECHNICAL DOCUMENTATION: JOB ID: [id number] [employer]- All Rights Reserved
[2017-04-04] MEDS: TEMAZEPAM 15 MG CAPSULE PO SCH (21:29)
[2017-04-04] MEDS: FLUCONAZOLE 100 MG TABLET PO SCH (21:29)
[2017-04-05] MEDS: AZTREONAM 1 GM in DEXTROSE 5%-WATER 50 ML IV SCH (05:28)
[2017-04-05] MEDS: TIOTROPIUM BROMIDE DPI 5 CAP/KIT (18 MCG/CAP) IH SCH (09:52)
[2017-04-05] MEDS: NYSTATIN 500000 UNIT/5 ML UDCUP PO SCH (09:53)
[2017-04-05] MEDS: LACTOBACILLUS ACIDOPHILUS 250 MG TAB PO SCH (09:53)
[2017-04-05] MEDS: DILTIAZEM HCL 120 MG CAP.SR.24H PO SCH (09:54)
[2017-04-05] MEDS: LEVOTHYROXINE SODIUM 0.088 MG TABLET PO SCH (09:54)
[2017-04-05] MEDS: SOTALOL HCL 80 MG TABLET PO SCH (09:54)
[2017-04-05] MEDS: APIXABAN 5 MG TABLET PO SCH (09:55)
[2017-04-05] MEDS: MONTELUKAST SODIUM 10 MG TABLET PO SCH (09:55)
[2017-04-05] MEDS: MULTIVITAMIN TABLET PO SCH (09:55)
[2017-04-05] MEDS: BACITRACIN ZINC OINTMENT 15 GM TP SCH (09:56)
[2017-04-05] MEDS: SERTRALINE HCL 50 MG TABLET PO SCH (09:56)
[2017-04-05] MEDS: NICOTINE 21 MG/24 HR PATCH.TD24 TD SCH (09:56)
[2017-04-05] MEDS: LORAZEPAM 0.5 MG TABLET PO SCH (09:57)
--- NOTE | 2017-04-05 12:45 | PDOC DISCHARGE SUMMARY ---
General - Admit/Disc Date/PCP Admission Date/Primary Care Provider: 04/01/17 17:14 MARCIAL BARCLAY MD Discharge Date: 04/05/17 - Discharge Diagnosis (1) Bilateral pneumonia Is this a current diagnosis for this admission?: Yes Summary: Patient was placed on broad antibiotics aztreonam and vancomycin. She has done well throughout hospitalization. Patient was switched to Levaquin for discharge. His chest x-ray demonstrated some mild CHF and was given Lasix X 1. (2) Chronic diastolic CHF (congestive heart failure) Is this a current diagnosis for this admission?: Yes Summary: Pt given IV Lasix X1. (3) History of alcohol abuse Is this a current diagnosis for this admission?: Yes (4) History of atrial fibrillation Is this a current diagnosis for this admission?: Yes (5) Oral thrush Is this a current diagnosis for this admission?: Yes (6) Dehydration Is this a current diagnosis for this admission?: Yes (7) Tobacco abuse Is this a current diagnosis for this admission?: Yes (8) Hypokalemia Is this a current diagnosis for this admission?: Yes Summary: Will give Potassium replacement and discharge home on Potassium. (9) Hypomagnesemia Is this a current diagnosis for this admission?: Yes Summary: Will place on magnesium replacement. - Additional Information Resuscitation Status: Full Code Discharge Diet: Cardiac Prescriptions: Albuterol Sulfate [Proair HFA Inhalation Aerosol 8.5 gm MDI] 1 puff IH Q4HP PRN #1 hfa.aer.ad PRN Reason: Fluconazole [Diflucan 100 mg Tablet] 100 mg PO QHS #7 tablet Levofloxacin [Levaquin 500 mg Tablet] 500 mg PO DAILY #10 tablet Magnesium Oxide [Magnesium] 400 mg PO BID #10 capsule Nystatin 100,000 unit PO Q6H #300 ml Potassium Chloride 40 meq PO DAILY #3 ml Home Medications: Albuterol Sulfate [Proair HFA] 1 puff IH Q4HP PRN 04/01/17 Apixaban [Eliquis 5 mg Tablet] 5 mg PO Q12 04/01/17 Atorvastatin Calcium [Lipitor 10 mg Tablet] 10 mg PO QPM 04/01/17 Diltiazem HCl [Diltiazem 24Hr Cd] 120 mg PO DAILY 04/01/17 Ergocalciferol (Vitamin D2) [Vitamin D2] 50,000 unit PO MEADOWS@1000 01/20/18 Fluticasone/Vilanterol [Breo Ellipta 100-25 Mcg INH] 1 puff IH DAILY 04/01/17 Levothyroxine Sodium [Synthroid] 88 mcg PO DAILY 04/01/17 Montelukast Sodium [Singulair 10 mg Tablet] 10 mg PO DAILY 04/01/17 Multivitamin [Multivitamins] 1 each PO DAILY 04/01/17 Nicotine [Nicoderm 21 mg/24 Hr Transderm Patch] 1 patch TD DAILY 04/01/17 Sertraline HCl [Zoloft 50 mg Tablet] 25 mg PO DAILY 04/01/17 Sotalol HCl [Sotalol] 40 mg PO Q12 04/01/17 Tiotropium [place] [Spiriva Respimat] 2 puff IH QAM 04/01/17 Albuterol Sulfate [Proair HFA Inhalation Aerosol 8.5 gm MDI] 1 puff IH Q4HP PRN #1 hfa.aer.ad 04/05/17 Fluconazole [Diflucan 100 mg Tablet] 100 mg PO QHS #7 tablet 04/05/17 Levofloxacin [Levaquin 500 mg Tablet] 500 mg PO DAILY #10 tablet 04/05/17 Magnesium Oxide [Magnesium] 400 mg PO BID #10 capsule 04/05/17 Nystatin 100,000 unit PO Q6H #300 ml 04/05/17 Potassium Chloride 40 meq PO DAILY #3 ml 04/05/17 History of Present Illness Patient complains of: Sore throat and shortness of breath History of Present Illness: FREDI WHALEN is a 81 year old female Patient is a 81-year-old female that presented to our facility with complaint of shortness of breath and sore throat. Patient was found to have bilateral pneumonia. Hospital Course Hospital Course: Patient is a 81-year-old female that was admitted to our facility with complaint of sore throat and shortness of breath. Patient on x-ray demonstrated evidence consistent with bilateral pneumonia. Patient was started on broad-spectrum antibiotics vancomycin and octreotide which was narrowed to Levaquin. Patient was also noted to have Pseudomonas and Enterobacter faecalis and urine which she had been treated prior months for same infection. During this admission it was not felt that patient had a urinary tract infection as source of patient's complaint. Patient continued to do well throughout hospitalization however due to patient receiving IV fluids patient was given Lasix prior to discharge. Patient was also noted to have low potassium and magnesium which per replacement was ordered. Daughter was concerned about patient's poor appetite however patient has recently been started on medication for depression and recommend the patient follow-up with outpatient PCP. Physical Exam Vital Signs: Temp Pulse Resp BP Pulse Ox 98.4 F 126 H 16 158/68 H 95 04/05/17 08:00 04/05/17 08:00 04/05/17 08:00 04/05/17 08:00 04/05/17 08:00 Intake & Output 04/04/17 04/05/17 04/06/17 06:59 06:59 06:59 Intake Total 2457 2188 Output Total 300 300 Balance 2157 1888 Weight 58.4 kg 58.3 kg General appearance: PRESENT: no acute distress, thin Head exam: PRESENT: atraumatic, normocephalic Eye exam: PRESENT: conjunctiva pink, EOMI. ABSENT: scleral icterus Ear exam: PRESENT: normal external ear exam Mouth exam: PRESENT: moist, tongue midline Neck exam: ABSENT: carotid bruit, JVD, lymphadenopathy, thyromegaly Respiratory exam: PRESENT: clear to auscultation eliel, other - diminished breath sounds. ABSENT: rales, rhonchi Cardiovascular exam: PRESENT: RRR. ABSENT: diastolic murmur, rubs, systolic murmur Pulses: PRESENT: normal dorsalis pedis pul Vascular exam: PRESENT: normal capillary refill GI/Abdominal exam: PRESENT: normal bowel sounds, soft. ABSENT: distended, guarding, mass, organolmegaly, rebound, tenderness Rectal exam: PRESENT: deferred Extremities exam: PRESENT: full ROM. ABSENT: calf tenderness, clubbing, pedal edema Musculoskeletal exam: PRESENT: full ROM Neurological exam: PRESENT: alert, awake, oriented to person, oriented to place , oriented to time, oriented to situation, CN II-XII grossly intact. ABSENT: motor sensory deficit Psychiatric exam: PRESENT: appropriate affect, normal mood. ABSENT: homicidal ideation, suicidal ideation Skin exam: PRESENT: dry, intact, warm. ABSENT: cyanosis, rash Results Laboratory Results: 04/04/17 03:48 04/04/17 03:48 04/02/17 01:03 Sputum Gram Stain - Final 04/02/17 01:03 Sputum Sputum Culture - Final Pseudomonas Aeruginosa C.albicans/C.dubliniensis Normal Devi 04/02/17 03:22 Clean Catch Midstream Urine Culture - Final Enterococcus Faecalis(Group D) Pseudomonas Aeruginosa 04/01/17 04/02/17 04/02/17 20:30 03:05 09:38 Troponin I 0.026 0.027 0.024 Impressions: Soft Tissue Neck X-Ray 04/01/17 13:08 IMPRESSION: NEGATIVE STUDY OF THE SOFT TISSUES OF THE NECK. Chest X-Ray 04/04/17 00:00 IMPRESSION: COPD. SLIGHT WORSENING IN THE BASILAR DENSITIES AND DEVELOPMENT OF SMALL PLEURAL EFFUSIONS. Plan Time Spent: Greater than 30 Minutes
[2017-04-05] MEDS ORDERED: POTASSIUM CHLORIDE 10 MEQ TABLET.SA PO ONE (13:00)
[2017-04-05] MEDS ORDERED: FUROSEMIDE INJ/PF 20 MG/2 ML SDV IV ONE (13:00)
[2017-04-05 13:22] VITALS: BP 138/68
== END 2017-04-05 14:00 | disposition home health service (06) | DRG 194 ==
LOC: ER 08:09 → EH 17:14 → 4N 20:09
PROVIDERS: ADMIT Internal Medicine; ATTEND Internal Medicine
DX: J18.9 Pneumonia, unspecified organism (principal); J44.0 Chronic obstructive pulmonary disease with (acute) lower respiratory infection; E87.1 Hypo-osmolality and hyponatremia; B37.0 Candidal stomatitis; I50.32 Chronic diastolic (congestive) heart failure; I11.0 Hypertensive heart disease with heart failure; I48.91 Unspecified atrial fibrillation; J44.9 Chronic obstructive pulmonary disease, unspecified; F17.200 Nicotine dependence, unspecified, uncomplicated; E83.42 Hypomagnesemia; K21.9 Gastro-esophageal reflux disease without esophagitis; M19.90 Unspecified osteoarthritis, unspecified site; F10.10 Alcohol abuse, uncomplicated; K44.9 Diaphragmatic hernia without obstruction or gangrene; B95.2 Enterococcus as the cause of diseases classified elsewhere; B96.5 Pseudomonas (aeruginosa) (mallei) (pseudomallei) as the cause of diseases classified elsewhere; Z99.81 Dependence on supplemental oxygen; Z79.51 Long term (current) use of inhaled steroids; Z90.49 Acquired absence of other specified parts of digestive tract; Z90.710 Acquired absence of both cervix and uterus; Z82.49 Family history of ischemic heart disease and other diseases of the circulatory system; Z82.3 Family history of stroke; Z79.899 Other long term (current) drug therapy; Z88.0 Allergy status to penicillin; Z88.1 Allergy status to other antibiotic agents; Z88.8 Allergy status to other drugs, medicaments and biological substances; Z79.82 Long term (current) use of aspirin
CPT/HCPCS: 36415; 70360; 71045; 71046; 80053; 81001; 83735; 84100; 84439; 84443; 84484; 85025; 85027; 87040; 87070; 87077; 87086; 87088; 87186; 87205; 87880; 93005; 93010; 96361; 96374; 96375; 99284; G8996-GN; G8997-GN; G8998-GN; J1200; J1450; J1940; J2270; J3370; J3490; J7030; J7040; J7060; S0028; S0164

== ENCOUNTER 2017-06-07 03:36 | Emergency (ER) | payer MEDICARE, OTHER ==
[2017-06-07 04:01] VITALS: BP 111/51
== END 2017-06-07 04:40 | disposition left against medical advice (07) ==
LOC: ER 03:36
DX: Z53.21 Procedure and treatment not carried out due to patient leaving prior to being seen by health care provider (principal); R30.9 Painful micturition, unspecified

== ENCOUNTER 2017-06-14 14:16 | Emergency (ER) | payer MEDICARE, OTHER ==
--- NOTE | 2017-06-14 14:37 | ER Document Report ---
ED Dizziness/Weakness - General Chief Complaint: Weakness Stated Complaint: WEAKNESS Time Seen by Provider: 06/14/17 14:36 Notes: 81-year-old female on her way to doctor's appointment. Has been having large amounts of diarrhea and vomiting. Recent workup was reportedly unremarkable. Recent diagnosis of lung cancer. Just recently stopped smoking. No known metastasis as of yet. No history of colon resections. Patient does not have a gallbladder, appendix, uterus or ovaries. Intermittent fevers. Watery diarrhea has been constant. She felt the urge that she needed to go to the bathroom so the daughter that was driving pulled over and she went to a service station and had a large watery stool. When she went to get back in the car her legs gave out. She had no slurred speech or focal weakness. She was brought here by car. Patient was initially seen at triage by physician at triage and triage as a stroke alert. Currently she has an NIH stroke scale of 0 on my bedside exam. TRAVEL OUTSIDE OF THE [place] IN LAST 30 DAYS: No - HPI Patient complains to provider of: Near-syncope, Weakness Onset: Just prior to arrival Onset/Duration: Sudden - Related Data Allergies/Adverse Reactions: Penicillins Allergy (Severe, Verified 06/14/17 14:20) Respiratory arrest doxycycline [Doxycycline] Allergy (Intermediate, Verified 06/14/17 14:20) Jona-Tristin's Syndrome valsartan [From Diovan] Allergy (Intermediate, Verified 06/14/17 14:20) Rash levofloxacin [From Levaquin] Allergy (Verified 06/14/17 14:20) METAL Allergy (Severe, Uncoded 06/14/17 14:20) RASH Past Medical History - General Information source: Patient, Relative - Social History Smoking Status: Former Smoker Cigarette use (# per day): Yes Frequency of alcohol use: None Drug Abuse: None Family History: Arthritis, CAD, CVA, Hypertension, Malignancy - Past Medical History Cardiac Medical History: Reports: Hx Atrial Fibrillation, Hx Congestive Heart Failure, Hx Hypercholesterolemia, Hx Hypertension Pulmonary Medical History: Reports: Hx Bronchitis, Hx COPD - on continuous home oxygen/inhalers, Hx Pneumonia - Pseudomonas Endocrine Medical History: Reports: Hx Hypothyroidism Renal/ Medical History: Denies: Hx Peritoneal Dialysis GI Medical History: Reports: Hx Gastroesophageal Reflux Disease, Hx Hiatal Hernia. Denies: Hx Hepatitis Musculoskeltal Medical History: Reports Hx Arthritis Skin Medical History: Denies Hx Eczema, Denies Hx Psoriasis Traumatic Medical History: Denies: Hx Gunshot Wound, Hx Pneumothorax, Hx Traumatic Brain Injury Infectious Medical History: Denies: Hx Hepatitis, Hx HIV Past Surgical History: Reports: Hx Appendectomy, Hx Cholecystectomy, Hx Hysterectomy, Hx Oral Surgery. Denies: Hx Mastectomy, Hx Open Heart Surgery, Hx Pacemaker - Immunizations Hx Diphtheria, Pertussis, Tetanus Vaccination: No Hx Pneumococcal Vaccination: 12/31/16 Review of Systems - Review of Systems Constitutional: Malaise, Weakness. denies: Fever EENT: denies: Double vision, Difficulty swallowing, Throat swelling, Mouth pain Cardiovascular: Syncope, Dizziness, Lightheaded. denies: Chest pain, Palpitations, Heart racing Gastrointestinal: Diarrhea, Nausea, Vomiting. denies: Abdominal pain Genitourinary: denies: Burning, Dysuria, Hematuria, Urgency Musculoskeletal: denies: Back pain, Joint pain, Joint swelling, Muscle stiffness Skin: denies: Dryness, Lesions, Lumps, Rash Hematologic/Lymphatic: denies: Anemia, Blood clots, Easy bleeding, Easy bruising Neurological/Psychological: Weakness. denies: Confusion, Paralysis, Seizure, Lost consciousness, Numbness Physical Exam - Vital signs Vitals: Resp Pulse Ox 16 96 06/14/17 14:39 06/14/17 14:39 Interpretation: Normal - General General appearance: Appears well, Alert - HEENT Head: Normocephalic, Atraumatic Eyes: Normal Pupils: PERRL - Respiratory Respiratory status: No respiratory distress Chest status: Nontender Breath sounds: Normal Chest palpation: Normal - Cardiovascular Rhythm: Regular Heart sounds: Normal auscultation Murmur: No - Abdominal Inspection: Normal Distension: No distension Bowel sounds: Hyperactive Tenderness: Nontender Organomegaly: No organomegaly - Back Back: Normal, Nontender - Extremities General upper extremity: Normal inspection, Nontender, Normal color, Normal ROM , Normal temperature General lower extremity: Normal inspection, Nontender, Normal color, Normal ROM , Normal temperature, Normal weight bearing. No: Miquel's sign - Neurological Neuro grossly intact: Yes Cognition: Normal Orientation: AAOx4 [place] Coma Scale Eye Opening: Spontaneous [place] Coma Scale Verbal: Oriented [place] Coma Scale Motor: Obeys Commands [place] Coma Scale Total: 15 Speech: Normal Motor strength normal: LUE, RUE, LLE, RLE Sensory: Normal Notes: Negative pronator drift of the upper lower extremities, cerebellar function intact. Finger to nose intact bilaterally. - Psychological Associated symptoms: Normal affect, Normal mood - Skin Skin Temperature: Warm Skin Moisture: Dry Skin Color: Normal Course - Re-evaluation Re-evalutation: 06/14/17 14:47 Patient with an NIH stroke scale of [address] at [address] Head CT negative. Would likely patient had a near syncopal episode. Had recent pacemaker placement for symptomatic bradycardia. Appears to have capture at this time. Will do a compressive workup at this time and reassess. 06/14/17 18:43 Laboratory 06/14/17 06/14/17 06/14/17 14:45 14:45 14:45 WBC 8.1 RBC 4.15 Hgb 13.7 Hct 41.1 MCV 99 H MCH 32.9 MCHC 33.2 RDW 15.3 H Plt Count 232 Seg Neutrophils % 63.8 Lymphocytes % 25.0 Monocytes % 9.1 Eosinophils % 0.9 Basophils % 1.2 Absolute Neutrophils 5.2 Absolute Lymphocytes 2.0 Absolute Monocytes 0.7 Absolute Eosinophils 0.1 Absolute Basophils 0.1 PT 19.0 H INR 1.50 APTT 33.6 Sodium 132.7 L Potassium 4.5 Chloride 95 L Carbon Dioxide 30 Anion Gap 8 BUN 9 Creatinine 0.59 Est GFR ( Amer) > 60 Est GFR (Non-Af Amer) > 60 Glucose 113 H Calcium 9.0 Total Bilirubin 1.0 Direct Bilirubin 0.3 Neonat Total Bilirubin Not Reportable Neonat Direct Bilirubin Not Reportable Neonat Indirect Bili Not Reportable AST 124 H ALT 46 Alkaline Phosphatase 148 H Creatine Kinase < 20 L CK-MB (CK-2) Troponin I Total Protein 6.7 Albumin 3.6 Urine Color Urine Appearance Urine pH Ur Specific Slater Urine Protein Urine Glucose (UA) Urine Ketones Urine Blood Urine Nitrite Urine Bilirubin Urine Urobilinogen Ur Leukocyte Esterase Urine WBC (Auto) Urine RBC (Auto) Urine WBC Clumps Squamous Epi Cells Auto Amorphous Sediment Auto Urine Mucus (Auto) Urine Ascorbic Acid 06/14/17 06/14/17 14:45 17:08 WBC RBC Hgb Hct MCV MCH MCHC RDW Plt Count Seg Neutrophils % Lymphocytes % Monocytes % Eosinophils % Basophils % Absolute Neutrophils Absolute Lymphocytes Absolute Monocytes Absolute Eosinophils Absolute Basophils PT INR APTT Sodium Potassium Chloride Carbon Dioxide Anion Gap BUN Creatinine Est GFR ( Amer) Est GFR (Non-Af Amer) Glucose Calcium Total Bilirubin Direct Bilirubin Neonat Total Bilirubin Neonat Direct Bilirubin Neonat Indirect Bili AST ALT Alkaline Phosphatase Creatine Kinase CK-MB (CK-2) 0.46 Troponin I 0.013 Total Protein Albumin Urine Color YELLOW Urine Appearance CLOUDY Urine pH 7.0 Ur Specific Slater 1.011 Urine Protein 30 H Urine Glucose (UA) NEGATIVE Urine Ketones NEGATIVE Urine Blood SMALL H Urine Nitrite NEGATIVE Urine Bilirubin NEGATIVE Urine Urobilinogen NEGATIVE Ur Leukocyte Esterase LARGE H Urine WBC (Auto) >182 Urine RBC (Auto) 14 Urine WBC Clumps MANY Squamous Epi Cells Auto 3 Amorphous Sediment Auto TRACE Urine Mucus (Auto) RARE Urine Ascorbic Acid NEGATIVE Chest X-Ray 06/14/17 14:24 IMPRESSION: Obstructive lung disease, advanced. Right lower lobe pulmonary nodule Head CT 06/14/17 14:24 IMPRESSION: Minimal fluid in the right and left sphenoid sinus. No acute intracranial changes. EVIDENCE OF ACUTE STROKE: NO. Patient feels much better at this time. Is hungry. Has not had any more episodes of diarrhea here. Does have possible UTI but always has bacteria in her urine. Patient's blood pressure is elevated but not extremely elevated. Definitely not hypotensive. Patient does not want to stay in the hospital. States she has been admitted to many times and wants to go home. Will give her a dose of antibiotics here in the emergency department and discharge with close outpatient follow-up. Family members are present and are comfortable with this plan as well. - Vital Signs Vital signs: Temp Pulse Resp BP Pulse Ox 97.8 F 64 18 170/82 H 97 06/14/17 15:00 06/14/17 15:00 06/14/17 15:00 06/14/17 15:00 06/14/17 15:00 - Laboratory Result Diagrams: 06/14/17 14:45 06/14/17 14:45 Laboratory results interpreted by me: 06/14/17 06/14/17 06/14/17 14:45 14:45 14:45 MCV 99 H RDW 15.3 H PT 19.0 H Sodium 132.7 L Chloride 95 L Glucose 113 H AST 124 H Alkaline Phosphatase 148 H Creatine Kinase < 20 L Urine Protein Urine Blood Ur Leukocyte Esterase 06/14/17 17:08 MCV RDW PT Sodium Chloride Glucose AST Alkaline Phosphatase Creatine Kinase Urine Protein 30 H Urine Blood SMALL H Ur Leukocyte Esterase LARGE H - EKG Interpretation by Me Additional EKG results interpreted by me: 06/14/17 14:48 Patient has a atrial paced chest cold rate of 60. Does have some T-wave inversion in the anterior lateral leads. No significant ST segment elevation or depression. No significant change from prior with the exception of the paced rhythm. Pacemaker is new addition. Previous EKG was on 04/02. Discharge - Discharge Clinical Impression: Chronic diarrhea Urinary tract infection Qualifiers: Urinary tract infection type: site unspecified Hematuria presence: without hematuria Qualified Code(s): N39.0 - Urinary tract infection, site not specified Condition: Good Disposition: HOME, SELF-CARE Instructions: Urinary Tract Infection ([facility]), Nitrofurantoin ([facility]) Additional Instructions: Return immediately for any worsening symptoms or concerns. Please follow-up with your regular doctor soon as possible for repeat evaluation. Prescriptions: Nitrofurantoin/Nitrofuran Mac [Macrobid 100 mg Capsule] 1 tab PO BID #20 capsule Referrals: MARCIAL BARCLAY MD [Primary Care Provider] - Follow up as needed
--- NOTE | 2017-06-14 14:43 | RADIOLOGY REPORT (SQ) ---
EXAM DESCRIPTION: CT HEAD WITHOUT COMPLETED DATE/TIME: 06/14/2017 2:30 pm REASON FOR STUDY: stroke s/s COMPARISON: None. TECHNIQUE: Axial images acquired through the brain without intravenous contrast. Images reviewed wi th bone, brain and subdural windows. Additional sagittal and coronal reconstructions were generated. Images stored on PACS. All CT scanners at this facility use dose modulation, iterative reconstruction, and/or weight based d osing when appropriate to reduce radiation dose to as low as reasonably achievable (ALARA). [facility]: Dose Right [facility]: CareDose [facility]: Dose Right [facility]: Teradose 4D [facility]: Betify RADIATION DOSE: 53.2 mGy. LIMITATIONS: Streak artifact from the patient's bilateral hearing aids FINDINGS: VENTRICLES: Normal size and contour. CEREBRUM: No masses. No hemorrhage. No midline shift. No evidence for acute infarction. Normal gra y/white matter differentiation. No areas of low density in the white matter. CEREBELLUM: No masses. No hemorrhage. No alteration of density. No evidence for acute infarction. EXTRAAXIAL SPACES: No fluid collections. No masses. ORBITS AND GLOBE: No intra- or extraconal masses. Normal contour of globe without masses. CALVARIUM: No fracture. PARANASAL SINUSES: Minimal fluid in the right and left sphenoid sinus SOFT TISSUES: No mass or hematoma. OTHER: No other significant finding. IMPRESSION: Minimal fluid in the right and left sphenoid sinus. No acute intracranial changes. EVIDENCE OF ACUTE STROKE: NO. COMMENT: Pertinent findings on the imaging study reported as a CRITICAL RESULT to Dr. Knight at14:3 0 on 06/14/2017. Category of Critical Result: CT code stroke Quality ID # [id number]: Final reports with documentation of one or more dose reduction techniques (e.g., Au tomated exposure control, adjustment of the mA and/or kV according to patient size, use of iterative reconstruction technique) TECHNICAL DOCUMENTATION: JOB ID: [id number] [employer]- All Rights Reserved Reading location - IP/workstation name: [email or web address]
[2017-06-14 15:00] LABS: ABSOLUTE BASOPHILS # (AUTO) 0.1 10^3/uL (0.0-0.2); ABSOLUTE EOSINOPHILS # (AUTO) 0.1 10^3/uL (0.0-0.6); ABSOLUTE MONOCYTES (AUTO) 0.7 10^3/uL (0.1-1.4); ABSOLUTE NEUT (AUTO) 5.2 10^3/uL (1.7-8.2); BASOPHILS % (AUTO) 1.2 % (0-2); EOSINOPHILS % (AUTO) 0.9 % (0-6); HEMATOCRIT 41.1 % (36.0-47.0); HEMOGLOBIN 13.7 g/dL (12.0-15.5); MEAN CORPUSCULAR HEMOGLOBIN 32.9 pg (27.0-33.4); MEAN CORPUSCULAR HGB CONC 33.2 g/dL (32.0-36.0); MEAN CORPUSCULAR VOLUME 99 fl (80-97); MONOCYTES % (AUTO) 9.1 % (3-13); PLATELET COUNT 232 10^3/uL (150-450); RED BLOOD COUNT 4.15 10^6/uL (3.72-5.28); RED CELL DISTRIBUTION WIDTH 15.3 % (11.5-14.0); SEGMENTED NEUTROPHILS % (AUTO) 63.8 % (42-78); TOTAL CELLS COUNTED % (AUTO) 100 %; WHITE BLOOD COUNT 8.1 10^3/uL (4.0-10.5)
[2017-06-14 15:01] VITALS: BP 170/82
[2017-06-14 15:02] LABS: PARTIAL THROMBOPLASTIN TIME 33.6 SEC (23.5-35.8)
--- NOTE | 2017-06-14 15:15 | RADIOLOGY REPORT (SQ) ---
EXAM DESCRIPTION: CHEST SINGLE VIEW COMPLETED DATE/TIME: 06/14/2017 2:59 pm REASON FOR STUDY: stroke s/s COMPARISON: CT chest 01/26/2017, 09/15/2015 Chest films 04/01/2017, 04/04/2017 EXAM PARAMETERS: NUMBER OF VIEWS: One view. TECHNIQUE: Single frontal radiographic view of the chest acquired. RADIATION DOSE: NA LIMITATIONS: None. FINDINGS: LUNGS AND PLEURA: 17 mm nodule in the right lower lobe. Consider non contrasted chest CT for followup. No acute infiltrates. Lungs are hyperinflated and hyperlucent from obstructive disease. No pneumoth orax. No pleural effusions. MEDIASTINUM AND HILAR STRUCTURES: No masses. Contour normal. HEART AND VASCULAR STRUCTURES: Heart normal in size. Normal vasculature. BONES: Osteoporotic. HARDWARE: Left-sided pacemaker OTHER: No other significant finding. IMPRESSION: Obstructive lung disease, advanced. Right lower lobe pulmonary nodule TECHNICAL DOCUMENTATION: JOB ID: [id number] [employer]- All Rights Reserved Reading location - IP/workstation name: [facility]-[email or web address]
[2017-06-14 15:24] LABS: ALANINE AMINOTRANSFERASE 46 U/L (9-52); ALBUMIN 3.6 g/dL (3.5-5.0); ALKALINE PHOSPHATASE 148 U/L (38-126); ANION GAP 8 (5-19); ASPARTATE AMINO TRANSFERASE 124 U/L (14-36); BILIRUBIN,DIRECT 0.3 mg/dL (0.0-0.4); BLOOD UREA NITROGEN 9 mg/dL (7-20); CARBON DIOXIDE 30 mmol/L (22-30); CHLORIDE 95 mmol/L (98-107); GLUCOSE 113 mg/dL (75-110); POTASSIUM 4.5 mmol/L (3.6-5.0); SODIUM 132.7 mmol/L (137-145); TOTAL PROTEIN 6.7 g/dL (6.3-8.2)
[2017-06-14 15:28] LABS: CREATINE KINASE < 20 U/L (30-135)
[2017-06-14] MEDS ORDERED: NORMAL SALINE 1000 ML 1,000 ML IV ONE (15:29)
[2017-06-14 15:35] LABS: CREATINE KINASE MB 0.46 ng/mL (<4.55); TROPONIN I 0.013 ng/mL
[2017-06-14 17:37] LABS: AMORPHOUS SEDIMENT,URINE TRACE /HPF; APPEARANCE,URINE CLOUDY; BILIRUBIN,URINE NEGATIVE (NEGATIVE); COLOR,URINE YELLOW; GLUCOSE, URINE NEGATIVE (NEGATIVE); KETONES,URINE NEGATIVE (NEGATIVE); LEUKOCYTE ESTERASE,URINE LARGE (NEGATIVE); NITRITE,URINE NEGATIVE (NEGATIVE); PROTEIN,URINE 30 mg/dL (NEGATIVE); URINE SPECIFIC GRAVITY 1.011; UROBILINOGEN,URINE NEGATIVE mg/dL (<2.0)
[2017-06-14] MEDS ORDERED: NITROFURANTOIN MONOHYD/M-CRYST 100 MG CAPSULE PO ONE (18:51)
--- NOTE | 2017-06-14 23:04 | EKG REPORT ---
SEVERITY:- ABNORMAL ECG - ATRIAL-PACED COMPLEXES ABNORMAL T, CONSIDER ISCHEMIA, ANT-LAT LEADS : Confirmed by: Fei Sellers 14-Jun-2017 23:03:11
[2017-06-15] MEDS ORDERED: GENTAMICIN SULFATE/PF INJ 20 MG/2 ML VIAL IV ONE (18:51)
== END 2017-06-14 20:06 | disposition home or self-care (01) ==
LOC: ER 14:16
DX: K52.9 Noninfective gastroenteritis and colitis, unspecified (principal); N39.0 Urinary tract infection, site not specified; R53.1 Weakness; R11.10 Vomiting, unspecified; I48.91 Unspecified atrial fibrillation; I50.9 Heart failure, unspecified; E78.00 Pure hypercholesterolemia, unspecified; I11.0 Hypertensive heart disease with heart failure; J44.9 Chronic obstructive pulmonary disease, unspecified; Z88.0 Allergy status to penicillin; Z87.891 Personal history of nicotine dependence; Z99.81 Dependence on supplemental oxygen; Z90.49 Acquired absence of other specified parts of digestive tract; Z90.710 Acquired absence of both cervix and uterus; Z95.0 Presence of cardiac pacemaker
CPT/HCPCS: 93005; 99285; 96360; 36415; 87086; 82553; 82550; 85025; 85610; 85730; 87088; 80053; 81001; 84484; 87186; 71045; 70450; 93010; J7030; A9270; J8499

== ENCOUNTER 2017-06-28 10:11 | Emergency (ER) | payer MEDICARE, OTHER ==
[2017-06-28] MEDS ORDERED: NORMAL SALINE 1000 ML 1,000 ML IV ONE (10:28)
--- NOTE | 2017-06-28 10:29 | ER Document Report ---
ED Medical Screen (RME) - General Chief Complaint: Diarrhea Stated Complaint: DIARRHEA Time Seen by Provider: 06/28/17 10:28 Notes: Patient states she has had 2 months of diarrhea. She has seen her physician and given a stool sample. She states the workup was unremarkable but her diarrhea continues. She does drink alcohol daily. She denies any abdominal pain. She states that she feels very weak. TRAVEL OUTSIDE OF THE [place] IN LAST 30 DAYS: No - Related Data Allergies/Adverse Reactions: Penicillins Allergy (Severe, Verified 06/28/17 10:13) Respiratory arrest doxycycline [Doxycycline] Allergy (Intermediate, Verified 06/28/17 10:13) Jona-Tristin's Syndrome valsartan [From Diovan] Allergy (Intermediate, Verified 06/28/17 10:13) Rash levofloxacin [From Levaquin] Allergy (Verified 06/28/17 10:13) METAL Allergy (Severe, Uncoded 06/28/17 10:13) RASH Past Medical History - Social History Chew tobacco use (# tins/day): No Frequency of alcohol use: None Drug Abuse: None - Past Medical History Cardiac Medical History: Reports: Hx Atrial Fibrillation, Hx Congestive Heart Failure, Hx Hypercholesterolemia, Hx Hypertension Pulmonary Medical History: Reports: Hx Bronchitis, Hx COPD - on continuous home oxygen/inhalers, Hx Pneumonia - Pseudomonas Endocrine Medical History: Reports: Hx Hypothyroidism Renal/ Medical History: Denies: Hx Peritoneal Dialysis GI Medical History: Reports: Hx Gastroesophageal Reflux Disease, Hx Hiatal Hernia. Denies: Hx Hepatitis Musculoskeltal Medical History: Reports Hx Arthritis Skin Medical History: Denies Hx Eczema, Denies Hx Psoriasis Traumatic Medical History: Denies: Hx Gunshot Wound, Hx Pneumothorax, Hx Traumatic Brain Injury Infectious Medical History: Denies: Hx Hepatitis, Hx HIV Past Surgical History: Reports: Hx Appendectomy, Hx Cholecystectomy, Hx Hysterectomy, Hx Oral Surgery. Denies: Hx Mastectomy, Hx Open Heart Surgery, Hx Pacemaker - Immunizations Hx Diphtheria, Pertussis, Tetanus Vaccination: No History of Influenza Vaccine for 12/2016 - 05/2017 Season: No Physical Exam - Vital signs Vitals: Temp Pulse Resp BP Pulse Ox 97.9 F 80 17 140/72 H 95 06/28/17 10:17 06/28/17 10:17 06/28/17 10:17 06/28/17 10:17 06/28/17 10:17 Course - Vital Signs Vital signs: Temp Pulse Resp BP Pulse Ox 97.9 F 80 17 140/72 H 95 06/28/17 10:17 06/28/17 10:17 06/28/17 10:17 06/28/17 10:17 06/28/17 10:17
[2017-06-28 10:52] LABS: ABSOLUTE EOSINOPHILS # (AUTO) 0.1 10^3/uL (0.0-0.6); ABSOLUTE MONOCYTES (AUTO) 0.5 10^3/uL (0.1-1.4); ABSOLUTE NEUT (AUTO) 2.2 10^3/uL (1.7-8.2); BASOPHILS % (AUTO) 0.4 % (0-2); EOSINOPHILS % (AUTO) 2.6 % (0-6); HEMATOCRIT 40.3 % (36.0-47.0); HEMOGLOBIN 13.5 g/dL (12.0-15.5); LYMPHOCYTES % (AUTO) 41.1 % (13-45); MEAN CORPUSCULAR HEMOGLOBIN 32.9 pg (27.0-33.4); MEAN CORPUSCULAR HGB CONC 33.4 g/dL (32.0-36.0); MEAN CORPUSCULAR VOLUME 99 fl (80-97); MONOCYTES % (AUTO) 10.4 % (3-13); PLATELET COUNT 263 10^3/uL (150-450); RED BLOOD COUNT 4.09 10^6/uL (3.72-5.28); RED CELL DISTRIBUTION WIDTH 15.2 % (11.5-14.0); SEGMENTED NEUTROPHILS % (AUTO) 45.5 % (42-78); TOTAL CELLS COUNTED % (AUTO) 100 %; WHITE BLOOD COUNT 4.8 10^3/uL (4.0-10.5)
[2017-06-28 11:17] LABS: ALANINE AMINOTRANSFERASE 32 U/L (9-52); ALBUMIN 3.4 g/dL (3.5-5.0); ALCOHOL 54 mg/dL (NONE DETECTED); ALKALINE PHOSPHATASE 147 U/L (38-126); ANION GAP 8 (5-19); ASPARTATE AMINO TRANSFERASE 76 U/L (14-36); BILIRUBIN,DIRECT 0.4 mg/dL (0.0-0.4); BILIRUBIN,TOTAL 0.6 mg/dL (0.2-1.3); BLOOD UREA NITROGEN 9 mg/dL (7-20); CALCIUM 9.2 mg/dL (8.4-10.2); CARBON DIOXIDE 30 mmol/L (22-30); CHLORIDE 98 mmol/L (98-107); GLUCOSE 83 mg/dL (75-110); LIPASE 63.1 U/L (23-300); POTASSIUM 4.9 mmol/L (3.6-5.0); SODIUM 136.4 mmol/L (137-145); TOTAL PROTEIN 6.7 g/dL (6.3-8.2)
[2017-06-28 12:31] VITALS: BP 165/75
--- NOTE | 2017-06-28 12:57 | ER Document Report ---
ED General - General Chief Complaint: Diarrhea Stated Complaint: DIARRHEA Time Seen by Provider: 06/28/17 10:28 TRAVEL OUTSIDE OF THE [place] IN LAST 30 DAYS: No - HPI Patient complains to provider of: Diarrhea Notes: Patient coming in for ongoing diarrhea for the last 2 months. Family states was seen in the PCPs office however stool studies were performed and nothing to find as the cause of the diarrhea. Patient does drink daily. Patient denies any abdominal pain family denies any new pets or recent travel recent antibiotics abdominal surgeries. States the patient does drink a lot of orange juice with her Vodka patient resting comfortably upon my evaluation.. Family states patient has tried Imodium and Kaopectate increase her fiber increase her yogurt intake with no relief - Related Data Allergies/Adverse Reactions: Penicillins Allergy (Severe, Verified 06/28/17 10:13) Respiratory arrest doxycycline [Doxycycline] Allergy (Intermediate, Verified 06/28/17 10:13) Jona-Tristin's Syndrome valsartan [From Diovan] Allergy (Intermediate, Verified 06/28/17 10:13) Rash levofloxacin [From Levaquin] Allergy (Verified 06/28/17 10:13) METAL Allergy (Severe, Uncoded 06/28/17 10:13) RASH Past Medical History - Social History Smoking Status: Former Smoker Chew tobacco use (# tins/day): No Frequency of alcohol use: None Drug Abuse: None Family History: Arthritis, CAD, CVA, Hypertension, Malignancy Patient has suicidal ideation: No Patient has homicidal ideation: No - Past Medical History Cardiac Medical History: Reports: Hx Atrial Fibrillation, Hx Congestive Heart Failure, Hx Hypercholesterolemia, Hx Hypertension Pulmonary Medical History: Reports: Hx Bronchitis, Hx COPD - on continuous home oxygen/inhalers, Hx Pneumonia - Pseudomonas Endocrine Medical History: Reports: Hx Hypothyroidism Renal/ Medical History: Denies: Hx Peritoneal Dialysis GI Medical History: Reports: Hx Gastroesophageal Reflux Disease, Hx Hiatal Hernia. Denies: Hx Hepatitis Musculoskeltal Medical History: Reports Hx Arthritis Skin Medical History: Denies Hx Eczema, Denies Hx Psoriasis Traumatic Medical History: Denies: Hx Gunshot Wound, Hx Pneumothorax, Hx Traumatic Brain Injury Infectious Medical History: Denies: Hx Hepatitis, Hx HIV Past Surgical History: Reports: Hx Appendectomy, Hx Cholecystectomy, Hx Hysterectomy, Hx Oral Surgery. Denies: Hx Mastectomy, Hx Open Heart Surgery, Hx Pacemaker - Immunizations Hx Diphtheria, Pertussis, Tetanus Vaccination: No Hx Pneumococcal Vaccination: 12/31/16 Review of Systems - Review of Systems Constitutional: No symptoms reported EENT: No symptoms reported Cardiovascular: No symptoms reported Respiratory: No symptoms reported Gastrointestinal: Diarrhea Genitourinary: No symptoms reported Female Genitourinary: No symptoms reported Musculoskeletal: No symptoms reported Skin: No symptoms reported Hematologic/Lymphatic: No symptoms reported Neurological/Psychological: No symptoms reported Physical Exam - Vital signs Vitals: Temp Pulse Resp BP Pulse Ox 97.9 F 80 17 140/72 H 95 06/28/17 10:17 06/28/17 10:17 06/28/17 10:17 06/28/17 10:17 06/28/17 10:17 Interpretation: Normal - General General appearance: Appears well, Alert - HEENT Head: Normocephalic, Atraumatic Eyes: Normal Pupils: PERRL - Respiratory Respiratory status: No respiratory distress Chest status: Nontender Breath sounds: Normal Chest palpation: Normal - Cardiovascular Rhythm: Regular Heart sounds: Normal auscultation Murmur: No - Abdominal Inspection: Normal Distension: No distension Bowel sounds: Normal Tenderness: Nontender Organomegaly: No organomegaly - Back Back: Normal, Nontender - Extremities General upper extremity: Normal inspection, Nontender, Normal color, Normal ROM , Normal temperature General lower extremity: Normal inspection, Nontender, Normal color, Normal ROM , Normal temperature, Normal weight bearing. No: Miquel's sign - Neurological Neuro grossly intact: Yes Cognition: Normal Orientation: AAOx4 Secretary Coma Scale Eye Opening: Spontaneous Loli Coma Scale Verbal: Oriented Secretary Coma Scale Motor: Obeys Commands Loli Coma Scale Total: 15 Speech: Normal Motor strength normal: LUE, RUE, LLE, RLE Sensory: Normal - Psychological Associated symptoms: Normal affect, Normal mood - Skin Skin Temperature: Warm Skin Moisture: Dry Skin Color: Normal Course - Re-evaluation Re-evalutation: 06/28/17 14:53 The patient presents with diarrhea without signs of peritonitis or other life- threatening or serious etiology. The patient appears stable for discharge and has been instructed to return immediately if the symptoms worsen in any way, or in 8-12hr if not improved for re-evaluation. The patient has been instructed to return if the symptoms worsen or change in any way. Patient presented with a stool sample however her laboratory team refused to run these samples as they were in a medicine cup. Patient laboratory studies did not show any significant pathology will give patient the appropriate container to obtain a stool sample to return to the ER to get outpatient laboratory for culture. States understanding will discharge home - Vital Signs Vital signs: Temp Pulse Resp BP Pulse Ox 97.6 F 74 16 165/75 H 93 06/28/17 12:30 06/28/17 12:30 06/28/17 12:30 06/28/17 12:30 06/28/17 12:30 - Laboratory Result Diagrams: 06/28/17 10:35 06/28/17 10:35 Laboratory results interpreted by me: 06/28/17 06/28/17 10:35 10:35 MCV 99 H RDW 15.2 H Sodium 136.4 L AST 76 H Alkaline Phosphatase 147 H Albumin 3.4 L Discharge - Discharge Clinical Impression: Diarrhea Qualifiers: Diarrhea type: unspecified type Qualified Code(s): R19.7 - Diarrhea, unspecified Condition: Good Disposition: HOME, SELF-CARE Instructions: Diarrhea, Nonspecific ([facility]) Additional Instructions: Laboratory evaluation does not show any signs of dehydration. Please follow-up with your primary care physician return to the ER if symptoms worsen. Take all medications as prescribed. I recommend increasing the fiber in your intake to help out with the diarrhea. I would also recommend following up with your primary care physician for possible referral to a milk and cream grader if diarrhea continues. Please return with the stool sample to outpatient laboratory testing and will take approximately 48-72 hours for the stool culture to be performed. Forms: Follow-Up Laboratory Testing Referrals: MARCIAL BARCLAY MD [Primary Care Provider] - Follow up as needed
== END 2017-06-28 13:41 | disposition home or self-care (01) ==
LOC: ER 10:11
DX: R19.7 Diarrhea, unspecified (principal); I10 Essential (primary) hypertension; J44.9 Chronic obstructive pulmonary disease, unspecified; Z88.0 Allergy status to penicillin; Z88.1 Allergy status to other antibiotic agents; Z91.048 Other nonmedicinal substance allergy status; Z88.8 Allergy status to other drugs, medicaments and biological substances; Z87.891 Personal history of nicotine dependence; Z90.49 Acquired absence of other specified parts of digestive tract
CPT/HCPCS: 99284; 96360; 36415; 80307; 83690; 83735; 85025; 80053; J7030; 87493

== ENCOUNTER 2017-08-22 10:12 | Inpatient (IN) | payer MEDICARE, OTHER ==
--- NOTE | 2017-08-22 11:05 | ER Document Report ---
ED Medical Screen (RME) - General Chief Complaint: Urinary Problem Stated Complaint: BLOOD IN URINE Time Seen by Provider: 08/22/17 11:04 TRAVEL OUTSIDE OF THE [place] IN LAST 30 DAYS: No - HPI Notes: 08/22/17 11:04 Hematuria on Eliquis - Related Data Allergies/Adverse Reactions: Penicillins Allergy (Severe, Verified 08/22/17 10:14) Respiratory arrest doxycycline [Doxycycline] Allergy (Intermediate, Verified 08/22/17 10:14) Jona-Tristin's Syndrome valsartan [From Diovan] Allergy (Intermediate, Verified 08/22/17 10:14) Rash levofloxacin [From Levaquin] Allergy (Verified 08/22/17 10:14) METAL Allergy (Severe, Uncoded 06/28/17 10:13) RASH Past Medical History - Past Medical History Cardiac Medical History: Reports: Hx Atrial Fibrillation, Hx Congestive Heart Failure, Hx Hypercholesterolemia, Hx Hypertension Pulmonary Medical History: Reports: Hx Bronchitis, Hx COPD - on continuous home oxygen/inhalers, Hx Pneumonia - Pseudomonas Endocrine Medical History: Reports: Hx Hypothyroidism Renal/ Medical History: Denies: Hx Peritoneal Dialysis GI Medical History: Reports: Hx Gastroesophageal Reflux Disease, Hx Hiatal Hernia. Denies: Hx Hepatitis Musculoskeltal Medical History: Reports Hx Arthritis Skin Medical History: Denies Hx Eczema, Denies Hx Psoriasis Traumatic Medical History: Denies: Hx Gunshot Wound, Hx Pneumothorax, Hx Traumatic Brain Injury Infectious Medical History: Denies: Hx Hepatitis, Hx HIV Past Surgical History: Reports: Hx Appendectomy, Hx Cholecystectomy, Hx Hysterectomy, Hx Oral Surgery. Denies: Hx Mastectomy, Hx Open Heart Surgery, Hx Pacemaker - Immunizations Hx Diphtheria, Pertussis, Tetanus Vaccination: No History of Influenza Vaccine for 12/2016 - 05/2017 Season: No Review of Systems - Review of Systems Genitourinary: Hematuria Physical Exam - Vital signs Vitals: Temp Pulse Resp BP Pulse Ox 98.4 F 84 16 145/81 H 97 08/22/17 10:08/22/17 10:19 08/22/17 10:08/22/17 10:08/22/17 10:19 - General General appearance: Appears well In distress: None Course - Vital Signs Vital signs: Temp Pulse Resp BP Pulse Ox 98.4 F 84 16 145/81 H 97 08/22/17 10:19 08/22/17 10:19 08/22/17 10:19 08/22/17 10:19 08/22/17 10:19 Doctor's Discharge - Discharge Referrals: CLARISSA SANCHEZ, [Primary Care Provider] - Follow up as needed
[2017-08-22 11:51] LABS: ABSOLUTE BASOPHILS # (AUTO) 0.1 10^3/uL (0.0-0.2); ABSOLUTE EOSINOPHILS # (AUTO) 0.1 10^3/uL (0.0-0.6); ABSOLUTE LYMPHOCYTES (AUTO) 1.5 10^3/uL (0.5-4.7); ABSOLUTE MONOCYTES (AUTO) 0.6 10^3/uL (0.1-1.4); ABSOLUTE NEUT (AUTO) 3.2 10^3/uL (1.7-8.2); BASOPHILS % (AUTO) 1.7 % (0-2); EOSINOPHILS % (AUTO) 1.9 % (0-6); HEMATOCRIT 35.1 % (36.0-47.0); HEMOGLOBIN 11.8 g/dL (12.0-15.5); LYMPHOCYTES % (AUTO) 27.6 % (13-45); MEAN CORPUSCULAR HEMOGLOBIN 33.9 pg (27.0-33.4); MEAN CORPUSCULAR HGB CONC 33.7 g/dL (32.0-36.0); MEAN CORPUSCULAR VOLUME 101 fl (80-97); MONOCYTES % (AUTO) 11.2 % (3-13); PLATELET COUNT 271 10^3/uL (150-450); RED BLOOD COUNT 3.48 10^6/uL (3.72-5.28); RED CELL DISTRIBUTION WIDTH 15.3 % (11.5-14.0); SEGMENTED NEUTROPHILS % (AUTO) 57.6 % (42-78); TOTAL CELLS COUNTED % (AUTO) 100 %; WHITE BLOOD COUNT 5.5 10^3/uL (4.0-10.5)
[2017-08-22 11:56] LABS: INTERNATIONAL RATION (INR) 1.07; PROTHROMBIN TIME 14.5 SEC (11.4-15.4)
[2017-08-22 11:57] LABS: PARTIAL THROMBOPLASTIN TIME 33.2 SEC (23.5-35.8)
[2017-08-22 12:01] LABS: APPEARANCE,URINE TURBID; BILIRUBIN,URINE NEGATIVE (NEGATIVE); COLOR,URINE RED; GLUCOSE, URINE 50 mg/dL (NEGATIVE); KETONES,URINE NEGATIVE (NEGATIVE); LEUKOCYTE ESTERASE,URINE NEGATIVE (NEGATIVE); NITRITE,URINE NEGATIVE (NEGATIVE); PROTEIN,URINE 100 mg/dL (NEGATIVE); URINE SPECIFIC GRAVITY 1.011; UROBILINOGEN,URINE NEGATIVE mg/dL (<2.0)
[2017-08-22 12:11] LABS: ANION GAP 8 (5-19); BLOOD UREA NITROGEN 8 mg/dL (7-20); CALCIUM 8.9 mg/dL (8.4-10.2); CARBON DIOXIDE 28 mmol/L (22-30); CHLORIDE 99 mmol/L (98-107); GLUCOSE 95 mg/dL (75-110); POTASSIUM 4.6 mmol/L (3.6-5.0); SODIUM 135.4 mmol/L (137-145)
--- NOTE | 2017-08-22 14:17 | ER Document Report ---
ED GI/ - General Chief Complaint: Urinary Problem Stated Complaint: BLOOD IN URINE Time Seen by Provider: 08/22/17 11:04 Notes: 82-year-old female to the emergency department chief complaint of hematuria. Patient states that she has been urinating blood today. No significant pain. No pain in the flanks. Patient has had multiple medical problems recently. Currently on blood thinners. Recently diagnosed with atrial fibrillation. Has a pacemaker. Has had diarrhea for over 3 months. Denies any fever, chills, sweats. Some burning with urination today. TRAVEL OUTSIDE OF THE [place] IN LAST 30 DAYS: No - HPI Patient complains to provider of: Hematuria - Related Data Allergies/Adverse Reactions: Penicillins Allergy (Severe, Verified 08/22/17 16:36) Respiratory arrest doxycycline [Doxycycline] Allergy (Intermediate, Verified 08/22/17 16:36) Jona-Tristin's Syndrome valsartan [From Diovan] Allergy (Intermediate, Verified 08/22/17 16:36) Rash levofloxacin [From Levaquin] Allergy (Verified 08/22/17 16:36) METAL Allergy (Severe, Uncoded 08/22/17 16:36) RASH Past Medical History - General Information source: Patient, Relative - Social History Smoking Status: Former Smoker Chew tobacco use (# tins/day): No Frequency of alcohol use: None Drug Abuse: None Lives with: Family Family History: Arthritis, CAD, CVA, Hypertension, Malignancy Patient has suicidal ideation: No Patient has homicidal ideation: No - Past Medical History Cardiac Medical History: Reports: Hx Atrial Fibrillation, Hx Congestive Heart Failure, Hx Hypercholesterolemia, Hx Hypertension Pulmonary Medical History: Reports: Hx Bronchitis, Hx COPD - on continuous home oxygen/inhalers, Hx Pneumonia - Pseudomonas Endocrine Medical History: Reports: Hx Hypothyroidism Renal/ Medical History: Denies: Hx Peritoneal Dialysis GI Medical History: Reports: Hx Gastroesophageal Reflux Disease, Hx Hiatal Hernia. Denies: Hx Hepatitis Musculoskeltal Medical History: Reports Hx Arthritis Skin Medical History: Denies Hx Eczema, Denies Hx Psoriasis Traumatic Medical History: Denies: Hx Gunshot Wound, Hx Pneumothorax, Hx Traumatic Brain Injury Infectious Medical History: Denies: Hx Hepatitis, Hx HIV Past Surgical History: Reports: Hx Appendectomy, Hx Cholecystectomy, Hx Hysterectomy, Hx Oral Surgery. Denies: Hx Mastectomy, Hx Open Heart Surgery, Hx Pacemaker - Immunizations Hx Diphtheria, Pertussis, Tetanus Vaccination: No Hx Pneumococcal Vaccination: 12/31/16 Review of Systems - Review of Systems Constitutional: No symptoms reported EENT: No symptoms reported Cardiovascular: No symptoms reported Respiratory: No symptoms reported Gastrointestinal: No symptoms reported Genitourinary: Burning, Dysuria, Hematuria Female Genitourinary: No symptoms reported Musculoskeletal: No symptoms reported Skin: No symptoms reported Hematologic/Lymphatic: No symptoms reported Neurological/Psychological: No symptoms reported Physical Exam - Vital signs Vitals: Temp Pulse Resp BP Pulse Ox 98.4 F 84 16 145/81 H 97 08/22/17 10:19 08/22/17 10:19 08/22/17 10:19 08/22/17 10:19 08/22/17 10:19 Interpretation: Normal - General General appearance: Appears well, Alert - HEENT Head: Normocephalic, Atraumatic Eyes: Normal Pupils: PERRL - Respiratory Respiratory status: No respiratory distress Chest status: Nontender Breath sounds: Normal Chest palpation: Normal - Cardiovascular Rhythm: Regular Heart sounds: Normal auscultation Murmur: No - Abdominal Inspection: Normal Distension: No distension Bowel sounds: Normal Tenderness: Nontender Organomegaly: No organomegaly - Back Back: Normal, Nontender - Extremities General upper extremity: Normal inspection, Nontender, Normal color, Normal ROM , Normal temperature General lower extremity: Normal inspection, Nontender, Normal color, Normal ROM , Normal temperature, Normal weight bearing. No: Miquel's sign - Neurological Neuro grossly intact: Yes Cognition: Normal Orientation: AAOx4 Loli Coma Scale Eye Opening: Spontaneous Sayre Coma Scale Verbal: Oriented Loli Coma Scale Motor: Obeys Commands Loli Coma Scale Total: 15 Speech: Normal Motor strength normal: LUE, RUE, LLE, RLE Sensory: Normal - Psychological Associated symptoms: Normal affect, Normal mood - Skin Skin Temperature: Warm Skin Moisture: Dry Skin Color: Normal Course - Re-evaluation Re-evalutation: 08/22/17 14:45 Laboratory 08/22/17 08/22/17 08/22/17 11:18 11:32 11:32 WBC 5.5 RBC 3.48 L Hgb 11.8 L Hct 35.1 L MCV 101 H MCH 33.9 H MCHC 33.7 RDW 15.3 H Plt Count 271 Seg Neutrophils % 57.6 Lymphocytes % 27.6 Monocytes % 11.2 Eosinophils % 1.9 Basophils % 1.7 Absolute Neutrophils 3.2 Absolute Lymphocytes 1.5 Absolute Monocytes 0.6 Absolute Eosinophils 0.1 Absolute Basophils 0.1 PT 14.5 INR 1.07 APTT 33.2 Sodium Potassium Chloride Carbon Dioxide Anion Gap BUN Creatinine Est GFR ( Amer) Est GFR (Non-Af Amer) Glucose Calcium Urine Color RED Urine Appearance TURBID Urine pH 8.0 Ur Specific [place] 1.011 Urine Protein 100 H Urine Glucose (UA) 50 H Urine Ketones NEGATIVE Urine Blood LARGE H Urine Nitrite NEGATIVE Urine Bilirubin NEGATIVE Urine Urobilinogen NEGATIVE Ur Leukocyte Esterase NEGATIVE Urine WBC (Auto) >182 Urine RBC (Auto) >182 Urine Ascorbic Acid NEGATIVE 08/22/17 11:32 WBC RBC Hgb Hct MCV MCH MCHC RDW Plt Count Seg Neutrophils % Lymphocytes % Monocytes % Eosinophils % Basophils % Absolute Neutrophils Absolute Lymphocytes Absolute Monocytes Absolute Eosinophils Absolute Basophils PT INR APTT Sodium 135.4 L Potassium 4.6 Chloride 99 Carbon Dioxide 28 Anion Gap 8 BUN 8 Creatinine 0.54 Est GFR ( Amer) > 60 Est GFR (Non-Af Amer) > 60 Glucose 95 Calcium 8.9 Urine Color Urine Appearance Urine pH Ur Specific [place] Urine Protein Urine Glucose (UA) Urine Ketones Urine Blood Urine Nitrite Urine Bilirubin Urine Urobilinogen Ur Leukocyte Esterase Urine WBC (Auto) Urine RBC (Auto) Urine Ascorbic Acid At this time patient's labs are fairly unremarkable. Has large amount of WBC as well as RBC in urine. Could represent a hemorrhagic cystitis. I did look back to the records over the last couple years and I do not see a CT of the abdomen or pelvis. Creatinine is within normal limits. At this time we will do a CT scan to evaluate the kidneys to see if there is any concern for a hemorrhagic cyst or other issues in the kidneys and bladder. She is comfortable with this plan. Also I will irrigate the latter as well as give some IV antibiotics for possible hemorrhagic cystitis. 08/22/17 18:23 Patient still having large amount of hematuria. Consulted with urology after CT results showed suspicious lesion on the right kidney. Dr. Osei recommends continuous bladder irrigation, admit to the hospital for repeat CBC and he will see her in the morning at around 8:00. Family is comfortable with this plan. Patient resting comfortably at this time. Will consult for admission. - Vital Signs Vital signs: Temp Pulse Resp BP Pulse Ox 97.9 F 84 16 161/88 H 99 08/22/17 17:06 08/22/17 10:19 08/22/17 19:30 08/22/17 19:30 08/22/17 19:30 - Laboratory Result Diagrams: 08/22/17 11:32 08/22/17 11:32 Laboratory results interpreted by me: 08/22/17 08/22/17 08/22/17 11:18 11:32 11:32 RBC 3.48 L Hgb 11.8 L Hct 35.1 L MCV 101 H MCH 33.9 H RDW 15.3 H Sodium 135.4 L Urine Protein 100 H Urine Glucose (UA) 50 H Urine Blood LARGE H Discharge - Discharge Clinical Impression: Hematuria Qualifiers: Hematuria type: unspecified type Qualified Code(s): R31.9 - Hematuria, unspecified Condition: Good Disposition: ADMITTED INPATIENT [facility] Admitted: Telemetry
[2017-08-22] MEDS ORDERED: CEFTRIAXONE 1 GM/D5W RTU 1 GM/50 ML RTUPB IV ONE (14:40)
[2017-08-22] MEDS ORDERED: FENTANYL CITRATE INJ/PF 100 MCG/2 ML AMPUL IV ONE (16:15)
--- NOTE | 2017-08-22 16:20 | RADIOLOGY REPORT (SQ) ---
EXAM DESCRIPTION: CT ABD/PELVIS WITH IV ONLY COMPLETED DATE/TIME: 08/22/2017 3:55 pm REASON FOR STUDY: flank pain and hematuria COMPARISON: CT chest 01/26/2017, 09/15/2015 CT abdomen pelvis 09/01/2007 TECHNIQUE: CT scan of the abdomen and pelvis performed using helical scanning technique with dynamic intravenous contrast injection. No oral contrast. Images reviewed with lung, soft tissue, and bone windows. Reconstructed coronal and sagittal MPR images reviewed. Delayed images for evaluation of the urinary system also acquired. All images stored on PACS. All CT scanners at this facility use dose modulation, iterative reconstruction, and/or weight based d osing when appropriate to reduce radiation dose to as low as reasonably achievable (ALARA). [facility]: Dose Right [facility]: CareDose [facility]: Dose Right [facility]: Teradose 4D [facility]: Infoblox CONTRAST TYPE AND DOSE: contrast/concentration: Isovue 370.00 mg/ml; Total Contrast Delivered: 50.0 ml; Total Saline Delivered: 40.0 ml RENAL FUNCTION: Creatinine 0.54 RADIATION DOSE: CT Rad equipment meets quality standard of care and radiation dose reduction techniq ues were employed. CTDIvol: 4.8 mGy. DLP: 476 mGy-cm.. LIMITATIONS: None. FINDINGS: LOWER CHEST: There is scarring in the right lung base, similar compared to prior CT chest exams. Lung bases are hyperlucent from obstructive disease LIVER: Normal size. No masses. Diffuse low attenuation from fatty infiltration. There is air seen in nondilated bile ducts left lobe liver likely post sphincterotomy. SPLEEN: Normal size. No focal lesions. PANCREAS: No masses. No significant calcifications. No adjacent inflammation or peripancreatic fluid collections. Pancreatic duct not dilated. GALLBLADDER: Surgically absent ADRENAL GLANDS: Bilateral low attenuation adrenal adenomas are unchanged from 09/01/2007. Adenoma on the right adrenal is 2.5 cm in diameter, on the left 1.8 cm in diameter. RIGHT KIDNEY AND URETER: There is a filling defect in the right upper pole renal pelvis which enhance s postcontrast, and measures about 2 x 2 cm in size worrisome for a urothelial tumor. No renal corti goldie masses. 5 mm cyst right upper pole kidney. No significant calcifications. No hydronephrosis or hydroureter. LEFT KIDNEY AND URETER: No solid masses. No significant calcifications. No hydronephrosis or hydr oureter. AORTA AND VESSELS: Distal thoracic aorta is 3.3 cm in diameter. Distal abdominal aorta just above th e iliac bifurcation 3.1 x 2.3 cm. There is very heavy visceral artery atherosclerotic calcification, with high-grade stenosis of the celiac artery, bilateral proximal renal arteries and bilateral commo n iliac arteries. The SMA origin is heavily calcified and occluded, best shown on sagittal image 46. There is downstream enhancement of the SMA, likely due to collaterals. RETROPERITONEUM: No retroperitoneal adenopathy, hemorrhage or masses. BOWEL AND PERITONEAL CAVITY: No CT evidence of bowel obstruction. No free intraperitoneal air or flu id. Very mild chronic appearing wall thickening along the ascending colon and hepatic flexure of col on without surrounding inflammatory change in the adjacent mesenteric fat. APPENDIX: Surgically absent PELVIS: No mass. No free fluid. Normal bladder. Post hysterectomy. ABDOMINAL WALL: No masses. No hernias. BONES: No significant or acute findings. OTHER: No other significant finding. 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 TECHNICAL DOCUMENTATION: JOB ID: [id number] Quality ID # [id number]: Final reports with documentation of one or more dose reduction techniques (e.g., Au tomated exposure control, adjustment of the mA and/or kV according to patient size, use of iterative reconstruction technique) 2010 [employer]- All Rights Reserved Reading location - IP/workstation name: [email or web address]
[2017-08-22] MEDS ORDERED: ONDANSETRON HCL INJ/PF 4 MG/2 ML SDV IV PRN (19:35)
[2017-08-22 19:55] LABS: HEMATOCRIT 34.8 % (36.0-47.0); MEAN CORPUSCULAR HEMOGLOBIN 34.5 pg (27.0-33.4); MEAN CORPUSCULAR HGB CONC 34.6 g/dL (32.0-36.0); MEAN CORPUSCULAR VOLUME 100 fl (80-97); PLATELET COUNT 234 10^3/uL (150-450); RED BLOOD COUNT 3.48 10^6/uL (3.72-5.28); RED CELL DISTRIBUTION WIDTH 15.1 % (11.5-14.0); WHITE BLOOD COUNT 4.9 10^3/uL (4.0-10.5)
--- NOTE | 2017-08-22 20:02 | PDOC H&P ---
History of Present Illness Admission Date/PCP: 08/22/17 18:34 History of Present Illness: FREDI WHALEN is a 82 year old female patient with multiple comorbidities including COPD oxygen dependent , hypothyroidism, HTN, HLD, CHF and recently diagnosed with atrial fibrillation status post pacemaker placement. She presented this with 1 day history of gross hematuria. The hematuria is painless associated flank or lower abdominal pain. Patient denies trauma to her flanks. She denies fever, cough, chest pain, diaphoresis, nausea or vomiting but patient endorses 4 months history of chronic watery diarrhea. Her CT scan of the abdomen reported as soft tissue filling defect in the upper right renal pelvis worrisome for urothelial tumor. Urology is consulted by ER attending and she will be seen by him tomorrow morning. Past Medical History Cardiac Medical History: Reports: Atrial Fibrillation, Congestive Heart Failure , Hyperlipidema, Hypertension Pulmonary Medical History: Reports: Bronchitis, Chronic Obstructive Pulmonary Disease (COPD) - on continuous home oxygen/inhalers, Pneumonia - Pseudomonas Endocrine Medical History: Reports: Hypothyroidism GI Medical History: Reports: Gastroesophageal Reflux Disease, Hiatal Hernia Denies: Hepatitis Musculoskeltal Medical History: Reports: Arthritis Skin Medical History: Denies: Eczema, Psoriasis Traumatic Medical History: Denies: Gunshot Wound, Pneumothorax, Traumatic Brain Injury Hematology: Denies: Anemia, Sickle Cell Disease Infectious Medical History: Denies: HIV Past Surgical History Past Surgical History: Reports: Appendectomy, Cholecystectomy, Hysterectomy Denies: Amputation, Mastectomy, Pacemaker Social History Lives with: Family Smoking Status: Former Smoker Frequency of Alcohol Use: Occasional Hx Recreational Drug Use: No Drugs: None Hx Prescription Drug Abuse: No - Advance Directive Resuscitation Status: Full Code Family History Family History: Arthritis, CAD, CVA, Hypertension, Malignancy Parental Family History Reviewed: Yes Children Family History Reviewed: Yes Sibling(s) Family History Reviewed.: Yes Medication/Allergy Home Medications: Albuterol Sulfate [Proair HFA] 1 puff IH Q4HP PRN 04/01/17 Apixaban [Eliquis 5 mg Tablet] 5 mg PO Q12 04/01/17 Atorvastatin Calcium [Lipitor 10 mg Tablet] 10 mg PO QPM 04/01/17 Diltiazem HCl [Diltiazem 24Hr Cd] 120 mg PO DAILY 04/01/17 Ergocalciferol (Vitamin D2) [Vitamin D2] 50,000 unit PO MEADOWS@1000 04/01/17 Fluticasone/Vilanterol [Breo Ellipta 100-25 Mcg INH] 1 puff IH DAILY 04/01/17 Levothyroxine Sodium [Synthroid] 88 mcg PO DAILY 04/01/17 Montelukast Sodium [Singulair 10 mg Tablet] 10 mg PO DAILY 04/01/17 Multivitamin [Multivitamins] 1 each PO DAILY 04/01/17 Nicotine [Nicoderm 21 mg/24 Hr Transderm Patch] 1 patch TD DAILY 04/01/17 Sertraline HCl [Zoloft 50 mg Tablet] 25 mg PO DAILY 04/01/17 Sotalol HCl [Sotalol] 40 mg PO Q12 04/01/17 Tiotropium [place] [Spiriva Respimat] 2 puff IH QAM 04/01/17 Albuterol Sulfate [Proair HFA Inhalation Aerosol 8.5 gm MDI] 1 puff IH Q4HP PRN #1 hfa.aer.ad 04/05/17 Fluconazole [Diflucan 100 mg Tablet] 100 mg PO QHS #7 tablet 04/05/17 Levofloxacin [Levaquin 500 mg Tablet] 500 mg PO DAILY #10 tablet 04/05/17 Magnesium Oxide [Magnesium] 400 mg PO BID #10 capsule 04/05/17 Nystatin 100,000 unit PO Q6H #300 ml 04/05/17 Potassium Chloride 40 meq PO DAILY #3 ml 04/05/17 Nitrofurantoin/Nitrofuran Mac [Macrobid 100 mg Capsule] 1 tab PO BID #20 capsule 06/14/17 Allergies/Adverse Reactions: Penicillins Allergy (Severe, Verified 08/22/17 16:36) Respiratory arrest doxycycline [Doxycycline] Allergy (Intermediate, Verified 08/22/17 16:36) Jona-Tristin's Syndrome valsartan [From Diovan] Allergy (Intermediate, Verified 08/22/17 16:36) Rash levofloxacin [From Levaquin] Allergy (Verified 08/22/17 16:36) METAL Allergy (Severe, Uncoded 08/22/17 16:36) RASH Review of Systems Constitutional: ABSENT: chills, fever(s), headache(s), weight gain, weight loss Eyes: ABSENT: visual disturbances Cardiovascular: ABSENT: chest pain, dyspnea on exertion, edema, orthropnea, palpitations Respiratory: ABSENT: cough, hemoptysis Gastrointestinal: PRESENT: diarrhea. ABSENT: abdominal pain, constipation, hematemesis, hematochezia, nausea, vomiting Genitourinary: PRESENT: hematuria Neurological: ABSENT: abnormal gait, abnormal speech, confusion, dizziness, focal weakness, syncope Physical Exam Vital Signs: Temp Pulse Resp BP Pulse Ox 97.9 F 84 16 161/88 H 99 08/22/17 17:06 08/22/17 10:19 08/22/17 19:30 08/22/17 19:30 08/22/17 19:30 General appearance: PRESENT: thin, other - Well-nourished Head exam: PRESENT: atraumatic, normocephalic Neck exam: ABSENT: carotid bruit, JVD, lymphadenopathy, thyromegaly Respiratory exam: PRESENT: clear to auscultation eliel. ABSENT: rales, rhonchi, wheezes Cardiovascular exam: PRESENT: irregular rhythm GI/Abdominal exam: PRESENT: normal bowel sounds, soft. 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 Assessment & Plan - Diagnosis (1) Gross hematuria Is this a current diagnosis for this admission?: Yes Plan: The source of the hematuria is most probably a tumor at right renal pelvis per CT scan report. Patient has been on continuous bladder irrigation. And she has been started also on ceftriaxone since urinalysis was indicative of UTI. Urology consulted for definitive management. (2) COPD (chronic obstructive pulmonary disease) Qualifiers: Emphysema type: unspecified Is this a current diagnosis for this admission?: Yes Plan: As needed bronchodilator and keep her on supplemental oxygen. (3) Hypertension Qualifiers: Hypertension type: essential hypertension Qualified Code(s): I10 - Essential (primary) hypertension Is this a current diagnosis for this admission?: Yes Plan: Continue her home medication (4) Hyperlipidemia Qualifiers: Hyperlipidemia type: unspecified Qualified Code(s): E78.5 - Hyperlipidemia , unspecified Is this a current diagnosis for this admission?: Yes Plan: Continue home medications. (5) CHF (congestive heart failure) Qualifiers: Heart failure chronicity: unspecified Is this a current diagnosis for this admission?: Yes Plan: Compensated (6) Severe malnutrition Is this a current diagnosis for this admission?: Yes Plan: Nutritional support.
[2017-08-22] MEDS ORDERED: LEVOTHYROXINE SODIUM 0.088 MG TABLET PO ONE (20:30)
[2017-08-22] MEDS: IPRATROPIUM/ALBUTEROL 0.5-2.5 MG/3 ML AMPUL NEB SCH (21:07)
[2017-08-22] MEDS ORDERED: DILTIAZEM HCL 120 MG CAP.SR.24H PO SCH (22:00)
[2017-08-22] MEDS: OXYCODONE-ACETAMINOPHEN 5-325 MG TABLET PO PRN (22:33)
[2017-08-23] MEDS: IPRATROPIUM/ALBUTEROL 0.5-2.5 MG/3 ML AMPUL NEB SCH ×2 (02:27→08:57)
[2017-08-23] MEDS: LANSOPRAZOLE 30 MG TAB.RAP.DR PO SCH (06:52)
[2017-08-23] MEDS: OXYCODONE-ACETAMINOPHEN 5-325 MG TABLET PO PRN (06:52)
[2017-08-23 06:57] LABS: ABSOLUTE BASOPHILS # (AUTO) 0.1 10^3/uL (0.0-0.2); ABSOLUTE EOSINOPHILS # (AUTO) 0.1 10^3/uL (0.0-0.6); ABSOLUTE LYMPHOCYTES (AUTO) 1.2 10^3/uL (0.5-4.7); ABSOLUTE MONOCYTES (AUTO) 0.6 10^3/uL (0.1-1.4); ABSOLUTE NEUT (AUTO) 2.2 10^3/uL (1.7-8.2); EOSINOPHILS % (AUTO) 2.1 % (0-6); HEMOGLOBIN 11.2 g/dL (12.0-15.5); MEAN CORPUSCULAR VOLUME 100 fl (80-97); PLATELET COUNT 213 10^3/uL (150-450); RED CELL DISTRIBUTION WIDTH 15.4 % (11.5-14.0); SEGMENTED NEUTROPHILS % (AUTO) 52.9 % (42-78); TOTAL CELLS COUNTED % (AUTO) 100 %; WHITE BLOOD COUNT 4.2 10^3/uL (4.0-10.5)
[2017-08-23 07:10] LABS: ANION GAP 6 (5-19); BLOOD UREA NITROGEN 8 mg/dL (7-20); CALCIUM 8.7 mg/dL (8.4-10.2); CARBON DIOXIDE 28 mmol/L (22-30); CHLORIDE 103 mmol/L (98-107); GLUCOSE 81 mg/dL (75-110); POTASSIUM 4.1 mmol/L (3.6-5.0); SODIUM 136.5 mmol/L (137-145)
--- NOTE | 2017-08-23 08:44 | PDOC CONSULTATION ---
Consultation Consult Date: 08/23/17 Consult reason:: right renal pelvic tumor;hematuria History of Present Illness Admission Date/PCP: 08/22/17 18:34 08/22/2017 Patient complains of: gross hematuria History of Present Illness: LUCRETIA WHALEN is a 82 year old female with a 24 hour hx of gross hematuria. she has smoked most of her adult life. She stopped smoking in [facility] according to her daughter, who was present at the bedside when I interviewed the patient. 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 She was recently started on Eliquis for AF. She had a CTA of her chest and abdomen in 2016 that did not show a tumor in her right kidney. She has had ill defined right back pain over the past month or so according to her daughter. Past Medical History Cardiac Medical History: Reports: Atrial Fibrillation, Congestive Heart Failure , Hyperlipidema, Hypertension Pulmonary Medical History: Reports: Bronchitis, Chronic Obstructive Pulmonary Disease (COPD) - on continuous home oxygen/inhalers, Pneumonia - Pseudomonas Endocrine Medical History: Reports: Hypothyroidism GI Medical History: Reports: Gastroesophageal Reflux Disease, Hiatal Hernia Denies: Hepatitis Musculoskeltal Medical History: Reports: Arthritis Skin Medical History: Denies: Eczema, Psoriasis Psychiatric Medical History: Denies: Depression Traumatic Medical History: Denies: Gunshot Wound, Pneumothorax, Traumatic Brain Injury Hematology: Denies: Anemia, Sickle Cell Disease Infectious Medical History: Denies: HIV Past Surgical History Past Surgical History: Reports: Appendectomy, Cholecystectomy, Hysterectomy Denies: Amputation, Mastectomy, Pacemaker Social History Lives with: Family Smoking Status: Former Smoker Frequency of Alcohol Use: Occasional Hx Recreational Drug Use: No Drugs: None Hx Prescription Drug Abuse: No - Advance Directive Resuscitation Status: Full Code Family History Family History: Arthritis, CAD, CVA, Hypertension, Malignancy Parental Family History Reviewed: Yes Children Family History Reviewed: Yes Sibling(s) Family History Reviewed.: Yes Medication/Allergy Home Medications: Atorvastatin Calcium [Lipitor 10 mg Tablet] 10 mg PO QPM 04/01/17 Ergocalciferol (Vitamin D2) [Vitamin D2] 50,000 unit PO MEADOWS@1000 04/01/17 Sertraline HCl [Zoloft 50 mg Tablet] 25 mg PO DAILY 04/01/17 Apixaban [Eliquis 5 mg Tablet] 5 mg PO Q12 08/22/17 Diltiazem HCl [Cardizem Cd 120 mg Capsule] 120 mg PO DAILY 08/22/17 Levothyroxine Sodium [Synthroid 0.075 mg Tablet] 0.075 mg PO Q6AM 08/22/17 Omeprazole 40 mg PO DAILY 08/22/17 Sotalol HCl [Sotalol] 40 mg PO Q12 08/22/17 Tiotropium Br/Olodaterol HCl [Stiolto Respimat Inhal [place]] 2 puff IH DAILY 02/27 Allergies/Adverse Reactions: Penicillins Allergy (Severe, Verified 08/22/17 16:36) Respiratory arrest doxycycline [Doxycycline] Allergy (Intermediate, Verified 08/22/17 16:36) Jona-Tristin's Syndrome valsartan [From Diovan] Allergy (Intermediate, Verified 08/22/17 16:36) Rash levofloxacin [From Levaquin] Allergy (Verified 08/22/17 16:36) METAL Allergy (Severe, Uncoded 08/22/17 16:36) RASH Physical Exam Vital Signs: Temp Pulse Resp BP Pulse Ox 97.4 F 77 22 H 153/84 H 98 08/22/17 23:36 08/23/17 07:00 08/22/17 23:36 08/22/17 23:36 08/22/17 23:36 Intake & Output 08/22/17 08/23/17 08/24/17 06:59 06:59 06:59 Intake Total 4500 Output Total 7610 Balance -3110 Weight 46.5 kg General appearance: PRESENT: no acute distress, hard of hearing, thin Head exam: PRESENT: atraumatic Eye exam: PRESENT: conjunctiva pale, PERRLA Ear exam: PRESENT: other - hard of hearing, no lesions noted on external ears Mouth exam: PRESENT: moist, tongue midline Throat exam: PRESENT: other - trachea is midline, no JVD Respiratory exam: PRESENT: clear to auscultation eliel, decreased breath sounds, unlabored Cardiovascular exam: PRESENT: irregular rhythm, other - no murmur noted GI/Abdominal exam: PRESENT: other - soft, no masses or tenderness Extremities exam: PRESENT: full ROM, other - ecchmosis of upper extremities, no edema Musculoskeletal exam: PRESENT: full ROM Neurological exam: PRESENT: alert, oriented to person, oriented to place, oriented to time, oriented to situation Psychiatric exam: PRESENT: appropriate affect, normal mood - no cyanosis, ecchymosis upper extremities. Results Laboratory Results: 08/23/17 06:36 08/23/17 06:36 08/22/17 08/22/17 08/23/17 18:40 19:46 06:36 WBC 4.9 4.2 RBC 3.48 L 3.30 L Hgb 12.0 11.2 L Hct 34.8 L 33.0 L MCV 100 H 100 H MCH 34.5 H 34.0 H MCHC 34.6 34.0 RDW 15.1 H 15.4 H Plt Count 234 213 Seg Neutrophils % 52.9 Lymphocytes % 29.0 Monocytes % 14.0 H Eosinophils % 2.1 Basophils % 2.0 Absolute Neutrophils 2.2 Absolute Lymphocytes 1.2 Absolute Monocytes 0.6 Absolute Eosinophils 0.1 Absolute Basophils 0.1 Sodium Potassium Chloride Carbon Dioxide Anion Gap BUN Creatinine Est GFR ( Amer) Est GFR (Non-Af Amer) Glucose Calcium Magnesium Blood Type O POSITIVE Antibody Screen NEGATIVE 08/23/17 06:36 WBC RBC Hgb Hct MCV MCH MCHC RDW Plt Count Seg Neutrophils % Lymphocytes % Monocytes % Eosinophils % Basophils % Absolute Neutrophils Absolute Lymphocytes Absolute Monocytes Absolute Eosinophils Absolute Basophils Sodium 136.5 L Potassium 4.1 Chloride 103 Carbon Dioxide 28 Anion Gap 6 BUN 8 Creatinine 0.49 L Est GFR ( Amer) > 60 Est GFR (Non-Af Amer) > 60 Glucose 81 Calcium 8.7 Magnesium 1.7 Blood Type Antibody Screen Impressions: Abdomen/Pelvis CT 08/22/17 14:44 IMPRESSION: Soft tissue filling defect in the upper right renal pelvis 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 Assessment & Plan - Diagnosis (1) Neoplasm of renal pelvis Is this a current diagnosis for this admission?: Yes (2) Gross hematuria Is this a current diagnosis for this admission?: Yes - Plan Summary Plan Summary: I discussed treatment options with Lucretia and her daughter. I explained that I am a locum physician and that I will be here through 08/25/2017, but will not be back until September 18. I recommended cysto, right retrograde, right ureteroscopy with biopsy and laser ablation of her right renal tumor and insertion of a right ureteral stent that will remain indwelling for three months. Potential complications that were discussed included but were not limited to bleeding, infection, failure to cure cancer, need for additoinal surgery, injury to ureter, injury to kidney. I offered to refer her to a urologist in [place], [place] to perform this surgery. She wants me to [facility]. I will hold her Eliquis and ask anesthesia to see patient to make sure they are ok with giving her anesthesia for this procedure.
[2017-08-23] MEDS ORDERED: CEFTRIAXONE 1 GM/D5W RTU 1 GM/50 ML RTUPB IV SCH (10:00)
[2017-08-23] MEDS: DOCUSATE SODIUM 100 MG CAPSULE PO SCH ×2 (10:13→18:10)
[2017-08-23] MEDS: LACTOBACILLUS ACIDOPHILUS 250 MG TAB PO SCH ×2 (10:14→18:10)
[2017-08-23] MEDS: MAGNESIUM OXIDE 400 MG TABLET PO SCH (10:14)
[2017-08-23] MEDS: DILTIAZEM HCL 120 MG CAP.SR.24H PO SCH (10:14)
[2017-08-23] MEDS: CEFTRIAXONE SODIUM 1,000 MG in DEXTROSE 5%-WATER 50 ML IV SCH (10:15)
[2017-08-23] MEDS: SERTRALINE HCL 50 MG TABLET PO SCH (10:15)
[2017-08-23] MEDS ORDERED: LEVALBUTEROL HCL NEB 0.63 MG/3 ML AMPUL NEB PRN (12:32)
--- NOTE | 2017-08-23 12:34 | PDOC PROGRESS REPORT ---
Subjective Progress Note for:: 08/23/17 Subjective:: The patient is an 82-year-old female with past medical history of COPD on home oxygen Hypothyroidism Hypertension Hyperlipidemia Congestive heart failure Atrial fibrillation recently started on sotalol and Eliquis. Pacemaker She presented to the hospital on August 22 with a 1 day history of gross hematuria with no associated pain fever. CAT scan of the abdomen showed a right upper renal pelvis mass. She was evaluated by the urology. Eliquis has been on hold. The plan is for a cystoscopy followed by biopsy laser ablation and ureteral stent placement tomorrow. No complaints at present. Patient requests something to help her sleep at night. Reason For Visit: GROSS HEMATURIA Physical Exam Vital Signs: Temp Pulse Resp BP Pulse Ox 97.6 F 88 17 141/83 H 97 08/23/17 11:32 08/23/17 11:32 08/23/17 11:32 08/23/17 11:32 08/23/17 11:32 Intake & Output 08/22/17 08/23/17 08/24/17 06:59 06:59 06:59 Intake Total 4500 Output Total 7610 Balance -3110 Weight 46.5 kg General appearance: PRESENT: no acute distress Head exam: PRESENT: normocephalic Eye exam: ABSENT: scleral icterus Ear exam: PRESENT: normal external ear exam Mouth exam: PRESENT: moist Neck exam: ABSENT: tracheal deviation Respiratory exam: PRESENT: symmetrical, unlabored. ABSENT: crackles Cardiovascular exam: PRESENT: RRR GI/Abdominal exam: PRESENT: normal bowel sounds, soft. ABSENT: tenderness Rectal exam: PRESENT: deferred Gentrourinary exam: PRESENT: indwelling catheter Extremities exam: ABSENT: pedal edema Neurological exam: PRESENT: alert, awake, oriented to person, oriented to place , oriented to time, oriented to situation Psychiatric exam: PRESENT: appropriate affect Results Laboratory Results: 08/23/17 06:36 08/23/17 06:36 08/22/17 08/22/17 08/23/17 18:40 19:46 06:36 WBC 4.9 4.2 RBC 3.48 L 3.30 L Hgb 12.0 11.2 L Hct 34.8 L 33.0 L MCV 100 H 100 H MCH 34.5 H 34.0 H MCHC 34.6 34.0 RDW 15.1 H 15.4 H Plt Count 234 213 Seg Neutrophils % 52.9 Lymphocytes % 29.0 Monocytes % 14.0 H Eosinophils % 2.1 Basophils % 2.0 Absolute Neutrophils 2.2 Absolute Lymphocytes 1.2 Absolute Monocytes 0.6 Absolute Eosinophils 0.1 Absolute Basophils 0.1 Sodium Potassium Chloride Carbon Dioxide Anion Gap BUN Creatinine Est GFR ( Amer) Est GFR (Non-Af Amer) Glucose Calcium Magnesium Blood Type O POSITIVE Antibody Screen NEGATIVE 08/23/17 06:36 WBC RBC Hgb Hct MCV MCH MCHC RDW Plt Count Seg Neutrophils % Lymphocytes % Monocytes % Eosinophils % Basophils % Absolute Neutrophils Absolute Lymphocytes Absolute Monocytes Absolute Eosinophils Absolute Basophils Sodium 136.5 L Potassium 4.1 Chloride 103 Carbon Dioxide 28 Anion Gap 6 BUN 8 Creatinine 0.49 L Est GFR ( Amer) > 60 Est GFR (Non-Af Amer) > 60 Glucose 81 Calcium 8.7 Magnesium 1.7 Blood Type Antibody Screen Impressions: Abdomen/Pelvis CT 08/22/17 14:44 IMPRESSION: Soft tissue filling defect in the upper right renal pelvis 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 Assessment & Plan - Diagnosis (1) Gross hematuria Is this a current diagnosis for this admission?: Yes Plan: Management per urology service. Eliquis on hold. (2) COPD (chronic obstructive pulmonary disease) Qualifiers: Emphysema type: unspecified Is this a current diagnosis for this admission?: Yes Plan: Stable. Nebs as needed. Continue Spiriva. (3) Hyperlipidemia Qualifiers: Hyperlipidemia type: unspecified Qualified Code(s): E78.5 - Hyperlipidemia , unspecified Is this a current diagnosis for this admission?: Yes Plan: On atorvastatin. (4) Hypertension Qualifiers: Hypertension type: essential hypertension Qualified Code(s): I10 - Essential (primary) hypertension Is this a current diagnosis for this admission?: Yes Plan: Stable. Continue outpatient meds. (5) Neoplasm of renal pelvis Is this a current diagnosis for this admission?: Yes Plan: Plan for cystoscopy and biopsy on August 24. (6) Atrial fibrillation Qualifiers: Atrial fibrillation type: chronic Qualified Code(s): I48.2 - Chronic atrial fibrillation Is this a current diagnosis for this admission?: Yes Plan: Eliquis on hold. Currently in sinus rhythm. Continue outpatient medications. (7) Chronic diastolic CHF (congestive heart failure) Is this a current diagnosis for this admission?: Yes Plan: Not in acute CHF. Watch for signs of fluid overload. (8) Depression Is this a current diagnosis for this admission?: Yes Plan: Continue Zoloft (9) Hypothyroidism Is this a current diagnosis for this admission?: Yes Plan: Continue Synthroid. (10) Insomnia Is this a current diagnosis for this admission?: Yes Plan: Temazepam at bedtime - Time Time Spent with patient: 35 or more minutes
--- NOTE | 2017-08-23 13:16 | EKG REPORT ---
SEVERITY:- ABNORMAL ECG - SINUS RHYTHM MULTIPLE ATRIAL PREMATURE COMPLEXES ABNORMAL T, CONSIDER ISCHEMIA, ANT-LAT LEADS : Confirmed by: Saul Reeder MD 23-Aug-2017 13:16:02
[2017-08-23] MEDS ORDERED: SOTALOL HCL 80 MG TABLET PO ONE (13:30)
[2017-08-23] MEDS: ATORVASTATIN CALCIUM 10 MG TABLET PO SCH (18:10)
[2017-08-23] MEDS: TEMAZEPAM 15 MG CAPSULE PO SCH (21:54)
[2017-08-23] MEDS: SOTALOL HCL 80 MG TABLET PO SCH (21:55)
[2017-08-24] MEDS: LANSOPRAZOLE 30 MG TAB.RAP.DR PO SCH (04:49)
[2017-08-24] MEDS: LEVOTHYROXINE SODIUM 0.075 MG TABLET PO SCH (04:49)
[2017-08-24 05:19] LABS: HEMATOCRIT 31.9 % (36.0-47.0); HEMOGLOBIN 10.9 g/dL (12.0-15.5); MEAN CORPUSCULAR HEMOGLOBIN 34.4 pg (27.0-33.4); MEAN CORPUSCULAR HGB CONC 34.2 g/dL (32.0-36.0); MEAN CORPUSCULAR VOLUME 101 fl (80-97); RED BLOOD COUNT 3.16 10^6/uL (3.72-5.28); WHITE BLOOD COUNT 4.4 10^3/uL (4.0-10.5)
[2017-08-24 05:49] LABS: ABSOLUTE LYMPHOCYTES# (MANUAL) 0.8 10^3/uL (0.5-4.7); ABSOLUTE MONOCYTES # (MANUAL) 0.3 10^3/uL (0.1-1.4); ABSOLUTE NEUTROPHILS# (MANUAL) 3.1 10^3/uL (1.7-8.2); BASOPHILS % (MANUAL) 2 % (0-2); EOSINOPHILS % (MANUAL) 3 % (0-6); LYMPHOCYTES % (MANUAL) 19 % (13-45); MONOCYTES % (MANUAL) 6 % (3-13); NUCLEATED RED BLOOD CELLS 1 /100 WBC (0); SEGMENTED NEUTROPHILS % (MAN) 70 % (42-78); TOTAL CELLS COUNTED 100
[2017-08-24 05:50] LABS: PLATELET CLUMPS PRESENT; PLATELET COMMENT ADEQUATE
[2017-08-24 05:52] LABS: ANISOCYTOSIS SLIGHT; HYPOCHROMASIA SLIGHT; POIKILOCYTOSIS SLIGHT; STOMATOCYTES SLIGHT
[2017-08-24 05:53] LABS: PLATELET COUNT 207 10^3/uL (150-450)
[2017-08-24] MEDS ORDERED: (PENDING PHARMACY ID) (Tiotropium Br/Olodaterol Hcl [Stiolto Respimat Inhal Spray] 2 PUFF) IH SCH (10:00)
[2017-08-24] MEDS: DILTIAZEM HCL 120 MG CAP.SR.24H PO SCH (11:12)
[2017-08-24] MEDS: LACTOBACILLUS ACIDOPHILUS 250 MG TAB PO SCH ×2 (11:12→17:30)
[2017-08-24] MEDS: SERTRALINE HCL 50 MG TABLET PO SCH (11:12)
[2017-08-24] MEDS: MAGNESIUM OXIDE 400 MG TABLET PO SCH (11:12)
[2017-08-24] MEDS: SOTALOL HCL 80 MG TABLET PO SCH ×2 (11:12→22:00)
[2017-08-24] MEDS: CEFTRIAXONE SODIUM 1,000 MG in DEXTROSE 5%-WATER 50 ML IV SCH (11:13)
[2017-08-24] MEDS: DOCUSATE SODIUM 100 MG CAPSULE PO SCH ×2 (11:14→17:30)
[2017-08-24 11:33] LABS: HEMATOCRIT 33.4 % (36.0-47.0); HEMOGLOBIN 11.2 g/dL (12.0-15.5); MEAN CORPUSCULAR HEMOGLOBIN 33.6 pg (27.0-33.4); MEAN CORPUSCULAR HGB CONC 33.7 g/dL (32.0-36.0); MEAN CORPUSCULAR VOLUME 100 fl (80-97); PLATELET COUNT 202 10^3/uL (150-450); RED BLOOD COUNT 3.35 10^6/uL (3.72-5.28); RED CELL DISTRIBUTION WIDTH 15.3 % (11.5-14.0)
[2017-08-24] MEDS ORDERED: PROMETHAZINE HCL INJ 25 MG/1 ML VIAL IV PRN (14:29)
[2017-08-24] MEDS ORDERED: MORPHINE SULFATE 10 MG/ML INJ IV PRN (14:29)
[2017-08-24] MEDS ORDERED: FENTANYL CITRATE INJ/PF 100 MCG/2 ML AMPUL IV PRN ×3 (14:29)
[2017-08-24] MEDS ORDERED: DIPHENHYDRAMINE HCL 50 MG/ML VIAL IV PRN (14:29)
[2017-08-24] MEDS ORDERED: MEPERIDINE HCL/PF INJ 25 MG/1 ML DISP.SYRIN IV PRN (14:29)
[2017-08-24] MEDS ORDERED: ONDANSETRON HCL INJ/PF 4 MG/2 ML SDV IV PRN (14:30)
--- NOTE | 2017-08-24 15:22 | PDOC PROGRESS REPORT ---
Subjective Progress Note for:: 08/24/17 Subjective:: The patient is an 82-year-old female with past medical history of COPD on home oxygen Hypothyroidism Hypertension Hyperlipidemia Congestive heart failure Atrial fibrillation recently started on sotalol and Eliquis. Pacemaker She presented to the hospital on August 22 with a 1 day history of gross hematuria with no associated pain fever. CAT scan of the abdomen showed a right upper renal pelvis mass. She was evaluated by the urology. Eliquis has been on hold. The plan is for a cystoscopy this afternoon. No complaints. Reason For Visit: GROSS HEMATURIA Physical Exam Vital Signs: Temp Pulse Resp BP Pulse Ox 97.8 F 84 18 155/82 H 100 08/24/17 11:26 08/24/17 11:26 08/24/17 11:26 08/24/17 11:26 08/24/17 11:26 Intake & Output 08/23/17 08/24/17 08/25/17 06:59 06:59 06:59 Intake Total 4500 2081 Output Total 7610 2600 Balance -3110 -519 Weight 46.5 kg 47.8 kg General appearance: PRESENT: no acute distress Head exam: PRESENT: normocephalic Ear exam: PRESENT: normal external ear exam Mouth exam: PRESENT: moist Neck exam: ABSENT: tracheal deviation Respiratory exam: PRESENT: symmetrical, unlabored. ABSENT: wheezes Cardiovascular exam: PRESENT: RRR GI/Abdominal exam: PRESENT: normal bowel sounds, soft. ABSENT: tenderness Rectal exam: PRESENT: deferred Gentrourinary exam: PRESENT: indwelling catheter Extremities exam: ABSENT: pedal edema Neurological exam: PRESENT: alert, awake, oriented to person Psychiatric exam: PRESENT: appropriate affect Results Laboratory Results: 08/24/17 10:45 08/23/17 06:36 08/24/17 08/24/17 04:35 10:45 WBC 4.4 5.0 RBC 3.16 L 3.35 L Hgb 10.9 L 11.2 L Hct 31.9 L 33.4 L MCV 101 H 100 H MCH 34.4 H 33.6 H MCHC 34.2 33.7 RDW 15.0 H 15.3 H Plt Count 207 202 Seg Neutrophils % Not Reportable Lymphocytes % Not Reportable Monocytes % Not Reportable Eosinophils % Not Reportable Basophils % Not Reportable Absolute Neutrophils Not Reportable Absolute Lymphocytes Not Reportable Absolute Monocytes Not Reportable Absolute Eosinophils Not Reportable Absolute Basophils Not Reportable Impressions: Abdomen/Pelvis CT 08/22/17 14:44 IMPRESSION: Soft tissue filling defect in the upper right renal pelvis 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 Assessment & Plan - Diagnosis (1) Gross hematuria Is this a current diagnosis for this admission?: Yes Plan: Management per urology service. Eliquis on hold. (2) COPD (chronic obstructive pulmonary disease) Qualifiers: Emphysema type: unspecified Is this a current diagnosis for this admission?: Yes Plan: Stable. Nebs as needed. Continue Spiriva. (3) Hyperlipidemia Qualifiers: Hyperlipidemia type: unspecified Qualified Code(s): E78.5 - Hyperlipidemia , unspecified Is this a current diagnosis for this admission?: Yes Plan: On atorvastatin. (4) Hypertension Qualifiers: Hypertension type: essential hypertension Qualified Code(s): I10 - Essential (primary) hypertension Is this a current diagnosis for this admission?: Yes Plan: Stable. Continue outpatient meds. (5) Neoplasm of renal pelvis Is this a current diagnosis for this admission?: Yes Plan: Plan for cystoscopy and biopsy today (6) Atrial fibrillation Qualifiers: Atrial fibrillation type: chronic Qualified Code(s): I48.2 - Chronic atrial fibrillation Is this a current diagnosis for this admission?: Yes Plan: Eliquis on hold. Currently in sinus rhythm. Continue outpatient medications. (7) Chronic diastolic CHF (congestive heart failure) Is this a current diagnosis for this admission?: Yes Plan: Not in acute CHF. Watch for signs of fluid overload. (8) Depression Is this a current diagnosis for this admission?: Yes Plan: Continue Zoloft (9) Hypothyroidism Is this a current diagnosis for this admission?: Yes Plan: Continue Synthroid. (10) Insomnia Is this a current diagnosis for this admission?: Yes Plan: Temazepam at bedtime - Time Time Spent with patient: 25-34 minutes
[2017-08-24] MEDS ORDERED: FENTANYL CITRATE INJ/PF 100 MCG/2 ML AMPUL ONE (16:18)
[2017-08-24] MEDS ORDERED: PROPOFOL INJ 200 MG/20 ML VIAL IV ONE (16:19)
[2017-08-24] MEDS ORDERED: ONDANSETRON HCL INJ/PF 4 MG/2 ML SDV ONE (16:19)
[2017-08-24] MEDS ORDERED: MIDAZOLAM 2 MG/2 ML INJ ONE (16:19)
[2017-08-24] MEDS: ATORVASTATIN CALCIUM 10 MG TABLET PO SCH (17:30)
--- NOTE | 2017-08-24 19:12 | RADIOLOGY REPORT (SQ) ---
EXAM DESCRIPTION: PYELOGRAM RETROGRADE COMPLETED DATE/TIME: 08/24/2017 6:54 pm REASON FOR STUDY: CYSTOSCOPY RIGHT RETROGRADE PYELOGRAM COMPARISON: None. FLUOROSCOPY TIME: 1.16 minutes 1 images saved to PACS. TECHNIQUE: Intra-operative images acquired during surgical procedure to evaluate progress. NUMBER OF IMAGES: 1 LIMITATIONS: None. FINDINGS: Contrast is seen being injected in the right renal collecting system and is in the right u reter. 25 cc Isovue 370 was used. IMPRESSION: Retrograde pyelogram. Refer to operative note for further information. COMMENT: Quality ID [id number]: Final reports for procedures using fluoroscopy that document radiation exp osure indices, or exposure time and number of fluorographic images (if radiation exposure indices are not available) Please consult full operative report of the attending physician for description of the procedure. TECHNICAL DOCUMENTATION: JOB ID: [id number] [employer]- All Rights Reserved Reading location - IP/workstation name: [email or web address]
[2017-08-24] MEDS: OXYCODONE-ACETAMINOPHEN 5-325 MG TABLET PO PRN (19:49)
[2017-08-24] MEDS: TEMAZEPAM 15 MG CAPSULE PO SCH (22:00)
--- NOTE | 2017-08-24 22:00 | OPERATIVE REPORT E ---
Operative Report NAME: FREDI WHALEN : 1935 AGE: 82Y DATE OF SURGERY: 08/24/2017 ROOM: 429 PREOPERATIVE DIAGNOSES: 1. Gross hematuria. 2. neoplasm infundibulum right upper pole calyx. POSTOPERATIVE DIAGNOSIS: same OPERATION: 1. Cystoscopy with right retrograde. 2. Right flexible ureteroscopy with laser ablation of tumor of the infundibulum right upper pole calyx SURGEON: BRUNO SOLOMON M.D. ANESTHESIA: MAC. ESTIMATED BLOOD LOSS: Minimum. COMPLICATIONS: None. HAND MITER OPERATOR: None. INDICATIONS: The patient is an 82-year-old lady who has been smoking most of her adult life. She had been started on Eliquis recently because of newly diagnosed atrial fibrillation. She developed gross hematuria. She had a CAT scan in the emergency room which showed a lesion in the upper pole of her collecting system that enhanced with contrast. Her Eliquis was stopped and cystoscopy with ureteroscopy and biopsy with laser fulguration was recommended. Potential complications were discussed included but were not limited to bleeding, infection, fear of failure to cure the problem, need for additional surgery, injury to the ureter or kidney, pulmonary complications due to her emphysema and COPD. She appeared to understand the various options for treatment as well as risks and benefits and wished to proceed with the proposed surgery. OPERATION: After the patient was identified in the preop holding area, she was brought to the operating room. Timeout was performed, where the correct patient, site of procedure, and procedure were confirmed. She was then given general anesthesia. She was next carefully positioned in a dorsolithotomy position. She was then prepped and draped in routine sterile manner. A #23 obturator sheath was inserted. The bladder was carefully examined. There were no ulcerations, tumors or stones. An open-ended catheter was positioned at the right ureteral orifice, and a total of 5 mL of contrast was used to fill the ureter and upper collecting system. There was delayed filling of upper pole calyx. The calyx appeared normal in the upper pole but the infundibulum was not well visualized. Impression is no obvious filling defect but incomplete filling of the infundibulum to upper pole calyx. RIGHT URETEROSCOPY WITH LASER ABLATION OF TUMOR OF THE INFUNDIBULUM TO UPPER POLE CALYX: A guidewire was threaded up the right ureter and an access sheath was used to dilate the ureter up to the level of the pelvis. There was no resistance to passage at the access sheath. A flexible scope was used then to examine the renal pelvis in various calyces. There was a sessile appearing mass emanating from the lateral wall of the infundibulum to the upper pole calyx. Measured approximately 1 cm in length and it encompassed 3 quarters of the infundibulum from approximately [address] around clockwise until 3 o'clock. A Holmium laser with settings of 0.5 joules and a 20 Hz and a 200 micron fiber was used to ablate tissue. The orientation of the upper pole calyx was such that I was unable to negotiate a biopsy forcep through the flexible scope due to the mariano of deflection. Accordingly, I collected a barboutage uriney cytology from the upper pole calyx and infundibulum insstead. Following this, a 200 micron Holmium laser was then used to ablate the tumor completely. No visible tumor remained after the ablation procedure. Hemostasis was present. The inside of the upper pole calyx appeared normal. INSERTION OF DOUBLE-J CATHETER: A 24-cm x 6-[place] double-J catheter was threaded over a guidewire with good coiling in the kidney and bladder. The string was removed prior to insertion. A Gupta catheter was inserted and the patient was returned to recovery room in satisfactory condition. PLAN: She will need a repeat imaging study with CAT scan with and without contrast as well as ureteroscopy and possible laser ablation at the end of October. DICTATING PHYSICIAN: BRUNO SOLOMON M.D. [id number] PHY#: [id number] ID: [id number] JOB#: [id number] ACCT: [id number] cc:BRUNO SOLOMON M.D. > MTDD
[2017-08-25] MEDS: LEVOTHYROXINE SODIUM 0.075 MG TABLET PO SCH (05:15)
[2017-08-25] MEDS: LANSOPRAZOLE 30 MG TAB.RAP.DR PO SCH (05:15)
[2017-08-25] MEDS: OXYCODONE-ACETAMINOPHEN 5-325 MG TABLET PO PRN ×2 (05:16→11:14)
[2017-08-25 06:50] LABS: ANION GAP 6 (5-19); BLOOD UREA NITROGEN 8 mg/dL (7-20); CALCIUM 8.1 mg/dL (8.4-10.2); CARBON DIOXIDE 25 mmol/L (22-30); CHLORIDE 103 mmol/L (98-107); GLUCOSE 83 mg/dL (75-110); PHOSPHORUS 4.8 mg/dL (2.5-4.5); POTASSIUM 4.2 mmol/L (3.6-5.0); SODIUM 133.5 mmol/L (137-145)
[2017-08-25] MEDS: MAGNESIUM SULFATE/D5W 1 GM/100 ML RTUPB IV SCH ×3 (08:40→12:04)
[2017-08-25] MEDS: SOTALOL HCL 80 MG TABLET PO SCH (10:55)
[2017-08-25] MEDS: LACTOBACILLUS ACIDOPHILUS 250 MG TAB PO SCH (10:55)
[2017-08-25] MEDS: SERTRALINE HCL 50 MG TABLET PO SCH (10:55)
[2017-08-25] MEDS: DILTIAZEM HCL 120 MG CAP.SR.24H PO SCH (10:56)
[2017-08-25] MEDS: MAGNESIUM OXIDE 400 MG TABLET PO SCH (10:56)
[2017-08-25] MEDS: DOCUSATE SODIUM 100 MG CAPSULE PO SCH (10:57)
[2017-08-25 11:03] LABS: HEMATOCRIT 38.4 % (36.0-47.0); HEMOGLOBIN 12.7 g/dL (12.0-15.5); MEAN CORPUSCULAR HEMOGLOBIN 33.4 pg (27.0-33.4); MEAN CORPUSCULAR HGB CONC 33.1 g/dL (32.0-36.0); MEAN CORPUSCULAR VOLUME 101 fl (80-97); PLATELET COUNT 223 10^3/uL (150-450); RED BLOOD COUNT 3.81 10^6/uL (3.72-5.28); RED CELL DISTRIBUTION WIDTH 15.1 % (11.5-14.0); WHITE BLOOD COUNT 6.8 10^3/uL (4.0-10.5)
--- NOTE | 2017-08-25 11:48 | PDOC DISCHARGE SUMMARY ---
General - Admit/Disc Date/PCP Admission Date/Primary Care Provider: 08/22/17 18:34 Patient to establish new PCP at [facility] Urology: Dr. Osei Discharge Date: 08/25/17 - Discharge Diagnosis (1) Gross hematuria Is this a current diagnosis for this admission?: Yes (2) COPD (chronic obstructive pulmonary disease) Is this a current diagnosis for this admission?: Yes (3) Hyperlipidemia Is this a current diagnosis for this admission?: Yes (4) Hypertension Is this a current diagnosis for this admission?: Yes (5) Neoplasm of renal pelvis Is this a current diagnosis for this admission?: Yes (6) Atrial fibrillation Is this a current diagnosis for this admission?: Yes (7) Chronic diastolic CHF (congestive heart failure) Is this a current diagnosis for this admission?: Yes (8) Depression Is this a current diagnosis for this admission?: Yes (9) Hypothyroidism Is this a current diagnosis for this admission?: Yes (10) Insomnia Is this a current diagnosis for this admission?: Yes - Additional Information Resuscitation Status: Full Code Discharge Diet: As Tolerated Discharge Activity: Activity As Tolerated Prescriptions: Oxycodone HCl/Acetaminophen [Percocet 5-325 mg Tablet] 1 tab PO Q8HP PRN #15 tablet PRN Reason: Lactobacillus Acidophilus [Bacid 250 mg Tablet] 500 mg PO BID 30 Days #30 tab Home Medications: Atorvastatin Calcium [Lipitor 10 mg Tablet] 10 mg PO QPM 04/01/17 Ergocalciferol (Vitamin D2) [Vitamin D2] 50,000 unit PO MEADOWS@1000 04/01/17 Sertraline HCl [Zoloft 50 mg Tablet] 25 mg PO DAILY 04/01/17 Diltiazem HCl [Cardizem Cd 120 mg Capsule] 120 mg PO DAILY 08/22/17 Levothyroxine Sodium [Synthroid 0.075 mg Tablet] 0.075 mg PO Q6AM 08/22/17 Omeprazole 40 mg PO DAILY 08/22/17 Sotalol HCl [Sotalol] 40 mg PO Q12 08/22/17 Tiotropium Br/Olodaterol HCl [Stiolto Respimat Inhal [place]] 2 puff IH DAILY 02/27 Apixaban [Eliquis 5 mg Tablet] 5 mg PO Q12 #0 08/25/17 Lactobacillus Acidophilus [Bacid 250 mg Tablet] 500 mg PO BID 30 Days #30 tab Magnesium Oxide [Mag-Ox 400 mg Tablet] 400 mg PO DAILY tablet 08/25/17 Ondansetron HCl/Pf [Zofran Inj/Pf 4 mg/2 ml Sdv] 4 mg IV Q8HP PRN vial Oxycodone HCl/Acetaminophen [Percocet 5-325 mg Tablet] 1 tab PO Q8HP PRN #15 tablet 08/25/17 History of Present Illness History of Present Illness: The patient is an 82-year-old female with past medical history of COPD on home oxygen Hypothyroidism Hypertension Hyperlipidemia Congestive heart failure Atrial fibrillation recently started on sotalol and Eliquis. Pacemaker She presented to the hospital on August 22 with a 1 day history of gross hematuria with no associated pain fever. CAT scan of the abdomen showed a right upper renal pelvis mass. She was evaluated by the urology. Eliquis was held. Cystoscopy on 08/24/[address] Osei and cytology is pending. Ureteral stent was placed. He recommended following up with them in 1 week as an outpatient and holding Eliquis for one week. Hematuria has resolved. The patient is stable for discharge home. Prescriptions for Percocet, Lactobacillus and Levothyroxine were given. Hospital Course Hospital Course: As above Physical Exam Vital Signs: Temp Pulse Resp BP Pulse Ox 98.0 F 62 16 122/58 L 95 08/25/17 07:18 08/25/17 07:18 08/25/17 07:18 08/25/17 07:18 08/25/17 07:18 Intake & Output 08/24/17 08/25/17 08/26/17 06:59 06:59 06:59 Intake Total 2081 1190 237 Output Total 2600 1550 Balance -519 -360 237 Weight 47.8 kg 47.8 kg General appearance: PRESENT: no acute distress Respiratory exam: PRESENT: symmetrical, unlabored Gentrourinary exam: ABSENT: indwelling catheter Results Laboratory Results: 08/25/17 09:56 08/25/17 05:49 08/25/17 08/25/17 05:49 09:56 WBC 6.8 RBC 3.81 Hgb 12.7 Hct 38.4 MCV 101 H MCH 33.4 MCHC 33.1 RDW 15.1 H Plt Count 223 Sodium 133.5 L Potassium 4.2 Chloride 103 Carbon Dioxide 25 Anion Gap 6 BUN 8 Creatinine 0.59 Est GFR ( Amer) > 60 Est GFR (Non-Af Amer) > 60 Glucose 83 Calcium 8.1 L Phosphorus 4.8 H Magnesium 1.5 L Impressions: Abdomen/Pelvis CT 08/22/17 14:44 IMPRESSION: Soft tissue filling defect in the upper right renal pelvis 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 Retrograde Pyelogram 08/24/17 00:00 IMPRESSION: Retrograde pyelogram. Refer to operative note for further information. Qualifiers - * PATIENT BEING DISCHARGED WITH ANY OF THE FOLLOWING DIAGNOSIS: No Plan Time Spent: Greater than 30 Minutes
[2017-08-25 12:41] VITALS: BP 141/62
== END 2017-08-25 13:10 | disposition home or self-care (01) | DRG 659 ==
LOC: ER 10:12 → EH 18:34 → 4S 21:31
PROVIDERS: ADMIT Internal Medicine; ATTEND Internal Medicine
PROC: 3E0F73Z Introduction of Anti-inflammatory into Respiratory Tract, Via Natural or Artificial Opening (ICD-10-PCS; 2017-08-23)
PROC: BT1D1ZZ Fluoroscopy of Right Kidney, Ureter and Bladder using Low Osmolar Contrast (ICD-10-PCS; 2017-08-24)
PROC: 0T538ZZ Destruction of Right Kidney Pelvis, Via Natural or Artificial Opening Endoscopic (ICD-10-PCS; principal; 2017-08-24 15:00)
DX: N28.89 Other specified disorders of kidney and ureter (principal); E43 Unspecified severe protein-calorie malnutrition; I50.32 Chronic diastolic (congestive) heart failure; Z68.1 Body mass index [BMI] 19.9 or less, adult; R31.0 Gross hematuria; J43.9 Emphysema, unspecified; E78.00 Pure hypercholesterolemia, unspecified; I11.0 Hypertensive heart disease with heart failure; F32.9 Major depressive disorder, single episode, unspecified; E03.9 Hypothyroidism, unspecified; G47.00 Insomnia, unspecified; K21.9 Gastro-esophageal reflux disease without esophagitis; M19.90 Unspecified osteoarthritis, unspecified site; K44.9 Diaphragmatic hernia without obstruction or gangrene; I48.2 Chronic atrial fibrillation; Z79.899 Other long term (current) drug therapy; Z99.81 Dependence on supplemental oxygen; Z95.0 Presence of cardiac pacemaker; Z90.49 Acquired absence of other specified parts of digestive tract; Z90.710 Acquired absence of both cervix and uterus; Z87.891 Personal history of nicotine dependence; Z88.3 Allergy status to other anti-infective agents; Z88.0 Allergy status to penicillin; Z88.8 Allergy status to other drugs, medicaments and biological substances; Z91.048 Other nonmedicinal substance allergy status; Z82.61 Family history of arthritis; Z82.3 Family history of stroke; Z80.9 Family history of malignant neoplasm, unspecified; Z82.49 Family history of ischemic heart disease and other diseases of the circulatory system
CPT/HCPCS: 36415; 51702; 74177; 74420; 80048; 81001; 83735; 84100; 85025; 85027; 85610; 85730; 86850; 86900; 86901; 87040; 87086; 87088; 87186; 87493; 918; 93005; 93010; 96365; 96375; 99285; C1758; C2617; J0696; J2250; J2405; J2704; J3010; J3475; J3490

== ENCOUNTER 2017-09-26 18:01 | Inpatient (IN) | payer MEDICARE, OTHER ==
[2017-09-26] MEDS ORDERED: PREDNISONE 20 MG TABLET PO ONE (18:20)
[2017-09-26] MEDS ORDERED: IPRATROPIUM/ALBUTEROL 0.5-2.5 MG/3 ML AMPUL NEB ONE (18:20)
--- NOTE | 2017-09-26 18:23 | ER Document Report ---
ED Medical Screen (RME) - General Chief Complaint: Productive Cough Stated Complaint: CONGESTION Time Seen by Provider: 09/26/17 18:20 Notes: RAPID MEDICAL EVALUATION DISCLOSURE I have seen this patient as part of a Rapid Medical Evaluation and, if applicable, placed any initially appropriate orders. The patient will be seen and fully evaluated, including a full history and physical exam, by a provider ( in Main ED or Fast Track) when a room becomes available. 82-year-old female PMH COPD here with complaints of generalized weakness shortness of breath cough productive yellow sputum over the past few days. The symptoms have been progressively worsening. She has been using Mucinex for the symptoms. She reports these symptoms feel like her previous episode of bronchitis/pneumonia. She denies smoking cigarettes however the daughter suspects she still continues to smoke. She wears oxygen via nasal cannula at home however only at nighttime, per the daughter report. EXAM Diffuse end expiratory wheezes, right greater than left Normal aeration throughout No abdominal TTP TRAVEL OUTSIDE OF THE [place] IN LAST 30 DAYS: No - Related Data Allergies/Adverse Reactions: Penicillins Allergy (Severe, Verified 08/22/17 16:36) Respiratory arrest doxycycline [Doxycycline] Allergy (Intermediate, Verified 08/22/17 16:36) Jona-Tristin's Syndrome valsartan [From Diovan] Allergy (Intermediate, Verified 08/22/17 16:36) Rash levofloxacin [From Levaquin] Allergy (Verified 08/22/17 16:36) METAL Allergy (Severe, Uncoded 08/22/17 16:36) RASH Past Medical History - Past Medical History Cardiac Medical History: Reports: Hx Atrial Fibrillation, Hx Congestive Heart Failure, Hx Hypercholesterolemia, Hx Hypertension Pulmonary Medical History: Reports: Hx Bronchitis, Hx COPD - on continuous home oxygen/inhalers, Hx Pneumonia - Pseudomonas Neurological Medical History: Endocrine Medical History: Reports: Hx Hypothyroidism Renal/ Medical History: Denies: Hx Peritoneal Dialysis GI Medical History: Reports: Hx Gastroesophageal Reflux Disease, Hx Hiatal Hernia. Denies: Hx Hepatitis Musculoskeltal Medical History: Reports Hx Arthritis Skin Medical History: Denies Hx Eczema, Denies Hx Psoriasis Psychiatric Medical History: Denies: Hx Depression Traumatic Medical History: Denies: Hx Gunshot Wound, Hx Pneumothorax, Hx Traumatic Brain Injury Infectious Medical History: Denies: Hx Hepatitis, Hx HIV Past Surgical History: Reports: Hx Appendectomy, Hx Cholecystectomy, Hx Hysterectomy, Hx Oral Surgery. Denies: Hx Mastectomy, Hx Open Heart Surgery, Hx Pacemaker - Immunizations Hx Diphtheria, Pertussis, Tetanus Vaccination: No History of Influenza Vaccine for 12/2016 - 05/2017 Season: No Physical Exam - Vital signs Vitals: Temp Pulse Resp BP Pulse Ox 97.5 F 69 16 101/62 85 L 09/26/17 18:10 09/26/17 18:10 09/26/17 18:10 09/26/17 18:10 09/26/17 18:10 Course - Vital Signs Vital signs: Temp Pulse Resp BP Pulse Ox 97.5 F 69 16 101/62 85 L 09/26/17 18:10 09/26/17 18:10 09/26/17 18:10 09/26/17 18:10 09/26/17 18:10
[2017-09-26 18:40] LABS: ABSOLUTE BASOPHILS # (AUTO) 0.1 10^3/uL (0.0-0.2); ABSOLUTE LYMPHOCYTES (AUTO) 1.5 10^3/uL (0.5-4.7); ABSOLUTE MONOCYTES (AUTO) 0.9 10^3/uL (0.1-1.4); ABSOLUTE NEUT (AUTO) 4.9 10^3/uL (1.7-8.2); BASOPHILS % (AUTO) 1.4 % (0-2); EOSINOPHILS % (AUTO) 0.5 % (0-6); HEMATOCRIT 35.9 % (36.0-47.0); HEMOGLOBIN 12.2 g/dL (12.0-15.5); LYMPHOCYTES % (AUTO) 19.8 % (13-45); MEAN CORPUSCULAR HEMOGLOBIN 32.6 pg (27.0-33.4); MEAN CORPUSCULAR VOLUME 96 fl (80-97); PLATELET COUNT 309 10^3/uL (150-450); RED BLOOD COUNT 3.74 10^6/uL (3.72-5.28); RED CELL DISTRIBUTION WIDTH 14.6 % (11.5-14.0); SEGMENTED NEUTROPHILS % (AUTO) 66.3 % (42-78); TOTAL CELLS COUNTED % (AUTO) 100 %; WHITE BLOOD COUNT 7.4 10^3/uL (4.0-10.5)
[2017-09-26 18:45] LABS: INTERNATIONAL RATION (INR) 1.05; PROTHROMBIN TIME 14.2 SEC (11.4-15.4)
[2017-09-26 18:50] LABS: ANION GAP 11 (5-19); BLOOD UREA NITROGEN 8 mg/dL (7-20); CALCIUM 8.2 mg/dL (8.4-10.2); CARBON DIOXIDE 22 mmol/L (22-30); CHLORIDE 96 mmol/L (98-107); GLUCOSE 87 mg/dL (75-110); POTASSIUM 4.6 mmol/L (3.6-5.0); SODIUM 129.1 mmol/L (137-145)
--- NOTE | 2017-09-26 19:01 | ER Document Report ---
ED General - General Chief Complaint: Productive Cough Stated Complaint: CONGESTION Time Seen by Provider: 09/26/17 18:20 Mode of Arrival: Ambulatory Information source: Patient Notes: 82-year-old female presents with complaints of sinus drainage congestion cough clear sputum sob pt notes to be satting 85% on ra on arrival, no hx of oxygen use except at night time TRAVEL OUTSIDE OF THE [place] IN LAST 30 DAYS: No - HPI Onset: Last week Onset/Duration: Persistent, Worse Quality of pain: Achy Severity: Moderate Pain Level: 1 Associated symptoms: Productive cough, Shortness of breath Exacerbated by: Walking, Coughing Relieved by: Denies Similar symptoms previously: No Recently seen / treated by doctor: No - Related Data Allergies/Adverse Reactions: Penicillins Allergy (Severe, Verified 08/22/17 16:36) Respiratory arrest doxycycline [Doxycycline] Allergy (Intermediate, Verified 08/22/17 16:36) Jona-Tristin's Syndrome valsartan [From Diovan] Allergy (Intermediate, Verified 08/22/17 16:36) Rash levofloxacin [From Levaquin] Allergy (Verified 08/22/17 16:36) METAL Allergy (Severe, Uncoded 08/22/17 16:36) RASH Past Medical History - Social History Smoking Status: Former Smoker Cigarette use (# per day): No Chew tobacco use (# tins/day): No Smoking Education Provided: No Family History: Arthritis, CAD, CVA, Hypertension, Malignancy Patient has suicidal ideation: No Patient has homicidal ideation: No - Past Medical History Cardiac Medical History: Reports: Hx Atrial Fibrillation, Hx Congestive Heart Failure, Hx Hypercholesterolemia, Hx Hypertension Pulmonary Medical History: Reports: Hx Bronchitis, Hx COPD - on continuous home oxygen/inhalers, Hx Pneumonia - Pseudomonas Neurological Medical History: Endocrine Medical History: Reports: Hx Hypothyroidism Renal/ Medical History: Denies: Hx Peritoneal Dialysis GI Medical History: Reports: Hx Gastroesophageal Reflux Disease, Hx Hiatal Hernia. Denies: Hx Hepatitis Musculoskeletal Medical History: Reports Hx Arthritis Skin Medical History: Denies Hx Eczema, Denies Hx Psoriasis Psychiatric Medical History: Denies: Hx Depression Traumatic Medical History: Denies: Hx Gunshot Wound, Hx Pneumothorax, Hx Traumatic Brain Injury Infectious Medical History: Denies: Hx Hepatitis, Hx HIV Past Surgical History: Reports: Hx Appendectomy, Hx Cholecystectomy, Hx Hysterectomy, Hx Oral Surgery. Denies: Hx Mastectomy, Hx Open Heart Surgery, Hx Pacemaker - Immunizations Hx Diphtheria, Pertussis, Tetanus Vaccination: No Hx Pneumococcal Vaccination: 12/31/16 Review of Systems - Review of Systems Notes: REVIEW OF SYSTEMS: CONSTITUTIONAL : Denies fever, chills, or sweats. Denies recent illness. EENT: Denies eye, ear, throat, or mouth pain or symptoms. Denies nasal or sinus congestion or discharge. Denies throat, tongue, or mouth swelling or difficulty swallowing. CARDIOVASCULAR: Denies chest pain. Denies palpitations or racing or irregular heart beat. Denies ankle edema. RESPIRATORY: Admits shortness breath difficulty breathing GASTROINTESTINAL: Denies abdominal pain or distention. Denies nausea, vomiting , or diarrhea. Denies blood in vomitus, stools, or per rectum. Denies black, tarry stools. Denies constipation. GENITOURINARY: Denies difficulty urinating, painful urination, burning, frequency, blood in urine, or discharge. FEMALE GENITOURINARY: Denies vaginal bleeding, heavy or abnormal periods, irregular periods. Denies vaginal discharge or odor. MUSCULOSKELETAL: Denies back or neck pain or stiffness. Denies joint pain or swelling. SKIN: Denies rash, lesions or sores. HEMATOLOGIC : Denies easy bruising or bleeding. LYMPHATIC: Denies swollen, enlarged glands. NEUROLOGICAL: Denies confusion or altered mental status. Denies passing out or loss of consciousness. Denies dizziness or lightheadedness. Denies headache. Denies weakness or paralysis or loss of use of either side. Denies problems with gait or speech. Denies sensory loss, numbness, or tingling. Denies seizures. PSYCHIATRIC: Denies anxiety or stress. Denies depression, suicidal ideation, or homicidal ideation. ALL OTHER SYSTEMS REVIEWED AND NEGATIVE. PHYSICAL EXAMINATION: GENERAL: Thin frail elderly female HEAD: Atraumatic, normocephalic. EYES: Pupils equal round and reactive to light, extraocular movements intact, conjunctiva are normal. ENT: Nares patent, oropharynx clear without exudates. Moist mucous membranes. NECK: Normal range of motion, supple without lymphadenopathy LUNGS: Coarse rhonchi all throughout on oxygen 2 L satting 100% HEART: Regular rate and rhythm without murmurs ABDOMEN: Soft, nontender, nondistended abdomen. No guarding, no rebound. No masses appreciated. Female : deferred Musculoskeletal: Normal range of motion, no pitting or edema. No cyanosis. NEUROLOGICAL: Cranial nerves grossly intact. Normal speech, normal gait. Normal sensory, motor exams PSYCH: Normal mood, normal affect. SKIN: Warm, Dry, normal turgor, no rashes or lesions noted. Dictation was performed using [employer] voice recognition software Physical Exam - Vital signs Vitals: Temp Pulse Resp BP Pulse Ox 97.5 F 69 16 101/62 85 L 09/26/17 18:10 09/26/17 18:10 09/26/17 18:10 09/26/17 18:10 09/26/17 18:10 Course - Re-evaluation Re-evalutation: 09/26/17 19:01 Patient appears to be in mild respiratory distress, breathing treatments ordered , she has probable pneumonia, lab work pending x-ray pending, antibiotics have been ordered - Vital Signs Vital signs: Temp Pulse Resp BP Pulse Ox 97.5 F 69 17 114/64 100 09/26/17 18:10 09/26/17 18:10 09/26/17 18:28 09/26/17 18:18 09/26/17 18:19 - Laboratory Result Diagrams: 09/26/17 18:22 09/26/17 18:22 Laboratory results interpreted by me: 09/26/17 09/26/17 09/26/17 18:22 18:22 18:22 Hct 35.9 L RDW 14.6 H VBG pH VBG pCO2 Sodium 129.1 L Chloride 96 L Lactic Acid 2.6 H Calcium 8.2 L 09/26/17 18:48 Hct RDW VBG pH 7.56 H VBG pCO2 29.2 L Sodium Chloride Lactic Acid Calcium Discharge - Discharge Clinical Impression: Pneumonia Condition: Stable Disposition: ADMITTED INPATIENT Admitting Provider: Hospitalist Unit Admitted: [facility]
[2017-09-26] MEDS ORDERED: CEFTRIAXONE 1 GM/D5W RTU 1 GM/50 ML RTUPB IV ONE (19:02)
[2017-09-26 19:05] LABS: VENOUS BLOOD BASE EXCESS 3.8 mmol/L; VENOUS BLOOD HCO3 25.4 mmol/L (20-32); VENOUS BLOOD PCO2 29.2 mmHg (35-63); VENOUS BLOOD PH 7.56 (7.30-7.42)
--- NOTE | 2017-09-26 19:17 | RADIOLOGY REPORT (SQ) ---
EXAM DESCRIPTION: CHEST 2 VIEWS COMPLETED DATE/TIME: 09/26/2017 7:04 pm REASON FOR STUDY: hypoxemia, cough COMPARISON: March 2017 EXAM PARAMETERS: NUMBER OF VIEWS: two views TECHNIQUE: Digital Frontal and Lateral radiographic views of the chest acquired. RADIATION DOSE: NA LIMITATIONS: none FINDINGS: LUNGS AND PLEURA: There is some ill-defined increased density in the right lung base which could represent an acute process superimposed on chronic underlying changes. Again there is evidenc e for obstructive lung disease with chronic appearing changes. MEDIASTINUM AND HILAR STRUCTURES: No masses or contour abnormalities. HEART AND VASCULAR STRUCTURES: Heart normal size. No evidence for failure. BONES: No acute findings. HARDWARE: Dual chamber transvenous pacemaker is unchanged in position OTHER: No other significant finding. IMPRESSION: Ill-defined right basilar density is noted above which could represent an acute process superimposed on chronic underlying changes. Obstructive lung disease. Other findings as noted above TECHNICAL DOCUMENTATION: JOB ID: [id number] [employer]- All Rights Reserved Reading location - IP/workstation name: [email or web address]
[2017-09-26] MEDS ORDERED: CEFTRIAXONE INJ 1000 MG VIAL IV ONE (19:36)
[2017-09-26] MEDS ORDERED: ACETAMINOPHEN 325 MG TABLET PO PRN (21:08)
[2017-09-26] MEDS ORDERED: METRONIDAZOLE 500 MG/NS RTU 500 MG/100 ML RTUPB IV ONE (22:00)
[2017-09-26] MEDS: NORMAL SALINE 1000 ML 1,000 ML IV PRN (22:28)
[2017-09-26] MEDS: GUAIFENESIN 600 MG TABLET.SA PO SCH (22:29)
[2017-09-26] MEDS ORDERED: MONTELUKAST SODIUM 10 MG TABLET PO ONE (23:00)
[2017-09-26] MEDS ORDERED: ATORVASTATIN CALCIUM 10 MG TABLET PO ONE (23:15)
[2017-09-26] MEDS ORDERED: SOTALOL HCL 80 MG TABLET PO ONE (23:15)
[2017-09-26] MEDS ORDERED: TEMAZEPAM 7.5 MG CAPSULE PO ONE (23:45)
[2017-09-26] MEDS ORDERED: AZTREONAM INJ 1 GM VIAL ONE (23:49)
[2017-09-26] MEDS: AZTREONAM 1 GM in DEXTROSE 5%-WATER 50 ML IV SCH (23:54)
--- NOTE | 2017-09-27 00:52 | PDOC H&P ---
History of Present Illness Admission Date/PCP: 09/26/17 19:57 Patient complains of: Productive cough History of Present Illness: FREDI WHALEN is a 82 year old female comes accompanied with her daughter who is at the bedside. Medical history is remarkable for chronic respiratory failure on 2 L oxygen via nasal cannula at night. He has been feeling sick for the last few days, she started with runny nose, sore throat, cough with yellowish sputum, wheezing, nausea but no vomiting, she feels cold all the time and apparently she did not have any fever. Progressive shortness of breath to the point that it was severe and daughter brought her to the emergency department. Upon arrival she was saturating 85% on room air which improved after 2 L oxygen via nasal cannula given saturating 100%. Looks mild short of breath but nondistressed. Chest x-ray shows right lower lobe infiltrate. Denies headaches, abdominal pain, changes in her bowel movements or her urine. Patient was discharged from our facility on August this year with a diagnosis of hematuria, patient was found with new kidney tumor. Past Medical History Cardiac Medical History: Reports: Atrial Fibrillation, Congestive Heart Failure , Hyperlipidema, Hypertension Pulmonary Medical History: Reports: Bronchitis, Chronic Obstructive Pulmonary Disease (COPD) - on continuous home oxygen/inhalers, Pneumonia - Pseudomonas Neurological Medical History: Endocrine Medical History: Reports: Hypothyroidism Renal/ Medical History: Reports: Other Malignancy Medical History: Reports: Renal (Kidney) Cancer GI Medical History: Reports: Gastroesophageal Reflux Disease, Hiatal Hernia Denies: Hepatitis Musculoskeltal Medical History: Reports: Arthritis Skin Medical History: Denies: Eczema, Psoriasis Psychiatric Medical History: Denies: Depression Traumatic Medical History: Denies: Gunshot Wound, Pneumothorax, Traumatic Brain Injury Hematology: Denies: Anemia, Sickle Cell Disease Infectious Medical History: Denies: HIV Past Surgical History Past Surgical History: Kidney biopsy Past Surgical History: Reports: Appendectomy, Cholecystectomy, Hysterectomy Denies: Amputation, Mastectomy, Pacemaker Social History Smoking Status: Former Smoker Frequency of Alcohol Use: Occasional Hx Recreational Drug Use: No Drugs: None Hx Prescription Drug Abuse: No - Advance Directive Resuscitation Status: Full Code Family History Family History: Arthritis, CAD, CVA, Hypertension, Malignancy Parental Family History Reviewed: No Children Family History Reviewed: NA Sibling(s) Family History Reviewed.: NA Medication/Allergy Home Medications: Atorvastatin Calcium [Lipitor 10 mg Tablet] 10 mg PO QPM 01/20/18 Ergocalciferol (Vitamin D2) [Vitamin D2] 50,000 unit PO MEADOWS@1000 04/01/17 Sertraline HCl [Zoloft 50 mg Tablet] 25 mg PO DAILY 04/01/17 Diltiazem HCl [Cardizem Cd 120 mg Capsule] 120 mg PO DAILY 08/22/17 Levothyroxine Sodium [Synthroid 0.075 mg Tablet] 0.075 mg PO Q6AM 08/22/17 Sotalol HCl [Sotalol] 40 mg PO Q12 08/22/17 Tiotropium Br/Olodaterol HCl [Stiolto Respimat Inhal [place]] 2 puff IH DAILY 02/27 Bismuth Subsalicylate [Pepto-Bismol] 3 tab.chew PO TID 09/26/17 Montelukast Sodium [Singulair 10 mg Tablet] 10 mg PO QHS 09/26/17 Allergies/Adverse Reactions: Penicillins Allergy (Severe, Verified 08/22/17 16:36) Respiratory arrest doxycycline [Doxycycline] Allergy (Intermediate, Verified 08/22/17 16:36) Jona-Tristin's Syndrome valsartan [From Diovan] Allergy (Intermediate, Verified 08/22/17 16:36) Rash levofloxacin [From Levaquin] Allergy (Verified 08/22/17 16:36) METAL Allergy (Severe, Uncoded 08/22/17 16:36) RASH Review of Systems Review of Systems: As outlined in the HPI, all others negative Physical Exam Vital Signs: Temp Pulse Resp BP Pulse Ox 98.3 F 78 17 106/57 L 100 09/26/17 23:14 09/26/17 23:14 09/26/17 23:14 09/26/17 23:14 09/26/17 23:14 Intake & Output 09/25/17 09/26/17 09/27/17 06:59 06:59 06:59 Weight 44 kg Additional comments: General appearance: Chronically ill, cachectic, alert and cooperative, and appears to be in mild acute distress due to shortness of breath. Head: Normocephalic Eyes: PEERL, EOMI, vision is grossly intact. Ears: External auditory canal and tympanic membranes clear, hearing grossly intact. Nose: No nasal discharge. Throat: Oral cavity and pharynx normal. No inflammation, swelling, exudate or lesions. Neck: Neck supple, nontender without lymphadenopathy, masses or thyromegaly. Cardiac: Normal S1 and S2. No S3, S4 or murmurs. Rhythm is regular. There is no peripheral edema, cyanosis or pallor. Extremities are warm and well perfused. Capillary refill is less than 2 seconds. No carotid bruits. Lungs: Bilateral rales are intense in bases, diffused rhonchi, sputum auditory wheezing, moderate to severe diminished breath sounds. Not using accessory muscles. Abdomen: Positive bowel sounds. Soft. Nondistended, nontender. No guarding or rebound. No masses. No hepatosplenomegaly Extremities: No significant deformity or joint abnormality. No edema. Peripheral pulses intact. No varicosities. Neurological: Cranial nerves II through XII grossly intact. Strength and sensation symmetric and intact throughout. Reflexes 2+ throughout. Skin: Skin normal color, texture and turgor with no lesions or eruptions, warm and dry. Psychiatric: The mental examination revealed the patient was oriented to person , place, and time. The patient was able to demonstrate good judgment on recent , without hallucinations, abnormal affect or abnormal behaviors. Results Laboratory Results: 09/26/17 22:08 Lactic Acid 1.7 09/26/17 09/26/17 09/26/17 18:22 18:22 18:22 WBC 7.4 Hgb 12.2 Hct 35.9 L Plt Count 309 Seg Neutrophils % 66.3 Lymphocytes % 19.8 PT 14.2 INR 1.05 APTT 33.0 VBG pH VBG pCO2 VBG HCO3 Sodium 129.1 L Potassium 4.6 Chloride 96 L Carbon Dioxide 22 Anion Gap 11 BUN 8 Creatinine 0.58 Est GFR ( Amer) > 60 Est GFR (Non-Af Amer) > 60 Glucose 87 Calcium 8.2 L 09/26/17 18:48 WBC Hgb Hct Plt Count Seg Neutrophils % Lymphocytes % PT INR APTT VBG pH 7.56 H VBG pCO2 29.2 L VBG HCO3 25.4 Sodium Potassium Chloride Carbon Dioxide Anion Gap BUN Creatinine Est GFR ( Amer) Est GFR (Non-Af Amer) Glucose Calcium Impressions: Chest X-Ray 09/26/17 18:53 IMPRESSION: Ill-defined right basilar density is noted above which could represent an acute process superimposed on chronic underlying changes. Obstructive lung disease. Other findings as noted above Assessment & Plan - Diagnosis (1) HCAP (healthcare-associated pneumonia) Is this a current diagnosis for this admission?: Yes Plan: She comes with respiratory symptoms, chest x-ray positive for right lower lobe infiltrates, as per the patient has been hospitalized in the last 3 months for more than 48 hours she meets criteria for HCAP. Patient has multiple allergies so I decided to place her on aztreonam and Flagyl. RT consult. Nebulizer treatment with DuoNeb. Solu-Medrol IV every 8 hours. Pulmonary toilet, Acapella, incentive spirometry (2) Acute and chronic respiratory failure with hypoxia Is this a current diagnosis for this admission?: Yes Plan: Continue with O2 saturation of 85% on room air, patient will have continuous oxygen protocol. This is probably multifactorial secondary to COPD exacerbation and right lower lobe infiltrates. (3) History of atrial fibrillation Is this a current diagnosis for this admission?: No Plan: Patient used to be on Eliquis, patient was hospitalized last time with hematuria and was found with a kidney tumor, she refused to take this medication after that. Continue with home antiarrhythmics. (4) Hypertension Qualifiers: Hypertension type: essential hypertension Qualified Code(s): I10 - Essential (primary) hypertension Plan: Continue with home antihypertensive medications. Blood pressure well controlled in the ED. (5) Congestive heart failure Plan: Unknown if systolic or diastolic, patient is not on diuretics at home. (6) Hypothyroidism Plan: Continue with Synthroid. - Plan Summary Plan Summary: Patient used to follow with a PCP in [place], has retired, no appointment with VAMSHI Jones
[2017-09-27] MEDS ORDERED: METRONIDAZOLE 500 MG/NS RTU 500 MG/100 ML RTUPB IV SCH (03:00)
[2017-09-27 04:55] LABS: ABSOLUTE LYMPHOCYTES (AUTO) 0.6 10^3/uL (0.5-4.7); ABSOLUTE MONOCYTES (AUTO) 0.1 10^3/uL (0.1-1.4); ABSOLUTE NEUT (AUTO) 2.2 10^3/uL (1.7-8.2); BASOPHILS % (AUTO) 0.7 % (0-2); EOSINOPHILS % (AUTO) 0.2 % (0-6); HEMATOCRIT 32.6 % (36.0-47.0); LYMPHOCYTES % (AUTO) 20.6 % (13-45); MEAN CORPUSCULAR HEMOGLOBIN 32.7 pg (27.0-33.4); MEAN CORPUSCULAR HGB CONC 33.8 g/dL (32.0-36.0); MEAN CORPUSCULAR VOLUME 97 fl (80-97); PLATELET COUNT 239 10^3/uL (150-450); RED BLOOD COUNT 3.37 10^6/uL (3.72-5.28); RED CELL DISTRIBUTION WIDTH 14.8 % (11.5-14.0); SEGMENTED NEUTROPHILS % (AUTO) 75.5 % (42-78); TOTAL CELLS COUNTED % (AUTO) 100 %
[2017-09-27 05:05] LABS: ANION GAP 7 (5-19); BLOOD UREA NITROGEN 8 mg/dL (7-20); CALCIUM 7.4 mg/dL (8.4-10.2); CARBON DIOXIDE 22 mmol/L (22-30); CHLORIDE 102 mmol/L (98-107); GLUCOSE 144 mg/dL (75-110); POTASSIUM 3.9 mmol/L (3.6-5.0); SODIUM 130.5 mmol/L (137-145)
[2017-09-27 05:13] LABS: WHITE BLOOD COUNT 2.9 10^3/uL (4.0-10.5)
[2017-09-27] MEDS: AZTREONAM 1 GM in DEXTROSE 5%-WATER 50 ML IV SCH (05:48)
[2017-09-27] MEDS: LEVOTHYROXINE SODIUM 0.075 MG TABLET PO SCH (05:48)
[2017-09-27 06:58] LABS: ARTERIAL BLOOD BASE EXCESS 0.6 mmol/L; ARTERIAL BLOOD FIO2 2L; ARTERIAL BLOOD H2CO3 0.97 mmol/L (1.05-1.35); ARTERIAL BLOOD HCO3 23.6 mmol/L (20-26); ARTERIAL BLOOD O2 SATURATION 97.4 % (94-98); ARTERIAL BLOOD PCO2 32.2 mmHg (35-45); ARTERIAL BLOOD PH 7.48 (7.35-7.45); ARTERIAL BLOOD PO2 88.5 mmHg (80-100); ARTERIAL BLOOD TOTAL CO2 24.6 mmol/L (21-25)
[2017-09-27] MEDS ORDERED: (PENDING PHARMACY ID) (Tiotropium Br/Olodaterol Hcl [Stiolto Respimat Inhal Spray] 2 PUFF) IH SCH (10:00)
--- NOTE | 2017-09-27 10:42 | PDOC PROGRESS REPORT ---
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 She has a history of Pseudomonas pneumonia and is followed closely by pulmonology and cardiology in [place]. She presented to the emergency room with increased shortness of breath. She was found to have acute on chronic respiratory failure and evidence of pneumonia. She was started on aztreonam as well as Flagyl. When I saw the patient this morning she states that she is beginning to feel better. She is still somewhat above her baseline oxygen requirements. She states that she has had no fever or shaking chills. She does have a cough productive of some sputum but she has not yet obtained a sample. She has had no chest pain or heart palpitations. She states her appetite was better this morning but she has had extremely poor appetite for the past couple of weeks and has not been eating much. She has had no abdominal pain. No nausea or vomiting. She has not yet had a bowel movement this morning. No urinary complaints. Reason For Visit: HCAP Physical Exam Vital Signs: Temp Pulse Resp BP Pulse Ox 97.8 F 69 12 98/48 L 100 09/27/17 07:38 09/27/17 07:38 09/27/17 07:38 09/27/17 07:38 09/27/17 07:38 Intake & Output 09/26/17 09/27/17 09/28/17 06:59 06:59 06:59 Intake Total 1350 Balance 1350 Weight 45.7 kg General appearance: PRESENT: no acute distress, thin - The patient is extremely cachectic receiving oxygen via nasal cannula., other Head exam: PRESENT: atraumatic, other - She has bitemporal muscle wasting. Mouth exam: PRESENT: moist, tongue midline Neck exam: ABSENT: carotid bruit, JVD, lymphadenopathy, thyromegaly Respiratory exam: PRESENT: decreased breath sounds, other - She has some rales in the right lower base. Cardiovascular exam: PRESENT: RRR. ABSENT: diastolic murmur, rubs, systolic murmur GI/Abdominal exam: PRESENT: normal bowel sounds, soft. ABSENT: distended, guarding, mass, organolmegaly, rebound, tenderness Rectal exam: PRESENT: deferred Extremities exam: PRESENT: other - She has muscle wasting in all 4 of her extremities. Musculoskeletal exam: PRESENT: ambulatory - No clubbing cyanosis or edema Neurological exam: PRESENT: alert, awake, oriented to person, oriented to place , oriented to time, oriented to situation, CN II-XII grossly intact. ABSENT: motor sensory deficit Psychiatric exam: PRESENT: appropriate affect, normal mood. ABSENT: homicidal ideation, suicidal ideation Skin exam: PRESENT: dry, intact, warm. ABSENT: cyanosis, rash Results Laboratory Results: 09/27/17 04:13 09/27/17 04:13 09/26/17 09/27/17 09/27/17 22:08 04:13 04:13 WBC 2.9 L D RBC 3.37 L Hgb 11.0 L Hct 32.6 L MCV 97 MCH 32.7 MCHC 33.8 RDW 14.8 H Plt Count 239 Seg Neutrophils % 75.5 Lymphocytes % 20.6 Monocytes % 3.0 Eosinophils % 0.2 Basophils % 0.7 Absolute Neutrophils 2.2 Absolute Lymphocytes 0.6 Absolute Monocytes 0.1 Absolute Eosinophils 0.0 Absolute Basophils 0.0 Carbonic Acid HCO3/H2CO3 Ratio ABG pH ABG pCO2 ABG pO2 ABG HCO3 ABG O2 Saturation ABG Base Excess FiO2 Sodium 130.5 L Potassium 3.9 Chloride 102 Carbon Dioxide 22 Anion Gap 7 BUN 8 Creatinine 0.53 Est GFR ( Amer) > 60 Est GFR (Non-Af Amer) > 60 Glucose 144 H Lactic Acid 1.7 Calcium 7.4 L 09/27/17 06:50 WBC RBC Hgb Hct MCV MCH MCHC RDW Plt Count Seg Neutrophils % Lymphocytes % Monocytes % Eosinophils % Basophils % Absolute Neutrophils Absolute Lymphocytes Absolute Monocytes Absolute Eosinophils Absolute Basophils Carbonic Acid 0.97 L HCO3/H2CO3 Ratio 24:1 ABG pH 7.48 H ABG pCO2 32.2 L ABG pO2 88.5 ABG HCO3 23.6 ABG O2 Saturation 97.4 ABG Base Excess 0.6 FiO2 2L Sodium Potassium Chloride Carbon Dioxide Anion Gap BUN Creatinine Est GFR ( Amer) Est GFR (Non-Af Amer) Glucose Lactic Acid Calcium Impressions: Chest X-Ray 09/26/17 18:53 IMPRESSION: Ill-defined right basilar density is noted above which could represent an acute process superimposed on chronic underlying changes. Obstructive lung disease. Other findings as noted above Assessment & Plan - Diagnosis (1) Acute and chronic respiratory failure with hypoxia Is this a current diagnosis for this admission?: Yes Plan: Possibly secondary to pneumonia. Her hospital records were reviewed. She had a CT scan in January 2017 with a nodule noted in the right lower base concerning for malignancy as it did change from previous scans. She had a chest x-ray that revealed a possible pneumonia in the right lower base. I am going to obtain a contrasted CT scan of the patient's chest for further evaluation. She does have a history of Pseudomonas pneumonia. Current antibiotic therapy does not cover Pseudomonas. I am going to stop the Azactam and Flagyl and place the patient on meropenem. She is allergic to penicillins and Levaquin. The patient will continue to try to obtain a sputum culture. I am going to get her an incentive spirometer and flutter valve as well. We will continue good pulmonary toilet and aggressive breathing treatments. (2) Pneumonia Is this a current diagnosis for this admission?: Yes Plan: This was previously documented is a healthcare associated pneumonia. The patient does not look acutely toxic. She does have a history of Pseudomonas pneumonia. I have changed her antibiotic therapy to meropenem. We will try to obtain a sputum culture. We will continue to treat her for a gram-negative pneumonia. This will be the first day of treatment with IV meropenem. (3) Abnormal chest CT Is this a current diagnosis for this admission?: Yes Plan: The patient has had a chest CT which revealed process suspicious for malignancy in January 2017. She will have a contrasted CT scan of the chest today. (4) Atrial fibrillation Qualifiers: Atrial fibrillation type: chronic Qualified Code(s): I48.2 - Chronic atrial fibrillation Is this a current diagnosis for this admission?: Yes Plan: Stable. Currently rate controlled and she appears to be in a sinus rhythm. She will continue sotalol (5) Diastolic congestive heart failure Qualifiers: Heart failure chronicity: chronic Qualified Code(s): I50.32 - Chronic diastolic (congestive) heart failure Is this a current diagnosis for this admission?: Yes Plan: At this point there is no evidence of acute exacerbation. Currently euvolemic (6) Hypothyroidism Is this a current diagnosis for this admission?: Yes Plan: Continue Synthroid (7) Severe protein-calorie malnutrition Is this a current diagnosis for this admission?: Yes Plan: I am going to get the clinical dietitian to see the patient for supplements. She has a BMI of 14.9 and bitemporal muscle wasting and muscle wasting in all of her extremities. (8) COPD (chronic obstructive pulmonary disease) Is this a current diagnosis for this admission?: Yes Plan: She is not acutely wheezing on my exam. I will place her on scheduled breathing treatments (9) Anemia Is this a current diagnosis for this admission?: Yes Plan: This is quite mild and possibly due to hemodilution. (10) Hyponatremia Is this a current diagnosis for this admission?: Yes Plan: Quite low. This could be due to her acute illness or possible malignancy. She will have a chemistry panel drawn in the morning. (11) Full code status Is this a current diagnosis for this admission?: Yes - Time Time Spent with patient: 25-34 minutes - Inpatient Certification Medical Necessity: Need for IV Antibiotics, Other - Inpatient hospitalization remains necessary. This lady has acute on chronic respiratory failure with evidence of an infiltrate in the right lower lung base. She does have a history of an abnormal chest CT. She needs further imaging studies. She has a history of Pseudomonas pneumonia and due to her medication allergies has no options for oral antibiotics. Currently requiring parenteral meropenem. Timing of disposition will be determined by her clinical course.
[2017-09-27] MEDS: BISMUTH SUBSALICYLATE 262 MG TAB.CHEW PO SCH ×3 (11:11→17:38)
[2017-09-27] MEDS: SERTRALINE HCL 50 MG TABLET PO SCH (11:11)
[2017-09-27] MEDS: MEROPENEM 1 GM in NORMAL SALINE 50 ML IV SCH ×2 (11:12→21:36)
[2017-09-27] MEDS: GUAIFENESIN 600 MG TABLET.SA PO SCH ×2 (11:12→21:35)
[2017-09-27] MEDS: ENOXAPARIN SODIUM INJ 30 MG/0.3 ML DISP.SYRIN SUBCUT SCH (11:14)
[2017-09-27] MEDS: SOTALOL HCL 80 MG TABLET PO SCH ×2 (11:23→21:35)
[2017-09-27] MEDS: DILTIAZEM HCL 120 MG CAP.SR.24H PO SCH (12:43)
[2017-09-27] MEDS: IPRATROPIUM/ALBUTEROL 0.5-2.5 MG/3 ML AMPUL NEB SCH ×2 (13:44→20:09)
--- NOTE | 2017-09-27 14:06 | RADIOLOGY REPORT (SQ) ---
EXAM DESCRIPTION: CTA CHEST COMPLETED DATE/TIME: 09/27/2017 1:44 pm REASON FOR STUDY: pna, hypoxia, hx of abnormal chest ct COMPARISON: CT chest 07/23/2015, 09/07/2015, 09/15/2015, 01/26/2017 CT abdomen pelvis 09/01/2007 TECHNIQUE: CT scan of the chest performed using helical scanning technique with dynamic intravenous contrast injection. Images reviewed with lung, soft tissue and bone windows. Reconstructed coronal and sagittal MPR images reviewed. Additional 3 dimensional post-processing performed to develop Maximal Intensity Projection images (NE P). All images stored on PACS. All CT scanners at this facility use dose modulation, iterative reconstruction, and/or weight based d osing when appropriate to reduce radiation dose to as low as reasonably achievable (ALARA). [facility]: Dose Right [facility]: CareDose [facility]: Dose Right [facility]: Teradose 4D [facility]: Epigami CONTRAST TYPE AND DOSE: contrast/concentration: Isovue 370.00 mg/ml; Total Contrast Delivered: 53.0 ml; Total Saline Delivered: 98.0 ml Contrast bolus optimized for the pulmonary arteries. Not diagnostic for the aorta. RENAL FUNCTION: Creatinine 0.53 RADIATION DOSE: CT Rad equipment meets quality standard of care and radiation dose reduction techniq ues were employed. CTDIvol: 4.6 - 15.0 mGy. DLP: 183 mGy-cm. . LIMITATIONS: None. FINDINGS: LUNGS AND PLEURA: Trace right pleural fluid, new compared to 01/26/[address] On the right side, stable bandlike scarring is present along the upper half of the major fissure. Th ere is nodular peripheral scarring in the lateral aspect right lower lobe, 1.8 x 1.3 cm in size on ax ial image 34 (was 1.8 x 1.2 cm on 01/26/2017). When the patient's acute condition resolves, consider outpatient follow-up PET-CT for evaluation of this nodule in the right lower lobe. Remainder of the lungs exhibit hyperlucency and hyperinflation from obstructive disease. No pulmonar y edema. No pneumothorax. No left pleural effusion. AORTA AND GREAT VESSELS: No aneurysm. Contrast bolus not optimized for the aorta. HEART: No pericardial effusion. Moderate to marked coronary artery calcifications. PULMONARY ARTERIES: No emboli visualized in the main pulmonary arteries or the segmental branches. HILAR AND MEDIASTINAL STRUCTURES: No identified masses or abnormal nodes. HARDWARE: Left-sided pacemaker UPPER ABDOMEN: Clips right upper quadrant post cholecystectomy. Air within nondistended left lobe li rober bile ducts likely from ERCP with sphincterotomy. Heavily calcified origin of celiac artery and S MA THYROID AND OTHER SOFT TISSUES: No masses. No adenopathy. BONES: No acute or significant finding. 3D MIPS: Confirm above findings. OTHER: No other significant finding. IMPRESSION: Obstructive lung disease. Stable bandlike scarring along the posterior aspect right upper major fissure Nodule versus scar in the periphery of the right lower lobe for which outpatient follow-up PET-CT rec ommended. COMMENT: Quality ID # [id number]: Final reports with documentation of one or more dose reduction techniques (e.g., Automated exposure control, adjustment of the mA and/or kV according to patient size, use of iterative reconstruction technique) TECHNICAL DOCUMENTATION: JOB ID: [id number] [employer]- All Rights Reserved Reading location - IP/workstation name: [email or web address]
[2017-09-27] MEDS: ATORVASTATIN CALCIUM 10 MG TABLET PO SCH (17:26)
[2017-09-27] MEDS: MONTELUKAST SODIUM 10 MG TABLET PO SCH (21:35)
[2017-09-27] MEDS: TEMAZEPAM 7.5 MG CAPSULE PO SCH (21:35)
[2017-09-28] MEDS: LEVOTHYROXINE SODIUM 0.075 MG TABLET PO SCH (05:15)
[2017-09-28 05:42] LABS: ANION GAP 7 (5-19); BLOOD UREA NITROGEN 12 mg/dL (7-20); CALCIUM 7.7 mg/dL (8.4-10.2); CARBON DIOXIDE 25 mmol/L (22-30); CHLORIDE 102 mmol/L (98-107); GLUCOSE 91 mg/dL (75-110); POTASSIUM 3.8 mmol/L (3.6-5.0)
[2017-09-28 05:44] LABS: ABSOLUTE BASOPHILS # (AUTO) 0.1 10^3/uL (0.0-0.2); ABSOLUTE LYMPHOCYTES (AUTO) 0.9 10^3/uL (0.5-4.7); ABSOLUTE MONOCYTES (AUTO) 0.6 10^3/uL (0.1-1.4); ABSOLUTE NEUT (AUTO) 4.2 10^3/uL (1.7-8.2); BASOPHILS % (AUTO) 1.1 % (0-2); EOSINOPHILS % (AUTO) 0.4 % (0-6); HEMATOCRIT 29.8 % (36.0-47.0); HEMOGLOBIN 10.2 g/dL (12.0-15.5); LYMPHOCYTES % (AUTO) 15.9 % (13-45); MEAN CORPUSCULAR HEMOGLOBIN 33.2 pg (27.0-33.4); MEAN CORPUSCULAR HGB CONC 34.1 g/dL (32.0-36.0); MEAN CORPUSCULAR VOLUME 97 fl (80-97); MONOCYTES % (AUTO) 10.8 % (3-13); PLATELET COUNT 255 10^3/uL (150-450); RED BLOOD COUNT 3.06 10^6/uL (3.72-5.28); RED CELL DISTRIBUTION WIDTH 14.8 % (11.5-14.0); SEGMENTED NEUTROPHILS % (AUTO) 71.8 % (42-78); TOTAL CELLS COUNTED % (AUTO) 100 %; WHITE BLOOD COUNT 5.8 10^3/uL (4.0-10.5)
[2017-09-28 06:09] LABS: ALANINE AMINOTRANSFERASE 15 U/L (9-52); ALBUMIN 1.9 g/dL (3.5-5.0); ALKALINE PHOSPHATASE 103 U/L (38-126); ASPARTATE AMINO TRANSFERASE 20 U/L (14-36); BILIRUBIN,DIRECT 0.1 mg/dL (0.0-0.4); BILIRUBIN,TOTAL 0.1 mg/dL (0.2-1.3); TOTAL PROTEIN 4.9 g/dL (6.3-8.2)
[2017-09-28] MEDS: IPRATROPIUM/ALBUTEROL 0.5-2.5 MG/3 ML AMPUL NEB SCH ×3 (08:08→19:51)
[2017-09-28] MEDS: BISMUTH SUBSALICYLATE 262 MG TAB.CHEW PO SCH ×3 (09:38→17:59)
[2017-09-28] MEDS: GUAIFENESIN 600 MG TABLET.SA PO SCH ×2 (09:39→21:20)
[2017-09-28] MEDS: DILTIAZEM HCL 120 MG CAP.SR.24H PO SCH (09:39)
[2017-09-28] MEDS: SERTRALINE HCL 50 MG TABLET PO SCH (09:39)
[2017-09-28] MEDS: ENOXAPARIN SODIUM INJ 30 MG/0.3 ML DISP.SYRIN SUBCUT SCH (09:40)
[2017-09-28] MEDS: SOTALOL HCL 80 MG TABLET PO SCH ×2 (09:40→21:20)
[2017-09-28] MEDS: MEROPENEM 1 GM in NORMAL SALINE 50 ML IV SCH ×2 (09:46→21:20)
--- NOTE | 2017-09-28 11:52 | PDOC PROGRESS REPORT ---
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 She has a history of Pseudomonas pneumonia and is followed closely by pulmonology and cardiology in [place]. She presented to the emergency room with increased shortness of breath. She was found to have acute on chronic respiratory failure and evidence of pneumonia. She was initially started on aztreonam as well as Flagyl. Due to her history of recurrent Pseudomonas infections her antibiotic therapy was changed to IV meropenem yesterday. She does have an allergy to Levaquin which makes treating her with p.o. antibiotics and possible. Yesterday she had a CT angiography of the chest. She does have an area of concern with a nodular area in the periphery of the right lung. The radiologist recommended an outpatient PET CT scan for follow-up. The patient is oxygen dependent at baseline requiring oxygen only at night when she sleeps. At this point she is still requiring Lasix 24 hours a day however her shortness of breath has improved and her cough seems to be improving as well. Today she states that she did not sleep good. She denies fever chills. No chest pain, increased shortness of breath or increased cough. She still has a little bit of sputum production. No nausea, vomiting or diarrhea. No urinary complaints. Reason For Visit: HCAP Physical Exam Vital Signs: Temp Pulse Resp BP Pulse Ox 97.8 F 72 16 145/60 H 100 09/28/17 09:00 09/28/17 09:00 09/28/17 09:00 09/28/17 09:00 09/28/17 09:00 Intake & Output 09/27/17 09/28/17 09/29/17 06:59 06:59 06:59 Intake Total 1350 1451 Balance 1350 1451 Weight 45.7 kg 45.2 kg General appearance: PRESENT: no acute distress, thin, other - Chronically ill- appearing and cachectic Head exam: PRESENT: atraumatic, other - She has bitemporal muscle wasting Mouth exam: PRESENT: moist, tongue midline Respiratory exam: PRESENT: other - She has scattered coarse rhonchi. She is significantly diminished bilaterally Cardiovascular exam: PRESENT: RRR. ABSENT: diastolic murmur, rubs, systolic murmur GI/Abdominal exam: PRESENT: normal bowel sounds, soft. ABSENT: distended, guarding, mass, organolmegaly, rebound, tenderness Extremities exam: PRESENT: full ROM, other - She has muscle wasting in all 4 extremities. ABSENT: calf tenderness, clubbing, pedal edema Neurological exam: PRESENT: alert, awake, oriented to person, oriented to place , oriented to time, oriented to situation, CN II-XII grossly intact. ABSENT: motor sensory deficit Psychiatric exam: PRESENT: appropriate affect, normal mood. ABSENT: homicidal ideation, suicidal ideation Skin exam: PRESENT: dry, intact, warm. ABSENT: cyanosis, rash Results Laboratory Results: 09/28/17 04:28 09/28/17 04:28 09/28/17 09/28/17 04:28 04:28 WBC 5.8 RBC 3.06 L Hgb 10.2 L Hct 29.8 L MCV 97 MCH 33.2 MCHC 34.1 RDW 14.8 H Plt Count 255 Seg Neutrophils % 71.8 Lymphocytes % 15.9 Monocytes % 10.8 Eosinophils % 0.4 Basophils % 1.1 Absolute Neutrophils 4.2 Absolute Lymphocytes 0.9 Absolute Monocytes 0.6 Absolute Eosinophils 0.0 Absolute Basophils 0.1 Sodium 134.0 L Potassium 3.8 Chloride 102 Carbon Dioxide 25 Anion Gap 7 BUN 12 Creatinine 0.63 Est GFR ( Amer) > 60 Est GFR (Non-Af Amer) > 60 Glucose 91 Calcium 7.7 L Magnesium 1.7 Total Bilirubin 0.1 L AST 20 ALT 15 Alkaline Phosphatase 103 Total Protein 4.9 L Albumin 1.9 L 09/27/17 09:33 NT-Pro-B Natriuret Pep 2410 H Impressions: Chest X-Ray 09/26/17 18:53 IMPRESSION: Ill-defined right basilar density is noted above which could represent an acute process superimposed on chronic underlying changes. Obstructive lung disease. Other findings as noted above Chest/Abdomen CTA 09/27/17 00:00 IMPRESSION: Obstructive lung disease. Stable bandlike scarring along the posterior aspect right upper major fissure Nodule versus scar in the periphery of the right lower lobe for which outpatient follow-up PET-CT recommended. Assessment & Plan - Diagnosis (1) Acute and chronic respiratory failure with hypoxia Is this a current diagnosis for this admission?: Yes Plan: Possibly secondary to pneumonia. CT angiography reveals an area that will need to be reimaged as an outpatient. No definitive evidence of pneumonia. She still is above her baseline oxygen requirements. Continue breathing treatments and therapy as outlined below. (2) Pneumonia Is this a current diagnosis for this admission?: Yes Plan: This was previously documented as a healthcare associated pneumonia. At this point I believe she has an early pneumonia versus acute bronchitis. The patient does not look acutely toxic. She does have a history of Pseudomonas pneumonia. I have changed her antibiotic therapy to meropenem. This is day #2 of treatment. Sputum culture is pending. (3) Abnormal chest CT Is this a current diagnosis for this admission?: Yes Plan: The patient has had a chest CT which revealed process suspicious for malignancy in January 2017. There have been no significant changes to the lesion noted on the scan on her CT angiography yesterday. She will need an outpatient PET CT scan scheduled. (4) Atrial fibrillation Qualifiers: Atrial fibrillation type: chronic Qualified Code(s): I48.2 - Chronic atrial fibrillation Is this a current diagnosis for this admission?: Yes Plan: Stable. Currently rate controlled and she appears to be in a sinus rhythm. She will continue sotalol (5) Diastolic congestive heart failure Qualifiers: Heart failure chronicity: chronic Qualified Code(s): I50.32 - Chronic diastolic (congestive) heart failure Is this a current diagnosis for this admission?: Yes Plan: At this point there is no evidence of acute exacerbation. Currently she appears to be euvolemic. I did obtain a BNP which is elevated over 1999. I will repeat a 2D cardiac echo today just to make sure there is not been a significant change in her cardiac function. Her previous echo was in January 2017. She had normal left ventricular function at that time as well as grade 2 diastolic dysfunction. (6) Hypothyroidism Is this a current diagnosis for this admission?: Yes Plan: Continue Synthroid (7) Severe protein-calorie malnutrition Is this a current diagnosis for this admission?: Yes Plan: I am going to get the clinical dietitian to see the patient for supplements. She has a BMI of 14.9 and bitemporal muscle wasting and muscle wasting in all of her extremities. (8) COPD (chronic obstructive pulmonary disease) Is this a current diagnosis for this admission?: Yes Plan: She is not acutely wheezing on my exam. She will continue breathing treatments. (9) Anemia Is this a current diagnosis for this admission?: Yes Plan: This is quite mild and possibly due to hemodilution. (10) Hyponatremia Is this a current diagnosis for this admission?: Yes Plan: Likely due to her acute illness. Her level has improved this morning as we treat her underlying infection. (11) Full code status Is this a current diagnosis for this admission?: Yes - Time Time Spent with patient: 25-34 minutes - Inpatient Certification Medical Necessity: Need for IV Antibiotics, Other - Inpatient hospitalization remains necessary. The patient's requiring parenteral antibiotics. She still requiring increased oxygen. She has an elevated BNP and I believe she would benefit from a repeat echocardiogram. Timing of disposition will be determined by her clinical course
--- NOTE | 2017-09-28 12:24 | RADIOLOGY REPORT (SQ) ---
EXAM DESCRIPTION: CHEST SINGLE VIEW COMPLETED DATE/TIME: 09/28/2017 12:08 pm REASON FOR STUDY: pna vs chf COMPARISON: None. EXAM PARAMETERS: NUMBER OF VIEWS: One view. TECHNIQUE: Single frontal radiographic view of the chest acquired. RADIATION DOSE: NA LIMITATIONS: None. FINDINGS: LUNGS AND PLEURA: Stable markings right lower lung zone. Slight increase in the density left base that may represent developing atelectasis or infiltrate. No overt congestive heart failure . MEDIASTINUM AND HILAR STRUCTURES: No masses. Contour normal. HEART AND VASCULAR STRUCTURES: Heart normal in size. Normal vasculature. BONES: No acute findings. HARDWARE: None in the chest. OTHER: No other significant finding. IMPRESSION: Stable opacity and small effusion right lung base. Slight increase in density left base that may represent developing atelectasis or infiltrate. No overt congestive heart failure. TECHNICAL DOCUMENTATION: JOB ID: [id number] [employer]- All Rights Reserved Reading location - IP/workstation name: [email or web address]
[2017-09-28] MEDS: ATORVASTATIN CALCIUM 10 MG TABLET PO SCH (17:32)
[2017-09-28] MEDS ORDERED: HYDROCODONE BIT/HOMATROPINE SYRUP 5 ML UDCUP PO PRN (17:37)
[2017-09-28] MEDS: HYDROCODONE BIT/HOMATROPINE 5-1.5 MG TABLET PO PRN (18:35)
[2017-09-28] MEDS: MONTELUKAST SODIUM 10 MG TABLET PO SCH (21:20)
[2017-09-28] MEDS: TEMAZEPAM 7.5 MG CAPSULE PO SCH (21:35)
[2017-09-28] MEDS: MELATONIN 5 MG TABLET PO PRN (21:35)
[2017-09-28] MEDS: NORMAL SALINE 1000 ML 1,000 ML IV PRN (21:36)
[2017-09-29 04:54] LABS: ABSOLUTE EOSINOPHILS # (AUTO) 0.1 10^3/uL (0.0-0.6); ABSOLUTE LYMPHOCYTES (AUTO) 0.9 10^3/uL (0.5-4.7); ABSOLUTE MONOCYTES (AUTO) 0.5 10^3/uL (0.1-1.4); ABSOLUTE NEUT (AUTO) 3.8 10^3/uL (1.7-8.2); BASOPHILS % (AUTO) 0.7 % (0-2); EOSINOPHILS % (AUTO) 2.1 % (0-6); HEMATOCRIT 28.7 % (36.0-47.0); HEMOGLOBIN 9.9 g/dL (12.0-15.5); LYMPHOCYTES % (AUTO) 17.1 % (13-45); MEAN CORPUSCULAR HEMOGLOBIN 33.6 pg (27.0-33.4); MEAN CORPUSCULAR HGB CONC 34.7 g/dL (32.0-36.0); MEAN CORPUSCULAR VOLUME 97 fl (80-97); MONOCYTES % (AUTO) 9.6 % (3-13); PLATELET COUNT 245 10^3/uL (150-450); RED BLOOD COUNT 2.96 10^6/uL (3.72-5.28); RED CELL DISTRIBUTION WIDTH 14.9 % (11.5-14.0); SEGMENTED NEUTROPHILS % (AUTO) 70.5 % (42-78); TOTAL CELLS COUNTED % (AUTO) 100 %; WHITE BLOOD COUNT 5.4 10^3/uL (4.0-10.5)
[2017-09-29 05:14] LABS: ANION GAP 5 (5-19); BLOOD UREA NITROGEN 12 mg/dL (7-20); CALCIUM 7.6 mg/dL (8.4-10.2); CARBON DIOXIDE 21 mmol/L (22-30); CHLORIDE 105 mmol/L (98-107); GLUCOSE 75 mg/dL (75-110); POTASSIUM 4.4 mmol/L (3.6-5.0); SODIUM 131.4 mmol/L (137-145)
[2017-09-29] MEDS: LEVOTHYROXINE SODIUM 0.075 MG TABLET PO SCH (06:30)
[2017-09-29] MEDS: IPRATROPIUM/ALBUTEROL 0.5-2.5 MG/3 ML AMPUL NEB PRN ×2 (06:46→11:19)
[2017-09-29] MEDS: IPRATROPIUM/ALBUTEROL 0.5-2.5 MG/3 ML AMPUL NEB SCH ×3 (08:24→20:10)
--- NOTE | 2017-09-29 09:41 | XCELERA REPORT ---
[address] [address] Transthoracic Echocardiogram Report Name: FREDI WHALEN Age: 82 yrs Gender: Female : 1935 Patient Status: Inpatient Patient Location: [address] [place] [address] Study Date: 09/28/2017 03:10 PM Height: 69 in Weight: 99 lb BSA: 1.5 m2 Procedure: A complete two-dimensional transthoracic echocardiogram was performed (2D, M-mode, spectral and color flow Doppler). The study was technically adequate with some images being suboptimal in quality. Reason For Study: elevated BNP Ordering Physician: RUCHI BROWN Performed By: Wendy Saldivar Interpretation Summary The left ventricular ejection fraction is normal. There is borderline concentric left ventricular hypertrophy. The left ventricle is grossly normal size. Doppler measurements suggest pseudonormalized left ventricular relaxation, which is associated with grade II/IV or mild to moderate diastolic dysfunction Wall motion cannot be accurately commented on, but no definite regional wall motion abnormalities noted. The right ventricle is mildly dilated. The right ventricle appears to be hypertrophied The right atrium is mildly dilated. The left atrium is mildly dilated. There is a mild to moderate amount of mitral regurgitation There is no mitral valve stenosis. There is a trace to mild amount of aortic regurgitation There is no aortic valve stenosis There is a moderate amount of tricuspid regurgitation Right ventricular systolic pressure is estimated to be elevated at >60mmHg. There is servere pulmonary hypertension by echo The aortic root is not well visualized but is probably normal size. The inferior vena cava appeared dilated and decreased < 50% with respiration (RAP 15-20 mmHg) Minimal pericardial effusion. MMode/2D Measurements & Calculations RVDd: 2.3 cm LVIDd: 5.1 cm FS: 41.8 % Ao root diam: 3.0 cm IVSd: 0.97 cm LVIDs: 3.0 cm EDV(Teich): 122.7 ml LVPWd: 1.0 cm ESV(Teich): 33.8 ml Ao root area: 7.0 cm2 EF(Teich): 72.5 % LA dimension: 3.3 cm Doppler Measurements & Calculations MV E max lidia: MV P1/2t max lidia: Ao V2 max: AI max lidia: 76.5 cm/sec 78.0 cm/sec 105.9 cm/sec 352.9 cm/sec MV A max lidia: MV P1/2t: 74.7 msec Ao max PG: AI max P.6 cm/sec 4.5 mmHg 49.8 mmHg MV E/A: 1.1 MVA(P1/2t): 2.9 cm2 AI dec slope: MV dec slope: 305.7 cm/sec2 149.3 cm/sec2 MV dec time: AI P1/2t: 0.26 sec 692.4 msec LV V1 max PG: PA V2 max: TR max lidia: 2.8 mmHg 66.6 cm/sec 361.1 cm/sec LV V1 max: PA max P.8 mmHg TR max P.9 cm/sec 52.1 mmHg Left Ventricle The left ventricle is grossly normal size. There is borderline concentric left ventricular hypertrophy. The left ventricular ejection fraction is normal. Doppler measurements suggest pseudonormalized left ventricular relaxation, which is associated with grade II/IV or mild to moderate diastolic dysfunction. Wall motion cannot be accurately commented on, but no definite regional wall motion abnormalities noted. Right Ventricle The right ventricle is mildly dilated. The right ventricle appears to be hypertrophied. The right ventricular systolic function is normal. Atria The right atrium is mildly dilated. The left atrium is mildly dilated. Interarterial septum not well visualized and not well dopplered. Cannot comment on ASD/PFO presence. Mitral Valve The mitral valve leaflets are sclerotic, but show no functional abnormalities. There is no mitral valve stenosis. There is a mild to moderate amount of mitral regurgitation. Aortic Valve The aortic valve is grossly normal. There is no aortic valve stenosis. There is a trace to mild amount of aortic regurgitation. Tricuspid Valve The tricuspid valve is not well visualized, but is grossly normal. There is no tricuspid stenosis. There is a moderate amount of tricuspid regurgitation. Right ventricular systolic pressure is estimated to be elevated at >60mmHg. There is servere pulmonary hypertension by echo. Pulmonic Valve The pulmonic valve is not well visualized. Great Vessels The aortic root is not well visualized but is probably normal size. The inferior vena cava appeared dilated and decreased < 50% with respiration (RAP 15-20 mmHg). Effusions Minimal pericardial effusion. : RUCHI BROWN > Fei Sellers
[2017-09-29] MEDS: ENOXAPARIN SODIUM INJ 30 MG/0.3 ML DISP.SYRIN SUBCUT SCH (11:03)
[2017-09-29] MEDS: DILTIAZEM HCL 120 MG CAP.SR.24H PO SCH (11:03)
[2017-09-29] MEDS: SOTALOL HCL 80 MG TABLET PO SCH ×2 (11:04→22:18)
[2017-09-29] MEDS: SERTRALINE HCL 50 MG TABLET PO SCH (11:05)
[2017-09-29] MEDS: GUAIFENESIN 600 MG TABLET.SA PO SCH ×2 (11:05→22:17)
[2017-09-29] MEDS: BISMUTH SUBSALICYLATE 262 MG TAB.CHEW PO SCH ×3 (11:06→18:41)
[2017-09-29] MEDS: MEROPENEM 1 GM in NORMAL SALINE 50 ML IV SCH ×2 (11:06→22:18)
--- NOTE | 2017-09-29 18:34 | PDOC PROGRESS REPORT ---
Subjective Progress Note for:: 09/29/17 Subjective:: She states that just today her breathing is starting to feel better. She is aware of the lesion that will need further outpatient follow-up. Continued cough but no sputum today., No chest pain. No fever or chills. Eating and drinking fine. Urinating without difficulty. No constipation. Reason For Visit: [facility] Physical Exam Vital Signs: Temp Pulse Resp BP Pulse Ox 97.6 F 71 16 113/65 92 09/29/17 07:36 09/29/17 14:00 09/29/17 13:48 09/29/17 07:36 09/29/17 13:48 Intake & Output 09/28/17 09/29/17 09/30/17 06:59 06:59 06:59 Intake Total 1451 2950 356 Balance 1451 2950 356 Weight 45.2 kg 45 kg General appearance: PRESENT: no acute distress, cooperative, thin Head exam: PRESENT: atraumatic, normocephalic Eye exam: ABSENT: conjunctival injection, scleral icterus Ear exam: PRESENT: normal external ear exam Respiratory exam: PRESENT: decreased breath sounds, unlabored, wheezes. ABSENT : rales, rhonchi Cardiovascular exam: PRESENT: RRR. ABSENT: systolic murmur Pulses: PRESENT: normal radial pulses GI/Abdominal exam: PRESENT: normal bowel sounds, soft. ABSENT: distended, tenderness Rectal exam: PRESENT: deferred Extremities exam: ABSENT: pedal edema Musculoskeletal exam: ABSENT: deformity Neurological exam: PRESENT: alert, awake, oriented to person, oriented to place , oriented to situation, CN II-XII grossly intact Psychiatric exam: PRESENT: appropriate affect. ABSENT: anxious Skin exam: PRESENT: dry, intact, warm Results Laboratory Results: 09/29/17 04:05 09/29/17 04:05 09/29/17 09/29/17 04:05 04:05 WBC 5.4 RBC 2.96 L Hgb 9.9 L Hct 28.7 L MCV 97 MCH 33.6 H MCHC 34.7 RDW 14.9 H Plt Count 245 Seg Neutrophils % 70.5 Lymphocytes % 17.1 Monocytes % 9.6 Eosinophils % 2.1 Basophils % 0.7 Absolute Neutrophils 3.8 Absolute Lymphocytes 0.9 Absolute Monocytes 0.5 Absolute Eosinophils 0.1 Absolute Basophils 0.0 Sodium 131.4 L Potassium 4.4 Chloride 105 Carbon Dioxide 21 L Anion Gap 5 BUN 12 Creatinine 0.46 L Est GFR ( Amer) > 60 Est GFR (Non-Af Amer) > 60 Glucose 75 Calcium 7.6 L Magnesium 1.6 09/27/17 20:55 Sputum Gram Stain - Final 09/27/17 20:55 Sputum Sputum Culture - Final C.albicans/C.dubliniensis Normal Devi Absent 09/27/17 09/28/17 09:33 04:28 NT-Pro-B Natriuret Pep 2410 H 4120 H Impressions: Chest/Abdomen CTA 09/27/17 00:00 IMPRESSION: Obstructive lung disease. Stable bandlike scarring along the posterior aspect right upper major fissure Nodule versus scar in the periphery of the right lower lobe for which outpatient follow-up PET-CT recommended. Chest X-Ray 09/28/17 11:32 IMPRESSION: Stable opacity and small effusion right lung base. Slight increase in density left base that may represent developing atelectasis or infiltrate. No overt congestive heart failure. Assessment & Plan - Diagnosis (1) Acute and chronic respiratory failure with hypoxia Is this a current diagnosis for this admission?: Yes Plan: Patient remains oxygen dependent at 2 L. She may have pneumonia based on her symptoms and her imaging. Continue antibiotic treatment, nasal cannula oxygen, breathing treatments. Patient also has a lesion seen on CT angiogram that will need to be reimaged as an outpatient. (2) Pneumonia Is this a current diagnosis for this admission?: Yes (3) Anemia Is this a current diagnosis for this admission?: Yes Plan: Hemoglobin showing slow downward trend, no sign of active bleeding, could be hemodilution, will check iron studies. (4) Hyponatremia Is this a current diagnosis for this admission?: Yes Plan: Stable, asymptomatic. Will continue to monitor and workup if indicated (5) Atrial fibrillation Qualifiers: Atrial fibrillation type: chronic Qualified Code(s): I48.2 - Chronic atrial fibrillation Is this a current diagnosis for this admission?: Yes Plan: Rate controlled, continue sotalol.Patient used to be on Eliquis, patient was hospitalized last time with hematuria and was found with a kidney tumor, she refused to take this medication after that. (6) COPD (chronic obstructive pulmonary disease) Qualifiers: Emphysema type: unspecified Is this a current diagnosis for this admission?: Yes Plan: Patient has poor air movement, intermittent wheezing, continue current care. She appears to be back to her 2 L baseline nasal cannula oxygen. Based on her diagnosis she would be an appropriate hospice referral and I will offer this to her. (7) Chronic diastolic CHF (congestive heart failure) Is this a current diagnosis for this admission?: Yes Plan: Does not seem to be exacerbated. Patient has diastolic failure. We will continue to monitor. (8) Hypothyroidism Is this a current diagnosis for this admission?: Yes Plan: Continue levothyroxine (9) Severe malnutrition Is this a current diagnosis for this admission?: Yes Plan: Patient has low BMI, bitemporal wasting, lesion in her chest of unclear etiology. It is possible this patient has an undiagnosed cancer. She does have a history of kidney cancer. Will speak with her about this and her desire for more aggressive evaluation. In the meantime she will continue on her dietary supplements. - Time Time Spent with patient: 25-34 minutes - Inpatient Certification Based on my medical assessment, after consideration of the patient's comorbidities, presenting symptoms, or acuity I expect that the services needed warrant INPATIENT care.: Yes I certify that my determination is in accordance with my understanding of Medicare's requirements for reasonable and necessary INPATIENT services [42 CFR 412.3e].: Yes Medical Necessity: Need Close Monitoring Due to Risk of Patient Decompensation, Need for Nebulizer Therapy and Monitoring of Response
[2017-09-29] MEDS: ATORVASTATIN CALCIUM 10 MG TABLET PO SCH (18:40)
[2017-09-29] MEDS: HYDROCODONE BIT/HOMATROPINE 5-1.5 MG TABLET PO PRN (19:44)
[2017-09-29] MEDS: MONTELUKAST SODIUM 10 MG TABLET PO SCH (22:17)
[2017-09-29] MEDS: TEMAZEPAM 7.5 MG CAPSULE PO SCH (23:12)
[2017-09-30 04:55] LABS: HEMATOCRIT 29.1 % (36.0-47.0); HEMOGLOBIN 10.2 g/dL (12.0-15.5); MEAN CORPUSCULAR HEMOGLOBIN 33.2 pg (27.0-33.4); MEAN CORPUSCULAR HGB CONC 34.9 g/dL (32.0-36.0); MEAN CORPUSCULAR VOLUME 95 fl (80-97); PLATELET COUNT 231 10^3/uL (150-450); RED BLOOD COUNT 3.06 10^6/uL (3.72-5.28); RED CELL DISTRIBUTION WIDTH 14.8 % (11.5-14.0); WHITE BLOOD COUNT 4.6 10^3/uL (4.0-10.5)
[2017-09-30 05:16] LABS: ANION GAP 5 (5-19); BLOOD UREA NITROGEN 9 mg/dL (7-20); CALCIUM 7.5 mg/dL (8.4-10.2); CARBON DIOXIDE 22 mmol/L (22-30); CHLORIDE 104 mmol/L (98-107); GLUCOSE 72 mg/dL (75-110); SODIUM 130.8 mmol/L (137-145)
[2017-09-30] MEDS: NORMAL SALINE 1000 ML 1,000 ML IV PRN (06:09)
[2017-09-30] MEDS: LEVOTHYROXINE SODIUM 0.075 MG TABLET PO SCH (06:10)
[2017-09-30] MEDS: IPRATROPIUM/ALBUTEROL 0.5-2.5 MG/3 ML AMPUL NEB PRN ×2 (06:13→11:21)
[2017-09-30] MEDS: IPRATROPIUM/ALBUTEROL 0.5-2.5 MG/3 ML AMPUL NEB SCH ×3 (07:42→20:22)
[2017-09-30] MEDS: ENOXAPARIN SODIUM INJ 30 MG/0.3 ML DISP.SYRIN SUBCUT SCH (09:38)
[2017-09-30] MEDS: GUAIFENESIN 600 MG TABLET.SA PO SCH ×2 (09:38→21:53)
[2017-09-30] MEDS: DILTIAZEM HCL 120 MG CAP.SR.24H PO SCH (09:38)
[2017-09-30] MEDS: SOTALOL HCL 80 MG TABLET PO SCH ×2 (09:39→21:53)
[2017-09-30] MEDS: SERTRALINE HCL 50 MG TABLET PO SCH (09:39)
[2017-09-30] MEDS: MEROPENEM 1 GM in NORMAL SALINE 50 ML IV SCH ×2 (09:39→22:22)
[2017-09-30] MEDS: BISMUTH SUBSALICYLATE 262 MG TAB.CHEW PO SCH ×3 (09:41→18:20)
[2017-09-30] MEDS ORDERED: METHYLPREDNISOLONE INJ 125 MG/2 ML SDV IV ONE (12:00)
[2017-09-30] MEDS: HYDROCODONE BIT/HOMATROPINE 5-1.5 MG TABLET PO PRN (16:22)
--- NOTE | 2017-09-30 17:59 | PDOC PROGRESS REPORT ---
Subjective Progress Note for:: 09/30/17 Subjective:: Pt is feeling anxious related to her shortness of breath, wheezing, no CP. Eating and drinking fine. Feeling tired and a little bit weak. She is coughing a lot and having a hard time coughing up her phlegm. No fever or chills. Having a difficult time sleeping. Reason For Visit: HCAP Physical Exam Vital Signs: Temp Pulse Resp BP Pulse Ox 97.4 F 75 24 H 152/93 H 91 L 09/30/17 16:00 09/30/17 16:00 09/30/17 16:00 09/30/17 16:00 09/30/17 16:00 Intake & Output 09/29/17 09/30/17 10/01/17 06:59 06:59 06:59 Intake Total 2950 2579 880 Balance 2950 2579 880 Weight 45 kg 46.5 kg General appearance: PRESENT: mild distress, thin Head exam: PRESENT: atraumatic Eye exam: PRESENT: EOMI. ABSENT: conjunctival injection, scleral icterus Ear exam: PRESENT: normal external ear exam Mouth exam: PRESENT: moist, neck supple Respiratory exam: PRESENT: decreased breath sounds, rhonchi, unlabored, wheezes. ABSENT: rales, tachypnea Cardiovascular exam: PRESENT: RRR, systolic murmur GI/Abdominal exam: PRESENT: normal bowel sounds, soft. ABSENT: distended, firm , guarding, tenderness Rectal exam: PRESENT: deferred Extremities exam: ABSENT: pedal edema Neurological exam: PRESENT: alert, awake, oriented to person, oriented to place Psychiatric exam: PRESENT: anxious. ABSENT: appropriate affect Skin exam: PRESENT: dry, intact, warm Results Laboratory Results: 09/30/17 04:14 09/30/17 04:14 09/30/17 09/30/17 04:14 04:14 WBC 4.6 RBC 3.06 L Hgb 10.2 L Hct 29.1 L MCV 95 MCH 33.2 MCHC 34.9 RDW 14.8 H Plt Count 231 Sodium 130.8 L Potassium 4.0 Chloride 104 Carbon Dioxide 22 Anion Gap 5 BUN 9 Creatinine 0.42 L Est GFR ( Amer) > 60 Est GFR (Non-Af Amer) > 60 Glucose 72 L Calcium 7.5 L 09/27/17 20:55 Sputum Gram Stain - Final 09/27/17 20:55 Sputum Sputum Culture - Final C.albicans/C.dubliniensis Normal Devi Absent 09/27/17 09/28/17 09:33 04:28 NT-Pro-B Natriuret Pep 2410 H 4120 H Impressions: Chest/Abdomen CTA 09/27/17 00:00 IMPRESSION: Obstructive lung disease. Stable bandlike scarring along the posterior aspect right upper major fissure Nodule versus scar in the periphery of the right lower lobe for which outpatient follow-up PET-CT recommended. Chest X-Ray 09/28/17 11:32 IMPRESSION: Stable opacity and small effusion right lung base. Slight increase in density left base that may represent developing atelectasis or infiltrate. No overt congestive heart failure. Assessment & Plan - Diagnosis (1) Acute and chronic respiratory failure with hypoxia Is this a current diagnosis for this admission?: Yes Plan: Pt has a COPD exacerbation and possible early pneumonia vs bronchitis. I have restarted her meropenum that was started a few days ago. She continues to have dyspnea and cough. WIll also continue her COPD care, as per below. (2) Pneumonia Is this a current diagnosis for this admission?: Yes Plan: Pt was admitted with dx of HCAP, she was placed on meropenum a few days ago and I stopped it breifly, decided to restart today due to persist sxms consistent with an early pneumonia versus bronchitis. Will continue ertapenem and monitor her signs and symptoms carefully. Chest scanning has been equivocal (3) Anemia Is this a current diagnosis for this admission?: Yes Plan: Normocytic, no active bleeding, stabilizing today. We will continue to monitor. (4) Hyponatremia Is this a current diagnosis for this admission?: Yes Plan: Possibly related to hypovolemia. Will increase her fluids to 100 mL/h. She does not have signs of volume overload. She is not eating and drinking well though she thinks she is. We will continue to monitor, recheck hyponatremia tomorrow. (5) Atrial fibrillation Qualifiers: Atrial fibrillation type: chronic Qualified Code(s): I48.2 - Chronic atrial fibrillation Is this a current diagnosis for this admission?: Yes Plan: Patient is on sotalol, she is rate controlled, this will continue. She does not want to be on anticoagulation and has felt this way for quite some time.. (6) COPD (chronic obstructive pulmonary disease) Qualifiers: Emphysema type: unspecified Is this a current diagnosis for this admission?: Yes Plan: Patient has COPD with exacerbation. Either caused by bronchitis or pneumonia. She was having excessive wheezing today and worsening shortness of breath with some anxiety. I did start her back on the meropenem she is allergic to doxycycline, Levaquin and has a prolonged QT so I did not use a azithromycin.. I also started her on IV steroids. Will continue with bronchodilators. I also started her on some Ativan, very low-dose, for anxiety related to dyspnea. (7) Hypothyroidism Is this a current diagnosis for this admission?: Yes Plan: Stable, continue her Synthroid. (8) Severe malnutrition Is this a current diagnosis for this admission?: Yes Plan: It is possible that this patient has undiagnosed malignancy. She could also be malnourished related to her advanced COPD. We will continue to do what we can to help her out from a nutritional perspective. She will need workup for the lung lesion. It will be recommended that she have very close outpatient primary care follow-up. - Time Time Spent with patient: 25-34 minutes Medications reviewed and adjusted accordingly: Yes - Inpatient Certification Based on my medical assessment, after consideration of the patient's comorbidities, presenting symptoms, or acuity I expect that the services needed warrant INPATIENT care.: Yes I certify that my determination is in accordance with my understanding of Medicare's requirements for reasonable and necessary INPATIENT services [42 CFR 412.3e].: Yes Medical Necessity: Need Close Monitoring Due to Risk of Patient Decompensation, Need for IV Antibiotics, Risk of Complication if Not Cared For in Hospital
[2017-09-30] MEDS: ATORVASTATIN CALCIUM 10 MG TABLET PO SCH (18:22)
[2017-09-30] MEDS ORDERED: MEROPENEM 1 GM VIAL IV PRN (19:03)
[2017-09-30] MEDS: MONTELUKAST SODIUM 10 MG TABLET PO SCH (21:52)
[2017-09-30] MEDS: METHYLPREDNISOLONE INJ 125 MG/2 ML SDV IV SCH (21:52)
[2017-09-30] MEDS: LORAZEPAM 0.5 MG TABLET PO SCH (21:53)
--- NOTE | 2017-09-30 21:54 | EKG REPORT ---
SEVERITY:- BORDERLINE ECG - SINUS RHYTHM WITH FREQUENT APCs LOW VOLTAGE IN FRONTAL LEADS BORDERLINE PROLONGED QT INTERVAL : Confirmed by: Fei Sellers 30-Sep-2017 21:53:57
[2017-09-30] MEDS ORDERED: MEROPENEM 1 GM VIAL ONE (22:05)
[2017-10-01] MEDS: ZOLPIDEM TARTRATE 5 MG TABLET PO PRN ×2 (00:21→21:43)
[2017-10-01 05:02] LABS: HEMATOCRIT 28.7 % (36.0-47.0); HEMOGLOBIN 9.8 g/dL (12.0-15.5); MEAN CORPUSCULAR HGB CONC 34.2 g/dL (32.0-36.0); MEAN CORPUSCULAR VOLUME 97 fl (80-97); PLATELET COUNT 270 10^3/uL (150-450); RED BLOOD COUNT 2.97 10^6/uL (3.72-5.28); RED CELL DISTRIBUTION WIDTH 14.7 % (11.5-14.0); WHITE BLOOD COUNT 3.2 10^3/uL (4.0-10.5)
[2017-10-01 05:08] LABS: ANION GAP 6 (5-19); BLOOD UREA NITROGEN 12 mg/dL (7-20); CALCIUM 7.8 mg/dL (8.4-10.2); CARBON DIOXIDE 21 mmol/L (22-30); CHLORIDE 104 mmol/L (98-107); GLUCOSE 151 mg/dL (75-110); POTASSIUM 4.1 mmol/L (3.6-5.0); SODIUM 131.3 mmol/L (137-145)
[2017-10-01] MEDS: LEVOTHYROXINE SODIUM 0.075 MG TABLET PO SCH (05:20)
[2017-10-01] MEDS: LORAZEPAM 0.5 MG TABLET PO SCH ×3 (05:20→21:39)
[2017-10-01] MEDS ORDERED: MEROPENEM 1 GM VIAL ONE (05:25)
[2017-10-01] MEDS: MEROPENEM 1 GM in NORMAL SALINE 50 ML IV SCH ×3 (05:54→21:38)
[2017-10-01] MEDS: IPRATROPIUM/ALBUTEROL 0.5-2.5 MG/3 ML AMPUL NEB SCH ×3 (08:04→20:00)
[2017-10-01] MEDS: GUAIFENESIN 600 MG TABLET.SA PO SCH ×2 (10:22→21:38)
[2017-10-01] MEDS: SOTALOL HCL 80 MG TABLET PO SCH ×2 (10:22→21:38)
[2017-10-01] MEDS: SERTRALINE HCL 50 MG TABLET PO SCH (10:22)
[2017-10-01] MEDS: ENOXAPARIN SODIUM INJ 30 MG/0.3 ML DISP.SYRIN SUBCUT SCH (10:22)
[2017-10-01] MEDS: METHYLPREDNISOLONE INJ 125 MG/2 ML SDV IV SCH ×2 (10:22→21:38)
[2017-10-01] MEDS: DILTIAZEM HCL 120 MG CAP.SR.24H PO SCH (10:22)
[2017-10-01] MEDS: BISMUTH SUBSALICYLATE 262 MG TAB.CHEW PO SCH ×3 (10:23→17:36)
[2017-10-01] MEDS: ERGOCALCIFEROL (VITAMIN D2) 50000 UNIT (1.25 MG) CAPSULE PO SCH (10:23)
[2017-10-01] MEDS ORDERED: NORMAL SALINE 1000 ML 500 ML IV ONE (14:46)
--- NOTE | 2017-10-01 14:54 | PDOC PROGRESS REPORT ---
Subjective Progress Note for:: 10/01/17 Subjective:: Patient feels that she is breathing better today. She is not having chest pain. She is not having coughing paroxysms and no sputum today. No fever or chills. She slept well with Ambien which she has taken in the past. Would like to add Ensure to her trays. No constipation or diarrhea. No dysuria. Reason For Visit: HCAP Physical Exam Vital Signs: Temp Pulse Resp BP Pulse Ox 97.8 F 86 24 H 149/70 H 97 10/01/17 11:58 10/01/17 11:58 10/01/17 11:58 10/01/17 11:58 10/01/17 11:58 Intake & Output 09/30/17 10/01/17 10/02/17 06:59 06:59 06:59 Intake Total 2579 1366 Balance 2579 1366 Weight 46.5 kg 47.5 kg General appearance: PRESENT: no acute distress, cooperative, thin Head exam: PRESENT: atraumatic, normocephalic Eye exam: ABSENT: conjunctival injection, scleral icterus Ear exam: PRESENT: normal external ear exam Mouth exam: PRESENT: moist, tongue midline Respiratory exam: PRESENT: decreased breath sounds, unlabored, wheezes. ABSENT : rales, rhonchi Cardiovascular exam: PRESENT: RRR, systolic murmur Pulses: PRESENT: normal radial pulses GI/Abdominal exam: PRESENT: normal bowel sounds, soft. ABSENT: distended, guarding, tenderness Rectal exam: PRESENT: deferred Extremities exam: ABSENT: pedal edema, +1 edema Musculoskeletal exam: PRESENT: other - sarcopenia Neurological exam: PRESENT: alert, awake, oriented to person, oriented to place , oriented to situation, CN II-XII grossly intact Psychiatric exam: PRESENT: appropriate affect. ABSENT: anxious Skin exam: PRESENT: dry, intact, warm Results Laboratory Results: 10/01/17 04:07 10/01/17 04:07 10/01/17 10/01/17 04:07 04:07 WBC 3.2 L RBC 2.97 L Hgb 9.8 L Hct 28.7 L MCV 97 MCH 33.0 MCHC 34.2 RDW 14.7 H Plt Count 270 Sodium 131.3 L Potassium 4.1 Chloride 104 Carbon Dioxide 21 L Anion Gap 6 BUN 12 Creatinine 0.44 L Est GFR ( Amer) > 60 Est GFR (Non-Af Amer) > 60 Glucose 151 H Calcium 7.8 L Magnesium 1.7 09/27/17 09/28/17 09:33 04:28 NT-Pro-B Natriuret Pep 2410 H 4120 H Impressions: Chest/Abdomen CTA 09/27/17 00:00 IMPRESSION: Obstructive lung disease. Stable bandlike scarring along the posterior aspect right upper major fissure Nodule versus scar in the periphery of the right lower lobe for which outpatient follow-up PET-CT recommended. Chest X-Ray 09/28/17 11:32 IMPRESSION: Stable opacity and small effusion right lung base. Slight increase in density left base that may represent developing atelectasis or infiltrate. No overt congestive heart failure. Assessment & Plan - Diagnosis (1) Acute and chronic respiratory failure with hypoxia Is this a current diagnosis for this admission?: Yes Plan: She has pneumonia and COPD exacerbation. She is on meropenem and her symptoms seem to be improving. She is being treated for exacerbation as per below. She is overall improved today. (2) Pneumonia Is this a current diagnosis for this admission?: Yes Plan: Patient has multiple drug allergies including doxycycline, penicillins, Levaquin. Also she has a prolonged QT interval and with her antiarrhythmic I opted not to add azithromycin. She had been on meropenem for a few days for pneumonia versus bronchitis and so I added that back as her antibiotic for her pneumonia and COPD exacerbation. (3) Anemia Is this a current diagnosis for this admission?: Yes Plan: Stable, no acute bleeding. Monitor as indicated. (4) Hyponatremia Is this a current diagnosis for this admission?: Yes Plan: I think patient is a little bit volume depleted. I have given her 500 mL of normal saline. Recheck the sodium in the morning. (5) Atrial fibrillation Qualifiers: Atrial fibrillation type: chronic Qualified Code(s): I48.2 - Chronic atrial fibrillation Is this a current diagnosis for this admission?: Yes Plan: sTable on her antiarrhythmic. Does not want to be on anticoagulation as a long- standing wish. Is aware of the risks related to not being anticoagulated for A. fib. (6) COPD (chronic obstructive pulmonary disease) Qualifiers: Emphysema type: unspecified Is this a current diagnosis for this admission?: Yes Plan: Improvement today versus yesterday. Continue steroids without changing, continue antibiotics and bronchodilators. Continue oxygen chin therapy. (7) Hypothyroidism Is this a current diagnosis for this admission?: Yes Plan: Continue Synthroid (8) Severe malnutrition Is this a current diagnosis for this admission?: Yes Plan: Today Ensure was added to each of her trays. - Time Time Spent with patient: 25-34 minutes - Inpatient Certification Based on my medical assessment, after consideration of the patient's comorbidities, presenting symptoms, or acuity I expect that the services needed warrant INPATIENT care.: Yes I certify that my determination is in accordance with my understanding of Medicare's requirements for reasonable and necessary INPATIENT services [42 CFR 412.3e].: Yes Medical Necessity: Need for Nebulizer Therapy and Monitoring of Response, Need for IV Antibiotics
[2017-10-01] MEDS: ATORVASTATIN CALCIUM 10 MG TABLET PO SCH (17:35)
[2017-10-01] MEDS ORDERED: HYDROCODONE BIT/HOMATROPINE 5-1.5 MG TABLET PO ONE (18:30)
[2017-10-01] MEDS: MONTELUKAST SODIUM 10 MG TABLET PO SCH (21:39)
[2017-10-02 05:27] LABS: ANION GAP 5 (5-19); BLOOD UREA NITROGEN 14 mg/dL (7-20); CALCIUM 7.9 mg/dL (8.4-10.2); CARBON DIOXIDE 24 mmol/L (22-30); CHLORIDE 104 mmol/L (98-107); GLUCOSE 140 mg/dL (75-110); POTASSIUM 3.9 mmol/L (3.6-5.0); SODIUM 133.2 mmol/L (137-145)
[2017-10-02] MEDS: LEVOTHYROXINE SODIUM 0.075 MG TABLET PO SCH (06:11)
[2017-10-02] MEDS: NORMAL SALINE 1000 ML 1,000 ML IV PRN (06:11)
[2017-10-02] MEDS: LORAZEPAM 0.5 MG TABLET PO SCH ×3 (06:12→22:05)
[2017-10-02] MEDS: MEROPENEM 1 GM in NORMAL SALINE 50 ML IV SCH ×3 (06:13→22:04)
[2017-10-02] MEDS: IPRATROPIUM/ALBUTEROL 0.5-2.5 MG/3 ML AMPUL NEB PRN (06:15)
[2017-10-02] MEDS: IPRATROPIUM/ALBUTEROL 0.5-2.5 MG/3 ML AMPUL NEB SCH ×3 (08:34→20:02)
[2017-10-02] MEDS: METHYLPREDNISOLONE INJ 125 MG/2 ML SDV IV SCH ×2 (10:52→22:02)
[2017-10-02] MEDS: SERTRALINE HCL 50 MG TABLET PO SCH (10:53)
[2017-10-02] MEDS: DILTIAZEM HCL 120 MG CAP.SR.24H PO SCH (10:53)
[2017-10-02] MEDS: SOTALOL HCL 80 MG TABLET PO SCH ×2 (10:54→22:04)
[2017-10-02] MEDS: GUAIFENESIN 600 MG TABLET.SA PO SCH ×2 (10:54→22:04)
--- NOTE | 2017-10-02 12:31 | PDOC PROGRESS REPORT ---
Subjective Progress Note for:: 10/02/17 Subjective:: Feels slowly improving, but still with shortness of breath with minimal activity. Still with wheezing. She feels she is significantly improved, but still not baseline. Denies chest pain, no palpitations. Denies fever or chills. Reason For Visit: HCAP Physical Exam Vital Signs: Temp Pulse Resp BP Pulse Ox 97.9 F 107 H 16 186/86 H 96 10/02/17 11:22 10/02/17 11:22 10/02/17 08:34 10/02/17 11:22 10/02/17 08:34 Intake & Output 10/01/17 10/02/17 10/03/17 06:59 06:59 06:59 Intake Total 1366 1632 Balance 1366 1632 Weight 47.5 kg 49.8 kg General appearance: PRESENT: no acute distress, cooperative, thin Head exam: PRESENT: atraumatic, normocephalic Eye exam: ABSENT: conjunctival injection, scleral icterus Ear exam: PRESENT: normal external ear exam Mouth exam: PRESENT: moist, tongue midline Respiratory exam: PRESENT: decreased breath sounds, unlabored, wheezes. ABSENT : rales, rhonchi Cardiovascular exam: PRESENT: RRR, systolic murmur Pulses: PRESENT: normal radial pulses GI/Abdominal exam: PRESENT: normal bowel sounds, soft. ABSENT: distended, guarding, tenderness Rectal exam: PRESENT: deferred Extremities exam: ABSENT: pedal edema, +1 edema Musculoskeletal exam: PRESENT: other - sarcopenia Neurological exam: PRESENT: alert, awake, oriented to person, oriented to place , oriented to situation, CN II-XII grossly intact Psychiatric exam: PRESENT: appropriate affect. ABSENT: anxious Skin exam: PRESENT: dry, intact, warm Results Laboratory Results: 10/01/17 04:07 10/02/17 04:42 10/02/17 04:42 Sodium 133.2 L Potassium 3.9 Chloride 104 Carbon Dioxide 24 Anion Gap 5 BUN 14 Creatinine 0.44 L Est GFR ( Amer) > 60 Est GFR (Non-Af Amer) > 60 Glucose 140 H Calcium 7.9 L Magnesium 1.8 09/27/17 09/28/17 09:33 04:28 NT-Pro-B Natriuret Pep 2410 H 4120 H Impressions: Chest/Abdomen CTA 09/27/17 00:00 IMPRESSION: Obstructive lung disease. Stable bandlike scarring along the posterior aspect right upper major fissure Nodule versus scar in the periphery of the right lower lobe for which outpatient follow-up PET-CT recommended. Chest X-Ray 09/28/17 11:32 IMPRESSION: Stable opacity and small effusion right lung base. Slight increase in density left base that may represent developing atelectasis or infiltrate. No overt congestive heart failure. Assessment & Plan - Plan Summary Plan Summary: (1) Acute and chronic respiratory failure with hypoxia Is this a current diagnosis for this admission?: Yes Plan: She has pneumonia and COPD exacerbation. She is on meropenem and her symptoms seem to be improving. (2) Pneumonia Is this a current diagnosis for this admission?: Yes Plan: Patient has multiple drug allergies including doxycycline, penicillins, Levaquin. Also she has a prolonged QT interval and with her antiarrhythmic azithromycin was not added. She is tolerating meropenem. (3) Anemia Is this a current diagnosis for this admission?: Yes Plan: Stable, no acute bleeding. Monitor as indicated. (4) Hyponatremia Is this a current diagnosis for this admission?: Yes Plan: Stable/improved. Continue to monitor. (5) Atrial fibrillation Qualifiers: Atrial fibrillation type: chronic Qualified Code(s): I48.2 - Chronic atrial fibrillation Is this a current diagnosis for this admission?: Yes Plan: Sable on her antiarrhythmic. Does not want to be on anticoagulation as a long- standing wish. She is aware of the risks related to not being anticoagulated for A. fib. (6) COPD (chronic obstructive pulmonary disease) Qualifiers: Emphysema type: unspecified Is this a current diagnosis for this admission?: Yes Plan: Improving. Continue Solu-Medrol at 60 mg twice daily for now, continue antibiotics and bronchodilators. Continue oxygen chin therapy. (7) Hypothyroidism Is this a current diagnosis for this admission?: Yes Plan: Continue Synthroid (8) Severe malnutrition Is this a current diagnosis for this admission?: Yes Plan: Continue Ensure with meals.
[2017-10-02] MEDS: ENOXAPARIN SODIUM INJ 30 MG/0.3 ML DISP.SYRIN SUBCUT SCH (14:08)
[2017-10-02] MEDS: BISMUTH SUBSALICYLATE 262 MG TAB.CHEW PO SCH ×3 (14:09→17:57)
[2017-10-02] MEDS: ATORVASTATIN CALCIUM 10 MG TABLET PO SCH (18:03)
[2017-10-02] MEDS: MONTELUKAST SODIUM 10 MG TABLET PO SCH (22:04)
[2017-10-02] MEDS: ZOLPIDEM TARTRATE 5 MG TABLET PO PRN (22:04)
[2017-10-03] MEDS: NORMAL SALINE 1000 ML 1,000 ML IV PRN ×2 (03:30→16:20)
[2017-10-03 04:25] LABS: ABSOLUTE LYMPHOCYTES (AUTO) 0.6 10^3/uL (0.5-4.7); ABSOLUTE MONOCYTES (AUTO) 0.2 10^3/uL (0.1-1.4); ABSOLUTE NEUT (AUTO) 3.8 10^3/uL (1.7-8.2); BASOPHILS % (AUTO) 0.4 % (0-2); HEMATOCRIT 28.4 % (36.0-47.0); HEMOGLOBIN 9.8 g/dL (12.0-15.5); LYMPHOCYTES % (AUTO) 12.6 % (13-45); MEAN CORPUSCULAR HGB CONC 34.4 g/dL (32.0-36.0); MEAN CORPUSCULAR VOLUME 96 fl (80-97); MONOCYTES % (AUTO) 3.4 % (3-13); PLATELET COUNT 325 10^3/uL (150-450); RED BLOOD COUNT 2.96 10^6/uL (3.72-5.28); RED CELL DISTRIBUTION WIDTH 14.7 % (11.5-14.0); SEGMENTED NEUTROPHILS % (AUTO) 83.6 % (42-78); TOTAL CELLS COUNTED % (AUTO) 100 %; WHITE BLOOD COUNT 4.5 10^3/uL (4.0-10.5)
[2017-10-03 04:46] LABS: ANION GAP 6 (5-19); BLOOD UREA NITROGEN 14 mg/dL (7-20); CALCIUM 7.9 mg/dL (8.4-10.2); CARBON DIOXIDE 25 mmol/L (22-30); CHLORIDE 104 mmol/L (98-107); GLUCOSE 141 mg/dL (75-110); POTASSIUM 3.3 mmol/L (3.6-5.0); SODIUM 134.5 mmol/L (137-145)
[2017-10-03] MEDS: MEROPENEM 1 GM in NORMAL SALINE 50 ML IV SCH ×3 (05:59→21:24)
[2017-10-03] MEDS: LEVOTHYROXINE SODIUM 0.075 MG TABLET PO SCH (05:59)
[2017-10-03] MEDS: LORAZEPAM 0.5 MG TABLET PO SCH ×3 (06:00→21:24)
[2017-10-03] MEDS: IPRATROPIUM/ALBUTEROL 0.5-2.5 MG/3 ML AMPUL NEB PRN (06:19)
[2017-10-03] MEDS: IPRATROPIUM/ALBUTEROL 0.5-2.5 MG/3 ML AMPUL NEB SCH ×3 (07:59→20:00)
[2017-10-03] MEDS: METHYLPREDNISOLONE INJ 125 MG/2 ML SDV IV SCH ×2 (10:06→21:24)
[2017-10-03] MEDS: SERTRALINE HCL 50 MG TABLET PO SCH (10:08)
[2017-10-03] MEDS: ENOXAPARIN SODIUM INJ 30 MG/0.3 ML DISP.SYRIN SUBCUT SCH (10:08)
[2017-10-03] MEDS: GUAIFENESIN 600 MG TABLET.SA PO SCH ×2 (10:08→21:24)
[2017-10-03] MEDS: SOTALOL HCL 80 MG TABLET PO SCH ×2 (10:09→21:25)
[2017-10-03] MEDS: DILTIAZEM HCL 120 MG CAP.SR.24H PO SCH (10:10)
[2017-10-03] MEDS: BISMUTH SUBSALICYLATE 262 MG TAB.CHEW PO SCH ×4 (10:13→19:12)
--- NOTE | 2017-10-03 15:37 | PDOC PROGRESS REPORT ---
Subjective Progress Note for:: 10/03/17 Subjective:: No adverse events overnight. No new complaints. Vital signs been stable. She has not been eating very much. She says she is okay at rest but she still feels pretty tired. When she tries to get up to go to the bathroom she is very short of breath by the time she gets back in bed and it takes her about a minute to recover. Reason For Visit: HCAP Physical Exam Vital Signs: Temp Pulse Resp BP Pulse Ox 97.9 F 101 H 16 152/96 H 94 10/03/17 11:19 10/03/17 13:40 10/03/17 13:40 10/03/17 11:19 10/03/17 13:40 Intake & Output 10/02/17 10/03/17 10/04/17 06:59 06:59 06:59 Intake Total 1632 1588 50 Balance 1632 1588 50 Weight 49.8 kg 46.6 kg General appearance: PRESENT: no acute distress, thin Respiratory exam: PRESENT: decreased breath sounds, prolonged expiratory phas, wheezes. ABSENT: rales, rhonchi Cardiovascular exam: PRESENT: RRR. ABSENT: systolic murmur GI/Abdominal exam: PRESENT: soft. ABSENT: guarding, mass, normal bowel sounds, tenderness Extremities exam: ABSENT: pedal edema Musculoskeletal exam: PRESENT: normal inspection. ABSENT: deformity Neurological exam: PRESENT: alert, awake, oriented to person, oriented to place , oriented to time Results Laboratory Results: 10/03/17 04:11 10/03/17 04:11 10/03/17 10/03/17 04:11 04:11 WBC 4.5 RBC 2.96 L Hgb 9.8 L Hct 28.4 L MCV 96 MCH 33.0 MCHC 34.4 RDW 14.7 H Plt Count 325 Seg Neutrophils % 83.6 H Lymphocytes % 12.6 L Monocytes % 3.4 Eosinophils % 0.0 Basophils % 0.4 Absolute Neutrophils 3.8 Absolute Lymphocytes 0.6 Absolute Monocytes 0.2 Absolute Eosinophils 0.0 Absolute Basophils 0.0 Sodium 134.5 L Potassium 3.3 L Chloride 104 Carbon Dioxide 25 Anion Gap 6 BUN 14 Creatinine 0.36 L Est GFR ( Amer) > 60 Est GFR (Non-Af Amer) > 60 Glucose 141 H Calcium 7.9 L 09/27/17 09/28/17 09:33 04:28 NT-Pro-B Natriuret Pep 2410 H 4120 H Impressions: Chest/Abdomen CTA 09/27/17 00:00 IMPRESSION: Obstructive lung disease. Stable bandlike scarring along the posterior aspect right upper major fissure Nodule versus scar in the periphery of the right lower lobe for which outpatient follow-up PET-CT recommended. Chest X-Ray 09/28/17 11:32 IMPRESSION: Stable opacity and small effusion right lung base. Slight increase in density left base that may represent developing atelectasis or infiltrate. No overt congestive heart failure. Assessment & Plan - Diagnosis (1) Acute and chronic respiratory failure with hypoxia Is this a current diagnosis for this admission?: Yes Plan: Continue supplemental O2 to keep oxygen saturations greater than 88%. (2) HCAP (healthcare-associated pneumonia) Is this a current diagnosis for this admission?: Yes Plan: Day 3 of meropenem. She has been on aztreonam and Flagyl previously. I am not sure how many days of antibiotics she has had, but she will probably need 7-10 days total. Once she sits somewhere in that range we can probably discontinue antibiotics. (3) COPD with acute exacerbation Is this a current diagnosis for this admission?: Yes Plan: Continue steroids at current dose now, will try to taper tomorrow if she has improved clinically. - Time Time Spent with patient: 15-24 minutes
[2017-10-03] MEDS: BENZONATATE 100 MG CAPSULE PO SCH (19:10)
[2017-10-03] MEDS: ATORVASTATIN CALCIUM 10 MG TABLET PO SCH (19:10)
[2017-10-03] MEDS: ZOLPIDEM TARTRATE 5 MG TABLET PO PRN (21:24)
[2017-10-03] MEDS: MONTELUKAST SODIUM 10 MG TABLET PO SCH (21:24)
[2017-10-04] MEDS: BENZONATATE 100 MG CAPSULE PO SCH ×3 (01:24→17:58)
[2017-10-04] MEDS: IPRATROPIUM/ALBUTEROL 0.5-2.5 MG/3 ML AMPUL NEB PRN (01:31)
[2017-10-04] MEDS: NORMAL SALINE 1000 ML 1,000 ML IV PRN (03:39)
[2017-10-04] MEDS: LORAZEPAM 0.5 MG TABLET PO SCH ×3 (05:01→21:22)
[2017-10-04] MEDS: MEROPENEM 1 GM in NORMAL SALINE 50 ML IV SCH ×3 (05:01→21:22)
[2017-10-04] MEDS: LEVOTHYROXINE SODIUM 0.075 MG TABLET PO SCH (05:01)
[2017-10-04] MEDS: IPRATROPIUM/ALBUTEROL 0.5-2.5 MG/3 ML AMPUL NEB SCH (08:32)
[2017-10-04] MEDS ORDERED: LEVALBUTEROL HCL NEB 1.25 MG/3 ML AMPUL NEB PRN (09:03)
[2017-10-04] MEDS: METHYLPREDNISOLONE INJ 125 MG/2 ML SDV IV SCH (09:38)
[2017-10-04] MEDS: SOTALOL HCL 80 MG TABLET PO SCH ×2 (09:39→21:22)
[2017-10-04] MEDS: SERTRALINE HCL 50 MG TABLET PO SCH (09:39)
[2017-10-04] MEDS: DILTIAZEM HCL 180 MG CAPSULE.CR PO SCH (09:39)
[2017-10-04] MEDS: GUAIFENESIN 600 MG TABLET.SA PO SCH ×2 (09:39→21:22)
[2017-10-04] MEDS: ENOXAPARIN SODIUM INJ 30 MG/0.3 ML DISP.SYRIN SUBCUT SCH (09:40)
[2017-10-04] MEDS: BISMUTH SUBSALICYLATE 262 MG TAB.CHEW PO SCH ×3 (09:40→18:00)
[2017-10-04] MEDS ORDERED: LEVALBUTEROL HCL NEB 1.25 MG/3 ML AMPUL NEB SCH (12:00)
[2017-10-04] MEDS: LEVALBUTEROL HCL NEB 1.25 MG/3 ML AMPUL NEB SCH ×2 (14:07→19:53)
--- NOTE | 2017-10-04 17:20 | PDOC PROGRESS REPORT ---
Subjective Progress Note for:: 10/04/17 Subjective:: No adverse events overnight. Says she still does not feel very good. She does admit, however, that her breathing has improved. She does not feel as labored as she has been previous examinations. No fevers. Her cough is very weak. Reason For Visit: HCAP Physical Exam Vital Signs: Temp Pulse Resp BP Pulse Ox 97.5 F 90 20 146/71 H 96 10/04/17 15:33 10/04/17 15:33 10/04/17 15:33 10/04/17 15:33 10/04/17 15:33 Intake & Output 10/03/17 10/04/17 10/05/17 06:59 06:59 06:59 Intake Total 1588 4000 0 Output Total 1700 350 Balance 1588 2300 -350 Weight 46.6 kg 47.1 kg General appearance: PRESENT: no acute distress, disheveled Respiratory exam: PRESENT: unlabored, wheezes - Low pitched. ABSENT: rales, rhonchi, tachypnea Cardiovascular exam: PRESENT: irregular rhythm. ABSENT: systolic murmur GI/Abdominal exam: PRESENT: normal bowel sounds, soft. ABSENT: guarding, rebound, tenderness Extremities exam: ABSENT: pedal edema Musculoskeletal exam: PRESENT: normal inspection. ABSENT: deformity Neurological exam: PRESENT: alert, awake, oriented to person, oriented to place , oriented to time Results Laboratory Results: 10/03/17 04:11 10/03/17 04:11 09/27/17 09/28/17 09:33 04:28 NT-Pro-B Natriuret Pep 2410 H 4120 H Impressions: Chest/Abdomen CTA 09/27/17 00:00 IMPRESSION: Obstructive lung disease. Stable bandlike scarring along the posterior aspect right upper major fissure Nodule versus scar in the periphery of the right lower lobe for which outpatient follow-up PET-CT recommended. Chest X-Ray 09/28/17 11:32 IMPRESSION: Stable opacity and small effusion right lung base. Slight increase in density left base that may represent developing atelectasis or infiltrate. No overt congestive heart failure. Assessment & Plan - Diagnosis (1) Acute and chronic respiratory failure with hypoxia Is this a current diagnosis for this admission?: Yes Plan: Continue supplemental O2 to keep oxygen saturations greater than 88%. (2) HCAP (healthcare-associated pneumonia) Is this a current diagnosis for this admission?: Yes Plan: Day 4 of meropenem. She has been on aztreonam and Flagyl previously. I am not sure how many days of antibiotics she has had, but she will probably need 7-10 days total. Once she sits somewhere in that range we can probably discontinue antibiotics. (3) COPD with acute exacerbation Is this a current diagnosis for this admission?: Yes Plan: We will decrease Solu-Medrol to 40 mg 12 hours today, and monitor her response overnight. If she does well on the overnight we may be able to have a physical therapy evaluation to assess her functional status prior to any further discharge planning. - Time Time Spent with patient: 15-24 minutes
[2017-10-04] MEDS: ATORVASTATIN CALCIUM 10 MG TABLET PO SCH (17:58)
[2017-10-04] MEDS: METHYLPREDNISOLONE INJ 40 MG/1 ML SDV IV SCH (21:22)
[2017-10-04] MEDS: ZOLPIDEM TARTRATE 5 MG TABLET PO PRN (21:22)
[2017-10-04] MEDS: MONTELUKAST SODIUM 10 MG TABLET PO SCH (21:22)
[2017-10-04] MEDS ORDERED: METHYLPREDNISOLONE INJ 125 MG/2 ML SDV IV SCH (22:00)
[2017-10-05] MEDS: NORMAL SALINE 1000 ML 1,000 ML IV PRN (02:06)
[2017-10-05] MEDS: BENZONATATE 100 MG CAPSULE PO SCH ×3 (02:07→19:40)
[2017-10-05] MEDS: MEROPENEM 1 GM in NORMAL SALINE 50 ML IV SCH ×3 (05:03→21:24)
[2017-10-05] MEDS: LEVOTHYROXINE SODIUM 0.075 MG TABLET PO SCH (05:04)
[2017-10-05] MEDS: LORAZEPAM 0.5 MG TABLET PO SCH ×3 (05:04→21:24)
[2017-10-05] MEDS: LEVALBUTEROL HCL NEB 1.25 MG/3 ML AMPUL NEB SCH ×3 (07:41→19:51)
[2017-10-05] MEDS: METHYLPREDNISOLONE INJ 40 MG/1 ML SDV IV SCH ×2 (10:13→21:23)
[2017-10-05] MEDS: SERTRALINE HCL 50 MG TABLET PO SCH (10:13)
[2017-10-05] MEDS: SOTALOL HCL 80 MG TABLET PO SCH ×2 (10:15→21:24)
[2017-10-05] MEDS: BISMUTH SUBSALICYLATE 262 MG TAB.CHEW PO SCH ×3 (10:16→19:26)
[2017-10-05] MEDS: ENOXAPARIN SODIUM INJ 30 MG/0.3 ML DISP.SYRIN SUBCUT SCH (10:16)
[2017-10-05] MEDS: GUAIFENESIN 600 MG TABLET.SA PO SCH ×2 (10:16→21:24)
[2017-10-05] MEDS: DILTIAZEM HCL 180 MG CAPSULE.CR PO SCH (10:16)
--- NOTE | 2017-10-05 15:29 | PDOC PROGRESS REPORT ---
Subjective Progress Note for:: 10/05/17 Subjective:: No adverse events overnight. Still complains of feeling tired. She is not really been eating much of anything but we were able to get her to drink some of her Ensure. She only walked about 5 feet with physical therapy and was requiring assistance with transfers. They are recommending [facility] for [facility]. Her cough is still pretty weak. She is no longer short of breath at rest. [facility] Physical Exam Vital Signs: Temp Pulse Resp BP Pulse Ox 97.8 F 92 18 143/68 H 98 10/05/17 12:26 10/05/17 13:26 10/05/17 13:26 10/05/17 12:26 10/05/17 13:26 Intake & Output 10/04/17 10/05/17 10/06/17 06:59 06:59 06:59 Intake Total 4000 1840 300 Output Total 1700 900 400 Balance 2300 940 -100 Weight 47.1 kg 50 kg General appearance: PRESENT: no acute distress, disheveled Respiratory exam: PRESENT: unlabored, diminished. ABSENT: rales, rhonchi, tachypnea, wheezes Cardiovascular exam: PRESENT: irregular rhythm. ABSENT: systolic murmur GI/Abdominal exam: PRESENT: normal bowel sounds, soft. ABSENT: guarding, rebound, tenderness Extremities exam: ABSENT: pedal edema Musculoskeletal exam: PRESENT: normal inspection. ABSENT: deformity Neurological exam: PRESENT: alert, awake, oriented to person, oriented to place , oriented to time Results Laboratory Results: 10/03/17 04:11 10/03/17 04:11 09/27/17 09/28/17 09:33 04:28 NT-Pro-B Natriuret Pep 2410 H 4120 H Impressions: Chest/Abdomen CTA 09/27/17 00:00 IMPRESSION: Obstructive lung disease. Stable bandlike scarring along the posterior aspect right upper major fissure Nodule versus scar in the periphery of the right lower lobe for which outpatient follow-up PET-CT recommended. Chest X-Ray 09/28/17 11:32 IMPRESSION: Stable opacity and small effusion right lung base. Slight increase in density left base that may represent developing atelectasis or infiltrate. No overt congestive heart failure. Assessment & Plan - Diagnosis (1) Acute and chronic respiratory failure with hypoxia Is this a current diagnosis for this admission?: Yes Plan: Continue supplemental O2 to keep oxygen saturations greater than 88%. (2) HCAP (healthcare-associated pneumonia) Is this a current diagnosis for this admission?: Yes Plan: Day 5 of meropenem. She has been on aztreonam and Flagyl previously. I am not sure how many days of antibiotics she has had, but she will probably need 7-10 days total. Once she sits somewhere in that range we can probably discontinue antibiotics. I will probably do so tomorrow. (3) COPD with acute exacerbation Is this a current diagnosis for this admission?: Yes Plan: I will switch her over to some oral prednisone. I think this problem has resolved. We are going to try to get her placed in a [facility] facility for rehab. - Time Time Spent with patient: 15-24 minutes Anticipated discharge: SNF Within: when bed available
[2017-10-05] MEDS: ATORVASTATIN CALCIUM 10 MG TABLET PO SCH (19:40)
[2017-10-05] MEDS: MONTELUKAST SODIUM 10 MG TABLET PO SCH (21:24)
[2017-10-05] MEDS: ZOLPIDEM TARTRATE 5 MG TABLET PO PRN (22:21)
[2017-10-06] MEDS: BENZONATATE 100 MG CAPSULE PO SCH ×3 (01:27→17:26)
[2017-10-06] MEDS: MEROPENEM 1 GM in NORMAL SALINE 50 ML IV SCH ×2 (05:12→13:10)
[2017-10-06] MEDS: LORAZEPAM 0.5 MG TABLET PO SCH ×3 (05:12→21:21)
[2017-10-06] MEDS: LEVOTHYROXINE SODIUM 0.075 MG TABLET PO SCH (05:12)
[2017-10-06] MEDS: LEVALBUTEROL HCL NEB 1.25 MG/3 ML AMPUL NEB SCH ×3 (07:44→19:48)
[2017-10-06] MEDS: SERTRALINE HCL 50 MG TABLET PO SCH (09:03)
[2017-10-06] MEDS: SOTALOL HCL 80 MG TABLET PO SCH ×2 (09:05→21:21)
[2017-10-06] MEDS: GUAIFENESIN 600 MG TABLET.SA PO SCH ×2 (09:06→21:21)
[2017-10-06] MEDS: DILTIAZEM HCL 180 MG CAPSULE.CR PO SCH (09:07)
[2017-10-06] MEDS: METHYLPREDNISOLONE INJ 40 MG/1 ML SDV IV SCH (09:07)
[2017-10-06] MEDS: ENOXAPARIN SODIUM INJ 30 MG/0.3 ML DISP.SYRIN SUBCUT SCH (09:08)
[2017-10-06] MEDS: BISMUTH SUBSALICYLATE 262 MG TAB.CHEW PO SCH ×4 (09:13→17:29)
--- NOTE | 2017-10-06 16:03 | PDOC PROGRESS REPORT ---
Subjective Subjective:: No adverse events overnight. She sleeps most of the time. She only picks at her food. She only had a couple bites of breakfast this morning. Her breathing is comfortable enough to allow her to sleep. Reason For Visit: HCAP Physical Exam Vital Signs: Temp Pulse Resp BP Pulse Ox 97.8 F 97 18 165/87 H 96 10/06/17 07:42 10/06/17 14:11 10/06/17 14:11 10/06/17 07:42 10/06/17 14:11 Intake & Output 10/05/17 10/06/17 10/07/17 06:59 06:59 06:59 Intake Total 1890 1242 237 Output Total 900 1000 200 Balance 990 242 37 Weight 50 kg 50.1 kg General appearance: PRESENT: no acute distress, disheveled Respiratory exam: PRESENT: unlabored, diminished. ABSENT: rales, rhonchi, tachypnea, wheezes Cardiovascular exam: PRESENT: irregular rhythm. ABSENT: systolic murmur GI/Abdominal exam: PRESENT: normal bowel sounds, soft. ABSENT: guarding, rebound, tenderness Extremities exam: ABSENT: pedal edema Musculoskeletal exam: PRESENT: normal inspection. ABSENT: deformity Neurological exam: PRESENT: Drowsy but arousable, oriented to person, oriented to place, oriented to time Results Laboratory Results: 10/03/17 04:11 10/03/17 04:11 09/27/17 09/28/17 09:33 04:28 NT-Pro-B Natriuret Pep 2410 H 4120 H Impressions: Chest/Abdomen CTA 09/27/17 00:00 IMPRESSION: Obstructive lung disease. Stable bandlike scarring along the posterior aspect right upper major fissure Nodule versus scar in the periphery of the right lower lobe for which outpatient follow-up PET-CT recommended. Chest X-Ray 09/28/17 11:32 IMPRESSION: Stable opacity and small effusion right lung base. Slight increase in density left base that may represent developing atelectasis or infiltrate. No overt congestive heart failure. Assessment & Plan - Diagnosis (1) Acute and chronic respiratory failure with hypoxia Is this a current diagnosis for this admission?: Yes Plan: Continue supplemental O2 to keep oxygen saturations greater than 88%. (2) HCAP (healthcare-associated pneumonia) Is this a current diagnosis for this admission?: Yes Plan: Day 6 of meropenem. She has been on aztreonam and Flagyl previously. I will discontinue her antibiotics. (3) COPD with acute exacerbation Is this a current diagnosis for this admission?: Yes Plan: I have switched her over to some oral prednisone. I think this problem has resolved. We are going to try to get her placed in a longterm facility for rehab. - Time Time Spent with patient: 15-24 minutes
[2017-10-06] MEDS: ATORVASTATIN CALCIUM 10 MG TABLET PO SCH (17:26)
[2017-10-06] MEDS: MONTELUKAST SODIUM 10 MG TABLET PO SCH (21:21)
[2017-10-06] MEDS: ZOLPIDEM TARTRATE 5 MG TABLET PO PRN (21:21)
[2017-10-07] MEDS: BENZONATATE 100 MG CAPSULE PO SCH ×3 (01:23→17:43)
[2017-10-07] MEDS: LORAZEPAM 0.5 MG TABLET PO SCH ×3 (05:13→23:40)
[2017-10-07] MEDS: LEVOTHYROXINE SODIUM 0.075 MG TABLET PO SCH (05:14)
[2017-10-07] MEDS: LEVALBUTEROL HCL NEB 1.25 MG/3 ML AMPUL NEB SCH ×3 (07:58→19:54)
[2017-10-07] MEDS: SOTALOL HCL 80 MG TABLET PO SCH ×2 (09:15→23:40)
[2017-10-07] MEDS: GUAIFENESIN 600 MG TABLET.SA PO SCH ×2 (09:16→23:41)
[2017-10-07] MEDS: ENOXAPARIN SODIUM INJ 30 MG/0.3 ML DISP.SYRIN SUBCUT SCH (09:16)
[2017-10-07] MEDS: SERTRALINE HCL 50 MG TABLET PO SCH (09:16)
[2017-10-07] MEDS: BISMUTH SUBSALICYLATE 262 MG TAB.CHEW PO SCH ×3 (09:17→17:45)
[2017-10-07] MEDS: DILTIAZEM HCL 180 MG CAPSULE.CR PO SCH (09:25)
[2017-10-07] MEDS ORDERED: PREDNISONE 20 MG TABLET PO SCH (10:00)
--- NOTE | 2017-10-07 16:01 | PDOC PROGRESS REPORT ---
Subjective Progress Note for:: 10/07/17 Subjective:: No adverse events overnight. She sleeps most of the time. She only picks at her food. She says she does not want to go to a prison facility but she admitted that she has a lot of trouble getting around her room and she needs help. We had a discussion and she agreed to go. Reason For Visit: HCAP Physical Exam Vital Signs: Temp Pulse Resp BP Pulse Ox 97.3 F 93 18 141/67 H 95 10/07/17 04:25 10/07/17 14:13 10/07/17 14:13 10/07/17 04:25 10/07/17 14:13 Intake & Output 10/06/17 10/07/17 10/08/17 06:59 06:59 06:59 Intake Total 1242 567 Output Total 1000 400 Balance 242 167 Weight 50.1 kg 49.6 kg General appearance: PRESENT: no acute distress, disheveled Respiratory exam: PRESENT: unlabored, diminished. ABSENT: rales, rhonchi, tachypnea, wheezes Cardiovascular exam: PRESENT: irregular rhythm. ABSENT: systolic murmur GI/Abdominal exam: PRESENT: normal bowel sounds, soft. ABSENT: guarding, rebound, tenderness Extremities exam: ABSENT: pedal edema Musculoskeletal exam: PRESENT: normal inspection. ABSENT: deformity Neurological exam: PRESENT: Drowsy but arousable, oriented to person, oriented to place, oriented to time Results Laboratory Results: 10/03/17 04:11 10/03/17 04:11 09/27/17 09/28/17 09:33 04:28 NT-Pro-B Natriuret Pep 2410 H 4120 H Impressions: Chest/Abdomen CTA 09/27/17 00:00 IMPRESSION: Obstructive lung disease. Stable bandlike scarring along the posterior aspect right upper major fissure Nodule versus scar in the periphery of the right lower lobe for which outpatient follow-up PET-CT recommended. Chest X-Ray 09/28/17 11:32 IMPRESSION: Stable opacity and small effusion right lung base. Slight increase in density left base that may represent developing atelectasis or infiltrate. No overt congestive heart failure. Assessment & Plan - Diagnosis (1) Acute and chronic respiratory failure with hypoxia Is this a current diagnosis for this admission?: Yes Plan: Continue supplemental O2 to keep oxygen saturations greater than 88%. (2) HCAP (healthcare-associated pneumonia) Is this a current diagnosis for this admission?: Yes Plan: Resolved. Antibiotics discontinued. (3) COPD with acute exacerbation Is this a current diagnosis for this admission?: Yes Plan: Steroids discontinued. I think this problem has resolved. We are going to try to get her placed in a prison facility for rehab. - Time Time Spent with patient: 15-24 minutes
[2017-10-07] MEDS: ATORVASTATIN CALCIUM 10 MG TABLET PO SCH (17:43)
[2017-10-07] MEDS: MONTELUKAST SODIUM 10 MG TABLET PO SCH (23:41)
[2017-10-07] MEDS: ZOLPIDEM TARTRATE 5 MG TABLET PO PRN (23:48)
[2017-10-08] MEDS: LEVALBUTEROL HCL NEB 1.25 MG/3 ML AMPUL NEB PRN ×4 (02:15→17:27)
[2017-10-08] MEDS: BENZONATATE 100 MG CAPSULE PO SCH ×3 (06:09→18:49)
[2017-10-08] MEDS: LEVOTHYROXINE SODIUM 0.075 MG TABLET PO SCH (06:12)
[2017-10-08] MEDS: LORAZEPAM 0.5 MG TABLET PO SCH (06:13)
[2017-10-08] MEDS: LEVALBUTEROL HCL NEB 1.25 MG/3 ML AMPUL NEB SCH ×3 (08:11→20:09)
[2017-10-08] MEDS ORDERED: PREDNISONE 20 MG TABLET PO SCH (10:00)
[2017-10-08] MEDS: GUAIFENESIN 600 MG TABLET.SA PO SCH (10:27)
[2017-10-08] MEDS: DILTIAZEM HCL 180 MG CAPSULE.CR PO SCH (10:27)
[2017-10-08] MEDS: SOTALOL HCL 80 MG TABLET PO SCH (10:27)
[2017-10-08] MEDS: SERTRALINE HCL 50 MG TABLET PO SCH (10:28)
[2017-10-08] MEDS: ENOXAPARIN SODIUM INJ 30 MG/0.3 ML DISP.SYRIN SUBCUT SCH (10:29)
[2017-10-08] MEDS: ERGOCALCIFEROL (VITAMIN D2) 50000 UNIT (1.25 MG) CAPSULE PO SCH (10:38)
[2017-10-08] MEDS: BISMUTH SUBSALICYLATE 262 MG TAB.CHEW PO SCH ×3 (10:38→18:48)
[2017-10-08] MEDS ORDERED: ACETYLCYSTEINE 20% SOLN 800 MG/4 ML VIAL.NEB NEB ONE ×4 (14:00→16:30)
[2017-10-08 15:15] LABS: ARTERIAL BLOOD BASE EXCESS 9.6 mmol/L; ARTERIAL BLOOD FIO2 3L; ARTERIAL BLOOD H2CO3 1.28 mmol/L (1.05-1.35); ARTERIAL BLOOD HCO3 33.5 mmol/L (20-26); ARTERIAL BLOOD O2 SATURATION 94.1 % (94-98); ARTERIAL BLOOD PCO2 42.5 mmHg (35-45); ARTERIAL BLOOD PH 7.51 (7.35-7.45); ARTERIAL BLOOD PO2 63.4 mmHg (80-100); ARTERIAL BLOOD TOTAL CO2 34.8 mmol/L (21-25)
--- NOTE | 2017-10-08 15:29 | PDOC PROGRESS REPORT ---
Subjective Progress Note for:: 10/08/17 Subjective:: She has been acting a little bit more fatigued today. She asked fatigue every day but she looks little worse today than she has before. She is not really verbalizing any complaints. On the monitor she went from her usual rate controlled atrial fibrillation into the rapid ventricular response. She denies any chest pain. Reason For Visit: [facility] Physical Exam Vital Signs: Temp Pulse Resp BP Pulse Ox 97.5 F 137 H 26 H 146/98 H 99 10/08/17 07:53 10/08/17 10:48 10/08/17 10:48 10/08/17 07:25 10/08/17 10:48 Intake & Output 10/07/17 10/08/17 10/09/17 06:59 06:59 06:59 Intake Total 567 800 Output Total 400 500 Balance 167 300 Weight 49.6 kg 50.9 kg General appearance: PRESENT: mild distress, disheveled Respiratory exam: PRESENT: unlabored, diminished, coarse nonproductive cough. ABSENT: rales, rhonchi, tachypnea, wheezes Cardiovascular exam: PRESENT: irregular rhythm. ABSENT: systolic murmur GI/Abdominal exam: PRESENT: normal bowel sounds, soft. ABSENT: guarding, rebound, tenderness Extremities exam: ABSENT: pedal edema Musculoskeletal exam: PRESENT: normal inspection. ABSENT: deformity Neurological exam: PRESENT: Drowsy but arousable, oriented to person, oriented to place Results Laboratory Results: 10/03/17 04:11 10/03/17 04:11 10/08/17 15:08 Carbonic Acid 1.28 HCO3/H2CO3 Ratio 26:1 ABG pH 7.51 H ABG pCO2 42.5 ABG pO2 63.4 L ABG HCO3 33.5 H ABG O2 Saturation 94.1 ABG Base Excess 9.6 FiO2 3L 09/27/17 09/28/17 09:33 04:28 NT-Pro-B Natriuret Pep 2410 H 4120 H Impressions: Chest/Abdomen CTA 09/27/17 00:00 IMPRESSION: Obstructive lung disease. Stable bandlike scarring along the posterior aspect right upper major fissure Nodule versus scar in the periphery of the right lower lobe for which outpatient follow-up PET-CT recommended. Chest X-Ray 09/28/17 11:32 IMPRESSION: Stable opacity and small effusion right lung base. Slight increase in density left base that may represent developing atelectasis or infiltrate. No overt congestive heart failure. Assessment & Plan - Diagnosis (1) Acute and chronic respiratory failure with hypoxia Is this a current diagnosis for this admission?: Yes Plan: Continue supplemental O2 to keep oxygen saturations greater than 88%. The faintest exertion gets her short of breath. (2) HCAP (healthcare-associated pneumonia) Is this a current diagnosis for this admission?: Yes Plan: Resolved. Antibiotics discontinued. (3) COPD with acute exacerbation Is this a current diagnosis for this admission?: Yes Plan: Steroids being tapered off. I think this problem has resolved. We are going to try to get her placed in a [facility] facility for rehab. We continue with aggressive pulmonary toilet. (4) Atrial fibrillation Qualifiers: Atrial fibrillation type: chronic Qualified Code(s): I48.2 - Chronic atrial fibrillation Is this a current diagnosis for this admission?: Yes Plan: She went into [facility] today. She got her medication but she still has to fast of a heart rate. Switch her to a Cardizem drip. Checking her troponins. - Time Time Spent with patient: 25-34 minutes Anticipated discharge: SNF
[2017-10-08] MEDS: DILTIAZEM HCL/D5W 125 MG/125 ML RTUINJ IV PRN (15:33)
[2017-10-08] MEDS ORDERED: METHYLPREDNISOLONE INJ 125 MG/2 ML SDV IV ONE (17:45)
[2017-10-08] MEDS: ATORVASTATIN CALCIUM 10 MG TABLET PO SCH (18:49)
[2017-10-09] MEDS ORDERED: DILTIAZEM HCL/D5W 125 MG/125 ML RTUINJ IV ONE (00:32)
[2017-10-09] MEDS: MONTELUKAST SODIUM 10 MG TABLET PO SCH ×2 (00:45→21:57)
[2017-10-09] MEDS: GUAIFENESIN 600 MG TABLET.SA PO SCH ×3 (00:46→21:57)
[2017-10-09] MEDS: DILTIAZEM HCL/D5W 125 MG/125 ML RTUINJ IV PRN ×2 (00:46→07:30)
[2017-10-09] MEDS: LORAZEPAM 0.5 MG TABLET PO SCH ×4 (00:47→21:57)
[2017-10-09] MEDS ORDERED: METHYLPREDNISOLONE INJ 125 MG/2 ML SDV IV ONE (01:00)
[2017-10-09] MEDS: BENZONATATE 100 MG CAPSULE PO SCH ×3 (04:23→17:22)
[2017-10-09] MEDS ORDERED: METHYLPREDNISOLONE INJ 125 MG/2 ML SDV IV SCH ×3 (06:00→18:00)
[2017-10-09] MEDS: ACETYLCYSTEINE 20% SOLN 800 MG/4 ML VIAL.NEB NEB SCH ×3 (06:07→19:56)
[2017-10-09] MEDS: LEVOTHYROXINE SODIUM 0.075 MG TABLET PO SCH (06:34)
[2017-10-09] MEDS: LEVALBUTEROL HCL NEB 1.25 MG/3 ML AMPUL NEB SCH ×3 (07:47→19:56)
[2017-10-09] MEDS: SERTRALINE HCL 50 MG TABLET PO SCH (09:34)
[2017-10-09] MEDS: ENOXAPARIN SODIUM INJ 30 MG/0.3 ML DISP.SYRIN SUBCUT SCH (09:34)
[2017-10-09] MEDS: BISMUTH SUBSALICYLATE 262 MG TAB.CHEW PO SCH ×4 (09:36→17:23)
[2017-10-09] MEDS: DILTIAZEM HCL 90 MG TABLET PO SCH ×2 (12:47→17:22)
--- NOTE | 2017-10-09 14:13 | PDOC PROGRESS REPORT ---
Subjective Progress Note for:: 10/09/17 Subjective:: She was on BiPAP all last night. She was off of it for about 3 hours this morning and actually ate some of her breakfast. She had a Mucomyst nebulizer treatment and it was somewhat caustic to her and made her cough really hard she got short of breath and was put on BiPAP for short time until she could recover. Her heart rate has trended down into the normal range on the cardiac surgeon. [facility] Physical Exam Vital Signs: Temp Pulse Resp BP Pulse Ox 97.7 F 95 20 133/84 H 99 10/09/17 10:50 10/09/17 12:00 10/09/17 10:50 10/09/17 12:00 10/09/17 10:50 Intake & Output 10/08/17 10/09/17 10/10/17 06:59 06:59 06:59 Intake Total 800 1074 225 Output Total 500 Balance 300 1074 225 Weight 50.9 kg 51 kg General appearance: PRESENT: no acute distress, cooperative, disheveled, thin. ABSENT: well-nourished Respiratory exam: PRESENT: decreased breath sounds, rhonchi. ABSENT: accessory muscle use, chest wall tenderness, rales, tachypnea, wheezes Cardiovascular exam: PRESENT: irregular rhythm. ABSENT: diastolic murmur, systolic murmur Vascular exam: PRESENT: normal capillary refill GI/Abdominal exam: PRESENT: normal bowel sounds, soft. ABSENT: firm, guarding, rebound, tenderness Extremities exam: ABSENT: pedal edema Musculoskeletal exam: PRESENT: other - She has what appears to be a great deal of bruising on her up and lower extremities. ABSENT: deformity Neurological exam: PRESENT: alert, awake, oriented to person, oriented to place , oriented to time Skin exam: PRESENT: other - Extraordinarily thin and no elasticity Results Laboratory Results: 10/03/17 04:11 10/03/17 04:11 10/08/17 15:08 Carbonic Acid 1.28 HCO3/H2CO3 Ratio 26:1 ABG pH 7.51 H ABG pCO2 42.5 ABG pO2 63.4 L ABG HCO3 33.5 H ABG O2 Saturation 94.1 ABG Base Excess 9.6 FiO2 3L 09/27/17 09/28/17 10/08/17 09:33 04:28 13:44 Troponin I 0.085 NT-Pro-B Natriuret Pep 2410 H 4120 H 10/08/17 10/08/17 17:55 23:58 Troponin I 0.086 0.077 NT-Pro-B Natriuret Pep Impressions: Chest/Abdomen CTA 09/27/17 00:00 IMPRESSION: Obstructive lung disease. Stable bandlike scarring along the posterior aspect right upper major fissure Nodule versus scar in the periphery of the right lower lobe for which outpatient follow-up PET-CT recommended. Chest X-Ray 09/28/17 11:32 IMPRESSION: Stable opacity and small effusion right lung base. Slight increase in density left base that may represent developing atelectasis or infiltrate. No overt congestive heart failure. Assessment & Plan - Diagnosis (1) Acute and chronic respiratory failure with hypoxia Is this a current diagnosis for this admission?: Yes Plan: Continue supplemental O2 to keep oxygen saturations greater than 88%. The faintest exertion gets her short of breath. BiPAP as needed. (2) HCAP (healthcare-associated pneumonia) Is this a current diagnosis for this admission?: Yes Plan: Resolved. Antibiotics discontinued. (3) COPD with acute exacerbation Is this a current diagnosis for this admission?: Yes Plan: Had to put her back up on higher dose IV steroids yesterday. Her wheezing has resolved. I have started to taper her steroids again. When she gets switched over to prednisone, she will probably need to go on a very long taper because she had rebound worsening as we were tapering her couple of days ago. (4) Atrial fibrillation Qualifiers: Atrial fibrillation type: chronic Qualified Code(s): I48.2 - Chronic atrial fibrillation Is this a current diagnosis for this admission?: Yes Plan: We will switch her back over from IV diltiazem to oral short acting diltiazem, with the hopes that we will eventually be able to transition her back to a once a day diltiazem dosing. Troponins have been negative. - Time Time Spent with patient: 25-34 minutes Anticipated discharge: SNF - Plan Summary Plan Summary: We will try to get her breathing under control without having to rely on BiPAP. She will ultimately need a long prednisone taper because she has been on steroids for close to 2 weeks at this point. Anticoagulating her is going to be risky because she has a very high fall risk. Her overall prognosis is very poor and her family is aware. Her son plans to broach the subject of her CODE STATUS with her later today.
[2017-10-09] MEDS: METHYLPREDNISOLONE INJ 40 MG/1 ML SDV IV SCH (17:22)
[2017-10-09] MEDS: ATORVASTATIN CALCIUM 10 MG TABLET PO SCH (17:22)
[2017-10-09] MEDS: ZOLPIDEM TARTRATE 5 MG TABLET PO PRN (21:57)
[2017-10-10] MEDS: DILTIAZEM HCL 90 MG TABLET PO SCH ×5 (00:17→23:25)
[2017-10-10] MEDS: BENZONATATE 100 MG CAPSULE PO SCH ×3 (01:47→18:15)
[2017-10-10] MEDS: METHYLPREDNISOLONE INJ 40 MG/1 ML SDV IV SCH ×2 (01:47→09:54)
[2017-10-10] MEDS: LEVOTHYROXINE SODIUM 0.075 MG TABLET PO SCH (06:23)
[2017-10-10] MEDS: LORAZEPAM 0.5 MG TABLET PO SCH ×3 (06:23→21:54)
[2017-10-10] MEDS: ACETYLCYSTEINE 20% SOLN 800 MG/4 ML VIAL.NEB NEB SCH ×2 (08:53→20:44)
[2017-10-10] MEDS: LEVALBUTEROL HCL NEB 1.25 MG/3 ML AMPUL NEB SCH ×3 (08:53→20:44)
[2017-10-10] MEDS: SERTRALINE HCL 50 MG TABLET PO SCH (09:53)
[2017-10-10] MEDS: GUAIFENESIN 600 MG TABLET.SA PO SCH ×2 (09:54→21:54)
[2017-10-10] MEDS: ENOXAPARIN SODIUM INJ 30 MG/0.3 ML DISP.SYRIN SUBCUT SCH (09:54)
[2017-10-10] MEDS: BISMUTH SUBSALICYLATE 262 MG TAB.CHEW PO SCH ×3 (09:55→18:18)
--- NOTE | 2017-10-10 13:01 | RADIOLOGY REPORT (SQ) ---
EXAM DESCRIPTION: CHEST SINGLE VIEW COMPLETED DATE/TIME: 10/10/2017 12:47 pm REASON FOR STUDY: shortness of breath COMPARISON: 09/28/2017. EXAM PARAMETERS: NUMBER OF VIEWS: One view. TECHNIQUE: Single frontal radiographic view of the chest acquired. RADIATION DOSE: NA LIMITATIONS: None. FINDINGS: LUNGS AND PLEURA: Emphysematous changes. Faint basilar densities. Indistinct appearance of the costophrenic angles. No pneumothorax. MEDIASTINUM AND HILAR STRUCTURES: No masses. Contour normal. HEART AND VASCULAR STRUCTURES: Heart normal in size. Normal vasculature. BONES: No acute findings. HARDWARE: Pacemaker. OTHER: No other significant finding. IMPRESSION: EMPHYSEMATOUS CHANGES. PROBABLE BASILAR ATELECTASIS. CANNOT EXCLUDE EARLY INFILTRATE. INDISTINCT APPEARANCE OF THE COSTOPHRENIC ANGLES MAY BE ARTIFACT DUE TO POSITIONING VERSUS SMALL EFF USIONS. TECHNICAL DOCUMENTATION: JOB ID: [id number] [employer]- All Rights Reserved Reading location - IP/workstation name: [email or web address]
[2017-10-10 13:39] LABS: HEMATOCRIT 34.2 % (36.0-47.0); HEMOGLOBIN 11.6 g/dL (12.0-15.5); MEAN CORPUSCULAR HEMOGLOBIN 32.2 pg (27.0-33.4); MEAN CORPUSCULAR VOLUME 95 fl (80-97); PLATELET COUNT 446 10^3/uL (150-450); RED CELL DISTRIBUTION WIDTH 15.2 % (11.5-14.0); WHITE BLOOD COUNT 12.1 10^3/uL (4.0-10.5)
[2017-10-10 13:43] LABS: ANION GAP 11 (5-19); BLOOD UREA NITROGEN 22 mg/dL (7-20); CALCIUM 9.5 mg/dL (8.4-10.2); CARBON DIOXIDE 33 mmol/L (22-30); CHLORIDE 92 mmol/L (98-107); GLUCOSE 198 mg/dL (75-110); POTASSIUM 3.3 mmol/L (3.6-5.0); SODIUM 136.1 mmol/L (137-145)
--- NOTE | 2017-10-10 14:03 | PDOC PROGRESS REPORT ---
Subjective Progress Note for:: 10/10/17 Subjective:: Ms. Boykin was admitted for COPD exacerbation and healthcare associated pneumonia. Per nursing report, patient had an episode last night when she choked while drinking her p.o. meds at water. Patient says that her breathing is better today. She denies significant coughing. No chest pain. Reason For Visit: HCAP Physical Exam Vital Signs: Temp Pulse Resp BP Pulse Ox 97.7 F 117 H 17 140/97 H 95 10/10/17 12:04 10/10/17 12:04 10/10/17 12:04 10/10/17 12:04 10/10/17 12:04 Intake & Output 10/09/17 10/10/17 10/11/17 06:59 06:59 06:59 Intake Total 1074 815 236 Balance 1074 815 236 Weight 112 lb 6.972 oz 114 lb 10.246 oz General appearance: PRESENT: no acute distress Head exam: PRESENT: atraumatic Eye exam: PRESENT: conjunctival injection Ear exam: PRESENT: normal external ear exam Mouth exam: PRESENT: moist, tongue midline Neck exam: ABSENT: carotid bruit, JVD, lymphadenopathy, thyromegaly Respiratory exam: PRESENT: decreased breath sounds, other - occasional mild wheezes on the bases, no crackles Pulses: PRESENT: other - irregula rhythm Vascular exam: PRESENT: normal capillary refill GI/Abdominal exam: PRESENT: normal bowel sounds, soft. ABSENT: distended, guarding, mass, organolmegaly, rebound, tenderness Rectal exam: PRESENT: deferred Extremities exam: PRESENT: clubbing, full ROM, pedal edema. ABSENT: calf tenderness Neurological exam: PRESENT: alert, oriented to time, CN II-XII grossly intact Skin exam: PRESENT: dry, intact, warm. ABSENT: cyanosis, rash Results Laboratory Results: 10/10/17 13:00 10/10/17 13:00 10/10/17 10/10/17 13:00 13:00 WBC 12.1 H RBC 3.60 L Hgb 11.6 L Hct 34.2 L MCV 95 MCH 32.2 MCHC 34.0 RDW 15.2 H Plt Count 446 Seg Neutrophils % Not Reportable Lymphocytes % Not Reportable Monocytes % Not Reportable Eosinophils % Not Reportable Basophils % Not Reportable Absolute Neutrophils Not Reportable Absolute Lymphocytes Not Reportable Absolute Monocytes Not Reportable Absolute Eosinophils Not Reportable Absolute Basophils Not Reportable Sodium 136.1 L Potassium 3.3 L Chloride 92 L Carbon Dioxide 33 H Anion Gap 11 BUN 22 H Creatinine 0.50 L Est GFR ( Amer) > 60 Est GFR (Non-Af Amer) > 60 Glucose 198 H Calcium 9.5 09/27/17 09/28/17 10/08/17 09:33 04:28 13:44 Troponin I 0.085 NT-Pro-B Natriuret Pep 2410 H 4120 H 10/08/17 10/08/17 17:55 23:58 Troponin I 0.086 0.077 NT-Pro-B Natriuret Pep Impressions: Chest/Abdomen CTA 09/27/17 00:00 IMPRESSION: Obstructive lung disease. Stable bandlike scarring along the posterior aspect right upper major fissure Nodule versus scar in the periphery of the right lower lobe for which outpatient follow-up PET-CT recommended. Chest X-Ray 10/10/17 00:00 IMPRESSION: EMPHYSEMATOUS CHANGES. PROBABLE BASILAR ATELECTASIS. CANNOT EXCLUDE EARLY INFILTRATE. INDISTINCT APPEARANCE OF THE COSTOPHRENIC ANGLES MAY BE ARTIFACT DUE TO POSITIONING VERSUS SMALL EFFUSIONS. Assessment & Plan - Diagnosis (1) Acute and chronic respiratory failure with hypoxia Is this a current diagnosis for this admission?: Yes Plan: Patient has been off BiPAP. She is saturating well on nasal cannula. We will continue to wean down on oxygen requirements. Patient was on home O2 years ago and was weaned off eventually. Family says she only uses home oxygen at night. (2) COPD (chronic obstructive pulmonary disease) Qualifiers: COPD type: COPD with acute exacerbation Qualified Code(s): J44.1 - Chronic obstructive pulmonary disease with (acute) exacerbation Is this a current diagnosis for this admission?: Yes Plan: Her respiratory status continued to improve. Will decrease Solu-Medrol to 40 mg daily. Plan to switch her to oral steroids tomorrow. Continue breathing treatments. (3) COPD with acute exacerbation Is this a current diagnosis for this admission?: Yes (4) HCAP (healthcare-associated pneumonia) Is this a current diagnosis for this admission?: Yes Plan: Resolved. She has completed antibiotics. (5) Do not resuscitate discussion Is this a current diagnosis for this admission?: Yes Plan: Discussed CODE STATUS at length with patient and family in the room. 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 She did verbalize that she wants to switch her CODE STATUS to DNR/DNI. (6) Aspiration into airway Is this a current diagnosis for this admission?: Yes Plan: We will consult speech therapy for swallow evaluation for questionable episode of aspiration last night. (7) Atrial fibrillation Qualifiers: Atrial fibrillation type: paroxysmal Qualified Code(s): I48.0 - Paroxysmal atrial fibrillation Is this a current diagnosis for this admission?: Yes Plan: Patient goes in and out of A. fib. She was on blood thinners before. However after discussing with patient and family, she insisted on not being on anticoagulants because of her significant increased fall risk at home. Continue oral Cardizem. - Time Time Spent with patient: 25-34 minutes Medications reviewed and adjusted accordingly: Yes Anticipated discharge: SNF Within: within 48 hours
[2017-10-10 14:13] LABS: ABSOLUTE LYMPHOCYTES# (MANUAL) 0.2 10^3/uL (0.5-4.7); ABSOLUTE MONOCYTES # (MANUAL) 0.1 10^3/uL (0.1-1.4); ABSOLUTE NEUTROPHILS# (MANUAL) 11.7 10^3/uL (1.7-8.2); BASOPHILS % (MANUAL) 0 % (0-2); EOSINOPHILS % (MANUAL) 0 % (0-6); LYMPHOCYTES % (MANUAL) 2 % (13-45); MONOCYTES % (MANUAL) 1 % (3-13); SEGMENTED NEUTROPHILS % (MAN) 97 % (42-78); TOTAL CELLS COUNTED 100
[2017-10-10 14:23] LABS: PLATELET COMMENT ADEQUATE
[2017-10-10 14:24] LABS: ANISOCYTOSIS SLIGHT; HYPOCHROMASIA SLIGHT; POLYCHROMASIA SLIGHT
[2017-10-10] MEDS: ATORVASTATIN CALCIUM 10 MG TABLET PO SCH (18:16)
[2017-10-10] MEDS: MELATONIN 5 MG TABLET PO PRN (21:54)
[2017-10-10] MEDS: MONTELUKAST SODIUM 10 MG TABLET PO SCH (21:54)
[2017-10-10] MEDS: ZOLPIDEM TARTRATE 5 MG TABLET PO PRN (21:54)
[2017-10-11] MEDS: BENZONATATE 100 MG CAPSULE PO SCH ×3 (02:26→17:51)
[2017-10-11] MEDS: LEVALBUTEROL HCL NEB 1.25 MG/3 ML AMPUL NEB PRN (03:48)
[2017-10-11] MEDS: LORAZEPAM 0.5 MG TABLET PO SCH ×3 (05:24→22:27)
[2017-10-11] MEDS: DILTIAZEM HCL 90 MG TABLET PO SCH ×3 (05:24→17:50)
[2017-10-11] MEDS: LEVOTHYROXINE SODIUM 0.075 MG TABLET PO SCH (05:24)
[2017-10-11] MEDS: LEVALBUTEROL HCL NEB 1.25 MG/3 ML AMPUL NEB SCH ×3 (08:46→19:39)
[2017-10-11] MEDS: ACETYLCYSTEINE 20% SOLN 800 MG/4 ML VIAL.NEB NEB SCH ×2 (08:46→19:39)
[2017-10-11] MEDS: SERTRALINE HCL 50 MG TABLET PO SCH (10:18)
[2017-10-11] MEDS: GUAIFENESIN 600 MG TABLET.SA PO SCH ×2 (10:19→22:27)
[2017-10-11] MEDS: ENOXAPARIN SODIUM INJ 30 MG/0.3 ML DISP.SYRIN SUBCUT SCH (10:19)
[2017-10-11] MEDS: METHYLPREDNISOLONE INJ 40 MG/1 ML SDV IV SCH (10:20)
[2017-10-11] MEDS ORDERED: POTASSIUM CHLORIDE 10 MEQ CAPSULE.ER PO ONE (10:30)
--- NOTE | 2017-10-11 14:43 | PDOC PROGRESS REPORT ---
Subjective Subjective:: Ms. Boykin was admitted for COPD exacerbation and healthcare associated pneumonia. Patient developed mild SOB and tahcycarida fter mucomyst administration ealrier this morning. Upon encounter, she says her breathing is much better today. She denies significant coughing. No chest pain. No recurrence of aspiration. Reason For Visit: HCAP Physical Exam Vital Signs: Temp Pulse Resp BP Pulse Ox 97.7 F 88 16 148/85 H 100 10/11/17 11:56 10/11/17 11:56 10/11/17 11:56 10/11/17 11:56 10/11/17 11:56 Intake & Output 10/10/17 10/11/17 10/12/17 06:59 06:59 06:59 Intake Total 815 986 236 Balance 815 986 236 Weight 114 lb 10.246 oz 111 lb 15.917 oz General appearance: PRESENT: no acute distress Head exam: PRESENT: atraumatic, normocephalic Eye exam: PRESENT: conjunctiva pink, EOMI, PERRLA. ABSENT: scleral icterus Ear exam: PRESENT: normal external ear exam Mouth exam: PRESENT: moist, tongue midline Neck exam: ABSENT: carotid bruit, JVD, lymphadenopathy, thyromegaly Respiratory exam: PRESENT: other - occasional rhonchi. ABSENT: rhonchi Cardiovascular exam: PRESENT: RRR, systolic murmur Pulses: PRESENT: normal dorsalis pedis pul Vascular exam: PRESENT: normal capillary refill GI/Abdominal exam: PRESENT: normal bowel sounds, soft Rectal exam: PRESENT: deferred Extremities exam: PRESENT: full ROM. ABSENT: calf tenderness, clubbing Neurological exam: PRESENT: alert, awake, oriented to person, oriented to place , oriented to time, oriented to situation. ABSENT: motor sensory deficit Psychiatric exam: PRESENT: appropriate affect, normal mood. ABSENT: homicidal ideation, suicidal ideation Results Laboratory Results: 10/10/17 13:00 10/10/17 13:00 09/27/17 09/28/17 10/08/17 09:33 04:28 13:44 Troponin I 0.085 NT-Pro-B Natriuret Pep 2410 H 4120 H 10/08/17 10/08/17 17:55 23:58 Troponin I 0.086 0.077 NT-Pro-B Natriuret Pep Impressions: Chest/Abdomen CTA 09/27/17 00:00 IMPRESSION: Obstructive lung disease. Stable bandlike scarring along the posterior aspect right upper major fissure Nodule versus scar in the periphery of the right lower lobe for which outpatient follow-up PET-CT recommended. Chest X-Ray 10/10/17 00:00 IMPRESSION: EMPHYSEMATOUS CHANGES. PROBABLE BASILAR ATELECTASIS. CANNOT EXCLUDE EARLY INFILTRATE. INDISTINCT APPEARANCE OF THE COSTOPHRENIC ANGLES MAY BE ARTIFACT DUE TO POSITIONING VERSUS SMALL EFFUSIONS. Assessment & Plan - Diagnosis (1) Acute and chronic respiratory failure with hypoxia Is this a current diagnosis for this admission?: Yes Plan: Patient was swithced back to BIPAP after getting SOB post Mucomyst administration. Wean down back to nasal cannula if tolerated. We will continue to wean down on oxygen requirements. Patient was on home O2 years ago and was weaned off eventually. Family says she only uses home oxygen at night. Possible discharge tomorrow. (2) COPD (chronic obstructive pulmonary disease) Qualifiers: COPD type: COPD with acute exacerbation Qualified Code(s): J44.1 - Chronic obstructive pulmonary disease with (acute) exacerbation Is this a current diagnosis for this admission?: Yes (3) COPD with acute exacerbation Is this a current diagnosis for this admission?: Yes Plan: Resolved exacerbation. Continue steroids and breahting treatments. (4) HCAP (healthcare-associated pneumonia) Is this a current diagnosis for this admission?: Yes Plan: Resolved. She has completed antibiotics. (5) Do not resuscitate discussion Is this a current diagnosis for this admission?: Yes Plan: DNR/DNI. (6) Aspiration into airway Is this a current diagnosis for this admission?: Yes Plan: Awaiting for swallow eval from speech. (7) Atrial fibrillation Qualifiers: Atrial fibrillation type: paroxysmal Qualified Code(s): I48.0 - Paroxysmal atrial fibrillation Is this a current diagnosis for this admission?: Yes Plan: Patient goes in and out of A. fib. She was on blood thinners before. However after discussing with patient and family, she insisted on not being on anticoagulants because of her significant increased fall risk at home. Continue oral Cardizem. - Time Time Spent with patient: 25-34 minutes
[2017-10-11] MEDS: ATORVASTATIN CALCIUM 10 MG TABLET PO SCH (17:50)
[2017-10-11] MEDS: IBUPROFEN 400 MG TABLET PO PRN (18:57)
[2017-10-11] MEDS: MELATONIN 5 MG TABLET PO PRN (22:27)
[2017-10-11] MEDS: ZOLPIDEM TARTRATE 5 MG TABLET PO PRN (22:27)
[2017-10-11] MEDS: MONTELUKAST SODIUM 10 MG TABLET PO SCH (22:27)
[2017-10-12] MEDS: DILTIAZEM HCL 90 MG TABLET PO SCH ×5 (00:31→23:37)
[2017-10-12] MEDS: LEVALBUTEROL HCL NEB 1.25 MG/3 ML AMPUL NEB PRN (02:16)
[2017-10-12] MEDS ORDERED: MORPHINE SULFATE 10 MG/ML INJ ONE (03:43)
[2017-10-12] MEDS: BENZONATATE 100 MG CAPSULE PO SCH ×3 (03:52→17:09)
[2017-10-12] MEDS ORDERED: MORPHINE SULFATE 10 MG/ML INJ IV ONE (04:00)
[2017-10-12] MEDS: LEVOTHYROXINE SODIUM 0.075 MG TABLET PO SCH (06:36)
[2017-10-12] MEDS: LORAZEPAM 0.5 MG TABLET PO SCH ×3 (06:36→21:37)
[2017-10-12] MEDS: LEVALBUTEROL HCL NEB 1.25 MG/3 ML AMPUL NEB SCH ×3 (07:48→19:42)
[2017-10-12] MEDS: ACETYLCYSTEINE 20% SOLN 800 MG/4 ML VIAL.NEB NEB SCH ×2 (07:48→19:42)
[2017-10-12] MEDS: SERTRALINE HCL 50 MG TABLET PO SCH (10:10)
[2017-10-12] MEDS: GUAIFENESIN 600 MG TABLET.SA PO SCH ×2 (10:10→21:37)
[2017-10-12] MEDS: ENOXAPARIN SODIUM INJ 30 MG/0.3 ML DISP.SYRIN SUBCUT SCH (10:10)
[2017-10-12] MEDS: METHYLPREDNISOLONE INJ 40 MG/1 ML SDV IV SCH (10:10)
[2017-10-12] MEDS: CLINDAMYCIN HCL 150 MG CAPSULE PO SCH ×3 (12:49→23:38)
[2017-10-12] MEDS: ATORVASTATIN CALCIUM 10 MG TABLET PO SCH (17:09)
[2017-10-12] MEDS ORDERED: METOPROLOL TARTRATE PF/INJ 5 MG/5 ML SDV IV ONE (18:30)
--- NOTE | 2017-10-12 19:20 | PDOC PROGRESS REPORT ---
Subjective Progress Note for:: 10/12/17 Subjective:: Ms. Boykin was admitted for COPD exacerbation and healthcare associated pneumonia. Patient has minimally productive cough cough. She did have a have a choking episode last night when she ate. No fever or chills. She gets really short of breath after Mucomyst or CPT treatments. No chest pain. Reason For Visit: HCAP Physical Exam Vital Signs: Temp Pulse Resp BP Pulse Ox 97.4 F 118 H 19 145/90 H 96 10/12/17 15:45 10/12/17 15:45 10/12/17 18:45 10/12/17 15:45 10/12/17 15:45 Intake & Output 10/11/17 10/12/17 10/13/17 06:59 06:59 06:59 Intake Total 986 296 337 Output Total 2 150 Balance 986 294 187 Weight 111 lb 15.917 oz 120 lb 5.958 oz General appearance: PRESENT: no acute distress, well-developed, well-nourished Head exam: PRESENT: atraumatic, normocephalic Eye exam: PRESENT: conjunctiva pink, EOMI, PERRLA. ABSENT: scleral icterus Neck exam: ABSENT: carotid bruit, JVD, lymphadenopathy, thyromegaly Respiratory exam: PRESENT: rhonchi Cardiovascular exam: PRESENT: irregular rhythm, tachycardia Pulses: PRESENT: normal dorsalis pedis pul Vascular exam: PRESENT: normal capillary refill GI/Abdominal exam: PRESENT: normal bowel sounds, soft. ABSENT: distended, guarding, mass, organolmegaly, rebound, tenderness Rectal exam: PRESENT: deferred Neurological exam: PRESENT: alert, awake, oriented to person, oriented to place , oriented to time, oriented to situation, CN II-XII grossly intact. ABSENT: motor sensory deficit Results Laboratory Results: 10/10/17 13:00 10/11/17 16:01 09/27/17 09/28/17 10/08/17 09:33 04:28 13:44 Troponin I 0.085 NT-Pro-B Natriuret Pep 2410 H 4120 H 10/08/17 10/08/17 17:55 23:58 Troponin I 0.086 0.077 NT-Pro-B Natriuret Pep Impressions: Chest/Abdomen CTA 09/27/17 00:00 IMPRESSION: Obstructive lung disease. Stable bandlike scarring along the posterior aspect right upper major fissure Nodule versus scar in the periphery of the right lower lobe for which outpatient follow-up PET-CT recommended. Chest X-Ray 10/10/17 00:00 IMPRESSION: EMPHYSEMATOUS CHANGES. PROBABLE BASILAR ATELECTASIS. CANNOT EXCLUDE EARLY INFILTRATE. INDISTINCT APPEARANCE OF THE COSTOPHRENIC ANGLES MAY BE ARTIFACT DUE TO POSITIONING VERSUS SMALL EFFUSIONS. Assessment & Plan - Diagnosis (1) Acute and chronic respiratory failure with hypoxia Is this a current diagnosis for this admission?: Yes Plan: Patient is saturating fine on nasal cannula. She does get really short of breath after CP and Mucomyst treatments. Will discontinue both because she gets extremely uncomfortable with these treatments. (2) COPD (chronic obstructive pulmonary disease) Qualifiers: COPD type: COPD with acute exacerbation Qualified Code(s): J44.1 - Chronic obstructive pulmonary disease with (acute) exacerbation Is this a current diagnosis for this admission?: Yes Plan: Continue Solu-Medrol. We will switch to oral steroids. Continue breathing treatments. (3) HCAP (healthcare-associated pneumonia) Is this a current diagnosis for this admission?: Yes (4) Do not resuscitate discussion Is this a current diagnosis for this admission?: Yes Plan: DNR/DNI. Discussed with patient and family again today in length. They want to transition to palliative care. (5) Aspiration into airway Is this a current diagnosis for this admission?: Yes Plan: She did have impaired swallowing on swallow eval. She had another choking episode last night. She had some minimally productive cough. As well as on and off shortness of breath. Will start her on clindamycin for aspiration pneumonia coverage. (6) Atrial fibrillation Qualifiers: Atrial fibrillation type: paroxysmal Qualified Code(s): I48.0 - Paroxysmal atrial fibrillation Is this a current diagnosis for this admission?: Yes Plan: Patient goes in and out of A. fib. She was on blood thinners before. However after discussing with patient and family, she insisted on not being on anticoagulants because of her significant increased fall risk at home. Continue oral Cardizem. - Time Time Spent with patient: 25-34 minutes
[2017-10-12] MEDS: MONTELUKAST SODIUM 10 MG TABLET PO SCH (21:37)
--- NOTE | 2017-10-12 22:28 | EKG REPORT ---
SEVERITY:- ABNORMAL ECG - AFIB/FLUT AND V-PACED COMPLEXES PROLONGED QT INTERVAL : Confirmed by: Fei Sellers 12-Oct-2017 22:28:09
[2017-10-13] MEDS: ZOLPIDEM TARTRATE 5 MG TABLET PO PRN (00:03)
[2017-10-13] MEDS: MELATONIN 5 MG TABLET PO PRN (00:03)
[2017-10-13] MEDS: BENZONATATE 100 MG CAPSULE PO SCH ×3 (01:18→18:23)
[2017-10-13] MEDS: LEVALBUTEROL HCL NEB 1.25 MG/3 ML AMPUL NEB PRN (03:34)
[2017-10-13] MEDS ORDERED: LORAZEPAM INJ 2 MG/1 ML VIAL ONE (03:40)
[2017-10-13] MEDS ORDERED: LORAZEPAM INJ 2 MG/1 ML VIAL IV ONE (03:45)
[2017-10-13] MEDS: CLINDAMYCIN HCL 150 MG CAPSULE PO SCH ×3 (06:16→18:23)
[2017-10-13] MEDS: LEVOTHYROXINE SODIUM 0.075 MG TABLET PO SCH (06:16)
[2017-10-13] MEDS: LORAZEPAM 0.5 MG TABLET PO SCH ×3 (06:16→22:39)
[2017-10-13] MEDS: DILTIAZEM HCL 90 MG TABLET PO SCH ×3 (06:16→18:23)
[2017-10-13] MEDS ORDERED: MORPHINE SULFATE 10 MG/ML INJ ONE (08:08)
[2017-10-13] MEDS: ACETYLCYSTEINE 20% SOLN 800 MG/4 ML VIAL.NEB NEB SCH (08:10)
[2017-10-13] MEDS: LEVALBUTEROL HCL NEB 1.25 MG/3 ML AMPUL NEB SCH ×2 (08:11→13:49)
[2017-10-13] MEDS ORDERED: CARVEDILOL 6.25 MG TABLET PO ONE (08:23)
[2017-10-13] MEDS: ENOXAPARIN SODIUM INJ 30 MG/0.3 ML DISP.SYRIN SUBCUT SCH (09:59)
[2017-10-13] MEDS: METHYLPREDNISOLONE INJ 40 MG/1 ML SDV IV SCH ×2 (09:59→22:40)
[2017-10-13] MEDS: SERTRALINE HCL 50 MG TABLET PO SCH (09:59)
[2017-10-13] MEDS: GUAIFENESIN 600 MG TABLET.SA PO SCH ×2 (09:59→22:39)
[2017-10-13] MEDS: SOTALOL HCL 80 MG TABLET PO SCH ×2 (11:01→22:39)
[2017-10-13] MEDS ORDERED: PANTOPRAZOLE SODIUM 40 MG VIAL IV ONE (16:30)
--- NOTE | 2017-10-13 16:58 | PDOC PROGRESS REPORT ---
Subjective Progress Note for:: 10/13/17 Subjective:: Ms. Boykin was admitted for COPD exacerbation and healthcare associated pneumonia. She still gets on and off SOB off the BIPAP. She is more comfortable on BIPAP. She has minimally productive cough. Denies chest pain, fever or chills. Reason For Visit: HCAP Physical Exam Vital Signs: Temp Pulse Resp BP Pulse Ox 97.3 F 108 H 20 130/88 H 95 10/13/17 11:29 10/13/17 14:00 10/13/17 13:49 10/13/17 11:29 10/13/17 13:49 Intake & Output 10/12/17 10/13/17 10/14/17 06:59 06:59 06:59 Intake Total 296 437 100 Output Total 1 150 Balance 295 287 100 Weight 120 lb 5.958 oz 109 lb 2.061 oz General appearance: PRESENT: mild distress - mild distress pm NC, comfortable on BIPAP Eye exam: PRESENT: conjunctiva pink, EOMI, PERRLA. ABSENT: scleral icterus Neck exam: ABSENT: carotid bruit, JVD, lymphadenopathy, thyromegaly Respiratory exam: PRESENT: rhonchi, wheezes Cardiovascular exam: PRESENT: irregular rhythm, tachycardia Vascular exam: PRESENT: normal capillary refill GI/Abdominal exam: PRESENT: normal bowel sounds, soft. ABSENT: distended, guarding, mass, organolmegaly, rebound, tenderness Rectal exam: PRESENT: deferred Neurological exam: PRESENT: alert, awake, oriented to person, oriented to place , oriented to time, oriented to situation, CN II-XII grossly intact. ABSENT: motor sensory deficit Results Laboratory Results: 10/10/17 13:00 10/11/17 16:01 09/27/17 09/28/17 10/08/17 09:33 04:28 13:44 Troponin I 0.085 NT-Pro-B Natriuret Pep 2410 H 4120 H 10/08/17 10/08/17 17:55 23:58 Troponin I 0.086 0.077 NT-Pro-B Natriuret Pep Impressions: Chest/Abdomen CTA 09/27/17 00:00 IMPRESSION: Obstructive lung disease. Stable bandlike scarring along the posterior aspect right upper major fissure Nodule versus scar in the periphery of the right lower lobe for which outpatient follow-up PET-CT recommended. Chest X-Ray 10/10/17 00:00 IMPRESSION: EMPHYSEMATOUS CHANGES. PROBABLE BASILAR ATELECTASIS. CANNOT EXCLUDE EARLY INFILTRATE. INDISTINCT APPEARANCE OF THE COSTOPHRENIC ANGLES MAY BE ARTIFACT DUE TO POSITIONING VERSUS SMALL EFFUSIONS. Assessment & Plan - Diagnosis (1) Acute and chronic respiratory failure with hypoxia Is this a current diagnosis for this admission?: Yes Plan: Patient is currenlty on BIPAP. Wean to NC as tolerated. Switch scheduled albuterol to duoneb. Increase solumedorl to 40 mg bid. (2) COPD (chronic obstructive pulmonary disease) Qualifiers: COPD type: COPD with acute exacerbation Qualified Code(s): J44.1 - Chronic obstructive pulmonary disease with (acute) exacerbation Is this a current diagnosis for this admission?: Yes Plan: Patient is currenlty on BIPAP. Wean to NC as tolerated. Switch scheduled albuterol to duoneb. Increase solumedorl to 40 mg bid. (3) HCAP (healthcare-associated pneumonia) Is this a current diagnosis for this admission?: Yes Plan: Resolved. She has completed antibiotics for HCAP but has been started on clindamycin on 10/12 for possible aspiration pneumonia. (4) Do not resuscitate discussion Is this a current diagnosis for this admission?: Yes Plan: DNR/DNI. Palliative care on board. (5) Aspiration into airway Is this a current diagnosis for this admission?: Yes Plan: On thick nectar liquid diet. (6) Atrial fibrillation Qualifiers: Atrial fibrillation type: paroxysmal Qualified Code(s): I48.0 - Paroxysmal atrial fibrillation Is this a current diagnosis for this admission?: Yes Plan: Patient goes in and out of A. [employer]. She was on blood thinners before. However after discussing with patient and family, she insisted on not being on anticoagulants because of her significant increased fall risk at home. Continue oral Cardizem. Sotalol resumed. (7) Aspiration pneumonia Is this a current diagnosis for this admission?: Yes Plan: Continue clindamycin. Will repeat CXR. - Time Time Spent with patient: 25-34 minutes
[2017-10-13] MEDS: ATORVASTATIN CALCIUM 10 MG TABLET PO SCH (18:23)
[2017-10-13] MEDS: IPRATROPIUM/ALBUTEROL 0.5-2.5 MG/3 ML AMPUL NEB SCH (19:37)
[2017-10-13] MEDS: MONTELUKAST SODIUM 10 MG TABLET PO SCH (22:39)
[2017-10-14] MEDS: ZOLPIDEM TARTRATE 5 MG TABLET PO PRN ×2 (00:06→23:59)
[2017-10-14] MEDS: DILTIAZEM HCL 90 MG TABLET PO SCH ×5 (00:06→23:58)
[2017-10-14] MEDS: IBUPROFEN 400 MG TABLET PO PRN ×2 (00:07→17:20)
[2017-10-14] MEDS: MELATONIN 5 MG TABLET PO PRN ×2 (00:07→23:59)
[2017-10-14] MEDS: CLINDAMYCIN HCL 150 MG CAPSULE PO SCH ×5 (00:07→23:59)
[2017-10-14] MEDS: IPRATROPIUM/ALBUTEROL 0.5-2.5 MG/3 ML AMPUL NEB SCH ×4 (01:50→20:32)
[2017-10-14] MEDS: BENZONATATE 100 MG CAPSULE PO SCH ×3 (02:57→17:20)
[2017-10-14 06:11] LABS: ANION GAP 8 (5-19); BLOOD UREA NITROGEN 32 mg/dL (7-20); CALCIUM 8.7 mg/dL (8.4-10.2); CARBON DIOXIDE 26 mmol/L (22-30); CHLORIDE 101 mmol/L (98-107); GLUCOSE 129 mg/dL (75-110); HEMATOCRIT 30.3 % (36.0-47.0); HEMOGLOBIN 10.4 g/dL (12.0-15.5); MEAN CORPUSCULAR HEMOGLOBIN 32.6 pg (27.0-33.4); MEAN CORPUSCULAR HGB CONC 34.2 g/dL (32.0-36.0); MEAN CORPUSCULAR VOLUME 95 fl (80-97); PLATELET COUNT 318 10^3/uL (150-450); POTASSIUM 4.4 mmol/L (3.6-5.0); RED BLOOD COUNT 3.18 10^6/uL (3.72-5.28); RED CELL DISTRIBUTION WIDTH 15.6 % (11.5-14.0); SODIUM 134.9 mmol/L (137-145); WHITE BLOOD COUNT 6.7 10^3/uL (4.0-10.5)
[2017-10-14] MEDS: LORAZEPAM 0.5 MG TABLET PO SCH ×3 (06:19→21:43)
[2017-10-14] MEDS: LEVOTHYROXINE SODIUM 0.075 MG TABLET PO SCH (06:20)
--- NOTE | 2017-10-14 09:00 | RADIOLOGY REPORT (SQ) ---
EXAM DESCRIPTION: CHEST SINGLE VIEW COMPLETED DATE/TIME: 10/14/2017 8:11 am REASON FOR STUDY: PNA COMPARISON: None. EXAM PARAMETERS: NUMBER OF VIEWS: One view. TECHNIQUE: Single frontal radiographic view of the chest acquired. RADIATION DOSE: NA LIMITATIONS: None. FINDINGS: LUNGS AND PLEURA: Hyperinflation with hyperlucency of the upper lobes compatible with COPD . Bibasilar infiltrates. Blunting of costophrenic angles which could represent effusions. Interval development of streaky density in right upper lung field which could represent discoid atelectasis MEDIASTINUM AND HILAR STRUCTURES: No masses. Contour normal. HEART AND VASCULAR STRUCTURES: The heart is borderline in size with aortic atherosclerosis. BONES: No acute findings. HARDWARE: Pacemaker leads are in place. OTHER: Chest leads are noted. IMPRESSION: COPD. Interval development of right upper lobe discoid atelectasis. . Persistent biba silar infiltrates and effusions. TECHNICAL DOCUMENTATION: JOB ID: [id number] [employer]- All Rights Reserved Reading location - IP/workstation name: [email or web address]
[2017-10-14] MEDS: GUAIFENESIN 600 MG TABLET.SA PO SCH ×2 (10:53→21:43)
[2017-10-14] MEDS: SERTRALINE HCL 50 MG TABLET PO SCH (10:54)
[2017-10-14] MEDS: SOTALOL HCL 80 MG TABLET PO SCH ×2 (10:54→21:42)
[2017-10-14] MEDS: METHYLPREDNISOLONE INJ 40 MG/1 ML SDV IV SCH ×2 (10:54→21:42)
[2017-10-14] MEDS: ENOXAPARIN SODIUM INJ 30 MG/0.3 ML DISP.SYRIN SUBCUT SCH (10:54)
--- NOTE | 2017-10-14 11:57 | PDOC DISCHARGE SUMMARY ---
General - Admit/Disc Date/PCP Admission Date/Primary Care Provider: 09/26/17 19:57 Discharge Date: 10/14/17 - Discharge Diagnosis (1) Acute and chronic respiratory failure with hypoxia Is this a current diagnosis for this admission?: Yes (2) COPD (chronic obstructive pulmonary disease) Is this a current diagnosis for this admission?: Yes (3) HCAP (healthcare-associated pneumonia) Is this a current diagnosis for this admission?: Yes (4) Do not resuscitate discussion Is this a current diagnosis for this admission?: Yes (5) Aspiration into airway Is this a current diagnosis for this admission?: Yes (6) Atrial fibrillation Is this a current diagnosis for this admission?: Yes (7) Aspiration pneumonia Is this a current diagnosis for this admission?: Yes - Additional Information Resuscitation Status: Do Not Resuscitate Discharge Diet: As Tolerated Discharge Activity: Activity As Tolerated Prescriptions: Budesonide/Formoterol Fumarate [Symbicort 160-4.5 Mcg Inhaler] 10.2 gm IH BID # 1 hfa.aer.ad Clindamycin HCl [Cleocin 150 mg Capsule] 300 mg PO Q6 4 Days #16 capsule Ipratropium/Albuterol Sulfate [Duoneb 3 ml Ampul] 3 ml NEB RTQ6 10 Days #40 vial.neb Prednisone 50 mg PO ASDIR 40 Days tablet Tiotropium Rodney [Spiriva Handihaler 18 mcg/dose (30 Dose)] 18 mcg IH DAILY # 30 cap.w.dev Home Medications: Atorvastatin Calcium [Lipitor 10 mg Tablet] 10 mg PO QPM 04/01/17 Ergocalciferol (Vitamin D2) [Vitamin D2] 50,000 unit PO MEADOWS@1000 04/01/17 Sertraline HCl [Zoloft 50 mg Tablet] 25 mg PO DAILY 04/01/17 Diltiazem HCl [Cardizem Cd 120 mg Capsule] 120 mg PO DAILY 08/22/17 Levothyroxine Sodium [Synthroid 0.075 mg Tablet] 0.075 mg PO Q6AM 08/22/17 Sotalol HCl [Sotalol] 40 mg PO Q12 08/22/17 Bismuth Subsalicylate [Pepto-Bismol] 3 tab.chew PO TID 09/26/17 Montelukast Sodium [Singulair 10 mg Tablet] 10 mg PO QHS 09/26/17 Acetaminophen [Tylenol 325 mg Tablet] 650 mg PO Q4HP PRN tablet 10/14/17 Budesonide/Formoterol Fumarate [Symbicort 160-4.5 Mcg Inhaler] 10.2 gm IH BID # 1 hfa.aer.ad 10/14/17 Clindamycin HCl [Cleocin 150 mg Capsule] 300 mg PO Q6 4 Days #16 capsule Ipratropium/Albuterol Sulfate [Duoneb 3 ml Ampul] 3 ml NEB RTQ6 10 Days #40 vial.neb 10/14/17 Melatonin [Melatonin 5 mg Tablet] 5 mg PO HSP PRN tablet 10/14/17 Prednisone 50 mg PO ASDIR 40 Days tablet 10/14/17 Tiotropium Rodney [Spiriva Handihaler 18 mcg/dose (30 Dose)] 18 mcg IH DAILY # 30 cap.w.dev 10/14/17 Zolpidem Tartrate [Ambien 5 mg Tablet] 5 mg PO HSP PRN tablet 10/14/17 History of Present Illness History of Present Illness: RFEDI WHALEN is a 82 year old female comes accompanied with her daughter who is at the bedside. Medical history is remarkable for chronic respiratory failure on 2 L oxygen via nasal cannula at night. He has been feeling sick for the last few days, she started with runny nose, sore throat, cough with yellowish sputum, wheezing, nausea but no vomiting, she feels cold all the time and apparently she did not have any fever. Progressive shortness of breath to the point that it was severe and daughter brought her to the emergency department. Upon arrival she was saturating 85% on room air which improved after 2 L oxygen via nasal cannula given saturating 100%. Looks mild short of breath but nondistressed. Chest x-ray shows right lower lobe infiltrate. Denies headaches, abdominal pain, changes in her bowel movements or her urine. Hospital Course Hospital Course: Ms. Shepherd is an 82-year-old female with a past medical history of COPD , asthma, atrial fibrillation and history of renal mass who initially presented with increasing shortness of breath and hypoxia. Patient was admitted and treated for severe COPD exacerbation and healthcare associated pneumonia. Patient had a long hospital course for her COPD and pneumonia. She was treated with high-dose of IV steroids, breathing treatments and IV broad-spectrum antibiotics. Patient on this course was going in and out of atrial fibrillation. She has been taken off anticoagulation because per her request she does not think bleeding risks are worth it given her age and her risk of fall. Heart rate is better controlled by resuming sotalol and after her COPD was much controlled. Patient's healthcare associated pneumonia or resolve. However she had episodes of choking and questionable aspiration during her stay. Speech consult was done and she underwent swallow evaluation which revealed that she does have dysphagia and significant risk of aspiration. She did develop shortness of breath and minimally productive cough. Although chest x-ray did not show new infiltrates, patient was treated for possible aspiration pneumonia. She was started on clindamycin and this did significantly improve her breathing status. She was continued on IV steroids and breathing treatments. On day of discharge, patient significantly felt better. She has been taken off the BiPAP and has been saturating well on 2 L of nasal cannula. Lungs sound much better aside from occasional wheezes. Her repeat x-ray did not show new infiltrate aside from a right upper lobe atelectasis. She was encouraged to continue incentive spirometry. Patient and family after a lengthy discussion arrived to a decision to transition her to palliative care and to make her a DNR/DNI. Physical Exam Vital Signs: Temp Pulse Resp BP Pulse Ox 97.6 F 113 H 19 120/79 97 10/14/17 07:28 10/14/17 08:20 10/14/17 08:20 10/14/17 07:28 10/14/17 08:20 Intake & Output 10/13/17 10/14/17 10/15/17 06:59 06:59 06:59 Intake Total 437 268 Output Total 150 Balance 287 268 Weight 109 lb 2.061 oz 120 lb 13.013 oz General appearance: PRESENT: no acute distress Head exam: PRESENT: atraumatic, normocephalic Eye exam: PRESENT: conjunctiva pink, EOMI, PERRLA. ABSENT: scleral icterus Neck exam: ABSENT: carotid bruit, JVD, lymphadenopathy, thyromegaly Respiratory exam: PRESENT: wheezes - Additional wheezes in the bases. ABSENT: rales Cardiovascular exam: PRESENT: irregular rhythm GI/Abdominal exam: PRESENT: normal bowel sounds, soft. ABSENT: distended, guarding, mass, organolmegaly, rebound, tenderness Neurological exam: PRESENT: alert, awake, oriented to person, oriented to place , oriented to time, oriented to situation, CN II-XII grossly intact. ABSENT: motor sensory deficit Results Laboratory Results: 10/14/17 05:31 10/14/17 05:31 10/14/17 10/14/17 05:31 05:31 WBC 6.7 RBC 3.18 L Hgb 10.4 L Hct 30.3 L MCV 95 MCH 32.6 MCHC 34.2 RDW 15.6 H Plt Count 318 Sodium 134.9 L Potassium 4.4 Chloride 101 Carbon Dioxide 26 Anion Gap 8 BUN 32 H Creatinine 0.58 Est GFR ( Amer) > 60 Est GFR (Non-Af Amer) > 60 Glucose 129 H Calcium 8.7 09/27/17 09/28/17 10/08/17 09:33 04:28 13:44 Troponin I 0.085 NT-Pro-B Natriuret Pep 2410 H 4120 H 10/08/17 10/08/17 17:55 23:58 Troponin I 0.086 0.077 NT-Pro-B Natriuret Pep Impressions: Chest/Abdomen CTA 09/27/17 00:00 IMPRESSION: Obstructive lung disease. Stable bandlike scarring along the posterior aspect right upper major fissure Nodule versus scar in the periphery of the right lower lobe for which outpatient follow-up PET-CT recommended. Chest X-Ray 10/14/17 06:00 IMPRESSION: COPD. Interval development of right upper lobe discoid atelectasis. . Persistent bibasilar infiltrates and effusions. Qualifiers - * PATIENT BEING DISCHARGED WITH ANY OF THE FOLLOWING DIAGNOSIS: No
[2017-10-14] MEDS: ATORVASTATIN CALCIUM 10 MG TABLET PO SCH (17:20)
[2017-10-14] MEDS: MONTELUKAST SODIUM 10 MG TABLET PO SCH (21:43)
[2017-10-15] MEDS: IPRATROPIUM/ALBUTEROL 0.5-2.5 MG/3 ML AMPUL NEB SCH ×4 (01:15→20:21)
[2017-10-15] MEDS: BENZONATATE 100 MG CAPSULE PO SCH ×3 (01:34→18:34)
[2017-10-15] MEDS: CLINDAMYCIN HCL 150 MG CAPSULE PO SCH ×4 (07:05→23:17)
[2017-10-15] MEDS: LORAZEPAM 0.5 MG TABLET PO SCH ×2 (07:06→14:57)
[2017-10-15] MEDS: LEVOTHYROXINE SODIUM 0.075 MG TABLET PO SCH (07:06)
[2017-10-15] MEDS: DILTIAZEM HCL 90 MG TABLET PO SCH ×4 (07:06→23:18)
[2017-10-15] MEDS: ERGOCALCIFEROL (VITAMIN D2) 50000 UNIT (1.25 MG) CAPSULE PO SCH (09:57)
[2017-10-15] MEDS: SERTRALINE HCL 50 MG TABLET PO SCH (09:58)
[2017-10-15] MEDS: SOTALOL HCL 80 MG TABLET PO SCH ×2 (09:58→23:01)
[2017-10-15] MEDS: GUAIFENESIN 600 MG TABLET.SA PO SCH ×2 (09:58→23:02)
[2017-10-15] MEDS: METHYLPREDNISOLONE INJ 40 MG/1 ML SDV IV SCH (09:58)
[2017-10-15] MEDS: ENOXAPARIN SODIUM INJ 30 MG/0.3 ML DISP.SYRIN SUBCUT SCH (09:59)
--- NOTE | 2017-10-15 15:50 | Progress Note ---
Provider Note Provider Note: Patient was discharged yesterday. Apparently, the SNF she was supposed to go to did not have an available BIPAP hence patient will be transferred tomorrow morning instead. No acute event overnight. She is saturating well on nasal canula and has BIPAP prn. Denies any acute complaint. Continue current medications.
[2017-10-15] MEDS: ATORVASTATIN CALCIUM 10 MG TABLET PO SCH (18:34)
[2017-10-15] MEDS: PREDNISONE 20 MG TABLET PO SCH (18:34)
[2017-10-15] MEDS: MAG HYDROX/AL HYDROX/SIMETH SUSP 30 ML UDCUP PO PRN (19:31)
[2017-10-15] MEDS: MONTELUKAST SODIUM 10 MG TABLET PO SCH (23:01)
[2017-10-15] MEDS ORDERED: ZOLPIDEM TARTRATE 5 MG TABLET PO PRN (23:07)
[2017-10-15] MEDS ORDERED: LORAZEPAM 0.5 MG TABLET PO PRN (23:08)
[2017-10-16] MEDS: BENZONATATE 100 MG CAPSULE PO SCH ×3 (01:32→17:12)
[2017-10-16] MEDS: IPRATROPIUM/ALBUTEROL 0.5-2.5 MG/3 ML AMPUL NEB SCH ×3 (01:42→14:03)
[2017-10-16] MEDS: IBUPROFEN 400 MG TABLET PO PRN (01:45)
[2017-10-16] MEDS: LEVOTHYROXINE SODIUM 0.075 MG TABLET PO SCH (05:09)
[2017-10-16] MEDS: CLINDAMYCIN HCL 150 MG CAPSULE PO SCH ×3 (05:09→17:12)
[2017-10-16] MEDS: DILTIAZEM HCL 90 MG TABLET PO SCH ×3 (05:09→17:12)
[2017-10-16] MEDS: ENOXAPARIN SODIUM INJ 30 MG/0.3 ML DISP.SYRIN SUBCUT SCH (09:09)
[2017-10-16] MEDS: PREDNISONE 20 MG TABLET PO SCH ×2 (09:09→17:12)
[2017-10-16] MEDS: SOTALOL HCL 80 MG TABLET PO SCH (09:10)
[2017-10-16] MEDS: GUAIFENESIN 600 MG TABLET.SA PO SCH (09:10)
[2017-10-16] MEDS: SERTRALINE HCL 50 MG TABLET PO SCH (09:11)
[2017-10-16 15:54] VITALS: BP 131/78
[2017-10-16] MEDS: ATORVASTATIN CALCIUM 10 MG TABLET PO SCH (17:12)
[2017-10-16] MEDS: MAG HYDROX/AL HYDROX/SIMETH SUSP 30 ML UDCUP PO PRN (18:19)
== END 2017-10-16 18:48 | DRG 193 ==
LOC: ER 18:01 → EH 19:57 → 3N 21:50
PROVIDERS: ADMIT Internal Medicine; ATTEND Internal Medicine
PROC: 5A09557 Assistance with Respiratory Ventilation, Greater than 96 Consecutive Hours, Continuous Positive Airway Pressure (ICD-10-PCS; principal; 2017-10-08)
DX: J18.9 Pneumonia, unspecified organism (principal); J96.21 Acute and chronic respiratory failure with hypoxia; E43 Unspecified severe protein-calorie malnutrition; J44.0 Chronic obstructive pulmonary disease with (acute) lower respiratory infection; Z68.1 Body mass index [BMI] 19.9 or less, adult; E87.1 Hypo-osmolality and hyponatremia; I50.32 Chronic diastolic (congestive) heart failure; R64 Cachexia; J44.1 Chronic obstructive pulmonary disease with (acute) exacerbation; J69.0 Pneumonitis due to inhalation of food and vomit; I11.0 Hypertensive heart disease with heart failure; I48.2 Chronic atrial fibrillation; D64.9 Anemia, unspecified; E03.9 Hypothyroidism, unspecified; K21.9 Gastro-esophageal reflux disease without esophagitis; K44.9 Diaphragmatic hernia without obstruction or gangrene; E78.5 Hyperlipidemia, unspecified; M19.90 Unspecified osteoarthritis, unspecified site; Z66 Do not resuscitate; R13.10 Dysphagia, unspecified; Z88.0 Allergy status to penicillin; Z88.1 Allergy status to other antibiotic agents; Z90.49 Acquired absence of other specified parts of digestive tract; Z90.710 Acquired absence of both cervix and uterus; Z99.81 Dependence on supplemental oxygen; Z85.528 Personal history of other malignant neoplasm of kidney; Z82.61 Family history of arthritis; Z82.49 Family history of ischemic heart disease and other diseases of the circulatory system; Z82.3 Family history of stroke; Z80.9 Family history of malignant neoplasm, unspecified; Z79.899 Other long term (current) drug therapy; Z87.891 Personal history of nicotine dependence
CPT/HCPCS: 36415; 36600; 71045; 71046; 71275; 80048; 80076; 82803; 83605; 83735; 83880; 84100; 84132; 84484; 85025; 85027; 85610; 85730; 87040; 87070; 87205; 93005; 93010; 93306; 94640; 94660; 94667; 94668; 94799; 99285; G8978-GP; G8979-GP; G8996-GN; G8997-GN; G8998-GN; J1650; J2060; J2185; J2270; J2920; J2930; J3490; J7030; J7512; J7620; S0164

== ENCOUNTER 2017-10-17 07:13 | Inpatient (IN) | payer MEDICARE, OTHER ==
--- NOTE | 2017-10-17 08:30 | ER Document Report ---
ED Respiratory Problem - General Stated Complaint: DIFFICULTY BREATHING Time Seen by Provider: 10/17/17 08:14 Notes: 82-year-old female patient in the emergency department chief complaint shortness of breath. Patient was recently discharged from the hospital for respiratory failure (less than 48 hours ago). On BiPAP. States that at 4 AM this morning began having trouble breathing again. Long-standing history of COPD. TRAVEL OUTSIDE OF THE [place] IN LAST 30 DAYS: No - HPI Patient complains to provider of: COPD, Cough, Short of breath Onset: Just prior to arrival - Related Data Allergies/Adverse Reactions: Penicillins Allergy (Severe, Verified 10/17/17 11:56) Respiratory arrest doxycycline [Doxycycline] Allergy (Intermediate, Verified 10/17/17 11:56) Jona-Tristin's Syndrome valsartan [From Diovan] Allergy (Intermediate, Verified 10/17/17 11:56) Rash levofloxacin [From Levaquin] Allergy (Verified 10/17/17 11:56) METAL Allergy (Severe, Uncoded 10/17/17 11:56) RASH Past Medical History - General Information source: Patient, [facility] Records - Social History Smoking Status: Smoker,Current Status Unk Frequency of alcohol use: None Drug Abuse: None Lives with: Halfway Family History: Arthritis, CAD, CVA, Hypertension, Malignancy - Past Medical History Cardiac Medical History: Reports: Hx Atrial Fibrillation, Hx Congestive Heart Failure, Hx Hypercholesterolemia, Hx Hypertension Pulmonary Medical History: Reports: Hx Bronchitis, Hx COPD - on continuous home oxygen/inhalers, Hx Pneumonia - Pseudomonas Neurological Medical History: Endocrine Medical History: Reports: Hx Hypothyroidism Renal/ Medical History: Denies: Hx Peritoneal Dialysis Malignancy Medical History: Reports: Hx Renal (Kidney) Cancer GI Medical History: Reports: Hx Gastroesophageal Reflux Disease, Hx Hiatal Hernia. Denies: Hx Hepatitis Musculoskeletal Medical History: Reports Hx Arthritis Skin Medical History: Denies Hx Eczema, Denies Hx Psoriasis Psychiatric Medical History: Denies: Hx Depression Traumatic Medical History: Denies: Hx Gunshot Wound, Hx Pneumothorax, Hx Traumatic Brain Injury Infectious Medical History: Denies: Hx Hepatitis, Hx HIV Past Surgical History: Reports: Hx Appendectomy, Hx Cholecystectomy, Hx Hysterectomy, Hx Oral Surgery. Denies: Hx Mastectomy, Hx Open Heart Surgery, Hx Pacemaker - Immunizations Hx Diphtheria, Pertussis, Tetanus Vaccination: No Hx Pneumococcal Vaccination: 12/31/16 Review of Systems - Review of Systems Notes: Constitutional: denies: Chills, Diaphoresis, Fever, Malaise, Weakness EENT: denies: Eye discharge, Blurred vision, Tearing, Double vision, Nose congestion, Nose discharge, Throat swelling, Mouth pain Cardiovascular: denies: Palpitations, Heart racing, . denies: Chest pain. Consistent with shortness of breath when lying flat. Respiratory: Different for severe shortness of breath, patient states that "I thought it was all over". Gastrointestinal: denies: Abdominal pain, Diarrhea, Nausea, Vomiting, Black stools Genitourinary: denies: Burning, Dysuria, Discharge, Frequency, Flank pain, Hematuria Musculoskeletal: denies: Joint pain, Joint swelling, Muscle pain, Muscle stiffness, back pain Hematologic/Lymphatic: denies: Anemia, Easy bleeding, Easy bruising, Blood clots Neurological/Psychological: denies: Confusion, Dementia, Depression, Loss of consciousness Skin: Denies any rashes or lesions Physical Exam - Vital signs Vitals: Resp 24 H 10/17/17 07:19 Interpretation: Tachycardic, Tachypneic - General General appearance: Appears well, Alert In distress: Moderate - HEENT Head: Normocephalic, Atraumatic Eyes: Normal Pupils: PERRL - Respiratory Respiratory status: Labored Chest status: Nontender Breath sounds: Decreased air movement, Rhonchi, Wheezing Chest palpation: Normal - Cardiovascular Rhythm: Irregularly irregular, Tachycardia Heart sounds: Normal auscultation Murmur: No - Abdominal Inspection: Normal Distension: No distension Bowel sounds: Normal Tenderness: Nontender Organomegaly: No organomegaly - Back Back: Normal, Nontender - Extremities General upper extremity: Normal inspection, Nontender, Normal color, Normal ROM , Normal temperature General lower extremity: Normal inspection, Nontender, Normal color, Normal ROM , Normal temperature. No: Miquel's sign - Neurological Neuro grossly intact: Yes Cognition: Normal Orientation: AAOx4 Driggs Coma Scale Eye Opening: Spontaneous Driggs Coma Scale Verbal: Oriented Driggs Coma Scale Motor: Obeys Commands Loli Coma Scale Total: 15 Speech: Normal Motor strength normal: LUE, RUE, LLE, RLE Sensory: Normal - Psychological Associated symptoms: Normal affect, Normal mood - Skin Skin Temperature: Warm Skin Moisture: Dry Skin Color: Normal Course - Re-evaluation Re-evalutation: 10/17/17 11:39 Patient with severe COPD and CHF. Requiring BiPAP at this time. Just discharged from the hospital. Currently with A. fib or a flutter heart rates in the 130s. Patient received multiple rounds of breathing treatments in route. Solu-Medrol in route. Anticipate admitting to the hospital shortly. 10/17/17 11:42 With pleural effusions bilaterally. No significant change from prior. Patient with A. fib with RVR. Florid congestive heart failure. Started on Lasix. Diltiazem, diltiazem drip. Will need minimum of IMC if not ICU. Consulting hospitalist at this time for admission. - Vital Signs Vital signs: Temp Pulse Resp BP Pulse Ox 18 128/99 H 97 10/17/17 15:00 10/17/17 15:00 10/17/17 15:00 - Laboratory Result Diagrams: 10/17/17 08:49 10/17/17 10:30 Laboratory results interpreted by me: 10/17/17 10/17/17 10/17/17 08:49 10:30 10:30 RBC 3.37 L Hgb 11.0 L Hct 32.7 L RDW 15.9 H Seg Neuts % (Manual) 92 H Lymphocytes % (Manual) 2 L Metamyelocytes % 1 H Abs Neuts (Manual) 9.8 H Abs Lymphs (Manual) 0.2 L Carbonic Acid ABG pH ABG pCO2 ABG pO2 Sodium 136.9 L Potassium 3.4 L BUN 40 H Glucose 149 H Lactic Acid 3.4 H AST 57 H ALT 134 H NT-Pro-B Natriuret Pep Total Protein 6.2 L Albumin 3.3 L 10/17/17 10/17/17 10:30 10:32 RBC Hgb Hct RDW Seg Neuts % (Manual) Lymphocytes % (Manual) Metamyelocytes % Abs Neuts (Manual) Abs Lymphs (Manual) Carbonic Acid 0.83 L ABG pH 7.54 H ABG pCO2 27.6 L ABG pO2 64.6 L Sodium Potassium BUN Glucose Lactic Acid AST ALT NT-Pro-B Natriuret Pep 98597 H Total Protein Albumin Critical Care Note - Critical Care Note Total time excluding time spent on procedures (mins): 45 Comments: Blood pressure management, rate control, consultation with specialists Discharge - Discharge Clinical Impression: Atrial fibrillation with rapid ventricular response Acute respiratory failure Qualifiers: Respiratory failure complication: unspecified whether with hypoxia or hypercapnia Qualified Code(s): J96.00 - Acute respiratory failure, unspecified whether with hypoxia or hypercapnia Congestive heart failure (CHF) Qualifiers: Heart failure type: unspecified Heart failure chronicity: unspecified Qualified Code(s): I50.9 - Heart failure, unspecified COPD (chronic obstructive pulmonary disease) Qualifiers: COPD type: COPD with acute exacerbation Qualified Code(s): J44.1 - Chronic obstructive pulmonary disease with (acute) exacerbation Disposition: ADMITTED INPATIENT Admitting Provider: Hospitalist - [facility] Admitted: [facility]
[2017-10-17 09:05] LABS: HEMATOCRIT 32.7 % (36.0-47.0); MEAN CORPUSCULAR HEMOGLOBIN 32.7 pg (27.0-33.4); MEAN CORPUSCULAR HGB CONC 33.7 g/dL (32.0-36.0); MEAN CORPUSCULAR VOLUME 97 fl (80-97); PLATELET COUNT 272 10^3/uL (150-450); RED BLOOD COUNT 3.37 10^6/uL (3.72-5.28); RED CELL DISTRIBUTION WIDTH 15.9 % (11.5-14.0); WHITE BLOOD COUNT 10.5 10^3/uL (4.0-10.5)
--- NOTE | 2017-10-17 09:10 | RADIOLOGY REPORT (SQ) ---
EXAM DESCRIPTION: CHEST SINGLE VIEW COMPLETED DATE/TIME: 10/17/2017 8:57 am REASON FOR STUDY: sob COMPARISON: 10/14/2017 NUMBER OF VIEWS: One view. TECHNIQUE: Single frontal radiographic image of the chest acquired. LIMITATIONS: None. FINDINGS: LUNGS AND PLEURA: Emphysematous changes. Interstitial pattern in the lower lungs. Small effusions. MEDIASTINUM AND HILAR STRUCTURES: Stable heart size and mediastinal structures. HEART AND VASCULAR STRUCTURES: Stable appearance. SUPPORT DEVICES: Appropriate location without change. BONES: No acute findings. OTHER: No other significant finding. IMPRESSION: COPD. Small effusions. No significant change. TECHNICAL DOCUMENTATION: JOB ID: [id number] [employer]- All Rights Reserved Reading location - IP/workstation name: [email or web address]
[2017-10-17 09:29] LABS: ABSOLUTE LYMPHOCYTES# (MANUAL) 0.2 10^3/uL (0.5-4.7); ABSOLUTE MONOCYTES # (MANUAL) 0.5 10^3/uL (0.1-1.4); ABSOLUTE NEUTROPHILS# (MANUAL) 9.8 10^3/uL (1.7-8.2); BASOPHILS % (MANUAL) 0 % (0-2); EOSINOPHILS % (MANUAL) 0 % (0-6); LYMPHOCYTES % (MANUAL) 2 % (13-45); METAMYELOCYTES % (MANUAL) 1 % (0); MONOCYTES % (MANUAL) 5 % (3-13); SEGMENTED NEUTROPHILS % (MAN) 92 % (42-78); TOTAL CELLS COUNTED 100
[2017-10-17 09:30] LABS: ANISOCYTOSIS SLIGHT; HYPOCHROMASIA SLIGHT; PLATELET CLUMPS PRESENT; PLATELET COMMENT ADEQUATE; POLYCHROMASIA SLIGHT; TOXIC GRANULATION SLIGHT
[2017-10-17 10:52] LABS: ARTERIAL BLOOD BASE EXCESS 1.3 mmol/L; ARTERIAL BLOOD H2CO3 0.83 mmol/L (1.05-1.35); ARTERIAL BLOOD HCO3 23.1 mmol/L (20-26); ARTERIAL BLOOD O2 SATURATION 95.1 % (94-98); ARTERIAL BLOOD PCO2 27.6 mmHg (35-45); ARTERIAL BLOOD PH 7.54 (7.35-7.45); ARTERIAL BLOOD PO2 64.6 mmHg (80-100); ARTERIAL BLOOD TOTAL CO2 23.9 mmol/L (21-25)
[2017-10-17 11:08] LABS: ARTERIAL BLOOD FIO2 35%
[2017-10-17 11:19] LABS: ALANINE AMINOTRANSFERASE 134 U/L (9-52); ALBUMIN 3.3 g/dL (3.5-5.0); ALKALINE PHOSPHATASE 66 U/L (38-126); ANION GAP 10 (5-19); ASPARTATE AMINO TRANSFERASE 57 U/L (14-36); BILIRUBIN,DIRECT 0.3 mg/dL (0.0-0.4); BILIRUBIN,TOTAL 0.5 mg/dL (0.2-1.3); BLOOD UREA NITROGEN 40 mg/dL (7-20); CALCIUM 8.6 mg/dL (8.4-10.2); CARBON DIOXIDE 26 mmol/L (22-30); CHLORIDE 101 mmol/L (98-107); GLUCOSE 149 mg/dL (75-110); POTASSIUM 3.4 mmol/L (3.6-5.0); SODIUM 136.9 mmol/L (137-145); TOTAL PROTEIN 6.2 g/dL (6.3-8.2)
[2017-10-17 11:27] LABS: TROPONIN I 0.025 ng/mL
[2017-10-17] MEDS ORDERED: FUROSEMIDE INJ/PF 20 MG/2 ML SDV IV ONE (11:40)
[2017-10-17] MEDS ORDERED: DILTIAZEM HCL/D5W 125 MG/125 ML RTUINJ IV PRN (11:41)
[2017-10-17] MEDS ORDERED: DILTIAZEM HCL INJ 25 MG/5 ML VIAL IV ONE (11:41)
[2017-10-17] MEDS ORDERED: LEVALBUTEROL HCL NEB 1.25 MG/3 ML AMPUL NEB ONE (12:46)
[2017-10-17] MEDS ORDERED: ONDANSETRON HCL INJ/PF 4 MG/2 ML SDV IV PRN (13:15)
[2017-10-17] MEDS ORDERED: ALBUTEROL SULFATE 0.083% NEB 2.5 MG/3 ML AMPUL NEB PRN (13:15)
--- NOTE | 2017-10-17 13:35 | EKG REPORT ---
SEVERITY:- ABNORMAL ECG - AFIB/FLUT AND V-PACED COMPLEXES BORDERLINE PROLONGED QT INTERVAL : Confirmed by: Makeda Devlin MD 17-Oct-2017 13:34:42
[2017-10-17] MEDS: ENOXAPARIN SODIUM INJ 60 MG/0.6 ML DISP.SYRIN SUBCUT SCH ×2 (15:16→23:44)
[2017-10-17] MEDS ORDERED: VANCOMYCIN HCL 0 MG in DEXTROSE 5%-WATER 250 ML IV NR (15:30)
[2017-10-17] MEDS ORDERED: LORAZEPAM INJ 2 MG/1 ML VIAL IV ONE (15:52)
--- NOTE | 2017-10-17 16:47 | Progress Note ---
Provider Note Provider Note: ID Consult Note Reviewed chart and spoke briefly via telephone with Dr Fitch who is admitting Ms Obregon who is an 82 year old woman with PMH including COPD, asthma, and AF for acute hypoxic respiratory failure requiring BiPAP support. Pt not seen or examined by me. Per chart review, pt has returned from SNF after being out of the hospital for 1 day. She had recent hospital admission from 09/26-10/14/17 for increasing SOB and hypoxia that was attributed to HCAP and COPD exacerbation. During this hospitalization, she had CXR read as showing an ill defined R basilar density and CT chest an area of bandlike scarring along the R major fissure and nodular peripheral scarring in lateral RLL 1.8 x1.3 cm but otherwise clear hyperinflated lungs. She was empirically was treatd with meropenem from 09/27-, Flagyl from 09/27-10/04/17, and then clindamycin from 10/12 onward (planned for another 3 days post discharge per D/C summary). Her discharge was planned for 10/14, but according to the notes, she was kept until morning of 10/16 due to lack of BiPAP at SNF. According to ED provider note pt has orthopnea and c/o SOB that started this morning around 4 AM with no associated chills or fever, no GI or complaints. Her lung exam was noted to have decreased air movement, rhonchi and wheezing. She was found to have AF with RVR. Imaging - CXR single view, interstitial pattern lower lungs, small effusions; similar to previous. Labs - WBC WNL. Lactic acid elevated 3.4. NT-pro-BNP markedly elevated 32,000. transaminases elevated ALT 134, AST 57. Creatinine WNL 0.6. BCx sent and in process. Impression/Recommendations Acute respiratory failure, multifactorial. As Dr. Fitch discussed with me via telephone, patient has potential cardiogenic contributions to SOB (AF with RVR, elevated BNP) in addition to underlying COPD. Possibility of pneumonia could be entertained given her abnormal CXR, but it appears stable/unchanged, pt has lacked complaints of fever , and orthopnea reported in the ED note suggests pulmonary edema. I suspect that a noninfectious etiology is most likely with her rapid onset of SOB, but the decision to empirically initiate broad spectrum antibiotics depends on clinical judgment and may be reasonable if there is uncertainty about the underlying cause of respiratory failure. Despite her penicillin allergy, she has tolerated cephalosporins and carbapenems previously. Empiric antibiotic therapy should be re-evaluated as additional information becomes available and discontinued if she rapidly responds to care aimed at management of AF with RVR and/or heart failure. Roberth Teixeira MD [facility] Infectious Diseases pager [phone]
[2017-10-17] MEDS: IPRATROPIUM/ALBUTEROL 0.5-2.5 MG/3 ML AMPUL NEB SCH ×3 (16:57→23:43)
[2017-10-17] MEDS: CEFEPIME 2 GM/D5W RTU 2 GM/50 ML RTUPB IV SCH (18:32)
[2017-10-17] MEDS: VANCOMYCIN HCL 500 MG in DEXTROSE 5%-WATER 100 ML IV SCH (20:24)
[2017-10-17] MEDS ORDERED: CEFEPIME HCL 1.5 GM in DEXTROSE 5%-WATER 50 ML IV SCH (22:00)
[2017-10-17] MEDS: DILTIAZEM HCL/D5W 125 MG/125 ML RTUINJ IV PRN (22:04)
--- NOTE | 2017-10-17 22:31 | EKG REPORT ---
SEVERITY:- ABNORMAL ECG - AFIB/FLUT AND V-PACED COMPLEXES PROLONGED QT INTERVAL : Confirmed by: Makeda Devlin MD 17-Oct-2017 22:30:45
[2017-10-17] MEDS ORDERED: ZOLPIDEM TARTRATE 5 MG TABLET PO ONE (23:30)
[2017-10-17] MEDS: LORAZEPAM 0.5 MG TABLET PO PRN (23:41)
[2017-10-18] MEDS: IPRATROPIUM/ALBUTEROL 0.5-2.5 MG/3 ML AMPUL NEB SCH ×2 (04:10→08:53)
[2017-10-18] MEDS ORDERED: DOCUSATE SODIUM 100 MG CAPSULE PO PRN (04:36)
[2017-10-18] MEDS ORDERED: BISACODYL 5 MG TABEC PO PRN (04:37)
[2017-10-18] MEDS ORDERED: NA PHOS,M-B/NA PHOS,DI-BA (ADULT) 133 ML ENEMA PR PRN (04:38)
[2017-10-18] MEDS ORDERED: POTASSIUM CHLORIDE 10 MEQ CAPSULE.ER PO ONE (05:00)
[2017-10-18 06:37] LABS: HEMATOCRIT 31.4 % (36.0-47.0); HEMOGLOBIN 10.8 g/dL (12.0-15.5); MEAN CORPUSCULAR HEMOGLOBIN 32.8 pg (27.0-33.4); MEAN CORPUSCULAR HGB CONC 34.4 g/dL (32.0-36.0); MEAN CORPUSCULAR VOLUME 95 fl (80-97); PLATELET COUNT 231 10^3/uL (150-450); RED BLOOD COUNT 3.29 10^6/uL (3.72-5.28); WHITE BLOOD COUNT 11.8 10^3/uL (4.0-10.5)
[2017-10-18] MEDS: DILTIAZEM HCL/D5W 125 MG/125 ML RTUINJ IV PRN (07:41)
[2017-10-18 08:01] LABS: APPEARANCE,URINE CLOUDY; BILIRUBIN,URINE NEGATIVE (NEGATIVE); COLOR,URINE YELLOW; GLUCOSE, URINE 50 mg/dL (NEGATIVE); KETONES,URINE NEGATIVE (NEGATIVE); LEUKOCYTE ESTERASE,URINE LARGE (NEGATIVE); NITRITE,URINE NEGATIVE (NEGATIVE); PROTEIN,URINE 100 mg/dL (NEGATIVE); UROBILINOGEN,URINE NEGATIVE mg/dL (<2.0)
[2017-10-18 08:08] LABS: ALANINE AMINOTRANSFERASE 115 U/L (9-52); ALBUMIN 3.4 g/dL (3.5-5.0); ALKALINE PHOSPHATASE 58 U/L (38-126); ANION GAP 13 (5-19); ASPARTATE AMINO TRANSFERASE 31 U/L (14-36); BILIRUBIN,DIRECT 0.3 mg/dL (0.0-0.4); BILIRUBIN,TOTAL 0.5 mg/dL (0.2-1.3); BLOOD UREA NITROGEN 35 mg/dL (7-20); CALCIUM 8.9 mg/dL (8.4-10.2); CARBON DIOXIDE 24 mmol/L (22-30); CHLORIDE 100 mmol/L (98-107); GLUCOSE 138 mg/dL (75-110); POTASSIUM 3.6 mmol/L (3.6-5.0); SODIUM 137.3 mmol/L (137-145); TOTAL PROTEIN 6.2 g/dL (6.3-8.2)
[2017-10-18] MEDS ORDERED: (PENDING PHARMACY ID) (Sertraline Hcl [Zoloft] 25 MG) PO SCH (10:00)
[2017-10-18] MEDS ORDERED: DILTIAZEM HCL 120 MG CAP.SR.24H PO SCH (11:00)
[2017-10-18] MEDS: SERTRALINE HCL 50 MG TABLET PO SCH (11:30)
[2017-10-18] MEDS: SOTALOL HCL 80 MG TABLET PO SCH (11:30)
[2017-10-18] MEDS: ENOXAPARIN SODIUM INJ 60 MG/0.6 ML DISP.SYRIN SUBCUT SCH (11:30)
[2017-10-18] MEDS: LEVALBUTEROL HCL NEB 1.25 MG/3 ML AMPUL NEB SCH ×3 (12:28→20:34)
[2017-10-18] MEDS: BISMUTH SUBSALICYLATE 262 MG TAB.CHEW PO SCH ×2 (13:56→18:29)
--- NOTE | 2017-10-18 15:33 | PDOC PROGRESS REPORT ---
Subjective Progress Note for:: 10/18/17 Subjective:: The patient states that she is not feeling much better. Still quite hypoxic and requiring intermittent BIPAP. Reason For Visit: ACUTE ON CHRONIC RESPIRATORY FAILURE,COPD Physical Exam Vital Signs: Temp Pulse Resp BP Pulse Ox 97.4 F 101 H 22 H 142/95 H 85 L 10/18/17 11:37 10/18/17 12:28 10/18/17 12:28 10/18/17 11:37 10/18/17 11:37 Intake & Output 10/17/17 10/18/17 10/19/17 06:59 06:59 06:59 Intake Total 837 443 Output Total 775 400 Balance 62 43 Weight 50.4 kg General appearance: PRESENT: no acute distress, cooperative, mild distress, thin Respiratory exam: PRESENT: accessory muscle use, wheezes, other - Diminished breath sounds bilaterally.. ABSENT: rales, rhonchi Cardiovascular exam: PRESENT: RRR, other - No lateral PMI. No thrills.. ABSENT : gallop, rubs, systolic murmur Pulses: PRESENT: other - Diminished distal pulses. GI/Abdominal exam: PRESENT: normal bowel sounds, soft. ABSENT: distended, hernia, mass, organolmegaly, tenderness Rectal exam: PRESENT: deferred Extremities exam: PRESENT: full ROM. ABSENT: joint swelling, tenderness Musculoskeletal exam: PRESENT: normal inspection. ABSENT: deformity, dislocation Neurological exam: PRESENT: alert, awake, oriented to person, oriented to place , oriented to time, oriented to situation, CN II-XII grossly intact. ABSENT: motor sensory deficit Psychiatric exam: PRESENT: anxious, appropriate affect, normal mood Skin exam: PRESENT: dry, intact, warm Results Laboratory Results: 10/18/17 05:57 10/18/17 07:35 10/17/17 10/17/17 10/18/17 14:52 23:21 05:45 WBC RBC Hgb Hct MCV MCH MCHC RDW Plt Count Sodium Potassium Chloride Carbon Dioxide Anion Gap BUN Creatinine Est GFR ( Amer) Est GFR (Non-Af Amer) Glucose Lactic Acid 1.9 Calcium Magnesium 2.1 Total Bilirubin AST ALT Alkaline Phosphatase Total Protein Albumin Urine Color Urine Appearance Urine pH Ur Specific Sandy Urine Protein Urine Glucose (UA) Urine Ketones Urine Blood Urine Nitrite Ur Leukocyte Esterase Urine WBC (Auto) Urine RBC (Auto) Stool Occult Blood POSITIVE 10/18/17 10/18/17 10/18/17 05:57 05:57 06:44 WBC 11.8 H RBC 3.29 L Hgb 10.8 L Hct 31.4 L MCV 95 MCH 32.8 MCHC 34.4 RDW 16.0 H Plt Count 231 Sodium Cancelled Potassium Cancelled Chloride Cancelled Carbon Dioxide Cancelled Anion Gap Cancelled BUN Cancelled Creatinine Cancelled Est GFR ( Amer) Cancelled Est GFR (Non-Af Amer) Cancelled Glucose Cancelled Lactic Acid Calcium Cancelled Magnesium Total Bilirubin Cancelled AST Cancelled ALT Cancelled Alkaline Phosphatase Cancelled Total Protein Cancelled Albumin Cancelled Urine Color YELLOW Urine Appearance CLOUDY Urine pH 6.0 Ur Specific Sandy 1.020 Urine Protein 100 H Urine Glucose (UA) 50 H Urine Ketones NEGATIVE Urine Blood LARGE H Urine Nitrite NEGATIVE Ur Leukocyte Esterase LARGE H Urine WBC (Auto) >182 Urine RBC (Auto) 174 Stool Occult Blood 10/18/17 07:35 WBC RBC Hgb Hct MCV MCH MCHC RDW Plt Count Sodium 137.3 Potassium 3.6 Chloride 100 Carbon Dioxide 24 Anion Gap 13 BUN 35 H Creatinine 0.57 Est GFR ( Amer) > 60 Est GFR (Non-Af Amer) > 60 Glucose 138 H Lactic Acid Calcium 8.9 Magnesium Total Bilirubin 0.5 AST 31 ALT 115 H Alkaline Phosphatase 58 Total Protein 6.2 L Albumin 3.4 L Urine Color Urine Appearance Urine pH Ur Specific Sandy Urine Protein Urine Glucose (UA) Urine Ketones Urine Blood Urine Nitrite Ur Leukocyte Esterase Urine WBC (Auto) Urine RBC (Auto) Stool Occult Blood 10/17/17 10/17/17 10/18/17 17:29 23:21 05:57 Troponin I 0.036 0.039 0.044 Impressions: Chest X-Ray 10/17/17 08:30 IMPRESSION: COPD. Small effusions. No significant change. Assessment & Plan - Diagnosis (1) Acute and chronic respiratory failure Qualifiers: Respiratory failure complication: hypercapnia Qualified Code(s): J96.22 - Acute and chronic respiratory failure with hypercapnia Is this a current diagnosis for this admission?: Yes Plan: Very little improvement. Consult pulmonology. (2) Hospital-acquired pneumonia Is this a current diagnosis for this admission?: Yes Plan: I have discussed the patient with infectious disease. The patient has tolerated cefepime and vancomycin well in the past. Dr. Teixeira felt that would be a good empirical antibiotic regimen to start with. (3) COPD exacerbation Is this a current diagnosis for this admission?: Yes Plan: Nebulizer treatments and IV steroids. (4) Atrial fibrillation with rapid ventricular response Is this a current diagnosis for this admission?: Yes Plan: On diltiazem drip. Will convert to PO diltiazem. Monitor heart rate and blood pressure. (5) Leukocytosis Qualifiers: Leukocytosis type: leukemoid reaction Qualified Code(s): D72.823 - Leukemoid reaction Is this a current diagnosis for this admission?: Yes Plan: IV antibiotics. Possibly also due to steroids. (6) Lactic acidosis Is this a current diagnosis for this admission?: Yes Plan: Resolved. - Time Time Spent with patient: 35 or more minutes Medications reviewed and adjusted accordingly: Yes
[2017-10-18] MEDS: CEFEPIME 2 GM/D5W RTU 2 GM/50 ML RTUPB IV SCH (18:27)
[2017-10-18] MEDS: MONTELUKAST SODIUM 10 MG TABLET PO SCH (18:27)
[2017-10-18] MEDS: DILTIAZEM HCL 30 MG TABLET PO SCH (18:27)
[2017-10-18] MEDS: LORAZEPAM 0.5 MG TABLET PO PRN (22:44)
[2017-10-18] MEDS: ZOLPIDEM TARTRATE 5 MG TABLET PO SCH (22:44)
[2017-10-18] MEDS: FUROSEMIDE INJ/PF 20 MG/2 ML SDV IV SCH (22:47)
[2017-10-18] MEDS: VANCOMYCIN HCL 500 MG in DEXTROSE 5%-WATER 100 ML IV SCH (22:48)
[2017-10-18] MEDS: MELATONIN 5 MG TABLET PO SCH (22:56)
[2017-10-18] MEDS ORDERED: MORPHINE SULFATE 10 MG/ML INJ ONE (23:15)
[2017-10-19] MEDS: LEVALBUTEROL HCL NEB 1.25 MG/3 ML AMPUL NEB SCH ×6 (00:14→19:52)
[2017-10-19] MEDS: MORPHINE SULFATE 10 MG/ML INJ INJ PRN ×4 (03:33→20:57)
[2017-10-19] MEDS: ENOXAPARIN SODIUM INJ 60 MG/0.6 ML DISP.SYRIN SUBCUT SCH ×3 (04:03→22:32)
[2017-10-19] MEDS: DILTIAZEM HCL 30 MG TABLET PO SCH ×2 (04:07→04:59)
[2017-10-19] MEDS: LEVOTHYROXINE SODIUM 0.075 MG TABLET PO SCH (04:59)
[2017-10-19] MEDS: LANSOPRAZOLE 30 MG TAB.RAP.DR PO SCH (05:00)
[2017-10-19 06:33] LABS: ANION GAP 10 (5-19); BLOOD UREA NITROGEN 25 mg/dL (7-20); CALCIUM 8.6 mg/dL (8.4-10.2); CARBON DIOXIDE 28 mmol/L (22-30); CHLORIDE 100 mmol/L (98-107); GLUCOSE 78 mg/dL (75-110); POTASSIUM 3.6 mmol/L (3.6-5.0); SODIUM 138.2 mmol/L (137-145)
[2017-10-19] MEDS: SOTALOL HCL 80 MG TABLET PO SCH (09:42)
[2017-10-19] MEDS: SERTRALINE HCL 50 MG TABLET PO SCH (09:42)
[2017-10-19] MEDS: BISMUTH SUBSALICYLATE 262 MG TAB.CHEW PO SCH ×3 (09:43→17:16)
--- NOTE | 2017-10-19 10:16 | Physician Advisory Note ---
Physician Advisor ProgressNote .: Pursuant to the plan for [facility], I have reviewed the medical record for this patient. Physician Advisor Statement: Excellent documentation of Acute on chronic resp failure, with associated accessory muscle use. Per last DCSummary 10/14/17, pt had HCAP during that stay, & dysphagia w/ significant aspiration risk, & possible aspiration PNA during last stay. ID lifestyle consultant this wk states pt has HCAP. Latest PN states HAP. Pt had ECHO 09/28/17 showing severe pulmonary HTN and grade 2 diastolic dysfunction (="chronic diastolic CHF, stage B"). She was transitioned to palliative care, DNR/DNI during last stay. Please clarify in notes & DCSummary, if you agree: 1. "HCAP (Healthcare-Assoc'd PNA), suspect gram-____ type", vs. "HAP, suspect gram-____ type" (hospital-acquired PNA, implies it developed 48+ hrs after adm, due to being in hospital, not present on adm - see below), or "possible aspiration PNA", or ... 2. "severe pulmonary hypertension" 3. "chronic diastolic CHF" Thanks! (& welcome to [facility], glad to have you here! Feel free to call/text if ? s - [phone]) [facility] Physician Advisor Please be very precise when specifying one of these is present: A. Community-Acquired Pneumonia (CAP) = present on admission, usual community pathogens. B. HEALTHCARE-ACQUIRED pneumonia (HCAP) = due to recent contact w/ healthcare setting, typically present on admission, can have MDRO pathogens. C. HOSPITAL-ACQUIRED pneumonia (HAP) = implies NOT present at time of this admission, but developed 48+ hours after admission (or causing a readmission within 48 hours of last d/c). INDICATES IT WAS CAUSED BY THIS ADMISSION (or the adm a few days prior). D. Ventilator-Associated pneumonia (VAP) = NOT present at time of this admission. Developed after patient intubated for >48 hours, or within 48 hours of extubation. CAUSED BY THIS ADMISSION. (If patient may have aspirated before or during intubation and the aspiration pneumonia appearance on CXR is delayed for 1-2 days, please clarify this so it is not misclassified as VAP.)
[2017-10-19] MEDS: FUROSEMIDE INJ/PF 20 MG/2 ML SDV IV SCH ×2 (10:18→22:34)
[2017-10-19] MEDS: DILTIAZEM HCL 90 MG TABLET PO SCH ×2 (11:45→17:34)
[2017-10-19] MEDS ORDERED: ONDANSETRON HCL INJ/PF 4 MG/2 ML SDV IV PRN (12:00)
--- NOTE | 2017-10-19 14:58 | PDOC H&P ---
History of Present Illness Admission Date/PCP: 10/17/17 12:33 Patient complains of: Hypoxia History of Present Illness: FREDI WHALEN is a 82 year old female who was discharged from this facility on 10/14/2017 after an admission for respiratory failure, COPD exacerbation, and aspiration pneumonia. She was found to be hypoxic at the [facility] this morning. She is found to have leukocytosis, fever, and a lactic acid of 4 in the ED. She carries a past medical history of COPD, CHF, AF with RVR, and chronic respiratory failure. In the ED she is again found to be in AF with RVR. Past Medical History Cardiac Medical History: Reports: Atrial Fibrillation, Congestive Heart Failure , Hyperlipidema, Hypertension Pulmonary Medical History: Reports: Bronchitis, Chronic Obstructive Pulmonary Disease (COPD) - on continuous home oxygen/inhalers, Pneumonia - Pseudomonas Neurological Medical History: Endocrine Medical History: Reports: Hypothyroidism Malignancy Medical History: Reports: Renal (Kidney) Cancer GI Medical History: Reports: Gastroesophageal Reflux Disease, Hiatal Hernia Denies: Hepatitis Musculoskeltal Medical History: Reports: Arthritis Skin Medical History: Denies: Eczema, Psoriasis Psychiatric Medical History: Denies: Depression Traumatic Medical History: Denies: Gunshot Wound, Pneumothorax, Traumatic Brain Injury Hematology: Denies: Anemia, Sickle Cell Disease Infectious Medical History: Denies: HIV Past Surgical History Past Surgical History: Reports: Appendectomy, Cholecystectomy, Hysterectomy Denies: Amputation, Mastectomy, Pacemaker Social History Lives with: Alf Smoking Status: Smoker,Current Status Unk Frequency of Alcohol Use: Occasional Hx Recreational Drug Use: No Drugs: None Hx Prescription Drug Abuse: No Family History Family History: Arthritis, CAD, CVA, Hypertension, Malignancy Parental Family History Reviewed: Yes Children Family History Reviewed: Yes Sibling(s) Family History Reviewed.: Yes Medication/Allergy Home Medications: Atorvastatin Calcium [Lipitor 10 mg Tablet] 10 mg PO QHS 10/17/17 Bismuth Subsalicylate [Pepto-Bismol] 3 tab PO TID 10/17/17 Budesonide/Formoterol Fumarate [Symbicort HFA 160-4.5 mcg Inhaler 6 gm] 1 puff IH Q12 10/17/17 Clindamycin HCl [Cleocin 150 mg Capsule] 300 mg PO Q6 10/17/17 Diltiazem HCl [Cardizem Cd 120 mg Capsule] 120 mg PO DAILY 10/17/17 Ergocalciferol (Vitamin D2) [Drisdol 50,000 unit (1.25MG) Capsule] 50,000 unit PO MEADOWS@1000 10/17/17 Ipratropium/Albuterol Sulfate [Duoneb 3 ml Ampul] 1 vial NEB Q6 10/17/17 Levothyroxine Sodium [Synthroid 0.075 mg Tablet] 0.075 mg PO Q6AM 10/17/17 Melatonin [Melatonin 5 mg Tablet] 5 mg PO QHS 10/17/17 Montelukast Sodium [Singulair 10 mg Tablet] 10 mg PO QPM 10/17/17 Omeprazole 40 mg PO Q6AM 10/17/17 Sertraline HCl [Zoloft] 25 mg PO DAILY 10/17/17 Sotalol HCl [Betapace 80 mg Tablet] 80 mg PO DAILY 10/17/17 Tiotropium [place] [Spiriva Handihaler 18 mcg/dose (30 Dose)] 1 cap IH DAILY 09/27 Zolpidem Tartrate [Ambien 5 mg Tablet] 5 mg PO QHS 10/17/17 Allergies/Adverse Reactions: Penicillins Allergy (Severe, Verified 10/17/17 11:56) Respiratory arrest doxycycline [Doxycycline] Allergy (Intermediate, Verified 10/17/17 11:56) Jona-Tristin's Syndrome valsartan [From Diovan] Allergy (Intermediate, Verified 10/17/17 11:56) Rash levofloxacin [From Levaquin] Allergy (Verified 10/17/17 11:56) METAL Allergy (Severe, Uncoded 10/17/17 11:56) RASH Review of Systems ROS unobtainable: Other - BIPAP Physical Exam Vital Signs: Temp Pulse Resp BP Pulse Ox 18 128/99 H 97 10/17/17 15:00 10/17/17 15:00 10/17/17 15:00 Intake & Output 10/16/17 10/17/17 10/18/17 06:59 06:59 06:59 Intake Total 12 Balance 12 General appearance: PRESENT: mild distress - From dyspnea., other - The patient appears elderly, weak, and frail. She is cachectic. Head exam: PRESENT: atraumatic, normocephalic Eye exam: PRESENT: EOMI, PERRLA. ABSENT: scleral icterus, other - No scleral injection Ear exam: PRESENT: normal external ear exam. ABSENT: bleeding, drainage Mouth exam: PRESENT: other - Unable to examine due to BIPAP. Throat exam: PRESENT: other - Unable to examine due to BIPAP. Neck exam: PRESENT: full ROM. ABSENT: JVD, tenderness, thyromegaly Respiratory exam: PRESENT: wheezes, other - BIPAP in place.. ABSENT: chest wall tenderness, crackles, rales, rhonchi Cardiovascular exam: PRESENT: irregular rhythm, tachycardia. ABSENT: gallop, rubs, systolic murmur Pulses: PRESENT: other - Diminished distal pulses. Vascular exam: PRESENT: pallor GI/Abdominal exam: PRESENT: hypoactive bowel sounds, soft. ABSENT: ascites, distended, firm, guarding, hernia, Silver's sign, organolmegaly, tenderness Rectal exam: PRESENT: deferred Extremities exam: ABSENT: clubbing, joint swelling, +1 edema Musculoskeletal exam: PRESENT: full ROM. ABSENT: deformity, tenderness Neurological exam: PRESENT: alert, awake, other - Unable to perform neurological exam as the patient is unable to cooperate with examination. Psychiatric exam: PRESENT: other - Unable to perform psychiatric evaluation due to the patient's inability to cooperate with exam. Skin exam: PRESENT: dry, intact, warm Results Laboratory Results: 10/17/17 14:52 Lactic Acid 1.9 10/17/17 10/17/17 10/17/17 08:49 10:30 10:32 WBC 10.5 RBC 3.37 L Hgb 11.0 L Hct 32.7 L RDW 15.9 H Plt Count 272 Total Counted 100 Seg Neutrophils % Not Reportable Seg Neuts % (Manual) 92 H ABG pH 7.54 H ABG pCO2 27.6 L ABG pO2 64.6 L ABG HCO3 23.1 Sodium 136.9 L Potassium 3.4 L Chloride 101 Carbon Dioxide 26 Anion Gap 10 BUN 40 H Creatinine 0.64 Impressions: Chest X-Ray 10/17/17 08:30 IMPRESSION: COPD. Small effusions. No significant change. Assessment & Plan - Diagnosis (1) Acute and chronic respiratory failure Qualifiers: Respiratory failure complication: hypercapnia Qualified Code(s): J96.22 - Acute and chronic respiratory failure with hypercapnia Is this a current diagnosis for this admission?: Yes Plan: Nebulizer treatments and steroids. Supplemental O2 as necessary. (2) COPD exacerbation Is this a current diagnosis for this admission?: Yes (3) Atrial fibrillation with rapid ventricular response Is this a current diagnosis for this admission?: Yes Plan: On diltiazem drip. Will convert to PO diltiazem. Monitor heart rate and blood pressure. (4) Leukocytosis Qualifiers: Leukocytosis type: leukemoid reaction Qualified Code(s): D72.823 - Leukemoid reaction Is this a current diagnosis for this admission?: Yes Plan: IV antibiotics. Possibly also due to steroids. (5) Lactic acidosis Is this a current diagnosis for this admission?: Yes Plan: Resolved. (6) Healthcare associated bacterial pneumonia Is this a current diagnosis for this admission?: Yes Plan: Cover for anaerobic and gram negative organisms. - Time Time Spent: Greater than 70 Minutes Critical Time spent with patient: 35 or more minutes Medications reviewed and adjusted accordingly: Yes Anticipated discharge: SNF - Inpatient Certification Based on my medical assessment, after consideration of the patient's comorbidities, presenting symptoms, or acuity I expect that the services needed warrant INPATIENT care.: Yes I certify that my determination is in accordance with my understanding of Medicare's requirements for reasonable and necessary INPATIENT services [42 CFR 412.3e].: Yes Medical Necessity: Need Close Monitoring Due to Risk of Patient Decompensation, Need For Continuous Telemetry Monitoring, Need for IV Antibiotics, Risk of Complication if Not Cared For in Hospital
--- NOTE | 2017-10-19 15:08 | PDOC PROGRESS REPORT ---
Subjective Progress Note for:: 10/19/17 Subjective:: The patient still appears to be working quite hard to breathe. No new complaints. Reason For Visit: ACUTE ON CHRONIC RESPIRATORY FAILURE,COPD Physical Exam Vital Signs: Temp Pulse Resp BP Pulse Ox 97.4 F 84 17 134/87 H 94 10/19/17 11:32 10/19/17 14:00 10/19/17 12:20 10/19/17 11:32 10/19/17 12:20 Intake & Output 10/18/17 10/19/17 10/20/17 06:59 06:59 06:59 Intake Total 937 803 0 Output Total 775 450 Balance 162 353 0 Weight 50.4 kg 52.1 kg General appearance: PRESENT: mild distress, thin, other - 1-2 word conversational dyspnea. Eye exam: PRESENT: EOMI, PERRLA, other - No scleral injection.. ABSENT: scleral icterus Respiratory exam: PRESENT: rhonchi, other - Diminished breath sounds throughout.. ABSENT: rales, wheezes Cardiovascular exam: PRESENT: RRR, other - No lateral PMI. No thrills.. ABSENT : gallop, rubs, systolic murmur Pulses: PRESENT: other - Diminished distal pulses. GI/Abdominal exam: PRESENT: normal bowel sounds, soft. ABSENT: distended, hernia, mass, organolmegaly, tenderness Rectal exam: PRESENT: deferred Extremities exam: ABSENT: clubbing, tenderness, +1 edema Musculoskeletal exam: PRESENT: normal inspection. ABSENT: deformity, dislocation, tenderness Neurological exam: PRESENT: alert, awake, oriented to situation, CN II-XII grossly intact. ABSENT: motor sensory deficit Psychiatric exam: PRESENT: appropriate affect, normal mood Skin exam: PRESENT: dry, intact, warm Results Laboratory Results: 10/18/17 05:57 10/19/17 05:24 10/19/17 05:24 Sodium 138.2 Potassium 3.6 Chloride 100 Carbon Dioxide 28 Anion Gap 10 BUN 25 H Creatinine 0.63 Est GFR ( Amer) > 60 Est GFR (Non-Af Amer) > 60 Glucose 78 Calcium 8.6 10/17/17 10/17/17 10/18/17 17:29 23:21 05:57 Troponin I 0.036 0.039 0.044 Impressions: Chest X-Ray 08/07/18 08:30 IMPRESSION: COPD. Small effusions. No significant change. Assessment & Plan - Diagnosis (1) Acute and chronic respiratory failure Qualifiers: Respiratory failure complication: hypoxia and hypercapnia Qualified Code(s) : J96.21 - Acute and chronic respiratory failure with hypoxia; J96.22 - Acute and chronic respiratory failure with hypercapnia; J96.22 - Acute and chronic respiratory failure with hypercapnia; J96.22 - Acute and chronic respiratory failure with hypercapnia Is this a current diagnosis for this admission?: Yes Plan: Nebulizer treatments and steroids. Supplemental O2 as necessary.The patient does not appear to be improving. I will consult pulmonology. (2) COPD exacerbation Is this a current diagnosis for this admission?: Yes Plan: Nebulizer treatments and IV steroids. (3) Atrial fibrillation with rapid ventricular response Is this a current diagnosis for this admission?: Yes Plan: On diltiazem drip. Will convert to PO diltiazem. Monitor heart rate and blood pressure. (4) Leukocytosis Qualifiers: Leukocytosis type: leukemoid reaction Qualified Code(s): D72.823 - Leukemoid reaction Is this a current diagnosis for this admission?: Yes (5) Lactic acidosis Is this a current diagnosis for this admission?: Yes (6) Healthcare associated bacterial pneumonia Is this a current diagnosis for this admission?: Yes Plan: Cover for anaerobic and gram negative organisms. Recent inpatient admission. - Time Time Spent with patient: 35 or more minutes Medications reviewed and adjusted accordingly: Yes Anticipated discharge: SNF
--- NOTE | 2017-10-19 16:18 | RADIOLOGY REPORT (SQ) ---
EXAM DESCRIPTION: PICC INSERTION; U/S GUIDE FOR VASCULAR ACCESS COMPLETED DATE/TIME: 10/19/2017 3:59 pm REASON FOR STUDY: Hard stick; IV ACCESS COMPARISON: AP chest 10/17/2017 FLUOROSCOPY TIME: No fluoroscopy. Bedside placement. AP chest and ultrasound images saved to PACS. TECHNIQUE: Fluoroscopic and ultrasound guided PICC placement. LIMITATIONS: None. PROCEDURE: After written consent and assessment were obtained, Ultrasound evaluation of potential ac cess sites were performed. After successfully identifying a patent left basilic vein, the left arm wa s prepped and draped in a sterile fashion along with the ultrasound probe. The entry site was anesthe tized with 1% lidocaine. A 21 gauge 7 cm needle was advanced through the skin and into the basilic ve in under live ultrasound guidance. An ultrasound image was saved to PACS confirming access site. A .018 guide wire was then inserted through the needle and into the venous system. The needle was the r emoved and an 11 blade scalpel was used to make a 1cm skin incision. A 5 fr peel-away sheath was adv anced over the wire and into the venous system. A measurement was then made using the existing wire a nd live fluoroscopic guidance. The wire was then removed and the trimmed. The PICC was advanced throu gh the peel-away sheath and into the venous system. The peel-away sheath was removed and the catheter was adhered to the patients arm with a stat lock. The catheter was then aspirated and flushed and a sterile bandage was placed over the access site. A digital portable chest film was saved to PACS con firming the catheter tip within the superior vena cava. Digital chest film today also shows small bilateral pleural effusions and patchy left basilar airspac e disease atelectasis versus pneumonia. Borderline cardiomegaly. Left-sided dual lead pacemaker. IMPRESSION: SUCCESSFUL PLACEMENT OF A 5 FR DUAL LUMEN 44 CM PICC IN THE LEFT BASILIC VEIN. COMMENT: Patient medication list reviewed: Yes- Quality ID# [id number]:Eligible professional attests to doc umenting in the medical record they obtained, updated, or reviewed the patient's current medications. . Quality ID 145: Final reports for procedures using fluoroscopy that document radiation exposure reno christen, or exposure time and number of fluorographic images (if radiation exposure indices are not avail able) Quality ID #76: The patient was prepped and draped using maximum sterile barrier technique including cap, mask, sterile gown, sterile gloves, a large sterile sheet, hand hygiene, and 2% Chlorhexidine fo r cutaneous antisepsis. When ultrasound is used, sterile ultrasound techniques are followed requiring sterile gel and sterile probes. TECHNICAL DOCUMENTATION: JOB ID: [id number] [employer]- All Rights Reserved rev-07/28 Reading location - IP/workstation name: [facility]
[2017-10-19] MEDS: CEFEPIME 2 GM/D5W RTU 2 GM/50 ML RTUPB IV SCH (17:35)
[2017-10-19] MEDS: MONTELUKAST SODIUM 10 MG TABLET PO SCH (17:35)
[2017-10-19] MEDS: LORAZEPAM 0.5 MG TABLET PO PRN ×2 (17:47→22:47)
[2017-10-19] MEDS ORDERED: NORMAL SALINE 10 ML SDV (AFTER EACH USE) IV PRN (18:46)
[2017-10-19] MEDS ORDERED: VANCOMYCIN HCL 500 MG in DEXTROSE 5%-WATER 100 ML IV SCH (20:00)
[2017-10-19] MEDS ORDERED: VANCOMYCIN HCL 500 MG in NORMAL SALINE 100 ML IV SCH (20:00)
[2017-10-19] MEDS: MELATONIN 5 MG TABLET PO SCH (22:33)
[2017-10-19] MEDS: ZOLPIDEM TARTRATE 5 MG TABLET PO SCH (22:33)
[2017-10-19] MEDS: NORMAL SALINE 10 ML SDV (SCHEDULED) IV SCH (22:34)
[2017-10-20] MEDS: LEVALBUTEROL HCL NEB 1.25 MG/3 ML AMPUL NEB SCH ×6 (00:18→20:10)
[2017-10-20] MEDS: DILTIAZEM HCL 90 MG TABLET PO SCH ×4 (00:33→17:56)
[2017-10-20] MEDS: LANSOPRAZOLE 30 MG TAB.RAP.DR PO SCH (06:21)
[2017-10-20] MEDS: LEVOTHYROXINE SODIUM 0.075 MG TABLET PO SCH (06:22)
[2017-10-20 06:46] LABS: HEMATOCRIT 31.8 % (36.0-47.0); MEAN CORPUSCULAR HEMOGLOBIN 33.5 pg (27.0-33.4); MEAN CORPUSCULAR HGB CONC 34.7 g/dL (32.0-36.0); MEAN CORPUSCULAR VOLUME 97 fl (80-97); PLATELET COUNT 211 10^3/uL (150-450); RED CELL DISTRIBUTION WIDTH 15.8 % (11.5-14.0); WHITE BLOOD COUNT 6.6 10^3/uL (4.0-10.5)
[2017-10-20] MEDS: ENOXAPARIN SODIUM INJ 60 MG/0.6 ML DISP.SYRIN SUBCUT SCH ×2 (09:29→21:01)
[2017-10-20] MEDS: FUROSEMIDE INJ/PF 20 MG/2 ML SDV IV SCH ×2 (09:30→21:00)
[2017-10-20] MEDS: NORMAL SALINE 10 ML SDV (SCHEDULED) IV SCH ×2 (09:31→21:10)
[2017-10-20] MEDS: SOTALOL HCL 80 MG TABLET PO SCH (09:41)
[2017-10-20] MEDS: BISMUTH SUBSALICYLATE 262 MG TAB.CHEW PO SCH ×3 (09:41→17:57)
[2017-10-20] MEDS: SERTRALINE HCL 50 MG TABLET PO SCH (09:42)
[2017-10-20 11:27] LABS: APPEARANCE,URINE CLEAR; BILIRUBIN,URINE NEGATIVE (NEGATIVE); COLOR,URINE YELLOW; GLUCOSE, URINE NEGATIVE (NEGATIVE); KETONES,URINE NEGATIVE (NEGATIVE); LEUKOCYTE ESTERASE,URINE LARGE (NEGATIVE); NITRITE,URINE NEGATIVE (NEGATIVE); PROTEIN,URINE NEGATIVE (NEGATIVE); URINE SPECIFIC GRAVITY 1.008; UROBILINOGEN,URINE NEGATIVE mg/dL (<2.0)
--- NOTE | 2017-10-20 14:48 | PDOC PROGRESS REPORT ---
Subjective Progress Note for:: 10/20/17 Subjective:: The patient states that she is feeling better today. No new complaint. Reason For Visit: ACUTE ON CHRONIC RESPIRATORY FAILURE,COPD Physical Exam Vital Signs: Temp Pulse Resp BP Pulse Ox 97.6 F 117 H 20 124/83 93 10/20/17 07:12 10/20/17 11:36 10/20/17 11:36 10/20/17 07:12 10/20/17 08:35 Intake & Output 10/19/17 10/20/17 10/21/17 06:59 06:59 06:59 Intake Total 803 300 237 Output Total 450 100 Balance 353 300 137 Weight 52.1 kg 55.9 kg General appearance: PRESENT: no acute distress, thin, other - Elderly, weak, and frail. Respiratory exam: PRESENT: rhonchi, wheezes, other - Diminished breath sounds bilaterally.. ABSENT: rales Cardiovascular exam: PRESENT: RRR. ABSENT: gallop, rubs, tachycardia Pulses: PRESENT: other - Diminished distal pulses. GI/Abdominal exam: PRESENT: soft. ABSENT: hernia, mass, organolmegaly, tenderness Extremities exam: PRESENT: other - cachectic extremities. Musculoskeletal exam: PRESENT: normal inspection. ABSENT: deformity, tenderness Neurological exam: PRESENT: alert, awake, oriented to person, oriented to place , oriented to time, oriented to situation, CN II-XII grossly intact, motor sensory deficit Psychiatric exam: PRESENT: anxious Skin exam: PRESENT: dry, intact, warm Results Laboratory Results: 10/20/17 06:30 10/19/17 05:24 10/20/17 10/20/17 06:30 10:33 WBC 6.6 RBC 3.30 L Hgb 11.0 L Hct 31.8 L MCV 97 MCH 33.5 H MCHC 34.7 RDW 15.8 H Plt Count 211 Urine Color YELLOW Urine Appearance CLEAR Urine pH 7.0 Ur Specific [place] 1.008 Urine Protein NEGATIVE Urine Glucose (UA) NEGATIVE Urine Ketones NEGATIVE Urine Blood MODERATE H Urine Nitrite NEGATIVE Ur Leukocyte Esterase LARGE H Urine WBC (Auto) 30 Urine RBC (Auto) 71 10/18/17 06:45 Sputum Gram Stain - Final 10/18/17 06:45 Sputum Sputum Culture - Final Pseudomonas Aeruginosa Yeast, Not Elaine Albicans Reduced Normal Devi 10/17/17 10/17/17 10/18/17 17:29 23:21 05:57 Troponin I 0.036 0.039 0.044 Impressions: Chest X-Ray 10/17/17 08:30 IMPRESSION: COPD. Small effusions. No significant change. Interventional Vascular Procedure 10/19/17 00:00 IMPRESSION: SUCCESSFUL PLACEMENT OF A 5 FR DUAL LUMEN 44 CM PICC IN THE LEFT BASILIC VEIN. PICC Line Insertion 10/19/17 00:00 IMPRESSION: SUCCESSFUL PLACEMENT OF A 5 FR DUAL LUMEN 44 CM PICC IN THE LEFT BASILIC VEIN. Assessment & Plan - Diagnosis (1) Acute and chronic respiratory failure Qualifiers: Respiratory failure complication: hypoxia and hypercapnia Qualified Code(s) : J96.21 - Acute and chronic respiratory failure with hypoxia; J96.22 - Acute and chronic respiratory failure with hypercapnia; J96.22 - Acute and chronic respiratory failure with hypercapnia; J96.22 - Acute and chronic respiratory failure with hypercapnia Is this a current diagnosis for this admission?: Yes (2) COPD exacerbation Is this a current diagnosis for this admission?: Yes Plan: Nebulizer treatments and IV steroids. Slowly improving. Dr. Olguin has been consulted. (3) Atrial fibrillation with rapid ventricular response Is this a current diagnosis for this admission?: Yes Plan: Heart rate still a little high. Blood pressure can afford an increase in Diltiazem. I will increase her dose to 60mg q6H. (4) Leukocytosis Qualifiers: Leukocytosis type: leukemoid reaction Qualified Code(s): D72.823 - Leukemoid reaction Is this a current diagnosis for this admission?: Yes (5) Lactic acidosis Is this a current diagnosis for this admission?: Yes (6) Healthcare associated bacterial pneumonia Is this a current diagnosis for this admission?: Yes Plan: Cover for anaerobic and gram negative organisms. Recent inpatient admission. - Time Time Spent with patient: 25-34 minutes Medications reviewed and adjusted accordingly: Yes - Inpatient Certification Based on my medical assessment, after consideration of the patient's comorbidities, presenting symptoms, or acuity I expect that the services needed warrant INPATIENT care.: Yes I certify that my determination is in accordance with my understanding of Medicare's requirements for reasonable and necessary INPATIENT services [42 CFR 412.3e].: Yes Medical Necessity: Need Close Monitoring Due to Risk of Patient Decompensation, Need For Continuous Telemetry Monitoring, Need for Nebulizer Therapy and Monitoring of Response, Need for IV Antibiotics
[2017-10-20] MEDS: TRAMADOL HCL 50 MG TABLET PO PRN (16:25)
[2017-10-20] MEDS: CEFEPIME 2 GM/D5W RTU 2 GM/50 ML RTUPB IV SCH (17:56)
[2017-10-20] MEDS: MONTELUKAST SODIUM 10 MG TABLET PO SCH (17:57)
[2017-10-20] MEDS ORDERED: VANCOMYCIN HCL 500 MG in NORMAL SALINE 100 ML IV ONE (21:00)
[2017-10-20] MEDS: ZOLPIDEM TARTRATE 5 MG TABLET PO SCH (21:00)
[2017-10-20] MEDS: MELATONIN 5 MG TABLET PO SCH (21:02)
[2017-10-21] MEDS: LEVALBUTEROL HCL NEB 1.25 MG/3 ML AMPUL NEB SCH ×6 (00:20→20:20)
[2017-10-21] MEDS: DILTIAZEM HCL 90 MG TABLET PO SCH ×5 (02:14→23:20)
[2017-10-21] MEDS: TRAMADOL HCL 50 MG TABLET PO PRN ×2 (02:14→18:22)
[2017-10-21] MEDS: LEVOTHYROXINE SODIUM 0.075 MG TABLET PO SCH (05:11)
[2017-10-21] MEDS: LANSOPRAZOLE 30 MG TAB.RAP.DR PO SCH (05:11)
[2017-10-21] MEDS ORDERED: VANCOMYCIN HCL 500 MG in DEXTROSE 5%-WATER 100 ML IV SCH (06:00)
[2017-10-21] MEDS: FUROSEMIDE INJ/PF 20 MG/2 ML SDV IV SCH ×2 (10:34→21:53)
[2017-10-21] MEDS: ENOXAPARIN SODIUM INJ 60 MG/0.6 ML DISP.SYRIN SUBCUT SCH ×2 (10:35→21:48)
[2017-10-21] MEDS: SOTALOL HCL 80 MG TABLET PO SCH (10:35)
[2017-10-21] MEDS: SERTRALINE HCL 50 MG TABLET PO SCH (10:35)
[2017-10-21] MEDS: NORMAL SALINE 10 ML SDV (SCHEDULED) IV SCH ×2 (10:36→21:54)
[2017-10-21] MEDS: BISMUTH SUBSALICYLATE 262 MG TAB.CHEW PO SCH ×3 (10:49→17:33)
[2017-10-21 11:52] LABS: ANION GAP 9 (5-19); BLOOD UREA NITROGEN 20 mg/dL (7-20); CARBON DIOXIDE 27 mmol/L (22-30); CHLORIDE 99 mmol/L (98-107); GLUCOSE 114 mg/dL (75-110); SODIUM 134.7 mmol/L (137-145)
--- NOTE | 2017-10-21 17:11 | PDOC PROGRESS REPORT ---
Subjective Progress Note for:: 10/21/17 Subjective:: The patient states that she is feeling better. She has worked with PT earlier today. She was only able to take 3 steps. Reason For Visit: ACUTE ON CHRONIC RESPIRATORY FAILURE,COPD Physical Exam Vital Signs: Temp Pulse Resp BP Pulse Ox 97.9 F 106 H 18 108/58 L 95 10/21/17 11:46 10/21/17 15:55 10/21/17 15:55 10/21/17 11:46 10/21/17 15:55 Intake & Output 10/20/17 10/21/17 10/22/17 06:59 06:59 06:59 Intake Total 300 687 Output Total 100 Balance 300 587 Weight 55.9 kg 52.1 kg General appearance: PRESENT: no acute distress, cooperative, thin, other - Elderly, weak, and frail. Respiratory exam: PRESENT: other - Diminished breath sounds.. ABSENT: rales, rhonchi, wheezes Cardiovascular exam: PRESENT: irregular rhythm. ABSENT: gallop, rubs, systolic murmur Pulses: PRESENT: other - Diminished distal pulses. GI/Abdominal exam: PRESENT: normal bowel sounds, soft. ABSENT: distended, hernia, mass, organolmegaly, tenderness Rectal exam: PRESENT: deferred Extremities exam: ABSENT: clubbing, pedal edema, tenderness Musculoskeletal exam: PRESENT: normal inspection. ABSENT: deformity, dislocation, tenderness Neurological exam: PRESENT: alert, awake, oriented to person, oriented to place , oriented to time, oriented to situation, CN II-XII grossly intact. ABSENT: motor sensory deficit Psychiatric exam: PRESENT: appropriate affect, normal mood Skin exam: PRESENT: dry, intact, warm Results Laboratory Results: 10/20/17 06:30 10/21/17 10:45 10/20/17 10/21/17 19:40 10:45 Sodium 134.7 L Potassium 3.0 L* Chloride 99 Carbon Dioxide 27 Anion Gap 9 BUN 20 Creatinine 0.60 0.57 Est GFR ( Amer) > 60 > 60 Est GFR (Non-Af Amer) > 60 > 60 Glucose 114 H Calcium 8.0 L 10/17/17 10/17/17 10/18/17 17:29 23:21 05:57 Troponin I 0.036 0.039 0.044 Impressions: Chest X-Ray 10/17/17 08:30 IMPRESSION: COPD. Small effusions. No significant change. Interventional Vascular Procedure 10/19/17 00:00 IMPRESSION: SUCCESSFUL PLACEMENT OF A 5 FR DUAL LUMEN 44 CM PICC IN THE LEFT BASILIC VEIN. PICC Line Insertion 10/19/17 00:00 IMPRESSION: SUCCESSFUL PLACEMENT OF A 5 FR DUAL LUMEN 44 CM PICC IN THE LEFT BASILIC VEIN. Assessment & Plan - Diagnosis (1) Acute and chronic respiratory failure Qualifiers: Respiratory failure complication: hypoxia and hypercapnia Qualified Code(s) : J96.21 - Acute and chronic respiratory failure with hypoxia; J96.22 - Acute and chronic respiratory failure with hypercapnia; J96.22 - Acute and chronic respiratory failure with hypercapnia; J96.22 - Acute and chronic respiratory failure with hypercapnia Is this a current diagnosis for this admission?: Yes Plan: Nebulizer treatments and steroids. Supplemental O2 as necessary. Improvement. The patient is approaching her baseline respiratory status. (2) COPD exacerbation Is this a current diagnosis for this admission?: Yes Plan: Nebulizer treatments and IV steroids. Improved. Change IV steroids to PO. (3) Atrial fibrillation with rapid ventricular response Is this a current diagnosis for this admission?: Yes Plan: The patient's heart rate remains marginal. Her blood pressure is a little marginal, so I will attempt to get better control of her heart rate with digoxin. (4) Leukocytosis Qualifiers: Leukocytosis type: leukemoid reaction Qualified Code(s): D72.823 - Leukemoid reaction Is this a current diagnosis for this admission?: Yes (5) Lactic acidosis Is this a current diagnosis for this admission?: Yes Plan: Resolved. (6) Healthcare associated bacterial pneumonia Is this a current diagnosis for this admission?: Yes Plan: Cover for anaerobic and gram negative organisms. Recent inpatient admission. (7) Debility Is this a current diagnosis for this admission?: Yes Plan: The patient will likely require rehab. - Time Time Spent with patient: 25-34 minutes Medications reviewed and adjusted accordingly: Yes
[2017-10-21] MEDS: CEFEPIME 2 GM/D5W RTU 2 GM/50 ML RTUPB IV SCH (17:32)
[2017-10-21] MEDS: MONTELUKAST SODIUM 10 MG TABLET PO SCH (17:33)
[2017-10-21] MEDS: VANCOMYCIN HCL 500 MG in NORMAL SALINE 100 ML IV SCH (18:18)
[2017-10-21] MEDS: MORPHINE SULFATE 10 MG/ML INJ INJ PRN (20:43)
[2017-10-21] MEDS: ZOLPIDEM TARTRATE 5 MG TABLET PO SCH (21:53)
[2017-10-21] MEDS: MELATONIN 5 MG TABLET PO SCH (21:54)
[2017-10-22] MEDS: LEVALBUTEROL HCL NEB 1.25 MG/3 ML AMPUL NEB SCH ×6 (00:26→20:11)
[2017-10-22] MEDS ORDERED: POTASSIUM CHLORIDE 10 MEQ CAPSULE.ER PO ONE (01:00)
[2017-10-22] MEDS: VANCOMYCIN HCL 500 MG in NORMAL SALINE 100 ML IV SCH ×2 (05:43→18:47)
[2017-10-22] MEDS: LANSOPRAZOLE 30 MG TAB.RAP.DR PO SCH (05:44)
[2017-10-22] MEDS: DILTIAZEM HCL 90 MG TABLET PO SCH ×2 (05:44→12:46)
[2017-10-22] MEDS: LEVOTHYROXINE SODIUM 0.075 MG TABLET PO SCH (05:44)
[2017-10-22 06:28] LABS: ABSOLUTE EOSINOPHILS # (AUTO) 0.1 10^3/uL (0.0-0.6); ABSOLUTE LYMPHOCYTES (AUTO) 0.6 10^3/uL (0.5-4.7); ABSOLUTE MONOCYTES (AUTO) 0.2 10^3/uL (0.1-1.4); ABSOLUTE NEUT (AUTO) 3.8 10^3/uL (1.7-8.2); BASOPHILS % (AUTO) 0.3 % (0-2); EOSINOPHILS % (AUTO) 2.3 % (0-6); HEMATOCRIT 29.5 % (36.0-47.0); HEMOGLOBIN 10.1 g/dL (12.0-15.5); LYMPHOCYTES % (AUTO) 11.7 % (13-45); MEAN CORPUSCULAR HGB CONC 34.4 g/dL (32.0-36.0); MEAN CORPUSCULAR VOLUME 96 fl (80-97); MONOCYTES % (AUTO) 4.3 % (3-13); PLATELET COUNT 156 10^3/uL (150-450); RED BLOOD COUNT 3.07 10^6/uL (3.72-5.28); RED CELL DISTRIBUTION WIDTH 16.4 % (11.5-14.0); SEGMENTED NEUTROPHILS % (AUTO) 81.4 % (42-78); TOTAL CELLS COUNTED % (AUTO) 100 %; WHITE BLOOD COUNT 4.7 10^3/uL (4.0-10.5)
[2017-10-22 07:18] LABS: ALANINE AMINOTRANSFERASE 42 U/L (9-52); ALBUMIN 2.4 g/dL (3.5-5.0); ALKALINE PHOSPHATASE 58 U/L (38-126); ANION GAP 7 (5-19); ASPARTATE AMINO TRANSFERASE 14 U/L (14-36); BILIRUBIN,DIRECT 0.2 mg/dL (0.0-0.4); BILIRUBIN,TOTAL 0.3 mg/dL (0.2-1.3); BLOOD UREA NITROGEN 20 mg/dL (7-20); CALCIUM 8.2 mg/dL (8.4-10.2); CARBON DIOXIDE 28 mmol/L (22-30); CHLORIDE 100 mmol/L (98-107); GLUCOSE 111 mg/dL (75-110); POTASSIUM 3.5 mmol/L (3.6-5.0); SODIUM 135.4 mmol/L (137-145); TOTAL PROTEIN 4.8 g/dL (6.3-8.2)
[2017-10-22] MEDS ORDERED: ERGOCALCIFEROL (VITAMIN D2) 50000 UNIT (1.25 MG) CAPSULE PO SCH (10:00)
[2017-10-22] MEDS: PREDNISONE 20 MG TABLET PO SCH (10:17)
[2017-10-22] MEDS: SERTRALINE HCL 50 MG TABLET PO SCH (10:17)
[2017-10-22] MEDS: DIGOXIN 0.125 MG TABLET PO SCH (10:17)
[2017-10-22] MEDS: SOTALOL HCL 80 MG TABLET PO SCH (10:17)
[2017-10-22] MEDS: FUROSEMIDE INJ/PF 20 MG/2 ML SDV IV SCH ×2 (10:18→22:08)
[2017-10-22] MEDS: POTASSIUM CHLORIDE 20 MEQ/15 ML UDCUP PO SCH (10:18)
[2017-10-22] MEDS: NORMAL SALINE 10 ML SDV (SCHEDULED) IV SCH ×2 (10:19→22:10)
[2017-10-22] MEDS: ENOXAPARIN SODIUM INJ 60 MG/0.6 ML DISP.SYRIN SUBCUT SCH ×2 (10:19→22:08)
[2017-10-22] MEDS: BISMUTH SUBSALICYLATE 262 MG TAB.CHEW PO SCH ×3 (10:19→17:56)
[2017-10-22] MEDS: DILTIAZEM HCL 60 MG TABLET PO SCH ×2 (13:18→18:01)
--- NOTE | 2017-10-22 14:01 | PDOC PROGRESS REPORT ---
Subjective Progress Note for:: 10/22/17 Subjective:: The patient states that she is feeling better. She has worked with PT. She will likely require placement at dc. Reason For Visit: ACUTE ON CHRONIC RESPIRATORY FAILURE,COPD Physical Exam Vital Signs: Temp Pulse Resp BP Pulse Ox 98.0 F 90 22 H 107/73 99 10/22/17 07:42 10/22/17 12:04 10/22/17 12:04 10/22/17 12:04 10/22/17 12:04 Intake & Output 10/21/17 10/22/17 10/23/17 06:59 06:59 06:59 Intake Total 687 774 100 Output Total 100 Balance 587 774 100 Weight 52.1 kg 118.4 kg General appearance: PRESENT: no acute distress, cooperative, other - Elderly, weak, and frail. Respiratory exam: PRESENT: other - No increased work of breathing. No wheezes, rales, or rhonchi. No tactile fremitus. Breath sounds are diminished bilaterally. Cardiovascular exam: PRESENT: irregular rhythm, other - No lateral PMI. No thrills.. ABSENT: gallop, rubs, systolic murmur Pulses: PRESENT: other - Diminished distal pulses. GI/Abdominal exam: PRESENT: normal bowel sounds, soft. ABSENT: hernia, mass, organolmegaly, tenderness Rectal exam: PRESENT: deferred Neurological exam: PRESENT: alert, awake, oriented to person, oriented to place , oriented to time, oriented to situation, CN II-XII grossly intact. ABSENT: motor sensory deficit Skin exam: PRESENT: dry, intact, warm Results Laboratory Results: 10/22/17 05:50 10/22/17 05:50 10/22/17 10/22/17 05:50 05:50 WBC 4.7 RBC 3.07 L Hgb 10.1 L Hct 29.5 L MCV 96 MCH 33.0 MCHC 34.4 RDW 16.4 H Plt Count 156 Seg Neutrophils % 81.4 H Lymphocytes % 11.7 L Monocytes % 4.3 Eosinophils % 2.3 Basophils % 0.3 Absolute Neutrophils 3.8 Absolute Lymphocytes 0.6 Absolute Monocytes 0.2 Absolute Eosinophils 0.1 Absolute Basophils 0.0 Sodium 135.4 L Potassium 3.5 L Chloride 100 Carbon Dioxide 28 Anion Gap 7 BUN 20 Creatinine 0.49 L Est GFR ( Amer) > 60 Est GFR (Non-Af Amer) > 60 Glucose 111 H Calcium 8.2 L Total Bilirubin 0.3 AST 14 ALT 42 Alkaline Phosphatase 58 Total Protein 4.8 L Albumin 2.4 L 10/17/17 10/17/17 10/18/17 17:29 23:21 05:57 Troponin I 0.036 0.039 0.044 Impressions: Chest X-Ray 10/17/17 08:30 IMPRESSION: COPD. Small effusions. No significant change. Interventional Vascular Procedure 10/19/17 00:00 IMPRESSION: SUCCESSFUL PLACEMENT OF A 5 FR DUAL LUMEN 44 CM PICC IN THE LEFT BASILIC VEIN. PICC Line Insertion 10/19/17 00:00 IMPRESSION: SUCCESSFUL PLACEMENT OF A 5 FR DUAL LUMEN 44 CM PICC IN THE LEFT BASILIC VEIN. Assessment & Plan - Diagnosis (1) Acute and chronic respiratory failure Qualifiers: Respiratory failure complication: hypoxia and hypercapnia Qualified Code(s) : J96.21 - Acute and chronic respiratory failure with hypoxia; J96.22 - Acute and chronic respiratory failure with hypercapnia; J96.22 - Acute and chronic respiratory failure with hypercapnia; J96.22 - Acute and chronic respiratory failure with hypercapnia Is this a current diagnosis for this admission?: Yes Plan: Nebulizer treatments and steroids. Supplemental O2 as necessary. Improving. The patient is approaching her baseline respiratory status. (2) COPD exacerbation Is this a current diagnosis for this admission?: Yes Plan: Nebulizer treatments and IV steroids. Improved. Change IV steroids to PO. (3) Atrial fibrillation with rapid ventricular response Is this a current diagnosis for this admission?: Yes Plan: The patient's heart rate remains marginal. Her blood pressure is a little marginal, so I will attempt to get better control of her heart rate with digoxin. (4) Leukocytosis Qualifiers: Leukocytosis type: leukemoid reaction Qualified Code(s): D72.823 - Leukemoid reaction Is this a current diagnosis for this admission?: Yes (5) Lactic acidosis Is this a current diagnosis for this admission?: Yes Plan: Resolved. (6) Healthcare associated bacterial pneumonia Is this a current diagnosis for this admission?: Yes Plan: Cover for anaerobic and gram negative organisms. Recent inpatient admission. (7) Debility Is this a current diagnosis for this admission?: Yes - Time Time Spent with patient: 25-34 minutes Medications reviewed and adjusted accordingly: Yes Anticipated discharge: SNF
[2017-10-22] MEDS: MONTELUKAST SODIUM 10 MG TABLET PO SCH (18:01)
[2017-10-22] MEDS: CEFEPIME 2 GM/D5W RTU 2 GM/50 ML RTUPB IV SCH (18:01)
--- NOTE | 2017-10-22 18:32 | PDOC CONSULTATION ---
Consultation Consult Date: 10/19/17 Attending physician:: JYOTHI MCGRATH Consult reason:: Respiratory failure History of Present Illness Admission Date/PCP: 10/17/17 12:33 History of Present Illness: FREDI WHALEN is a 82 year old female,Recently discharged to the senior living from the hospital after having a bout of pneumonia returned today increasing shortness of shortness of breath and atrial fibrillation with rapid ventricular response still coughing up purulent sputum with a leukocytosis and a fever she had been seen by [facility] in the distant past. Past Medical History Cardiac Medical History: Reports: Atrial Fibrillation, Congestive Heart Failure , Hyperlipidema, Hypertension Pulmonary Medical History: Reports: Bronchitis, Chronic Obstructive Pulmonary Disease (COPD) - on continuous home oxygen/inhalers, Pneumonia - Pseudomonas Neurological Medical History: Endocrine Medical History: Reports: Hypothyroidism Malignancy Medical History: Reports: Renal (Kidney) Cancer GI Medical History: Reports: Gastroesophageal Reflux Disease, Hiatal Hernia Denies: Hepatitis Musculoskeltal Medical History: Reports: Arthritis Skin Medical History: Denies: Eczema, Psoriasis Psychiatric Medical History: Denies: Depression Traumatic Medical History: Denies: Gunshot Wound, Pneumothorax, Traumatic Brain Injury Hematology: Denies: Anemia, Sickle Cell Disease Infectious Medical History: Denies: HIV Past Surgical History Past Surgical History: Reports: Appendectomy, Cholecystectomy, Hysterectomy Denies: Amputation, Mastectomy, Pacemaker Social History [facility] with: [facility] Smoking Status: Smoker,Current Status Unk Cigarettes Packs Per Day: 1.5 Number of Years Smokin Passive smoke exposure as: Both Frequency of Alcohol Use: Occasional Hx Recreational Drug Use: No Drugs: None Hx Prescription Drug Abuse: No Do you have pets?: No Have you had any respiratory illnesses as a child?: No - Advance Directive Resuscitation Status: Full Code Family History Family History: Arthritis, CAD, CVA, Hypertension, Malignancy Parental Family History Reviewed: Yes Children Family History Reviewed: Yes Sibling(s) Family History Reviewed.: Yes Medication/Allergy Home Medications: Atorvastatin Calcium [Lipitor 10 mg Tablet] 10 mg PO QHS 10/17/17 Bismuth Subsalicylate [Pepto-Bismol] 3 tab PO TID 10/17/17 Budesonide/Formoterol Fumarate [Symbicort HFA 160-4.5 mcg Inhaler 6 gm] 1 puff IH Q12 10/17/17 Clindamycin HCl [Cleocin 150 mg Capsule] 300 mg PO Q6 10/17/17 Diltiazem HCl [Cardizem Cd 120 mg Capsule] 120 mg PO DAILY 10/17/17 Ergocalciferol (Vitamin D2) [Drisdol 50,000 unit (1.25MG) Capsule] 50,000 unit PO MEADOWS@1000 10/17/17 Ipratropium/Albuterol Sulfate [Duoneb 3 ml Ampul] 1 vial NEB Q6 10/17/17 Levothyroxine Sodium [Synthroid 0.075 mg Tablet] 0.075 mg PO Q6AM 10/17/17 Melatonin [Melatonin 5 mg Tablet] 5 mg PO QHS 10/17/17 Montelukast Sodium [Singulair 10 mg Tablet] 10 mg PO QPM 10/17/17 Omeprazole 40 mg PO Q6AM 10/17/17 Sertraline HCl [Zoloft] 25 mg PO DAILY 10/17/17 Sotalol HCl [Betapace 80 mg Tablet] 80 mg PO DAILY 10/17/17 Tiotropium [place] [Spiriva Handihaler 18 mcg/dose (30 Dose)] 1 cap IH DAILY 09/27 Zolpidem Tartrate [Ambien 5 mg Tablet] 5 mg PO QHS 10/17/17 Allergies/Adverse Reactions: Penicillins Allergy (Severe, Verified 10/17/17 11:56) Respiratory arrest doxycycline [Doxycycline] Allergy (Intermediate, Verified 10/17/17 11:56) Jona-Tristin's Syndrome valsartan [From Diovan] Allergy (Intermediate, Verified 10/17/17 11:56) Rash levofloxacin [From Levaquin] Allergy (Verified 10/17/17 11:56) METAL Allergy (Severe, Uncoded 10/17/17 11:56) RASH Review of Systems Constitutional: PRESENT: fatigue. ABSENT: headache(s) Eyes: ABSENT: visual disturbances Ears: ABSENT: hearing changes Nose, Mouth, and Throat: ABSENT: mouth pain Cardiovascular: PRESENT: dyspnea on exertion, palpitations Respiratory: PRESENT: cough, dyspnea, sputum. ABSENT: hemoptysis Gastrointestinal: ABSENT: abdominal pain, bloating, coffee ground emesis, dysphagia, hematemesis, hematochezia Genitourinary: ABSENT: dysuria Musculoskeletal: ABSENT: deformity Integumentary: ABSENT: rash Neurological: ABSENT: abnormal gait, abnormal movements, abnormal speech, confusion, syncope Psychiatric: ABSENT: hallucinations, homidical ideation, suicidal ideation Endocrine: PRESENT: polydipsia, polyuria. ABSENT: cold intolerance, heat intolerance Hematologic/Lymphatic: PRESENT: easy bruising Allergic/Immunologic: PRESENT: seasonal rhinorrhea Physical Exam Vital Signs: Temp Pulse Resp BP Pulse Ox 97.5 F 101 H 21 H 107/69 93 10/22/17 15:42 10/22/17 16:09 10/22/17 16:09 10/22/17 15:42 10/22/17 16:09 Intake & Output 10/21/17 10/22/17 10/23/17 06:59 06:59 06:59 Intake Total 687 774 100 Output Total 100 Balance 587 774 100 Weight 52.1 kg 118.4 kg General appearance: PRESENT: no acute distress, disheveled, morbidly obese. ABSENT: cooperative Head exam: PRESENT: atraumatic, normocephalic Eye exam: PRESENT: conjunctiva pale, EOMI. ABSENT: nystagmus, periorbital swelling, scleral icterus Mouth exam: PRESENT: dry mucosa, neck supple, tongue midline Teeth exam: PRESENT: edentulous Neck exam: ABSENT: carotid bruit, JVD, lymphadenopathy, thyromegaly, tracheal deviation, tracheostomy Cardiovascular exam: PRESENT: RRR. ABSENT: diastolic murmur, rubs, systolic murmur Pulses: PRESENT: normal radial pulses GI/Abdominal exam: PRESENT: normal bowel sounds, soft. ABSENT: tenderness Extremities exam: ABSENT: calf tenderness, clubbing, joint swelling Musculoskeletal exam: ABSENT: deformity, dislocation Neurological exam: PRESENT: awake, oriented to person, oriented to place Psychiatric exam: PRESENT: flat affect Skin exam: PRESENT: dry, warm Results Laboratory Results: 10/22/17 05:50 10/22/17 05:50 10/22/17 10/22/17 05:50 05:50 WBC 4.7 RBC 3.07 L Hgb 10.1 L Hct 29.5 L MCV 96 MCH 33.0 MCHC 34.4 RDW 16.4 H Plt Count 156 Seg Neutrophils % 81.4 H Lymphocytes % 11.7 L Monocytes % 4.3 Eosinophils % 2.3 Basophils % 0.3 Absolute Neutrophils 3.8 Absolute Lymphocytes 0.6 Absolute Monocytes 0.2 Absolute Eosinophils 0.1 Absolute Basophils 0.0 Sodium 135.4 L Potassium 3.5 L Chloride 100 Carbon Dioxide 28 Anion Gap 7 BUN 20 Creatinine 0.49 L Est GFR ( Amer) > 60 Est GFR (Non-Af Amer) > 60 Glucose 111 H Calcium 8.2 L Total Bilirubin 0.3 AST 14 ALT 42 Alkaline Phosphatase 58 Total Protein 4.8 L Albumin 2.4 L 10/17/17 10/17/17 10/18/17 17:29 23:21 05:57 Troponin I 0.036 0.039 0.044 Impressions: Chest X-Ray 10/17/17 08:30 IMPRESSION: COPD. Small effusions. No significant change. Interventional Vascular Procedure 10/19/17 00:00 IMPRESSION: SUCCESSFUL PLACEMENT OF A 5 FR DUAL LUMEN 44 CM PICC IN THE LEFT BASILIC VEIN. PICC Line Insertion 10/19/17 00:00 IMPRESSION: SUCCESSFUL PLACEMENT OF A 5 FR DUAL LUMEN 44 CM PICC IN THE LEFT BASILIC VEIN. Assessment & Plan - Diagnosis (1) Acute and chronic respiratory failure Qualifiers: Respiratory failure complication: hypoxia and hypercapnia Qualified Code(s) : J96.21 - Acute and chronic respiratory failure with hypoxia; J96.22 - Acute and chronic respiratory failure with hypercapnia; J96.22 - Acute and chronic respiratory failure with hypercapnia; J96.22 - Acute and chronic respiratory failure with hypercapnia Is this a current diagnosis for this admission?: Yes Plan: Noninvasive positive pressure ventilation as needed (2) Atrial fibrillation with rapid ventricular response Is this a current diagnosis for this admission?: Yes Plan: Stable at this time (3) CHF (congestive heart failure) Qualifiers: Heart failure type: unspecified Heart failure chronicity: unspecified Qualified Code(s): I50.9 - Heart failure, unspecified Is this a current diagnosis for this admission?: Yes Plan: Improving (4) COPD (chronic obstructive pulmonary disease) Qualifiers: COPD type: COPD with acute exacerbation Qualified Code(s): J44.1 - Chronic obstructive pulmonary disease with (acute) exacerbation Is this a current diagnosis for this admission?: Yes Plan: Continue current bronchodilator therapy (5) Hospital-acquired pneumonia Is this a current diagnosis for this admission?: Yes Plan: 10/18/17 06:45 Gram Stain - Final Sputum Sputum Culture - Final Pseudomonas Aeruginosa Yeast, Not Elaine Albicans Reduced Normal Devi [place] therapy with nebulized tobramycin 300 mg hand-held nebulizer twice daily
--- NOTE | 2017-10-22 18:35 | PDOC PROGRESS REPORT ---
Subjective Progress Note for:: 10/20/17 Subjective:: Slightly improved Reason For Visit: ACUTE ON CHRONIC RESPIRATORY FAILURE,COPD Physical Exam Vital Signs: Temp Pulse Resp BP Pulse Ox 97.5 F 101 H 21 H 107/69 93 10/22/17 15:42 10/22/17 16:09 10/22/17 16:09 10/22/17 15:42 10/22/17 16:09 Intake & Output 10/21/17 10/22/17 10/23/17 06:59 06:59 06:59 Intake Total 687 774 100 Output Total 100 Balance 587 774 100 Weight 52.1 kg 118.4 kg General appearance: PRESENT: no acute distress, cooperative, disheveled, morbidly obese Head exam: PRESENT: normocephalic Eye exam: PRESENT: conjunctiva pale, EOMI. ABSENT: nystagmus, periorbital swelling Mouth exam: PRESENT: dry mucosa, neck supple Teeth exam: PRESENT: edentulous Neck exam: ABSENT: carotid bruit, JVD, lymphadenopathy, thyromegaly, tracheal deviation, tracheostomy Respiratory exam: PRESENT: decreased breath sounds, prolonged expiratory phas, rales, rhonchi, unlabored. ABSENT: retraction, stridor Cardiovascular exam: PRESENT: irregular rhythm. ABSENT: tachycardia Pulses: PRESENT: normal radial pulses GI/Abdominal exam: PRESENT: hypoactive bowel sounds, soft. ABSENT: tenderness Extremities exam: ABSENT: calf tenderness, clubbing, joint swelling Musculoskeletal exam: ABSENT: deformity, dislocation Neurological exam: PRESENT: awake Psychiatric exam: PRESENT: flat affect Skin exam: PRESENT: dry, warm Results Laboratory Results: 10/22/17 05:50 10/22/17 05:50 10/22/17 10/22/17 05:50 05:50 WBC 4.7 RBC 3.07 L Hgb 10.1 L Hct 29.5 L MCV 96 MCH 33.0 MCHC 34.4 RDW 16.4 H Plt Count 156 Seg Neutrophils % 81.4 H Lymphocytes % 11.7 L Monocytes % 4.3 Eosinophils % 2.3 Basophils % 0.3 Absolute Neutrophils 3.8 Absolute Lymphocytes 0.6 Absolute Monocytes 0.2 Absolute Eosinophils 0.1 Absolute Basophils 0.0 Sodium 135.4 L Potassium 3.5 L Chloride 100 Carbon Dioxide 28 Anion Gap 7 BUN 20 Creatinine 0.49 L Est GFR ( Amer) > 60 Est GFR (Non-Af Amer) > 60 Glucose 111 H Calcium 8.2 L Total Bilirubin 0.3 AST 14 ALT 42 Alkaline Phosphatase 58 Total Protein 4.8 L Albumin 2.4 L 10/17/17 10/17/17 10/18/17 17:29 23:21 05:57 Troponin I 0.036 0.039 0.044 Impressions: Chest X-Ray 10/17/17 08:30 IMPRESSION: COPD. Small effusions. No significant change. Interventional Vascular Procedure 10/19/17 00:00 IMPRESSION: SUCCESSFUL PLACEMENT OF A 5 FR DUAL LUMEN 44 CM PICC IN THE LEFT BASILIC VEIN. PICC Line Insertion 10/19/17 00:00 IMPRESSION: SUCCESSFUL PLACEMENT OF A 5 FR DUAL LUMEN 44 CM PICC IN THE LEFT BASILIC VEIN. Assessment & Plan - Diagnosis (1) Acute and chronic respiratory failure Qualifiers: Respiratory failure complication: hypoxia and hypercapnia Qualified Code(s) : J96.21 - Acute and chronic respiratory failure with hypoxia; J96.22 - Acute and chronic respiratory failure with hypercapnia; J96.22 - Acute and chronic respiratory failure with hypercapnia; J96.22 - Acute and chronic respiratory failure with hypercapnia Is this a current diagnosis for this admission?: Yes Plan: Noninvasive positive pressure ventilation as needed (2) Atrial fibrillation with rapid ventricular response Is this a current diagnosis for this admission?: Yes Plan: Stable at this time (3) CHF (congestive heart failure) Qualifiers: Heart failure type: unspecified Heart failure chronicity: unspecified Qualified Code(s): I50.9 - Heart failure, unspecified Is this a current diagnosis for this admission?: Yes Plan: Improving (4) COPD (chronic obstructive pulmonary disease) Qualifiers: COPD type: COPD with acute exacerbation Qualified Code(s): J44.1 - Chronic obstructive pulmonary disease with (acute) exacerbation Is this a current diagnosis for this admission?: Yes Plan: Continue current bronchodilator therapy (5) Hospital-acquired pneumonia Is this a current diagnosis for this admission?: Yes Plan: 10/18/17 06:45 Gram Stain - Final Sputum Sputum Culture - Final Pseudomonas Aeruginosa Yeast, Not Elaine Albicans Reduced Normal Devi nebulized tobramycin 300 mg hand-held nebulizer twice daily
[2017-10-22] MEDS: MELATONIN 5 MG TABLET PO SCH (22:07)
[2017-10-22] MEDS: ZOLPIDEM TARTRATE 5 MG TABLET PO SCH (22:07)
[2017-10-22] MEDS: TRAMADOL HCL 50 MG TABLET PO PRN (22:07)
[2017-10-23] MEDS: DILTIAZEM HCL 60 MG TABLET PO SCH ×3 (00:15→10:59)
[2017-10-23] MEDS: LEVALBUTEROL HCL NEB 1.25 MG/3 ML AMPUL NEB SCH ×7 (00:25→23:26)
[2017-10-23] MEDS: VANCOMYCIN HCL 500 MG in NORMAL SALINE 100 ML IV SCH ×2 (05:47→18:29)
[2017-10-23] MEDS: LEVOTHYROXINE SODIUM 0.075 MG TABLET PO SCH (05:47)
[2017-10-23] MEDS: LANSOPRAZOLE 30 MG TAB.RAP.DR PO SCH (05:48)
[2017-10-23 06:10] LABS: HEMATOCRIT 28.1 % (36.0-47.0); HEMOGLOBIN 9.4 g/dL (12.0-15.5); MEAN CORPUSCULAR HEMOGLOBIN 32.4 pg (27.0-33.4); MEAN CORPUSCULAR HGB CONC 33.5 g/dL (32.0-36.0); MEAN CORPUSCULAR VOLUME 97 fl (80-97); PLATELET COUNT 157 10^3/uL (150-450); RED BLOOD COUNT 2.91 10^6/uL (3.72-5.28); RED CELL DISTRIBUTION WIDTH 15.9 % (11.5-14.0); WHITE BLOOD COUNT 5.1 10^3/uL (4.0-10.5)
[2017-10-23] MEDS: BISMUTH SUBSALICYLATE 262 MG TAB.CHEW PO SCH ×3 (09:42→18:23)
[2017-10-23] MEDS: POTASSIUM CHLORIDE 20 MEQ/15 ML UDCUP PO SCH (09:53)
[2017-10-23] MEDS: FUROSEMIDE INJ/PF 20 MG/2 ML SDV IV SCH ×2 (09:53→21:01)
[2017-10-23] MEDS: ENOXAPARIN SODIUM INJ 60 MG/0.6 ML DISP.SYRIN SUBCUT SCH ×2 (09:54→21:02)
[2017-10-23] MEDS: SERTRALINE HCL 50 MG TABLET PO SCH (10:00)
[2017-10-23] MEDS: SOTALOL HCL 80 MG TABLET PO SCH (10:00)
[2017-10-23] MEDS: DIGOXIN 0.125 MG TABLET PO SCH (10:00)
[2017-10-23] MEDS: PREDNISONE 20 MG TABLET PO SCH (10:00)
[2017-10-23] MEDS: NORMAL SALINE 10 ML SDV (SCHEDULED) IV SCH ×2 (10:02→21:01)
[2017-10-23] MEDS: TRAMADOL HCL 50 MG TABLET PO PRN ×2 (10:55→21:04)
--- NOTE | 2017-10-23 18:04 | PDOC PROGRESS REPORT ---
Subjective Progress Note for:: 10/23/17 Subjective:: The patient states that she is breathing better, but she is complaining of new abdominal pain in the left periumbilical area. Reason For Visit: ACUTE ON CHRONIC RESPIRATORY FAILURE,COPD Physical Exam Vital Signs: Temp Pulse Resp BP Pulse Ox 97.5 F 95 18 121/81 95 10/23/17 15:49 10/23/17 16:04 10/23/17 16:04 10/23/17 15:49 10/23/17 16:04 Intake & Output 10/22/17 10/23/17 10/24/17 06:59 06:59 06:59 Intake Total 774 1561 100 Balance 774 1561 100 Weight 118.4 kg 119.6 kg 54.5 kg General appearance: PRESENT: no acute distress, cooperative, thin, other - Elderly weak, and frail. Respiratory exam: PRESENT: other - No increased work of breathing. The patient is saturating well into the 90's on 2L O2.. ABSENT: rales, rhonchi, wheezes Cardiovascular exam: PRESENT: RRR, other - No lateral PMI. No thrills.. ABSENT : gallop, rubs, systolic murmur Pulses: PRESENT: other - diminished distal pulses. GI/Abdominal exam: PRESENT: normal bowel sounds, soft, tenderness. ABSENT: mass , organolmegaly Torso Front/Back Image: 1 - Area feels somewhat harder than surrounding tissue and is tender to touch. No ecchymosis. Rectal exam: PRESENT: deferred Extremities exam: ABSENT: clubbing, tenderness, +1 edema Musculoskeletal exam: PRESENT: normal inspection. ABSENT: deformity, dislocation Neurological exam: PRESENT: alert, awake, oriented to person, oriented to place , oriented to time, oriented to situation, CN II-XII grossly intact. ABSENT: motor sensory deficit Psychiatric exam: PRESENT: appropriate affect, normal mood Skin exam: PRESENT: dry, intact, warm Results Laboratory Results: 10/23/17 05:30 10/22/17 05:50 10/23/17 05:30 WBC 5.1 RBC 2.91 L Hgb 9.4 L Hct 28.1 L MCV 97 MCH 32.4 MCHC 33.5 RDW 15.9 H Plt Count 157 10/17/17 10/17/17 10/18/17 17:29 23:21 05:57 Troponin I 0.036 0.039 0.044 10/17/17 10/17/17 10/17/17 08:49 10:30 10:32 WBC 10.5 RBC 3.37 L Hgb 11.0 L Hct 32.7 L MCV MCH MCHC RDW 15.9 H Plt Count 272 Total Counted 100 Seg Neutrophils % Not Reportable Seg Neuts % (Manual) 92 H ABG pH 7.54 H ABG pCO2 27.6 L ABG pO2 64.6 L ABG HCO3 23.1 Sodium 136.9 L Potassium 3.4 L Chloride 101 Carbon Dioxide 26 Anion Gap 10 BUN 40 H Creatinine 0.64 10/22/17 10/23/17 05:50 05:30 WBC 4.7 5.1 RBC 3.07 L 2.91 L Hgb 10.1 L 9.4 L Hct 29.5 L 28.1 L MCV 96 97 MCH 33.0 32.4 MCHC 34.4 33.5 RDW 16.4 H 15.9 H Plt Count 156 157 Total Counted Seg Neutrophils % Seg Neuts % (Manual) ABG pH ABG pCO2 ABG pO2 ABG HCO3 Sodium Potassium Chloride Carbon Dioxide Anion Gap BUN Creatinine Impressions: Chest X-Ray 10/17/17 08:30 IMPRESSION: COPD. Small effusions. No significant change. Interventional Vascular Procedure 10/19/17 00:00 IMPRESSION: SUCCESSFUL PLACEMENT OF A 5 FR DUAL LUMEN 44 CM PICC IN THE LEFT BASILIC VEIN. PICC Line Insertion 10/19/17 00:00 IMPRESSION: SUCCESSFUL PLACEMENT OF A 5 FR DUAL LUMEN 44 CM PICC IN THE LEFT BASILIC VEIN. Assessment & Plan - Diagnosis (1) Acute and chronic respiratory failure Qualifiers: Respiratory failure complication: hypoxia and hypercapnia Qualified Code(s) : J96.21 - Acute and chronic respiratory failure with hypoxia; J96.22 - Acute and chronic respiratory failure with hypercapnia; J96.22 - Acute and chronic respiratory failure with hypercapnia; J96.22 - Acute and chronic respiratory failure with hypercapnia Is this a current diagnosis for this admission?: Yes Plan: Respiratory status is at baseline. (2) COPD exacerbation Is this a current diagnosis for this admission?: Yes Plan: Nebulizer treatments and IV steroids. Improved. Change IV steroids to PO. (3) Atrial fibrillation with rapid ventricular response Is this a current diagnosis for this admission?: Yes Plan: The patient's heart rate is controlled. Will change to a CD formulation. (4) Leukocytosis Qualifiers: Leukocytosis type: leukemoid reaction Qualified Code(s): D72.823 - Leukemoid reaction Is this a current diagnosis for this admission?: Yes (5) Lactic acidosis Is this a current diagnosis for this admission?: Yes (6) Healthcare associated bacterial pneumonia Is this a current diagnosis for this admission?: Yes (7) Debility Is this a current diagnosis for this admission?: Yes Plan: The patient will likely require rehab. (8) Abdominal pain Is this a current diagnosis for this admission?: Yes Plan: Possibly due to lovenox, but there is no ecchymosis visible. I will check a CT abdomen/pelvis with oral and IV contrast. - Time Time Spent with patient: 35 or more minutes Medications reviewed and adjusted accordingly: Yes Anticipated discharge: SNF
--- NOTE | 2017-10-23 18:22 | RADIOLOGY REPORT (SQ) ---
EXAM DESCRIPTION: CT ABD/PELVIS WITH IV ORAL COMPLETED DATE/TIME: 10/23/2017 6:05 pm REASON FOR STUDY: Abdominal pain COMPARISON: 08/22/2017 TECHNIQUE: CT scan of the abdomen and pelvis performed using helical scanning technique with dynamic intravenous contrast injection. Oral contrast. Images reviewed with lung, soft tissue, and bone win dows. Reconstructed coronal and sagittal MPR images reviewed. Delayed images for evaluation of the ur inary system also acquired. All images stored on PACS. All CT scanners at this facility use dose modulation, iterative reconstruction, and/or weight based d osing when appropriate to reduce radiation dose to as low as reasonably achievable (ALARA). [facility]: Dose Right [facility]: CareDose [facility]: Dose Right [facility]: Teradose 4D [facility]: JibJab CONTRAST TYPE AND DOSE: contrast/concentration: Isovue 350.00 mg/ml; Total Contrast Delivered: 58.0 ml; Total Saline Delivered: 45.0 ml RENAL FUNCTION: BUN 20 creatinine 0.5 RADIATION DOSE: CT Rad equipment meets quality standard of care and radiation dose reduction techniq ues were employed. CTDIvol: 4.8 - 5.1 mGy. DLP: 537 mGy-cm.. LIMITATIONS: None. FINDINGS: LOWER CHEST: Moderate pleural effusions. Subsegmental atelectasis in the left lower lobe. 2 cm right lower lobe pulmonary nodule. LIVER: The air in the bile ducts. No hepatic masses. SPLEEN: Normal size. No focal lesions. PANCREAS: No masses. No significant calcifications. No adjacent inflammation or peripancreatic fluid collections. Pancreatic duct not dilated. GALLBLADDER: Surgically absent. ADRENAL GLANDS: 22 mm low-density right adrenal nodule. 18 mm low-density left adrenal nodule. RIGHT KIDNEY AND URETER: No solid masses. No significant calcifications. No hydronephrosis or hyd roureter. LEFT KIDNEY AND URETER: No solid masses. No significant calcifications. No hydronephrosis or hydr oureter. 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 Ectasia of the aorta at the bifurcat ion with a maximum diameter of 3 cm. RETROPERITONEUM: No retroperitoneal adenopathy, hemorrhage or masses. BOWEL AND PERITONEAL CAVITY: No masses or inflammatory changes. No free fluid or peritoneal masses. APPENDIX: Normal. PELVIS: No mass. No free fluid. Normal bladder. ABDOMINAL WALL: Wall mass anteriorly associated with the rectus muscles. There is a fluid fluid leve l. BONES: Lumbar degenerative disc changes. No osseous lesions. OTHER: No other significant finding. IMPRESSION: 1. Large rectus sheath hematoma. 2. Bilateral adrenal nodules. 3. 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 Ectasia of the infrarenal abdominal aorta at the bi furcation with a maximum diameter 3 cm. 4. Right lower lobe pulmonary nodule. Pleural effusions. TECHNICAL DOCUMENTATION: JOB ID: [id number] Quality ID # [id number]: Final reports with documentation of one or more dose reduction techniques (e.g., Au tomated exposure control, adjustment of the mA and/or kV according to patient size, use of iterative reconstruction technique) 2010 [employer]- All Rights Reserved Reading location - IP/workstation name: [email or web address]
[2017-10-23] MEDS: MONTELUKAST SODIUM 10 MG TABLET PO SCH (18:28)
[2017-10-23] MEDS: CEFEPIME 2 GM/D5W RTU 2 GM/50 ML RTUPB IV SCH (18:29)
[2017-10-23] MEDS: ZOLPIDEM TARTRATE 5 MG TABLET PO SCH (21:01)
[2017-10-23] MEDS: MELATONIN 5 MG TABLET PO SCH (21:01)
[2017-10-24] MEDS ORDERED: MORPHINE SULFATE 10 MG/ML INJ ONE (00:35)
[2017-10-24] MEDS ORDERED: MORPHINE SULFATE 10 MG/ML INJ IV PRN ×4 (00:46→12:22)
[2017-10-24] MEDS: LEVALBUTEROL HCL NEB 1.25 MG/3 ML AMPUL NEB SCH ×3 (04:06→12:33)
[2017-10-24] MEDS: LORAZEPAM 0.5 MG TABLET PO PRN (04:20)
[2017-10-24] MEDS: LEVOTHYROXINE SODIUM 0.075 MG TABLET PO SCH (05:19)
[2017-10-24] MEDS: LANSOPRAZOLE 30 MG TAB.RAP.DR PO SCH (05:20)
[2017-10-24] MEDS ORDERED: FUROSEMIDE INJ/PF 20 MG/2 ML SDV IV SCH (06:00)
[2017-10-24 07:44] VITALS: BP 101/72
[2017-10-24] MEDS ORDERED: DILTIAZEM HCL 240 MG CAPSULE.CR PO SCH (10:00)
[2017-10-24] MEDS ORDERED: PROMETHAZINE HCL INJ 25 MG/1 ML VIAL IV PRN (10:58)
[2017-10-24] MEDS: SOTALOL HCL 80 MG TABLET PO SCH (11:28)
[2017-10-24] MEDS: PREDNISONE 20 MG TABLET PO SCH (11:29)
[2017-10-24] MEDS: DIGOXIN 0.125 MG TABLET PO SCH (11:30)
[2017-10-24] MEDS: BISMUTH SUBSALICYLATE 262 MG TAB.CHEW PO SCH (11:31)
[2017-10-24] MEDS: SERTRALINE HCL 50 MG TABLET PO SCH (11:32)
[2017-10-24] MEDS ORDERED: LORAZEPAM INJ 2 MG/1 ML VIAL IV PRN (12:22)
--- NOTE | 2017-10-24 14:56 | Death Summary ---
Summary Date : 10/24/17 Time of :: 02:05 Autopsy: No Resuscitation Status: Other - Comfort Care - Final Diagnosis (1) Acute and chronic respiratory failure with hypoxia Is this a current diagnosis for this admission?: Yes (2) Atrial fibrillation with rapid ventricular response Is this a current diagnosis for this admission?: Yes (3) COPD exacerbation Is this a current diagnosis for this admission?: Yes (4) Healthcare associated bacterial pneumonia Is this a current diagnosis for this admission?: Yes Hospital Course:: This is a 82 years old female [place] resident admitted for acute on chronic respiratory failure, healthcare associated pneumonia and atrial fibrillation with RVR. Patient has been managed accordingly with breathing treatment, steroids and supplemental oxygen for her respiratory failure and Cardizem drip for A. fib RVR and with cefepime for healthcare associated pneumonia since her sputum culture grew pseudomonas aeruginosa which is pansensitive. Despite all this treatment patient's condition is gradually deteriorated and the family requested comfort care. While she is being treated with Ativan for sedation and morphine for pain patient could not come out of her situation and pronounced at 2.05 PM.
== END 2017-10-24 16:14 | DRG 189 ==
LOC: ER 07:13 → EH 12:33 → 3W 21:05
PROVIDERS: ADMIT Internal Medicine; ATTEND Internal Medicine
PROC: 3E0F73Z Introduction of Anti-inflammatory into Respiratory Tract, Via Natural or Artificial Opening (ICD-10-PCS; principal; 2017-10-17)
PROC: 5A09557 Assistance with Respiratory Ventilation, Greater than 96 Consecutive Hours, Continuous Positive Airway Pressure (ICD-10-PCS; 2017-10-17)
PROC: 02HV33Z Insertion of Infusion Device into Superior Vena Cava, Percutaneous Approach (ICD-10-PCS; 2017-10-19)
PROC: B548ZZA Ultrasonography of Superior Vena Cava, Guidance (ICD-10-PCS; 2017-10-19)
DX: J96.21 Acute and chronic respiratory failure with hypoxia (principal); J15.9 Unspecified bacterial pneumonia; J44.1 Chronic obstructive pulmonary disease with (acute) exacerbation; J44.0 Chronic obstructive pulmonary disease with (acute) lower respiratory infection; E87.2 Acidosis; J96.22 Acute and chronic respiratory failure with hypercapnia; Z51.5 Encounter for palliative care; I48.91 Unspecified atrial fibrillation; B96.5 Pseudomonas (aeruginosa) (mallei) (pseudomallei) as the cause of diseases classified elsewhere; I50.9 Heart failure, unspecified; E78.00 Pure hypercholesterolemia, unspecified; I11.0 Hypertensive heart disease with heart failure; E03.9 Hypothyroidism, unspecified; K21.9 Gastro-esophageal reflux disease without esophagitis; M19.90 Unspecified osteoarthritis, unspecified site; K44.9 Diaphragmatic hernia without obstruction or gangrene; F17.210 Nicotine dependence, cigarettes, uncomplicated; D72.823 Leukemoid reaction; Z79.899 Other long term (current) drug therapy; Z91.048 Other nonmedicinal substance allergy status; Z85.528 Personal history of other malignant neoplasm of kidney; Z99.81 Dependence on supplemental oxygen; Z90.49 Acquired absence of other specified parts of digestive tract; Z90.710 Acquired absence of both cervix and uterus; Z88.3 Allergy status to other anti-infective agents; Z88.0 Allergy status to penicillin; Z88.8 Allergy status to other drugs, medicaments and biological substances; Z82.61 Family history of arthritis; Z82.3 Family history of stroke; Z80.9 Family history of malignant neoplasm, unspecified; Z82.49 Family history of ischemic heart disease and other diseases of the circulatory system
CPT/HCPCS: 36415; 36569; 71045; 74177; 76937; 80048; 80053; 80202; 81001; 82272; 82565; 82803; 83605; 83735; 83880; 84484; 85025; 85027; 87040; 87070; 87077; 87186; 87205; 93005; 93010; 94660; 99285; J0692; J1642; J1650; J1940; J2060; J2270; J2405; J2550; J3370; J3490; J7512; J7620